=== PATIENT | female | born 1945 | race Caucasian/White ===

== ENCOUNTER 2017-01-20 18:33 | Emergency (ER) | payer OTHER ==
[~2017-01-20] VITALS: Ht 172.7 cm; Wt 97.0 kg
[~2017-01-20 18:33] MED LIST: ADDE20 PO; ADVA500A INH; ASPI-110 PO; CYCL1TAB29 PO; HYDR-3516 PO; IPRASOL NEB; LISI-519 PO; POTA-245 PO; SPIRCAP INH
[2017-01-20 18:35] VITALS: BP 150/77; PULSE 92; RESP 20; TEMP 97.8; O2SAT 97
== END 2017-01-20 22:04 | disposition left against medical advice (07) ==
LOC: NED 18:33
DX: R10.9 Unspecified abdominal pain (principal); Z53.29 Procedure and treatment not carried out because of patient's decision for other reasons
CPT/HCPCS: 99281

== ENCOUNTER 2017-02-26 15:38 | Emergency (ER) | payer MEDICAID, OTHER ==
[~2017-02-26] VITALS: Ht 172.7 cm; Wt 100.0 kg
[2017-02-26 15:42] VITALS: BP 168/88; PULSE 107; RESP 16; TEMP 98.6; O2SAT 95
--- NOTE | 2017-02-26 15:52 | PD ---
Physical Exam Date Seen by Provider: Feb 26, 2017 Time Seen by Provider: 15:48 Narrative Pt is a 71 year old female presenting to the ED for evaluation of facial spasms , heart flutters, right sided abdominal pain. Pt states the pain is a 8/10. She reports facial spasms in the past secondary to cancer. She was sent by her PCP Dr. Mike. She reports being incontinent of urine for the last week as well. Pt reports nausea, no vomiting. There are reported sores in her mouth as well that inhibit her putting her teeth in. Data Data Last Documented VS Vital Signs Date Time Temp Pulse Resp B/P Pulse Ox O2 Delivery O2 Flow Rate FiO2 02/26/17 15:42 98.6 107 16 168/88 95 MDM Supervised Visit with JUAN ANTONIO: Amelia Garduno Feb 26, 2017 15:51
[2017-02-26] MEDS ORDERED: SODIUM CHLOR 0.9% 1000 ML INJ 1,000 ML IV SCH (16:03)
[2017-02-26] MEDS ORDERED: ONDANSETRON HCL 4 MG/2 ML VIAL IVP ONE (16:15)
[2017-02-26] MEDS ORDERED: AMLO10TA2 PO (16:15)
[2017-02-26] MEDS ORDERED: MORPHINE SULFATE 4 MG/ML INJ IV PUSH ONE ×2 (16:15→20:30)
[2017-02-26] MEDS ORDERED: FLUT1INH INH (16:15)
[2017-02-26] MEDS ORDERED: UMEC1AER INH (16:16)
[2017-02-26 16:56] LABS: AUTOMATED NEUTROPHIL # 5.4 TH/MM3 (1.8-7.7); BASOPHIL % 0.3 % (0.0-2.0); EOSINOPHIL # 0.1 TH/MM3 (0-0.4); EOSINOPHIL % 0.8 % (0.0-4.0); HEMATOCRIT 38.6 % (35.0-46.0); HEMO FLAGS DIFF FINAL; LYMPH % 10.4 % (9.0-44.0); LYMPHOCYTE # 0.7 TH/MM3 (1.0-4.8); MEAN CELL VOLUME 85.8 FL (80.0-100.0); MEAN CORPUSCULAR HEMOGLOBIN 27.8 PG (27.0-34.0); MEAN CORPUSCULAR HGB CONC 32.4 % (32.0-36.0); MONO % 4.7 % (0.0-8.0); NEUT % 83.8 % (16.0-70.0); PLATELET COUNT 180 TH/MM3 (150-450); WHITE BLOOD COUNT 6.5 TH/MM3 (4.0-11.0)
[2017-02-26 17:04] LABS: APTT (PATIENT) 21.5 SEC (24.3-30.1); BLOOD, URINE NEG (NEG); COMMENT (UR) CULT NOT INDICATED; CULTURE IF INDICATED CULT NOT INDICATED; GLUCOSE,URINE NEG (NEG); HYALINE CAST, URINE 5 /lpf (RARE); INTERNATIONAL NORMALIZED RATIO 0.9 RATIO; KETONE, URINE NEG (NEG); NITRITE,URINE NEG (NEG); PROTHROMBIN TIME - PATIENT 9.6 SEC (9.8-11.6); SQUAMOUS EPITHELIAL CELL URINE 6 /hpf (0-5); URINE COLOR YELLOW (YELLW/STRAW)
--- NOTE | 2017-02-26 17:11 | PD ---
HPI Chief Complaint: Abdominal Pain Time Seen by Provider: 17:04 Travel History International Travel<30 days: No Contact w/Intl Traveler<30days: No Traveled to known affect area: No History of Present Illness HPI 71-year-old female that presents to the ED for evaluation of abdominal pain. Per patient she's had right lower quadrant pain for the past few days. Per patient she was seen at a hospital about 2 weeks ago and was diagnosed with diverticulitis. She was given medications for this. Per patient she went to see her doctor Dr. Mike today and was told to come here to the ED to get evaluated for this. Patient has also right-sided facial weakness and numbness which per patient is chronic for her. She does have a history of tremor to was removed on her right face and ever since she's been having difficulty with the right side. Patient gets muscle spasms on the right side of her face. Per patient he seemed to start again today. Per patient she has no sensation deficits were more like muscle spasms on her right side of her face which causes her difficulty to talk and move on her face. She states that she's also been having for the past 2 weeks incontinence of urine and bowel movements. She denies any chest pain or shortness of breath. Per patient she's had no injuries to her back. Per patient incontinence is new and is not constant however. She has to use a diaper because she doesn't feel like when the urine or bowel movements or going. She was sent here by her doctor for evaluation of this. Apparently also per Dr. Mike's note she's having right-sided weakness and numbness but she denies this. She does tell me that she has chronic lower leg numbness which has not changed from prior and she believes that her inbalance because of this. She states that her pain is 7 out of 10. Per patient the pain is sharp on the right lower quadrant. 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, LUPUS ) Psychiatric: No Reproductive: No Respiratory: Yes (COPD) Radiation Therapy: Yes Thyroid Disease: No Tetanus Vaccination: > 5 Years Influenza Vaccination: Yes Menopausal: Yes : 2 Para: 2 Miscarriage: 0 : 0 Tubal Ligation: Yes Past Surgical History Abdominal Surgery: Yes (TUMMY TUCK) Appendectomy: Yes Cholecystectomy: Yes Coronary Artery Bypass Graft: No Other Surgery: Yes (FACIAL SX FOR CA, BREAST REDUCTION) Family History Family Myocardial Infarction: Yes (mom, grandmother) Social History Alcohol Use: No Tobacco Use: Yes (QUIT PD HX) Substance Use: No Allergies-Medications (Allergen,Severity, Reaction): Coded Allergies: No Known Allergies (Verified , 02/26/17) Reported Meds & Prescriptions Reported Meds & Active Scripts Active Flagyl (Metronidazole) 500 Mg Tab 500 Mg PO Q8HR 10 Days Lortab (Hydrocodone-Acetaminophen) 5-325 Mg Tab 1 Tab PO Q6H PRN Reported Anoro Ellipta Inh (Umeclidinium/Vilanterol) 62.5-25 Mcg/Act Aero 1 Puff INH DAILY Amlodipine (Amlodipine Besylate) 10 Mg Tab 10 Mg PO DAILY Aspirin 81 (Aspirin) 81 Mg Tabdr 81 Mg PO DAILY Review of Systems Except as stated in HPI: all other systems reviewed are Neg Physical Exam Narrative GENERAL: SKIN: Warm and dry. HEAD: Atraumatic. Normocephalic. EYES: Pupils equal and round 4 mm right lung accommodation. No scleral icterus. No injection or drainage. ENT: No nasal bleeding or discharge. Mucous membranes pink and moist. Tongue is midline. No uvula deviation. Patient has chronic deformity to the right side of the face. Patient has what appears to be surgical scars. She does have some deficits to the right of the face with facial droop on the right side only. Left appears to be intact. NECK: Trachea midline. No JVD. CARDIOVASCULAR: Regular rate and rhythm. No murmurs, S3, S4. RESPIRATORY: No accessory muscle use. Clear to auscultation. Breath sounds equal bilaterally. GASTROINTESTINAL: Abdomen soft, non-tender, nondistended. Hepatic and splenic margins not palpable. MUSCULOSKELETAL: Extremities without clubbing, cyanosis, or edema. No obvious deformities. Full range of motion of the upper and lower extremities bilaterally. 2+ pulses bilaterally. Strength is 5 out of 5 bilaterally. Sensation intact bilaterally. No lumbar, thoracic, cervical spine tender to palpation. NEUROLOGICAL: Awake and alert. No obvious cranial nerve deficits. Motor grossly within normal limits. Five out of 5 muscle strength in the arms and legs. Normal speech. PSYCHIATRIC: Appropriate mood and affect; insight and judgment normal. Data Data Last Documented VS Orders Orders Electrocardiogram (02/26/17 16:03) Complete Blood Count With Diff (02/26/17 16:03) Comprehensive Metabolic Panel (02/26/17 16:03) Prothrombin Time / Inr (Pt) (02/26/17 16:03) Act Partial Throm Time (Ptt) (02/26/17 16:03) Urinalysis - C+S If Indicated (02/26/17 16:03) Magnesium (Mg) (02/26/17 16:03) Thyroid Stimulating Hormone (02/26/17 16:03) Ct Brain W/O Iv Contrast(Rout) (02/26/17 16:03) Ct Abd/Pel W Iv Contrast(Rout) (02/26/17 16:03) Iv Access Insert/Monitor (02/26/17 16:03) Ecg Monitoring (02/26/17 16:03) Oximetry (02/26/17 16:03) Lactic Acid (02/26/17 16:03) Morphine Inj (Morphine Inj) (02/26/17 16:15) Ondansetron Inj (Zofran Inj) (02/26/17 16:15) Sodium Chlor 0.9% 1000 Ml Inj (Ns 1000 M (02/26/17 16:03) Iohexol 350 Inj (Omnipaque 350 Inj) (02/26/17 18:12) Albuterol Neb (Albuterol Neb) (02/26/17 19:15) Chest, Single Ap (02/26/17 ) Morphine Inj (Morphine Inj) (02/26/17 20:30) Labs Laboratory Tests Test 02/26/17 16:35 White Blood Count 6.5 TH/MM3 Red Blood Count 4.50 MIL/MM3 Hemoglobin 12.5 GM/DL Hematocrit 38.6 % Mean Corpuscular Volume 85.8 FL Mean Corpuscular Hemoglobin 27.8 PG Mean Corpuscular Hemoglobin Concent 32.4 % Red Cell Distribution Width 15.0 % Platelet Count 180 TH/MM3 Mean Platelet Volume 8.4 FL Neutrophils (%) (Auto) 83.8 % Lymphocytes (%) (Auto) 10.4 % Monocytes (%) (Auto) 4.7 % Eosinophils (%) (Auto) 0.8 % Basophils (%) (Auto) 0.3 % Neutrophils # (Auto) 5.4 TH/MM3 Lymphocytes # (Auto) 0.7 TH/MM3 Monocytes # (Auto) 0.3 TH/MM3 Eosinophils # (Auto) 0.1 TH/MM3 Basophils # (Auto) 0.0 TH/MM3 CBC Comment DIFF FINAL Differential Comment Prothrombin Time 9.6 SEC Prothromb Time International Ratio 0.9 RATIO Activated Partial Thromboplast Time 21.5 SEC Urine Color YELLOW Urine Turbidity HAZY Urine pH 5.0 Urine Specific [place] 1.033 Urine Protein TRACE mg/dL Urine Glucose (UA) NEG mg/dL Urine Ketones NEG mg/dL Urine Occult Blood NEG Urine Nitrite NEG Urine Bilirubin NEG Urine Urobilinogen 2.0 MG/DL Urine Leukocyte Esterase MOD Urine WBC 3 /hpf Urine Squamous Epithelial Cells 6 /hpf Urine Hyaline Casts 5 /lpf Microscopic Urinalysis Comment CULT NOT INDICATED Blood Urea Nitrogen 16 MG/DL Creatinine 0.83 MG/DL Random Glucose 163 MG/DL Total Protein 6.7 GM/DL Albumin 3.4 GM/DL Calcium Level 8.0 MG/DL Magnesium Level 2.0 MG/DL Alkaline Phosphatase 91 U/L Aspartate Amino Transf (AST/SGOT) 32 U/L Alanine Aminotransferase (ALT/SGPT) 57 U/L Total Bilirubin 0.3 MG/DL Sodium Level 138 MEQ/L Potassium Level 4.0 MEQ/L Chloride Level 104 MEQ/L Carbon Dioxide Level 27.5 MEQ/L Anion Gap 7 MEQ/L Estimat Glomerular Filtration Rate 68 ML/MIN Lactic Acid Level 1.3 mmol/L Thyroid Stimulating Hormone 3rd Gen 0.239 uIU/ML MDM Medical Decision Making Medical Screen Exam Complete: Yes Emergency Medical Condition: Yes Medical Record Reviewed: Yes Interpretation(s) CBC & BMP Diagram 02/26/17 16:35 LFTs and lipase WNL UA negative Last Impressions Head CT 02/26/17 1603 Signed Impressions: Service Date/Time: Sunday, February 26, 2017 18:00 - CONCLUSION: 1. No acute intracranial abnormalities. Mucosal thickening in the right maxillary sinus. Eduardo Coughlin MD Abdomen/Pelvis CT 02/26/17 1603 Signed Impressions: Service Date/Time: Sunday, February 26, 2017 18:07 - CONCLUSION: 1. Postoperative appendectomy, cholecystectomy and hysterectomy. 2. Colonic diverticulosis without diverticulitis. No acute findings within the abdomen and pelvis. Fatty liver. 3. Moderate coronary calcifications. Eduardo Coughlin MD Chest X-Ray 02/26/17 0000 Signed Impressions: Service Date/Time: Sunday, February 26, 2017 19:46 - CONCLUSION: 1. No acute findings. Minimal basal atelectasis. Mild elevation right hemidiaphragm. Eduardo Couhglin MD Differential Diagnosis Acute chronic appears his stated failure versus TIA versus CVA versus neurological deficit versus diarrhea versus abdominal pain versus pancreatitis versus UTI versus urinary symptoms versus weakness Narrative Course 71-year-old female that presents to the ED for evaluation of weakness to the right side of the face as well as right lower quadrant abdominal pain. Patient was properly examined and was found to have signs and symptoms of unclear etiology at this time. There are facial droop and weakness appears to be chronic for her and she even tells us this. She is to stay on her feet but she attributes this to numbness that is chronic to her lower legs. Case was discussed in my attending who agrees with plan. Labs and imaging will be ordered. Labs and imaging were essentially unremarkable. EKG unremarkable. Case discussed in my attending Dr Degroot who evaluated the patient himself with me and who agrees with plan. Patient feels improved after morphine. At this time we'll treat for her pain with Lortab and Flagyl. Told to follow with PCP. See ED for any worsening symptoms. All questions were answered to the best of my ability. Diagnosis Primary Impression: Abdominal pain Patient Instructions: General Instructions Additional Instructions: Take medications as prescribed. Follow-up with PCP. See ED for any worsening symptoms. Do not drink or drive while taking pain medication. Apply ice or heat as needed for pain Med/Other Pt SpecificInfo: Prescription(s) given Scripts Metronidazole (Flagyl) 500 Mg Tab 500 MG PO Q8HR for Infection for 10 Days, TAB 0 Refills Prov: Sal Degroot MD 02/26/17 Hydrocodone-Acetaminophen (Lortab) 5-325 Mg Tab 1 TAB PO Q6H Y for PAIN, #20 TAB Prov: Sal Degroot MD 02/26/17 Disposition: 01 DISCHARGE HOME Condition: Stable Jamarcus Reyes Feb 26, 2017 17:11
[2017-02-26 17:23] LABS: ANION GAP 7 MEQ/L (5-15); AST (GOT) 32 U/L (15-37); BICARBONATE 27.5 MEQ/L (21.0-32.0); BLOOD UREA NITROGEN 16 MG/DL (7-18); CHLORIDE 104 MEQ/L (98-107); GLOMERULAR FILTRATION RATE 68 ML/MIN (>89); SODIUM (NA) 138 MEQ/L (136-145)
[2017-02-26 17:28] LABS: ALKALINE PHOSPHATASE 91 U/L (45-117); ALT (GPT) 57 U/L (10-53); TOTAL BILIRUBIN ADULT 0.3 MG/DL (0.2-1.0)
[2017-02-26] MEDS ORDERED: IOHEXOL 350 MG/ML 10 ML VIAL (for RAD DIAG) IV ONE (18:12)
--- NOTE | 2017-02-26 18:18 | RADRPT ---
EXAM DATE/TIME: 02/26/2017 18:00 [facility] COMPARISON: CT BRAIN W/O CONTRAST, May 20, 2016, 14:52. INDICATIONS : Patient complains of dizziness and feeling lethargic. RADIATION DOSE: 51.43 CTDIvol (mGy) MEDICAL HISTORY : Cardiovascular disease. Hypertension. Right parotid gland cancer SURGICAL HISTORY : Appendectomy. Cholecystectomy.Hysterectomy. ENCOUNTER: Initial ACUITY: 1 day PAIN SCALE: 3/10 LOCATION: cranial TECHNIQUE: Multiple contiguous axial images were obtained of the head. Using automated exposure control and adj ustment of the mA and/or kV according to patient size, radiation dose was kept as low as reasonably a chievable to obtain optimal diagnostic quality images. DICOM format image data is available electro nically for review and comparison. FINDINGS: CEREBRUM: The ventricles are normal for age. No evidence of midline shift, mass lesion, hemorrhage or acute in farction. No extra-axial fluid collections are seen. POSTERIOR FOSSA: The cerebellum and brainstem are intact. The 4th ventricle is midline. The cerebellopontine angle i s unremarkable. EXTRACRANIAL: The visualized portion of the orbits is intact. SKULL: The calvaria is intact. No evidence of skull fracture. CONCLUSION: 1. No acute intracranial abnormalities. Mucosal thickening in the right maxillary sinus. Eduardo Coguhlin MD on February 26, 2017 at 18:15 Board Certified Radiologist. This report was verified electronically.
--- NOTE | 2017-02-26 18:41 | RADRPT ---
EXAM DATE/TIME: 02/26/2017 18:07 [facility] COMPARISON: No previous studies available for comparison. INDICATIONS : Right lower quadrant pain. IV CONTRAST: 97 cc Omnipaque 350 (iohexol) IV ORAL CONTRAST: No oral contrast ingested. RADIATION DOSE: 15.61 CTDIvol (mGy) MEDICAL HISTORY : Cardiovascular disease. Congestive heart failure. Hypertension.Parotid gland cancer SURGICAL HISTORY : Appendectomy. Cholecystectomy.Hysterectomy. ENCOUNTER: Initial ACUITY: 2 days PAIN SCALE: 6/10 LOCATION: Right lower quadrant abdomen TECHNIQUE: Volumetric scanning of the abdomen and pelvis was performed. Using automated exposure control and ad justment of the mA and/or kV according to patient size, radiation dose was kept as low as reasonably achievable to obtain optimal diagnostic quality images. DICOM format image data is available electro nically for review and comparison. FINDINGS: Lung bases are clear except for minimal atelectasis. Fatty infiltration of the liver. Spleen, adrenal s, kidneys pancreas unremarkable. Previous cholecystectomy. No biliary ductal dilatation. There is no free fluid. No bowel obstruction. No adenopathy. There is colonic diverticulosis without evidence for diverticulitis. There is an elevated right hemidiaphragm. Moderate coronary artery calci fications are noted. Postoperative appendectomy. CONCLUSION: 1. Postoperative appendectomy, cholecystectomy and hysterectomy. 2. Colonic diverticulosis without diverticulitis. No acute findings within the abdomen and pelvis. Fa tty liver. 3. Moderate coronary calcifications. Eduardo Coughlin MD on February 26, 2017 at 18:35 Board Certified Radiologist. This report was verified electronically.
[2017-02-26 19:02] VITALS: BP 144/75; PULSE 108; RESP 20; O2SAT 95
[2017-02-26 19:40] VITALS: O2SAT 99
[2017-02-26] MEDS: RESP: ALBUTEROL 2.5 MG/3 ML NEB (SCH) INH (19:48)
--- NOTE | 2017-02-26 20:08 | RADRPT ---
EXAM DATE/TIME: 02/26/2017 19:46 [facility] COMPARISON: CHEST SINGLE AP, May 20, 2016, 14:29. INDICATIONS : Patient complains of cough and shortness of breath. MEDICAL HISTORY : Chronic obstructive pulmonary disease. Congestive heart failure. SURGICAL HISTORY : None. ENCOUNTER: Initial ACUITY: 1 week PAIN SCORE: 0/10 LOCATION: chest FINDINGS: A single view of the chest demonstrates the lungs to be symmetrically aerated without evidence of mas s, infiltrate or effusion. Minimal basal atelectasis. The cardiomediastinal contours are unremarkable . Osseous structures are intact. CONCLUSION: 1. No acute findings. Minimal basal atelectasis. Mild elevation right hemidiaphragm. Eduardo Coughlin MD on February 26, 2017 at 20:05 Board Certified Radiologist. This report was verified electronically.
--- NOTE | 2017-02-26 20:12 | PD ---
Data Data Last Documented VS Vital Signs Date Time Temp Pulse Resp B/P Pulse Ox O2 Delivery O2 Flow Rate FiO2 02/26/17 19:40 99 02/26/17 19:02 108 20 144/75 Room Air 02/26/17 15:42 98.6 Orders Electrocardiogram (02/26/17 16:03) Complete Blood Count With Diff (02/26/17 16:03) Comprehensive Metabolic Panel (02/26/17 16:03) Prothrombin Time / Inr (Pt) (02/26/17 16:03) Act Partial Throm Time (Ptt) (02/26/17 16:03) Urinalysis - C+S If Indicated (02/26/17 16:03) Magnesium (Mg) (02/26/17 16:03) Thyroid Stimulating Hormone (02/26/17 16:03) Ct Brain W/O Iv Contrast(Rout) (02/26/17 16:03) Ct Abd/Pel W Iv Contrast(Rout) (02/26/17 16:03) Iv Access Insert/Monitor (02/26/17 16:03) Ecg Monitoring (02/26/17 16:03) Oximetry (02/26/17 16:03) Lactic Acid (02/26/17 16:03) Morphine Inj (Morphine Inj) (02/26/17 16:15) Ondansetron Inj (Zofran Inj) (02/26/17 16:15) Sodium Chlor 0.9% 1000 Ml Inj (Ns 1000 M (02/26/17 16:03) Iohexol 350 Inj (Omnipaque 350 Inj) (02/26/17 18:12) Albuterol Neb (Albuterol Neb) (02/26/17 19:15) Chest, Single Ap (02/26/17 ) Morphine Inj (Morphine Inj) (02/26/17 20:30) Labs Laboratory Tests Test 02/26/17 16:35 White Blood Count 6.5 TH/MM3 Red Blood Count 4.50 MIL/MM3 Hemoglobin 12.5 GM/DL Hematocrit 38.6 % Mean Corpuscular Volume 85.8 FL Mean Corpuscular Hemoglobin 27.8 PG Mean Corpuscular Hemoglobin 32.4 % Concent Red Cell Distribution Width 15.0 % Platelet Count 180 TH/MM3 Mean Platelet Volume 8.4 FL Neutrophils (%) (Auto) 83.8 % Lymphocytes (%) (Auto) 10.4 % Monocytes (%) (Auto) 4.7 % Eosinophils (%) (Auto) 0.8 % Basophils (%) (Auto) 0.3 % Neutrophils # (Auto) 5.4 TH/MM3 Lymphocytes # (Auto) 0.7 TH/MM3 Monocytes # (Auto) 0.3 TH/MM3 Eosinophils # (Auto) 0.1 TH/MM3 Basophils # (Auto) 0.0 TH/MM3 CBC Comment DIFF FINAL Differential Comment Prothrombin Time 9.6 SEC Prothromb Time International 0.9 RATIO Ratio Activated Partial 21.5 SEC Thromboplast Time Urine Color YELLOW Urine Turbidity HAZY Urine pH 5.0 Urine Specific [place] 1.033 Urine Protein TRACE mg/dL Urine Glucose (UA) NEG mg/dL Urine Ketones NEG mg/dL Urine Occult Blood NEG Urine Nitrite NEG Urine Bilirubin NEG Urine Urobilinogen 2.0 MG/DL Urine Leukocyte Esterase MOD Urine WBC 3 /hpf Urine Squamous Epithelial 6 /hpf Cells Urine Hyaline Casts 5 /lpf Microscopic Urinalysis Comment CULT NOT INDICATED Sodium Level 138 MEQ/L Potassium Level 4.0 MEQ/L Chloride Level 104 MEQ/L Carbon Dioxide Level 27.5 MEQ/L Anion Gap 7 MEQ/L Blood Urea Nitrogen 16 MG/DL Creatinine 0.83 MG/DL Estimat Glomerular Filtration 68 ML/MIN Rate Random Glucose 163 MG/DL Lactic Acid Level 1.3 mmol/L Calcium Level 8.0 MG/DL Magnesium Level 2.0 MG/DL Total Bilirubin 0.3 MG/DL Aspartate Amino Transf 32 U/L (AST/SGOT) Alanine Aminotransferase 57 U/L (ALT/SGPT) Alkaline Phosphatase 91 U/L Total Protein 6.7 GM/DL Albumin 3.4 GM/DL Thyroid Stimulating Hormone 0.239 uIU/ML 3rd Gen MDM Supervised Visit with JUAN ANTONIO: Yes Narrative Course I, Dr. Degroot, have reviewed the advance practice practitioner's documentation and am in agreement, met with the patient face to face, made the diagnosis, and the medical decision making was done by me. *My assessment and Findings: Patient seen and examined by me in addition to Jamarcus Reyes PA-C. This is a 72-year-old female presents with her appropriate abdominal pain, coughing congestion. States that the cough is been going on for a long time and she sometimes has some left pain when coughing. Her abdominal exam is benign. Her chest exam is benign. Her workup for abdominal pain negative. Chest x-ray fairly unremarkable. The patient appears comfortable, she states that the right-sided weakness she has is chronic and nothing new. She would like to go home. I think this is reasonable this time, we'll provide pain management discussed need follow-up with primary care physician on Wednesday. Discussed return to ED criteria. Scripts Metronidazole (Flagyl)500 Mg Rry559 Mg PO Q8HR 10 Days Ref 0 Prov:Sal Degroot MD 02/26/17 Hydrocodone-Acetaminophen (Lortab)5-325 Mg Tab1 Tab PO Q6H PRN (PAIN) #20 TAB Prov:Sal Degroot MD 02/26/17 Disposition: 01 DISCHARGE HOME Condition: Stable Sal Degroot MD Feb 26, 2017 20:12
[2017-02-26] MEDS ORDERED: HYDR-3533 PO (21:04)
[2017-02-26] MEDS ORDERED: METR-1 PO (21:04)
--- NOTE | 2017-02-27 17:17 | EKG ---
Date Performed: 02/26/2017 Time Performed: 16:17:50 PTAGE: 71 years EKG: Sinus rhythm POSSIBLE RIGHT ATRIAL ENLARGEMENT POSSIBLE LEFT ATRIAL ENLARGEMENT BORDERLINE ECG Compared to prior tracing no significant change PREVIOUS TRACING : 05/20/2016 15.15 DOCTOR: Gilles Carpio Interpretating Date/Time 02/27/2017 17:15:36
== END 2017-02-26 22:10 | disposition home or self-care (01) ==
LOC: NEPE 15:38
DX: R10.9 Unspecified abdominal pain (principal); R53.1 Weakness; R10.31 Right lower quadrant pain; K57.90 Diverticulosis of intestine, part unspecified, without perforation or abscess without bleeding; K76.0 Fatty (change of) liver, not elsewhere classified; R32 Unspecified urinary incontinence; I11.0 Hypertensive heart disease with heart failure; I50.9 Heart failure, unspecified; J44.9 Chronic obstructive pulmonary disease, unspecified
CPT/HCPCS: 70450; 71010; 74177; 80053; 81001; 83605; 83735; 84443; 85025; 85610; 85730; 93005; 94640; 94664; 96374; 96375; 96376; 99285; J2270; J2405; J7613; Q9967

== ENCOUNTER 2017-04-13 04:12 | Emergency (ER) | payer OTHER ==
[~2017-04-13] VITALS: Ht 172.7 cm; Wt 93.0 kg
[~2017-04-13 04:12] MED LIST changes: -ADDE20 PO; -ADVA500A INH; +AMLO10TA2 PO; -CYCL1TAB29 PO; -HYDR-3516 PO; +HYDR-3533 PO; -IPRASOL NEB; -LISI-519 PO; +METR-1 PO; -POTA-245 PO; -SPIRCAP INH; +UMEC1AER INH
[2017-04-13 04:14] VITALS: BP 163/87; PULSE 112; RESP 19; TEMP 98.3; O2SAT 96
[2017-04-13 04:29] VITALS: RESP 19; O2SAT 99
[2017-04-13] MEDS ORDERED: ONDANSETRON HCL 4 MG/2 ML VIAL IV ONE (04:30)
--- NOTE | 2017-04-13 04:37 | PD ---
HPI Chief Complaint: Laceration/Skin Injury Time Seen by Provider: 04:25 Travel History International Travel<30 days: No Contact w/Intl Traveler<30days: No Traveled to known affect area: No History of Present Illness HPI The patient is a 72 year old female who presents to the [facility] emergency department with a history of reportedly getting up to go to the bathroom approximate 45 minutes prior to arrival which began to scratch her leg while sitting on the toilet. She reports that then she noticed that her dog was licking her leg. When she looked down she saw that a varicose vein was bleeding. She reports that she has had this in the past, however this time she was unable to stop the bleeding. The patient reports that she takes a low-dose aspirin daily. He denies being on any other blood thinners. The patient reports that after getting up off of the toilet she began to feel nauseated. She denies vomiting. She reports that she has been expressing chronic diarrhea for the last year. She also reports having intermittent muscle cramping. She reports recently she was diagnosed with congestive heart failure. She also reports that she is currently on antibiotic for a COPD exacerbation. On review of systems, the patient denies having any known recent fevers, worsening cough or congestion currently, neck pain, chest pain, shortness of breath, abdominal pain, urinary symptoms, or neurologic symptoms. 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 Arthritis: Yes Blood Disorders: No Anxiety: No Depression: No Heart Rhythm Problems: No Cancer: Yes (PAROTID GLAND IN RIGHT SIDE OF NECK) Cardiac Catheterization: No Cardiovascular Problems: Yes (HTN, MURMUR) High Cholesterol: No Chemotherapy: No Chest Pain: Yes Congestive Heart Failure: Yes COPD: Yes Diabetes: No Diminished Hearing: Yes ([place] RIGHT EAR) Endocrine: No Gastrointestinal Disorders: No Genitourinary: No Hypertension: Yes Immune Disorder: No Musculoskeletal: Yes Neurologic: Yes (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, LUPUS ) Psychiatric: No Reproductive: No Respiratory: Yes (COPD) Radiation Therapy: Yes Thyroid Disease: No Influenza Vaccination: Yes ?: Not Menopausal: Yes : 2 Para: 2 Miscarriage: 0 : 0 Tubal Ligation: Yes Past Surgical History Narrative Surgical The patient's past surgical history is significant for an abdominoplasty, appendectomy, cholecystectomy, facial surgery related to a parotid gland cancer , breast reduction. Abdominal Surgery: Yes (TUMMY TUCK) Appendectomy: Yes Cholecystectomy: Yes Coronary Artery Bypass Graft: No Other Surgery: Yes (FACIAL SX FOR CA, BREAST REDUCTION) Family History Family Myocardial Infarction: Yes (mom, grandmother) Social History Alcohol Use: No Tobacco Use: No (she has a prior history of smoking) Substance Use: No Allergies-Medications (Allergen,Severity, Reaction): Coded Allergies: No Known Allergies (Verified , 02/26/17) Reported Meds & Prescriptions Reported Meds & Active Scripts Active Flagyl (Metronidazole) 500 Mg Tab 500 Mg PO Q8HR 10 Days Lortab (Hydrocodone-Acetaminophen) 5-325 Mg Tab 1 Tab PO Q6H PRN Reported Anoro Ellipta Inh (Umeclidinium/Vilanterol) 62.5-25 Mcg/Act Aero 1 Puff INH DAILY Amlodipine (Amlodipine Besylate) 10 Mg Tab 10 Mg PO DAILY Aspirin 81 (Aspirin) 81 Mg Tabdr 81 Mg PO DAILY Review of Systems Except as stated in HPI: all other systems reviewed are Neg General / Constitutional: No: Fever Eyes: No: Visual changes HENT: No: Headaches Cardiovascular: No: Chest Pain or Discomfort Respiratory: No: Shortness of Breath Gastrointestinal: Positive: Nausea, Diarrhea, No: Vomiting, Abdominal Pain, Changes in Bowel Habits, Indigestion, Loss of Appetite Genitourinary: No: Dysuria Musculoskeletal: Positive: Myalgias, Cramping, No: Pain Skin: No Rash Neurologic: No: Weakness Psychiatric: No: Depression Endocrine: No: Polydipsia Hematologic/Lymphatic: No: Easy Bruising Physical Exam Narrative General: The patient is well-developed well-nourished female in no acute distress. Head and Neck exam: Head is normocephalic atraumatic. The patient has facial asymmetry related to her prior parotid gland resection and right facial droop Eyes: EOMI, pupils are equal round and reactive to light. Nose: Midline septum with pink mucous membranes Mouth: Dentition unremarkable. Moist mucus membranes. Posterior oropharynx is not erythematous. No tonsillar hypertrophy. Uvula midline. Airway patent. Neck: No palpable lymphadenopathy. No nuchal rigidity. No thyromegaly. Cardiovascular: Regular rate and rhythm with a 2/6 systolic murmur best audible at the second right intercostal space. No gallops or rubs Lungs: Clear to auscultation bilaterally. No wheezes, rhonchi, or rales. Abdomen: Soft, without tenderness to palpation in all 4 quadrants of the abdomen. No guarding, rebound, or rigidity. Normal bowel sounds are audible. No tenderness on palpation of McBurney's point. Negative Celaya sign. Extremities: No clubbing, cyanosis, or edema. 2+ pulses in all 4 extremities. No calf tenderness on palpation. The area of interest is bandaged along the left proximal calf. The dressing was gently removed. The patient had no active bleeding noted. The area of bleeding is now covered with a scab and is present along the medial aspect of the left leg overlying a small varicose vein. Back: No costovertebral angle tenderness to palpation. Neurologic Exam: Grossly nonfocal, history of right-sided facial droop related to a parotid cancer resection. Skin Exam: No rash noted. Intact skin that is warm and dry. Data Data Last Documented VS Vital Signs Date Time Temp Pulse Resp B/P (MAP) Pulse Ox O2 Delivery O2 Flow Rate FiO2 04/13/17 04:29 19 99 Room Air 04/13/17 04:18 112 04/13/17 04:14 98.3 163/87 (112) Orders Orders Electrocardiogram (04/13/17 04:27) Complete Blood Count With Diff (04/13/17 04:27) Basic Metabolic Panel (Bmp) (04/13/17 04:27) Prothrombin Time / Inr (Pt) (04/13/17 04:27) Act Partial Throm Time (Ptt) (04/13/17 04:27) Magnesium (Mg) (04/13/17 04:27) Iv Access Insert/Monitor (04/13/17 04:27) Ecg Monitoring (04/13/17 04:27) Oximetry (04/13/17 04:27) Ondansetron Inj (Zofran Inj) (04/13/17 04:30) Labs Laboratory Tests Test 04/13/17 04:35 White Blood Count 10.2 TH/MM3 Red Blood Count 4.37 MIL/MM3 Hemoglobin 11.9 GM/DL Hematocrit 36.5 % Mean Corpuscular Volume 83.5 FL Mean Corpuscular Hemoglobin 27.3 PG Mean Corpuscular Hemoglobin Concent 32.7 % Red Cell Distribution Width 16.8 % Platelet Count 260 TH/MM3 Mean Platelet Volume 9.1 FL Neutrophils (%) (Auto) 76.4 % Lymphocytes (%) (Auto) 14.4 % Monocytes (%) (Auto) 8.9 % Eosinophils (%) (Auto) 0.2 % Basophils (%) (Auto) 0.1 % Neutrophils # (Auto) 7.8 TH/MM3 Lymphocytes # (Auto) 1.5 TH/MM3 Monocytes # (Auto) 0.9 TH/MM3 Eosinophils # (Auto) 0.0 TH/MM3 Basophils # (Auto) 0.0 TH/MM3 CBC Comment DIFF FINAL Differential Comment Prothrombin Time 10.5 SEC Prothromb Time International Ratio 1.0 RATIO Activated Partial Thromboplast Time 21.8 SEC Blood Urea Nitrogen 26 MG/DL Creatinine 1.01 MG/DL Random Glucose 96 MG/DL Calcium Level 8.7 MG/DL Magnesium Level 2.2 MG/DL Sodium Level 140 MEQ/L Potassium Level 3.8 MEQ/L Chloride Level 106 MEQ/L Carbon Dioxide Level 27.4 MEQ/L Anion Gap 7 MEQ/L Estimat Glomerular Filtration Rate 54 ML/MIN MDM Medical Decision Making Medical Screen Exam Complete: Yes Emergency Medical Condition: Yes Medical Record Reviewed: Yes Differential Diagnosis Varicose vein bleeding, versus laceration, versus coagulopathy Narrative Course During the course of the patients emergency department visit, the patients history, examination, and differential diagnosis were reviewed with the patient. The patient had IV access obtained and blood work sent for analysis. The patient's placed on a surveillance system monitor with oximetry and blood pressure monitoring. The patient had her dressing removed that was placed by ambulance services. No active bleeding was noted. The patient had a bandage reapplied. The patient reports having nausea. The patient will be given Zofran 4 mg IV. The patients laboratory studies were reviewed and remarkable for a white count of 10.2, hemoglobin 11.9, platelets 260 with neutrophils 76.4, monocytes 8.9. Basic metabolic profile is remarkable for a BUN of 26, creatinine 1.01, magnesium 2.2. PT 10.5, PTT 21.8. During the patient's observation, the patient had no further recurrence of bleeding. The patient was instructed to continue to keep the area wrapped for the next 24 hours. Then she was instructed to gently removed the wrapping and apply a Band-Aid. The patient is resting comfortably and feels better, is alert and in no distress. The patients results and examination findings were discussed with the patient. The repeat examination is unremarkable and benign. The history, exam, diagnostic testing, and current condition do not suggest any significant pathology to warrant further testing, continued ED treatment, admission, or surgical evaluation at this point. The vital signs have been stable. The patient does not have uncontrollable pain, intractable vomiting, or other significant symptoms. The patient's condition is stable and appropriate for discharge. The patient will pursue further outpatient evaluation with a primary care physician or other designated or consulting physician as indicated in the discharge instructions. The patient expressed understanding and was agreeable with this plan. Diagnosis Primary Impression: Bleeding from varicose vein Referrals: Primary Care Physician 2 days Patient Instructions: General Instructions Med/Other Pt SpecificInfo: No Change to Meds Disposition: 01 DISCHARGE HOME Condition: Stable Tatianna Wolf MD Apr 13, 2017 04:37
[2017-04-13 04:47] LABS: AUTOMATED NEUTROPHIL # 7.8 TH/MM3 (1.8-7.7); BASOPHIL % 0.1 % (0.0-2.0); EOSINOPHIL % 0.2 % (0.0-4.0); HEMATOCRIT 36.5 % (35.0-46.0); HEMO FLAGS DIFF FINAL; LYMPH % 14.4 % (9.0-44.0); LYMPHOCYTE # 1.5 TH/MM3 (1.0-4.8); MEAN CELL VOLUME 83.5 FL (80.0-100.0); MEAN CORPUSCULAR HEMOGLOBIN 27.3 PG (27.0-34.0); MEAN CORPUSCULAR HGB CONC 32.7 % (32.0-36.0); MONO % 8.9 % (0.0-8.0); NEUT % 76.4 % (16.0-70.0); PLATELET COUNT 260 TH/MM3 (150-450); RED BLOOD COUNT 4.37 MIL/MM3 (4.00-5.30); RED CELL DISTRIBUTION WIDTH 16.8 % (11.6-17.2); WHITE BLOOD COUNT 10.2 TH/MM3 (4.0-11.0)
[2017-04-13 04:58] LABS: BICARBONATE 27.4 MEQ/L (21.0-32.0); MAGNESIUM 2.2 MG/DL (1.5-2.5); POTASSIUM 3.8 MEQ/L (3.5-5.1)
[2017-04-13 05:00] LABS: APTT (PATIENT) 21.8 SEC (24.3-30.1); PROTHROMBIN TIME - PATIENT 10.5 SEC (9.8-11.6)
[2017-04-13] MEDS ORDERED: methylPREDNISolone SOD SUCC 125 MG/2 ML VIAL IV PUSH ONE (05:45)
[2017-04-13] MEDS: RESP: ALBUTEROL 2.5 MG/IPRATROPIUM 0.5 MG NEB (SCH) INH (05:50)
--- NOTE | 2017-04-13 11:54 | EKG ---
Date Performed: 04/13/2017 Time Performed: 04:34:51 PTAGE: 72 years EKG: Sinus rhythm POSSIBLE RIGHT ATRIAL ENLARGEMENT BORDERLINE ECG Compared to prior tracing no significant change PREVIOUS TRACING : 02/26/2017 16.17 DOCTOR: Sahil Wolf Interpretating Date/Time 04/13/2017 11:52:49
== END 2017-04-13 07:15 | disposition home or self-care (01) ==
LOC: NEPC 04:12
DX: I83.899 Varicose veins of unspecified lower extremity with other complications (principal); I10 Essential (primary) hypertension; I50.9 Heart failure, unspecified; I35.0 Nonrheumatic aortic (valve) stenosis; J44.9 Chronic obstructive pulmonary disease, unspecified; M32.9 Systemic lupus erythematosus, unspecified
CPT/HCPCS: 80048; 83735; 85025; 85610; 85730; 93005; 94640; 94664; 96374; 96375; 99284; J2405; J2930

== ENCOUNTER 2017-05-02 18:24 | Observation (INO) | payer OTHER ==
[~2017-05-02 18:24] MED LIST changes: -METR-1 PO
[2017-05-02 18:27] VITALS: BP 158/98; PULSE 122; RESP 24; TEMP 97.8; O2SAT 95
--- NOTE | 2017-05-02 18:40 | PD ---
Physical Exam Time Seen by Provider: 18:38 Narrative 72-year-old female presents with complaint of heart palpitations and worsening of shortness of breath that started today. Reports chest pain. History of COPD. Dr. Mcleod is concerned that she has congestive heart failure. Patient seen in triage. Vital signs reviewed. Patient taken to medical bed. Data Data Last Documented VS Vital Signs Date Time Temp Pulse Resp B/P (MAP) Pulse Ox O2 Delivery O2 Flow Rate FiO2 05/02/17 18:27 97.8 122 24 158/98 (118) 95 MDM Supervised Visit with JUAN ANTONIO: Ema Graff May 02, 2017 18:40
[2017-05-02] MEDS ORDERED: DILT120T PO (18:52)
[2017-05-02] MEDS ORDERED: TIOT12.9 INH (18:54)
--- NOTE | 2017-05-02 19:20 | PD ---
HPI Chief Complaint: Cardiac Complaint Time Seen by Provider: 19:01 Travel History International Travel<30 days: No Contact w/Intl Traveler<30days: No Traveled to known affect area: No History of Present Illness HPI 72-year-old female that presents to the ED for evaluation of chest pain or shortness of breath. Per patient she's had this since 2 days now. Per patient shortness of breath is worse with exertion. She states that she has a history of COPD as well as CHF. Per patient the shortness of breath has been chronic but has worsened the past 2 days. Per patient she has some congestion and cough as well. She does have inhalers as prescribed. She also has a history of hypertension and a heart murmur. Per patient she had an exacerbation of her CHF in January at the [facility]. Patient at that time was told that she had an aortic stenosis in my require surgery at some point. She follows with Dr. Mcleod. She states that Dr. Mcleod has seen her in the past month and she had no symptoms at the time and no changes in medications. She states that the pain is pressure-like in 5 out of 10. Per patient this feels very similar to her previous CHF exacerbation. Per patient she takes no diuretics. Per patient is also noted that her blood pressure when she lays down is higher than when she stands up. Per patient she gets some dizzy. She denies any other medical issues. No allergies to medication. No abdominal pain. She also states that she has symptoms of dysuria and incontinence which has been ongoing since January. 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) Cardiac Catheterization: No Cardiovascular Problems: Yes High Cholesterol: No Chemotherapy: No Chest Pain: Yes Congestive Heart Failure: Yes COPD: Yes Diabetes: No Diminished Hearing: Yes ([facility] RIGHT EAR) Endocrine: No Gastrointestinal Disorders: No Genitourinary: No Hypertension: Yes Immune Disorder: No Musculoskeletal: Yes Neurologic: Yes (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, LUPUS ) Psychiatric: No Reproductive: No Respiratory: Yes Radiation Therapy: Yes Thyroid Disease: No Menopausal: Yes : 2 Para: 2 Miscarriage: 0 : 0 Tubal Ligation: Yes Past Surgical History Abdominal Surgery: Yes (YANIRA [facility]) Appendectomy: Yes Cholecystectomy: Yes Coronary Artery Bypass Graft: No Other Surgery: Yes (FACIAL SX FOR CA, BREAST REDUCTION) Family History Family Myocardial Infarction: Yes (mom, grandmother) Social History Alcohol Use: No Tobacco Use: No (she has a prior history of smoking) Substance Use: No Allergies-Medications (Allergen,Severity, Reaction): Coded Allergies: No Known Allergies (Verified , 05/02/17) Reported Meds & Prescriptions Reported Meds & Active Scripts Active Reported Spiriva Respimat Inh (Tiotropium Inh) 2.5 Mcg/Act Aero 2 Puff INH DAILY 2.5 mcg = 1 inhalation Diltiazem (Diltiazem HCl) 120 Mg Tab 120 Mg PO BID Aspirin 81 (Aspirin) 81 Mg Tabdr 81 Mg PO DAILY Review of Systems Except as stated in HPI: all other systems reviewed are Neg Physical Exam Narrative GENERAL: SKIN: Warm and dry. HEAD: Atraumatic. Normocephalic. EYES: Pupils equal and round. No scleral icterus. No injection or drainage. ENT: No nasal bleeding or discharge. Mucous membranes pink and moist. Tongue is midline. No uvula deviation. NECK: Trachea midline. No JVD. CARDIOVASCULAR: Regular rate and rhythm. No murmurs, S3, S4. RESPIRATORY: No accessory muscle use. Clear to auscultation. Breath sounds equal bilaterally. GASTROINTESTINAL: Abdomen soft, non-tender, nondistended. Hepatic and splenic margins not palpable. MUSCULOSKELETAL: Extremities without clubbing, cyanosis, or edema. No obvious deformities. Full range of motion of the upper and lower extremities bilaterally. 2+ pulses bilaterally. NEUROLOGICAL: Awake and alert. No obvious cranial nerve deficits. Motor grossly within normal limits. Five out of 5 muscle strength in the arms and legs. Normal speech. PSYCHIATRIC: Appropriate mood and affect; insight and judgment normal. Data Data Last Documented VS Vital Signs Date Time Temp Pulse Resp B/P (MAP) Pulse Ox O2 Delivery O2 Flow Rate FiO2 05/02/17 21:47 96 16 170/93 (118) 100 16 147/91 (109) 108 18 161/91 (114) 05/02/17 19:33 97 05/02/17 18:48 Room Air 05/02/17 18:27 97.8 Orders Orders Electrocardiogram (05/02/17 19:11) Complete Blood Count With Diff (05/02/17 19:11) Comprehensive Metabolic Panel (05/02/17 19:11) Ckmb (Isoenzyme) Profile (05/02/17 19:11) Troponin I (05/02/17 19:11) B-Type Natriuretic Peptide (05/02/17 19:11) Prothrombin Time / Inr (Pt) (05/02/17 19:11) Act Partial Throm Time (Ptt) (05/02/17 19:11) Urinalysis - C+S If Indicated (05/02/17 19:11) Magnesium (Mg) (05/02/17 19:11) Thyroid Stimulating Hormone (05/02/17 19:11) Chest, Single Ap (05/02/17 19:11) Iv Access Insert/Monitor (05/02/17 19:11) Ecg Monitoring (05/02/17 19:11) Oximetry (05/02/17 19:11) Orthostatic Vital Signs (05/02/17 19:11) CKMB (05/02/17 19:50) CKMB% (05/02/17 19:50) Ct Pulmonary Angiogram (05/02/17 ) Iohexol 350 Inj (Omnipaque 350 Inj) (05/02/17 21:23) Admit Order (Ed Use Only) (05/02/17 21:52) Activity Bed Rest With Brp (05/02/17 21:53) Vital Signs (Adult) Q4H (05/02/17 21:53) Cardiac Rhythm .As Directed (05/02/17 21:53) Notify Dr: Other .PRN (05/02/17 21:53) Notify DrRoly Parameters (05/02/17 21:53) Resp Oxygen Nasal Cannula (05/02/17 ) Diet Npo (05/03/17 Breakfast) Ckmb (Isoenzyme) Profile (05/02/17 22:50) Ckmb (Isoenzyme) Profile (05/03/17 01:50) Troponin I (05/02/17 22:50) Troponin I (05/03/17 01:50) Electrocardiogram (05/02/17 22:50) Electrocardiogram (05/03/17 01:50) ^ Obtain (05/02/17 21:53) Sodium Chloride 0.9% Flush (Ns Flush) (05/02/17 22:00) Sodium Chloride 0.9% Flush (Ns Flush) (05/03/17 09:00) Acetaminophen (Tylenol) (05/02/17 22:00) Ondansetron Inj (Zofran Inj) (05/02/17 22:00) Signaling Project Engineer / Telemetry CHOCO.Q8H (05/02/17 21:53) Labs Laboratory Tests Test 05/02/17 19:50 White Blood Count 7.3 TH/MM3 Red Blood Count 4.88 MIL/MM3 Hemoglobin 13.5 GM/DL Hematocrit 40.6 % Mean Corpuscular Volume 83.2 FL Mean Corpuscular Hemoglobin 27.7 PG Mean Corpuscular Hemoglobin Concent 33.3 % Red Cell Distribution Width 16.6 % Platelet Count 206 TH/MM3 Mean Platelet Volume 9.1 FL Neutrophils (%) (Auto) 72.8 % Lymphocytes (%) (Auto) 19.1 % Monocytes (%) (Auto) 6.6 % Eosinophils (%) (Auto) 0.9 % Basophils (%) (Auto) 0.6 % Neutrophils # (Auto) 5.3 TH/MM3 Lymphocytes # (Auto) 1.4 TH/MM3 Monocytes # (Auto) 0.5 TH/MM3 Eosinophils # (Auto) 0.1 TH/MM3 Basophils # (Auto) 0.0 TH/MM3 CBC Comment DIFF FINAL Differential Comment Prothrombin Time 9.7 SEC Prothromb Time International Ratio 0.9 RATIO Activated Partial Thromboplast Time 23.4 SEC Blood Urea Nitrogen 19 MG/DL Creatinine 0.87 MG/DL Random Glucose 102 MG/DL Total Protein 7.6 GM/DL Albumin 3.5 GM/DL Calcium Level 9.0 MG/DL Magnesium Level 2.1 MG/DL Alkaline Phosphatase 72 U/L Aspartate Amino Transf (AST/SGOT) 22 U/L Alanine Aminotransferase (ALT/SGPT) 47 U/L Total Bilirubin 0.4 MG/DL Sodium Level 141 MEQ/L Potassium Level 3.6 MEQ/L Chloride Level 106 MEQ/L Carbon Dioxide Level 27.2 MEQ/L Anion Gap 8 MEQ/L Estimat Glomerular Filtration Rate 64 ML/MIN Total Creatine Kinase 157 U/L Creatine Kinase MB 9.8 NG/ML Troponin I LESS THAN 0.02 NG/ML B-Type Natriuretic Peptide 32 PG/ML Thyroid Stimulating Hormone 3rd Gen 0.427 uIU/ML MDM Medical Decision Making Medical Screen Exam Complete: Yes Emergency Medical Condition: Yes Medical Record Reviewed: Yes Interpretation(s) EKG shows sinus tachycardia but no sign of acute disease. Read by me and attending. Troponin and CK-MB negative. BNP within normal limits. CXR negative CBC & BMP Diagram 05/02/17 19:50 Total Protein 7.6, Albumin 3.5, Calcium Level 9.0, Magnesium Level 2.1, Alkaline Phosphatase 72, Aspartate Amino Transf (AST/SGOT) 22, Alanine Aminotransferase (ALT/SGPT) 47, Total Bilirubin 0.4 CT pulm negative Differential Diagnosis Chest pain versus ACS versus COPD versus CHF versus UTI versus atrial fibrillation versus normal exam Narrative Course 72-year-old female that presents to the ED for evaluation of chest pain and shortness of breath. Patient was properly examined and was found to have signs and symptoms concerning for CHF exacerbation versus ACS. Labs and imaging were ordered. Labs and imaging showed no sign of acute disease. Patient still symptomatic. The patient is tachycardic. There is some concern for PE also appears to be less likely. I did discuss this in my attending who recommends CT angiogram. CT was done and was negative. Patient was reassured. Unclear to the chest and the shortness of breath. Her lungs appear to be clear at this time and there is no sign of CHF. Concern for ACS still present as she does have risk factors including personal history of heart disease. Recommendations for admission for the chest pain center. She agrees with this. She was admitted to chest pain center for further cardiac workup. Diagnosis Primary Impression: Chest pain in adult Admitting Information Admitting Physician Requests: Jamarcus Donohue May 02, 2017 19:20
[2017-05-02 19:33] VITALS: O2SAT 97
--- NOTE | 2017-05-02 19:35 | RADRPT ---
EXAM DATE/TIME: 05/02/2017 19:10 [facility] COMPARISON: CHEST SINGLE AP, February 26, 2017, 19:46. INDICATIONS : Shortness of breath, cough, and chest pressure and pain. MEDICAL HISTORY : Congestive heart failure. Chronic obstructive pulmonary disease. Heart murmur. SURGICAL HISTORY : None. ENCOUNTER: Initial ACUITY: 2 days PAIN SCORE: 5/10 LOCATION: Chest, midline. FINDINGS: A single view of the chest demonstrates basilar hypoaeration without evidence of mass, infiltrate or effusion. The cardiomediastinal contours are unremarkable. Osseous structures are intact. CONCLUSION: No acute disease. Vicente Freitas MD on May 02, 2017 at 19:33 Board Certified Radiologist. This report was verified electronically.
[2017-05-02 20:39] LABS: AUTOMATED NEUTROPHIL # 5.3 TH/MM3 (1.8-7.7); BASOPHIL % 0.6 % (0.0-2.0); EOSINOPHIL # 0.1 TH/MM3 (0-0.4); EOSINOPHIL % 0.9 % (0.0-4.0); HEMATOCRIT 40.6 % (35.0-46.0); HEMO FLAGS DIFF FINAL; LYMPH % 19.1 % (9.0-44.0); LYMPHOCYTE # 1.4 TH/MM3 (1.0-4.8); MEAN CELL VOLUME 83.2 FL (80.0-100.0); MEAN CORPUSCULAR HEMOGLOBIN 27.7 PG (27.0-34.0); MEAN CORPUSCULAR HGB CONC 33.3 % (32.0-36.0); MONO % 6.6 % (0.0-8.0); NEUT % 72.8 % (16.0-70.0); PLATELET COUNT 206 TH/MM3 (150-450); RED BLOOD COUNT 4.88 MIL/MM3 (4.00-5.30); RED CELL DISTRIBUTION WIDTH 16.6 % (11.6-17.2); WHITE BLOOD COUNT 7.3 TH/MM3 (4.0-11.0)
[2017-05-02 20:46] LABS: APTT (PATIENT) 23.4 SEC (24.3-30.1); INTERNATIONAL NORMALIZED RATIO 0.9 RATIO; PROTHROMBIN TIME - PATIENT 9.7 SEC (9.8-11.6)
[2017-05-02 20:49] LABS: ANION GAP 8 MEQ/L (5-15); AST (GOT) 22 U/L (15-37); BICARBONATE 27.2 MEQ/L (21.0-32.0); BLOOD UREA NITROGEN 19 MG/DL (7-18); CHLORIDE 106 MEQ/L (98-107); GLOMERULAR FILTRATION RATE 64 ML/MIN (>89); MAGNESIUM 2.1 MG/DL (1.5-2.5); POTASSIUM 3.6 MEQ/L (3.5-5.1); SODIUM (NA) 141 MEQ/L (136-145)
[2017-05-02 21:00] LABS: ALKALINE PHOSPHATASE 72 U/L (45-117); ALT (GPT) 47 U/L (10-53); CREATINE KINASE 157 U/L (26-192); TOTAL BILIRUBIN ADULT 0.4 MG/DL (0.2-1.0)
[2017-05-02 21:13] LABS: CKMB 9.8 NG/ML (0.5-3.6)
[2017-05-02] MEDS ORDERED: IOHEXOL 350 MG/ML 10 ML VIAL (for RAD DIAG) IVCONTRAST ONE (21:23)
--- NOTE | 2017-05-02 21:41 | RADRPT ---
EXAM DATE/TIME: 05/02/2017 21:12 [facility] COMPARISON: No previous studies available for comparison. INDICATIONS : Dypnea; rule out pulmonary embolus. IV CONTRAST: 75 cc Omnipaque 350 (iohexol) IV RADIATION DOSE: 24.55 CTDIvol (mGy) MEDICAL HISTORY : Cardiovascular disease. Congestive heart failure. Chronic obstructive pulmonary disease.parotid gland cancer SURGICAL HISTORY : Appendectomy. Cholecystectomy.Hysterectomy.Breast reduction ENCOUNTER: Initial ACUITY: 1 day PAIN SCALE: 0/10 LOCATION: chest TECHNIQUE: Volumetric scanning of the chest was performed using a pulmonary embolism protocol MIP images were re constructed. Using automated exposure control and adjustment of the mA and/or kV according to patien t size, radiation dose was kept as low as reasonably achievable to obtain optimal diagnostic quality images. DICOM format image data is available electronically for review and comparison. Follow-up recommendations for detected pulmonary nodules are based at a minimum on nodule size and pa tient risk factors according to Fleischner Society Guidelines. FINDINGS: PULMONARY ARTERIES: No filling defects are seen in the pulmonary arteries through the segmental level. LUNGS: There is no consolidation or pneumothorax . No concerning pulmonary nodule is visualized. PLEURAE: There is no pleural thickening or pleural effusion. MEDIASTINUM: There is good visualization of the great vessels of the middle mediastinum. No evidence of mediastin al or hilar adenopathy/mass. MUSCULOSKELETAL: Within normal limits for patient age. MISCELLANEOUS: The visualized upper abdominal organs demonstrate no acute abnormality. CONCLUSION: No acute disease. No evidence of pulmonary embolism. Vicente Freitas MD on May 02, 2017 at 21:37 Board Certified Radiologist. This report was verified electronically.
[2017-05-02 21:47] VITALS: BP_SYST 161; BP_SYST 170; BP_DIAS 91; BP_DIAS 93; RESP 18
[2017-05-02] MEDS ORDERED: SODIUM CHLORIDE 0.9% FLUSH 10 ML FLUSH IV FLUSH PRN (22:00)
[2017-05-02] MEDS ORDERED: ONDANSETRON HCL 4 MG/2 ML VIAL IV PUSH PRN (22:00)
[2017-05-02] MEDS ORDERED: ACETAMINOPHEN 500 MG CPLT PO PRN (22:00)
[2017-05-02 22:20] VITALS: O2SAT 97
[2017-05-02 23:18] VITALS: BP 157/97; PULSE 100; PULSE 104; RESP 17; TEMP 98; O2SAT 97
[2017-05-02 23:21] LABS: CREATINE KINASE 124 U/L (26-192)
[2017-05-02 23:25] VITALS: BP 163/74
[2017-05-02 23:34] LABS: CKMB 7.4 NG/ML (0.5-3.6)
[2017-05-03] MEDS ORDERED: TEMAZEPAM 15 MG CAP PO PRN (01:45)
[2017-05-03] MEDS ORDERED: MORPHINE SULFATE 2 MG/ML INJ IV PRN (01:45)
[2017-05-03 03:18] LABS: CREATINE KINASE 121 U/L (26-192)
[2017-05-03 03:32] LABS: CKMB 6.1 NG/ML (0.5-3.6)
[2017-05-03 03:34] VITALS: PULSE 82
[2017-05-03] MEDS: RESP: ALBUTEROL 2.5 MG/3 ML NEB (PRN) INH ×2 (03:36→11:47)
[2017-05-03 03:54] VITALS: BP 121/67; PULSE 82; RESP 20; TEMP 96.4; O2SAT 92
[2017-05-03 07:08] VITALS: BP 114/68; PULSE 82; RESP 16; TEMP 98; O2SAT 93
[2017-05-03 07:26] VITALS: PULSE 80
[2017-05-03] MEDS ORDERED: ACETAMINOPHEN 500 MG CPLT PO PRN (08:00)
[2017-05-03] MEDS ORDERED: NITROGLYCERIN 0.4 MG SL 25 TABS/BTL SL PRN (08:00)
[2017-05-03] MEDS ORDERED: ASPIRIN 325 MG TAB PO SCH (09:00)
[2017-05-03] MEDS ORDERED: SODIUM CHLORIDE 0.9% FLUSH 10 ML FLUSH IV FLUSH SCH (09:00)
--- NOTE | 2017-05-03 10:31 | HHI.HP ---
HPI Primary Care Physician Willian Mike MD Chief Complaint SOB AND CHEST PAIN History of Present Illness 72 YO lady with a known history of COPD, CHF, VHD, and HTN who has noted increasing SOB over the last month or so increasing over the last several days. She awoke Wednesday morning to increasing SOB and a sense of someone sitting on her chest. Her heart was fluttering at a fast rate and she began to develop sharp stabbing pain in her chest as well. No sig radiation but described as a 5 /10. She felt SOB, some nausea and one episode of near syncope. Since arrival to ED her SOB has improved and CP largly resolved. Onset: Sun AM Character: Heaviness plus grabbing pain Location: mid chest Severity: 5/10 Radiation: No Duration: Hours Associated Symptoms: SOB, Nausea, dizziness Precipitating or Relieving Factors: No Review of Systems ROS Limitations: Clinical Condition Consitutional: COMPLAINS OF: Fatigue HEENT: COMPLAINS OF: Lightheadedness, Change in hearing Respiratory: COMPLAINS OF: See HPI, Shortness of breath Cardiovascular: COMPLAINS OF: See HPI, Chest pain, Palpitations, Tachycardia Gastrointestinal: COMPLAINS OF: Nausea Genitourinary: COMPLAINS OF: Urinary incontinence Psychiatric: COMPLAINS OF: Sleep disturbances 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 Past Family Social History Allergies: Coded Allergies: No Known Allergies (Verified , 05/02/17) Past Medical History COPD Sleep Apnea Past Surgical History Appendix 1970 Juhi arreola 1984 Breast reduction 1987 Parotid gland removed 2003 Cholecystectomy 2012 Reported Medications Reported Meds & Active Scripts Active Reported Spiriva Respimat Inh (Tiotropium Inh) 2.5 Mcg/Act Aero 2 Puff INH DAILY 2.5 mcg = 1 inhalation Diltiazem (Diltiazem HCl) 120 Mg Tab 120 Mg PO BID Aspirin 81 (Aspirin) 81 Mg Tabdr 81 Mg PO DAILY Active Ordered Medications Current Medications Medications (Trade) Dose Ordered Sig/Alissa Route Start Time Stop Time Status Last Admin (NS Flush) 2 ml UNSCH PRN IV FLUSH 05/02/17 22:00 (NS Flush) 2 ml BID IV FLUSH 05/03/17 09:00 (Zofran Inj) 4 mg Q6H PRN IV PUSH 05/02/17 22:00 (Morphine Inj) 2 mg Q4H PRN IV 05/03/17 01:45 05/03/17 03:25 (Restoril) 15 mg HS PRN PO 05/03/17 01:45 (Albuterol Neb) 2.5 mg Q4HR NEB PRN INH 05/03/17 01:45 05/03/17 03:36 (Tylenol) 500 mg Q4H PRN PO 05/03/17 08:00 (Nitrostat Sl) 0.4 mg Q5M PRN SL 05/03/17 08:00 (Aspirin) 325 mg DAILY PO 05/03/17 09:00 Family History Mother dies CVA Father unknown 1 sister heart trouble Social History 50 pack years but stopped 10 years ago no alcohol or illicit drugs Physical Exam Vital Signs Vital Signs Date Time Temp Pulse Resp B/P (MAP) Pulse Ox O2 Delivery O2 Flow Rate FiO2 05/03/17 07:26 80 05/03/17 07:08 98.0 82 16 114/68 (83) 93 05/03/17 03:54 96.4 82 20 121/67 (85) 92 05/03/17 03:35 21 05/03/17 03:34 82 05/02/17 23:25 98 16 163/74 (103) 96 05/02/17 23:18 98.0 104 17 157/97 (117) 97 05/02/17 23:18 100 05/02/17 22:20 97 05/02/17 21:47 96 16 170/93 (118) 100 16 147/91 (109) 108 18 161/91 (114) 05/02/17 19:33 97 05/02/17 18:48 106 36 97 Room Air 05/02/17 18:27 97.8 122 24 158/98 (118) 95 Physical Exam GENERAL: Obese talkative but rambling and in no distress SKIN: Warm and dry. HEAD: Atraumatic. Normocephalic. Extensive scarring from removal of R parotid tumor. EYES: Pupils equal and round. Bilateral cataracts. No scleral icterus. No injection or drainage. EOMI ENT: No nasal bleeding or discharge. Mucous membranes pink and moist. Upper plate in place lower missing with few remaining teeth NECK: Trachea midline. No JVD. Scarring right neck from surgery CARDIOVASCULAR: Irregular rhythm. PMI not palp. 2/6 systolic ejection murmur. No gallop. RESPIRATORY: No accessory muscle use. Crepitice R base. Breath sounds equal bilaterally. Scarring inf to both breasts. GASTROINTESTINAL: Abdomen soft, non-tender, nondistended. Hepatic and splenic margins not palpable. Scars RUQ from laparoscopic Surg. MUSCULOSKELETAL: Extremities without clubbing, cyanosis, or edema. No obvious deformities. NEUROLOGICAL: Awake and alert. R facial paralysis. Motor grossly within normal limits. Five out of 5 muscle strength in the arms and legs. Normal speech. PSYCHIATRIC: Appropriate mood and affect; insight and judgment normal. Laboratory Laboratory Tests Test 05/02/17 19:50 05/02/17 22:40 05/03/17 02:10 White Blood Count 7.3 Red Blood Count 4.88 Hemoglobin 13.5 Hematocrit 40.6 Mean Corpuscular Volume 83.2 Mean Corpuscular Hemoglobin 27.7 Mean Corpuscular Hemoglobin Concent 33.3 Red Cell Distribution Width 16.6 Platelet Count 206 Mean Platelet Volume 9.1 Neutrophils (%) (Auto) 72.8 Lymphocytes (%) (Auto) 19.1 Monocytes (%) (Auto) 6.6 Eosinophils (%) (Auto) 0.9 Basophils (%) (Auto) 0.6 Neutrophils # (Auto) 5.3 Lymphocytes # (Auto) 1.4 Monocytes # (Auto) 0.5 Eosinophils # (Auto) 0.1 Basophils # (Auto) 0.0 CBC Comment DIFF FINAL Differential Comment Prothrombin Time 9.7 Prothromb Time International Ratio 0.9 Activated Partial Thromboplast Time 23.4 Blood Urea Nitrogen 19 Creatinine 0.87 Random Glucose 102 Total Protein 7.6 Albumin 3.5 Calcium Level 9.0 Magnesium Level 2.1 Alkaline Phosphatase 72 Aspartate Amino Transf (AST/SGOT) 22 Alanine Aminotransferase (ALT/SGPT) 47 Total Bilirubin 0.4 Sodium Level 141 Potassium Level 3.6 Chloride Level 106 Carbon Dioxide Level 27.2 Anion Gap 8 Estimat Glomerular Filtration Rate 64 Total Creatine Kinase 157 124 121 Creatine Kinase MB 9.8 7.4 6.1 Troponin I LESS THAN 0.02 LESS THAN 0.02 LESS THAN 0.02 B-Type Natriuretic Peptide 32 Thyroid Stimulating Hormone 3rd Gen 0.427 Result Diagram: 05/02/17 1950 05/02/171949 Caprini VTE Risk Assessment Caprini VTE Risk Assessment: No/Low Risk (score <= 1) Caprini Risk Assessment Model Point Value = 1 Point Value = 2 Point Value = 3 Point Value = 5 Age 41-60 Minor surgery BMI > 25 kg/m2 Swollen legs Varicose veins or History of unexplained or recurrent spontaneous Oral contraceptives or hormone replacement Sepsis (< 1 month) Serious lung disease, including pneumonia (< 1 month) Abnormal pulmonary function Acute myocardial infarction Congestive heart failure (< 1 month) History of inflammatory bowel disease Medical patient at bed rest Age 61-74 Arthroscopic surgery Major open surgery (> 45 min) Laparoscopic surgery (> 45 min) Malignancy Confined to bed (> 72 hours) Immobilizing plaster cast Central venous access Age >= 75 History of VTE Family history of VTE Factor V Leiden Prothrombin [id number] Lupus anticoagulant Anticardiolipin antibodies Elevated serum homocysteine Heparin-induced thrombocytopenia Other congenital or acquired thrombophilia Stroke (< 1 month) Elective arthroplasty Hip, pelvis, or leg fracture Acute spinal cord injury (< 1 month) Prophylaxis Regimen Total Risk Factor Score Risk Level Prophylaxis Regimen 0-1 Low Early ambulation 2 Moderate Order ONE of the following: *Sequential Compression Device (SCD) *Heparin 5000 units SQ BID 3-4 Higher Order ONE of the following medications: *Heparin 5000 units SQ TID *Enoxaparin/Lovenox 40 mg SQ daily (WT < 150 kg, CrCl > 30 mL/min) *Enoxaparin/Lovenox 30 mg SQ daily (WT < 150 kg, CrCl > 10-29 mL/min) *Enoxaparin/Lovenox 30 mg SQ BID (WT < 150 kg, CrCl > 30 mL/min) AND/OR *Sequential Compression Device (SCD) 5 or more Highest Order ONE of the following medications: *Heparin 5000 units SQ TID (Preferred with Epidurals) *Enoxaparin/Lovenox 40 mg SQ daily (WT < 150 kg, CrCl > 30 mL/min) *Enoxaparin/Lovenox 30 mg SQ daily (WT < 150 kg, CrCl > 10-29 mL/min) *Enoxaparin/Lovenox 30 mg SQ BID (WT < 150 kg, CrCl > 30 mL/min) AND *Sequential Compression Device (SCD) Assessment and Plan Problem List: (1) Blurred vision, bilateral ICD Codes: H53.8 - Other visual disturbances Status: Chronic (2) COPD (chronic obstructive pulmonary disease) ICD Codes: J44.9 - Chronic obstructive pulmonary disease, unspecified Status: Chronic (3) Atypical chest pain ICD Codes: R07.89 - Other chest pain Status: Acute (4) 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
--- NOTE | 2017-05-03 10:39 | PD.CARD.PN ---
Subjective Subjective Remarks Discussed with Dr. Mcleod who knows patient well. He requests that she FU as OP in his office as soon as she R/O for ACS. She will be discharged with no changes in meds to F/U with him this week. Objective Medications Current Medications Medications (Trade) Dose Ordered Sig/Alissa Route Start Time Stop Time Status Last Admin (NS Flush) 2 ml UNSCH PRN IV FLUSH 05/02/17 22:00 (NS Flush) 2 ml BID IV FLUSH 05/03/17 09:00 (Zofran Inj) 4 mg Q6H PRN IV PUSH 05/02/17 22:00 (Morphine Inj) 2 mg Q4H PRN IV 05/03/17 01:45 05/03/17 03:25 (Restoril) 15 mg HS PRN PO 05/03/17 01:45 (Albuterol Neb) 2.5 mg Q4HR NEB PRN INH 05/03/17 01:45 05/03/17 03:36 (Tylenol) 500 mg Q4H PRN PO 05/03/17 08:00 (Nitrostat Sl) 0.4 mg Q5M PRN SL 05/03/17 08:00 (Aspirin) 325 mg DAILY PO 05/03/17 09:00 Vital Signs / I&O Vital Signs Date Time Temp Pulse Resp B/P (MAP) Pulse Ox O2 Delivery O2 Flow Rate FiO2 05/03/17 07:26 80 05/03/17 07:08 98.0 82 16 114/68 (83) 93 05/03/17 03:54 96.4 82 20 121/67 (85) 92 05/03/17 03:35 21 05/03/17 03:34 82 05/02/17 23:25 98 16 163/74 (103) 96 05/02/17 23:18 98.0 104 17 157/97 (117) 97 05/02/17 23:18 100 05/02/17 22:20 97 05/02/17 21:47 96 16 170/93 (118) 100 16 147/91 (109) 108 18 161/91 (114) 05/02/17 19:33 97 05/02/17 18:48 106 36 97 Room Air 05/02/17 18:27 97.8 122 24 158/98 (118) 95 Laboratory Laboratory Tests Test 05/02/17 19:50 05/02/17 22:40 05/03/17 02:10 White Blood Count 7.3 TH/MM3 Red Blood Count 4.88 MIL/MM3 Hemoglobin 13.5 GM/DL Hematocrit 40.6 % Mean Corpuscular Volume 83.2 FL Mean Corpuscular Hemoglobin 27.7 PG Mean Corpuscular Hemoglobin Concent 33.3 % Red Cell Distribution Width 16.6 % Platelet Count 206 TH/MM3 Mean Platelet Volume 9.1 FL Neutrophils (%) (Auto) 72.8 % Lymphocytes (%) (Auto) 19.1 % Monocytes (%) (Auto) 6.6 % Eosinophils (%) (Auto) 0.9 % Basophils (%) (Auto) 0.6 % Neutrophils # (Auto) 5.3 TH/MM3 Lymphocytes # (Auto) 1.4 TH/MM3 Monocytes # (Auto) 0.5 TH/MM3 Eosinophils # (Auto) 0.1 TH/MM3 Basophils # (Auto) 0.0 TH/MM3 CBC Comment DIFF FINAL Differential Comment Prothrombin Time 9.7 SEC Prothromb Time International Ratio 0.9 RATIO Activated Partial Thromboplast Time 23.4 SEC Blood Urea Nitrogen 19 MG/DL Creatinine 0.87 MG/DL Random Glucose 102 MG/DL Total Protein 7.6 GM/DL Albumin 3.5 GM/DL Calcium Level 9.0 MG/DL Magnesium Level 2.1 MG/DL Alkaline Phosphatase 72 U/L Aspartate Amino Transf (AST/SGOT) 22 U/L Alanine Aminotransferase (ALT/SGPT) 47 U/L Total Bilirubin 0.4 MG/DL Sodium Level 141 MEQ/L Potassium Level 3.6 MEQ/L Chloride Level 106 MEQ/L Carbon Dioxide Level 27.2 MEQ/L Anion Gap 8 MEQ/L Estimat Glomerular Filtration Rate 64 ML/MIN Total Creatine Kinase 157 U/L 124 U/L 121 U/L Creatine Kinase MB 9.8 NG/ML 7.4 NG/ML 6.1 NG/ML Troponin I LESS THAN 0.02 NG/ML LESS THAN 0.02 NG/ML LESS THAN 0.02 NG/ML B-Type Natriuretic Peptide 32 PG/ML Thyroid Stimulating Hormone 3rd Gen 0.427 uIU/ML Imaging Last 24 hours Impressions Chest X-Ray 05/02/17 1911 Signed Impressions: Service Date/Time: Tuesday, May 02, 2017 19:10 - CONCLUSION: No acute disease. 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
--- NOTE | 2017-05-03 10:44 | EKG ---
Date Performed: 05/03/2017 Time Performed: 02:17:17 PTAGE: 72 years EKG: Sinus rhythm NORMAL ECG PREVIOUS TRACING : 05/02/2017 19.50 DOCTOR: Gilles Carpio Interpretating Date/Time 05/03/2017 10:43:38
--- NOTE | 2017-05-03 10:45 | EKG ---
Date Performed: 05/02/2017 Time Performed: 22:42:04 PTAGE: 72 years EKG: SINUS TACHYCARDIA POSSIBLE RIGHT ATRIAL ENLARGEMENT POSSIBLE LEFT ATRIAL ENLARGEMENT ABNORM AL RHYTHM ECG NO SIG CHANGE NO PREVIOUS TRACING DOCTOR: Gilles Carpio Interpretating Date/Time 05/03/2017 10:44:56
--- NOTE | 2017-05-03 10:46 | EKG ---
Date Performed: 05/02/2017 Time Performed: 19:50:33 PTAGE: 72 years EKG: SINUS TACHYCARDIA POSSIBLE LEFT ATRIAL ENLARGEMENT ABNORMAL RHYTHM ECG NO SIG CHANGE PREVIOUS TRACING : 04/13/2017 04.34 DOCTOR: Gilles Carpio Interpretating Date/Time 05/03/2017 10:45:40
--- NOTE | 2017-05-03 11:43 | HHI.DCPOC ---
Discharge Care Plan Diagnosis: (1) Atypical chest pain (2) Aortic stenosis, moderate (3) COPD (chronic obstructive pulmonary disease) (4) Blurred vision, bilateral Goals to Promote Your Health * To prevent worsening of your condition and complications * To maintain your health at the optimal level Directions to Meet Your Goals Take your medications as prescribed Follow your dietary instruction Follow activity as directed Keep your appointments as scheduled Take your immunizations and boosters as scheduled If your symptoms worsen call your PCP, if no PCP go to Urgent Care Center or Emergency Room Smoking is Dangerous to Your Health. Avoid second hand smoke Call the 24-hour hour crisis hotline for domestic abuse at Rowena León May 03, 2017 11:43
[2017-05-03] MEDS ORDERED: DILTIAZEM HCL 60 MG TAB PO SCH (12:00)
[2017-05-03] MEDS ORDERED: methylPREDNISolone SOD SUCC 125 MG/2 ML VIAL IV PUSH ONE (13:00)
[2017-05-03 13:29] VITALS: BP 116/64; PULSE 96; RESP 16; TEMP 98.2; O2SAT 97
== END 2017-05-03 15:50 | disposition home or self-care (01) ==
LOC: NEPC 18:24 → NEDA 21:54 → NEPFCDU 23:10
PROVIDERS: ADMIT Internal Medicine Interventional Cardiology; ATTEND Internal Medicine Interventional Cardiology
DX: R07.89 Other chest pain (principal); I35.0 Nonrheumatic aortic (valve) stenosis; J44.9 Chronic obstructive pulmonary disease, unspecified; H53.8 Other visual disturbances; H35.3290 Exudative age-related macular degeneration, unspecified eye, stage unspecified; I11.0 Hypertensive heart disease with heart failure; R06.02 Shortness of breath; I50.9 Heart failure, unspecified; G47.30 Sleep apnea, unspecified; H91.91 Unspecified hearing loss, right ear; R00.0 Tachycardia, unspecified; Z87.891 Personal history of nicotine dependence; Z79.899 Other long term (current) drug therapy; Z79.82 Long term (current) use of aspirin
CPT/HCPCS: 71010; 71275; 80053; 82550; 82552; 83735; 83880; 84443; 84484; 85025; 85610; 85730; 93005; 94640; 94664; 96374; G0378; J2270; J2930; J7613; Q9967

== ENCOUNTER 2017-05-11 10:46 | Day surgery (SDC) | payer OTHER ==
[~2017-05-11] VITALS: Ht 172.7 cm; Wt 98.7 kg
[~2017-05-11 10:46] MED LIST changes: -AMLO10TA2 PO; +DILT120T PO; -HYDR-3533 PO; +TIOT12.9 INH; -UMEC1AER INH
[2017-05-11] MEDS ORDERED: IOHEXOL 350 MG/ML 100 ML BTL (for Cath Lab) OTHER ONE (10:47)
[2017-05-11] MEDS ORDERED: IOHEXOL 350 MG/ML 50 ML BTL (for Cath Lab) OTHER ONE (10:47)
[2017-05-11] MEDS ORDERED: NS 1000P @30 MLS/HR (KVO) IV SCH (11:00)
[2017-05-11] MEDS ORDERED: UMEC1AER INH (11:42)
[2017-05-11] MEDS ORDERED: ISOS30TA3 PO (11:42)
[2017-05-11] MEDS ORDERED: OXYC1TAB63 PO (11:42)
[2017-05-11] MEDS ORDERED: VENTAER INH (11:42)
[2017-05-11] MEDS ORDERED: IPRAAER INH (11:42)
[2017-05-11 11:51] VITALS: BP 123/93; PULSE 95; RESP 17; TEMP 97.9; O2SAT 100
[2017-05-11 12:19] LABS: AUTOMATED NEUTROPHIL # 4.2 TH/MM3 (1.8-7.7); BASOPHIL % 0.4 % (0.0-2.0); EOSINOPHIL # 0.1 TH/MM3 (0-0.4); EOSINOPHIL % 1.3 % (0.0-4.0); HEMATOCRIT 36.7 % (35.0-46.0); HEMO FLAGS DIFF FINAL; LYMPH % 19.7 % (9.0-44.0); LYMPHOCYTE # 1.2 TH/MM3 (1.0-4.8); MEAN CELL VOLUME 83.7 FL (80.0-100.0); MEAN CORPUSCULAR HGB CONC 33.5 % (32.0-36.0); MONO % 7.5 % (0.0-8.0); NEUT % 71.1 % (16.0-70.0); PLATELET COUNT 209 TH/MM3 (150-450); RED BLOOD COUNT 4.38 MIL/MM3 (4.00-5.30); WHITE BLOOD COUNT 5.9 TH/MM3 (4.0-11.0)
[2017-05-11 12:25] LABS: BICARBONATE 27.9 MEQ/L (21.0-32.0); POTASSIUM 3.5 MEQ/L (3.5-5.1)
[2017-05-11 13:41] LABS: APTT (PATIENT) 23.3 SEC (24.3-30.1); INTERNATIONAL NORMALIZED RATIO 0.9 RATIO; PROTHROMBIN TIME - PATIENT 10.2 SEC (9.8-11.6)
[2017-05-11] MEDS ORDERED: HEPARIN-NS/PF INJ 1,000 ML ONE (14:05)
[2017-05-11] MEDS ORDERED: MIDAZOLAM HCL 5 MG/5 ML VIAL ONE (14:06)
--- NOTE | 2017-05-11 15:42 | CATHPROC ---
Yapp HIS Report Study Information Study Number Admission Scheduled Start Study Start [id number] May 11 2017 10:46AM 05/11/2017 May 11 2017 1:44PM [place] Service Cardiac Catheterization Admit Source Facility Department Other [facility] - Order Processing Clerk Physician and Clinical Staff Initial Martell Mccollum Label Stitcher Romaine REESE, Axel Lopez cathlab, cathlab Recorder Cristal Mckeon,RT(R) Scrub Otis Concepcion RCIS(BS) Procedures Performed Procedure Location (Site) Vessel Name Angiogram LV AO Arch (A1) Aorta Angiogram LV LV Ventricle Coronary Angiograms LCA Left Coronary Coronary Angiograms RCA Right Coronary Wire insertion Fem Art (right) Femoral Art Wire insertion Fem Vein (right) Femoral Vein Equipment Time Tmd Teacher Assistant Description Size Mfg Part Number Used/Scraped [id number] 14:12 [employer] SWAN ASHLEY CATHETER FR 7 Used *[id number] TRANSDUCER, TRUWAVE [id number] 14:00 [employer] * Used W/STOCKCOCK *[id number] TRANSDUCER, TRUWAVE [id number] 14:12 [employer] * Used W/STOCKCOCK *[id number] TRANSDUCER, TRUWAVE [id number] 14:12 [employer] * Used W/STOCKCOCK *[id number] 15:20 [employer] MEDICAL VASCADE, FR5 CLOSURE SYSTEM FR 5 Used *[id number] 534-548T *[id number] 534-520T *[id number] 534-520T *[id number] 534-552S *[id number] 14:12 [facility] INDUSTRIES PACK, CCL CUSTOM * Used *[id number] 14:00 MEDLINE PACER PEN, SKIN DUAL W/ RULER * Used *[id number] 14:12 MEDLINE PACER PEN, SKIN DUAL W/ RULER * Used *[id number] 14:12 [employer] MEDICAL WIRE, 3MMJ .035 180CM 180CM Used *[id number] PROBE COVER, STERILE [id number] 14:12 Bloxy * Used ULTRASOUND W/ GEL *[id number] 14:12 NAMIC MANIFOLD, 2 PORT * Used *[id number] 14:12 NAMIC MANIFOLD, 4 PORT * Used *[id number] 14:12 NAMIC TUBING, HIGH PRESSURE 48" 48" Used *[id number] 15:26 NYCOMED OMNIPAQUE, 350 MG, 150ML 150ML [id number] Used 14:12 NYCOMED OMNIPAQUE, 350 MG, 150ML 150ML [id number] Used 14:59 NYCOMED OMNIPAQUE, 350 MG, 50ML 50ML [id number] Used [id number] 14:12 [employer] BLANKET,WARM AIR CCL * Used *[id number] 14:12 TERUMO MEDICAL SHEATH, FR5 TERUMO (10CM) FR 5 Used *[id number] 14:12 TERUMO MEDICAL SHEATH, FR7 TERUMO (10CM) FR 7 Used *[id number] 14:12 TERUMO MEDICAL SHEATH, FR7 TERUMO (10CM) FR 7 Used *[id number] History: Current Medications Medication Dosage/Unit Route Frequency Last Date/Time Taken ASA NORVASC Albuterol History: Allergies Allergy Reaction No Known Allergies History: Risk Factors Family History of Hypertension Dyslipidemia Previous AK Previous Heart Failure Premature CAD Yes No No No Yes Prior Valve Prior PCI Prior CABG Surgery No No No Cerebrovascular Peripheral Artery Chronic Lung On Dialysis Diabetes Disease Disease Disease No No No Yes No History: Symptoms/Diagnosis Selection Items Chest pain History: Stress Tests Stress or Imaging Studies Performed No History: Other Disease Selection Items HTN History: Other Current Smoker Quit Packs a Day Years Used Pack Years No 10 Years Ago 1 20 20 Labs Hgb (g/dl) Hct (%) WBC (l/cumm) Platelets (thousands) 11.60-17.00 35.00-51.00 4.00-11.00 150.00-450.00 12.3 36.7 5.9 209 Glucose (mg/dl) BUN (mg/dl) Creatinine (mg/dl) BUN:Creatinine (1:x) 74.00-106.00 7.00-18.00 0.50-1.30 10.00-20.00 105 12 0.9 13.3 Na (meq/l) K (meq/l) 136.00-145.00 3.50-5.10 141 3.5 PT (sec) PTT (sec) INR (PTT:PT) 9.80-11.60 24.30-30.10 0.90-1.10 10.2 23.3 0.9 CPK-MB (ng/ML) 0.50-3.60 Not Drawn Medication Medication Total Dose (Bolus/Oral) Medication Total Dosage/Unit 1% XYLOCAINE 20 mL FENTANYL 50 mcg HEPARIN 3000 units VERSED 2 mg Medications (Bolus/Oral) Medication Time Given Dosage/Unit Administered By Reason 1% XYLOCAINE 05/11/2017 2:38:46 PM 20 mL Martell Mcleod 20 mL 1% XYLOCAINE given in lab by Martell Mcleod in Right Groin via Subcutaneous. FENTANYL 05/11/2017 2:39:33 PM 50 mcg Axel Gavin RN 50 mcg FENTANYL given in lab by Axel Gavin RN via Peripheral IV. VERSED 05/11/2017 2:40:10 PM 2 mg Axel Gavin RN 2 mg VERSED given in lab by Axel Gavin RN via Peripheral IV. HEPARIN 05/11/2017 2:48:48 PM 3000 units Axel Gavin RN 3000 units HEPARIN given in lab by Axel Gavin RN via Peripheral IV. Medication (Drip) Medication Time Given Dosage/Unit Concentration/Unit Diluent (ml) Solution IV Solutions 05/11/2017 1:59:14 PM 0 mL (IV) 500 NaCl .9 Patient arrived on IV Solutions in Right Antecubital via Peripheral IV. Pump/Drip Flow = 20 ml/hr usi ng NaCl .9. Ordered by Martell Mcleod. Initial Case Assessment Cardiovascular HR Rhythm NIBP Chest Pain 90 NSR 127/80 0 Edema Present Skin color Skin None Normal Warm Dry Circulatory - Right Pulses Dorsalis Pedis Femoral 2 2 Scale (0,1,2,3,4,d) Circulatory - Left Pulses Dorsalis Pedis Femoral 2 2 Scale (0,1,2,3,4,d) Circulatory - Lower Extremities Color Lower Right Color Lower Left Normal Normal Neurological State Oriented to time-place- Alert Moves all extremities person Respiration - General Respiration Rate SpO2 (%) (B/min) 16 95 Final Case Assessment Cardiovascular HR Rhythm NIBP Chest Pain 86 REG 107/62 0 Edema Present Skin color Skin None Normal Warm Circulatory - Right Pulses Dorsalis Pedis Femoral 2 2 Scale (0,1,2,3,4,d) Circulatory - Left Pulses Dorsalis Pedis Femoral 2 2 Scale (0,1,2,3,4,d) Circulatory - Lower Extremities Color Lower Right Color Lower Left Normal Normal Neurological State Oriented to time-place- Alert Moves all extremities person Respiration - General Respiration Rate SpO2 (%) (B/min) 17 90 Chronological Log Time Study Chronological Log 13:59:05 Patient arrived via Bed. 13:59:06 Patient Name, D.O.B, / Armband Verified By R.N. 13:59:06 Consent signed by the physician and the patient and verified by the Order Processing Clerk staff. 13:59:07 Pre-op and post- op instructions given; patient acknowledges understanding of instructions. 13:59:07 Verbal Stimulation=2 Physical Stimulation=2 Airway=2 Respiration=2 TOTAL=8. (0=absent, 1=li mited, 2=present) 13:59:08 Presedation assessment performed by Order Processing Clerk RN. 13:59:09 Immediate Presedation assesment performed by physician. 13:59:10 Patient has been NPO for More than 6Hrs. 13:59:11 Skin Breakdown- NONE PER PATIENT 13:59:11 Patient Warmer Placed on the Table. 13:59:12 Antonio Prominences Protected 13:59:14 A # 20 IV was noted in the Antecubital (right). Grade = 0 Patient arrived on IV Solutions in Right Antecubital via Peripheral IV. Pump/Drip Flow = 20 ml/ hr using NaCl .9. Ordered 13:59:14 by Martell Mcleod. 13:59:15 History and physical on the chart or being dictated. Vitals capture started with the following parameters, Patient=Adult, Interval=5 min, Initial Pr hhlcqs=686 mmHg, 14:02:24 Deflation Rate=5 mmHg, Cuff placed on Left Arm 14:03:00 HR=86 bpm, ASEU=505/80 mmhg, SpO2=95.0 %, Resp=16 B/min, Pain=0, Krystal=10, Hernandez=2 Assessment: Initial Case, HR=90 BPM, Rhythm=NSR, AROT=804/80 mmhg, Chest Pain=0, Edema=None, Color=Normal, Skin = Warm, Dry Right Pulses: Harinder Ped=2, Femoral=2 Left Pulses: Harinder Ped=2, Femoral=2 14:05:23 Lower Right Extremities: Color=Normal Lower Left Extremities: Color=Normal Neurological: State=Alert, Ox3, ROB Respiration: Resp=16 B/min, SpO2=95 % 14:06:31 Reference ECG taken 14:06:45 MD arrived. 14:08:01 ID=638 bpm, DIZV=008/70 mmhg, SpO2=95.0 %, Resp=19 B/min, Pain=0, Krystal=10, Hernandez=2 14:12:56 HR=87 bpm, SWHJ=583/77 mmhg, SpO2=95.0 %, Resp=11 B/min, Pain=0, Krystal=10, Hernandez=2 14:17:59 HR=87 bpm, UKBG=417/76 mmhg, SpO2=94.0 %, Resp=17 B/min, Pain=0, Krystal=10, Hernandez=2 14:19:03 Bilateral groins prepped with 2% chlorhexidine, and draped after a 3 minute waiting time. 14:19:26 Contrast Scanned 14::27 Immediate Presedation assesment performed by physician. 14:22:54 HR=84 bpm, UWSD=548/75 mmhg, SpO2=94.0 %, Resp=11 B/min, Pain=0, Krystal=10, Hernandez=2 14:25:27 Pressure channel 1 zeroed. 14:26:46 Pressure channel 2 zeroed. 14:27:57 HR=86 bpm, WBMV=946/68 mmhg, SpO2=93.0 %, Resp=14 B/min, Pain=0, Krystal=10, Hernandez=2 14:33:00 HR=89 bpm, DALT=212/60 mmhg, SpO2=91.0 %, Resp=19 B/min, Pain=0, Krystal=10, Hernandez=2 14:37:57 HR=90 bpm, NIBP=97/68 mmhg, SpO2=93 %, Resp=16 B/min, Pain=0, Krystal=10, Hernandez=2 Time Out. Correct patient, correct procedure, correct physician, power injector loaded with con trast with surgical team 14:38:25 present. Time Out Concurred by MD and individual staff in procedure. 14:38:34 Case Start 14:38:39 Verbal Stimulation=2 Physical Stimulation=2 Airway=2 Respiration=2 TOTAL=8. (0=absent, 1=li mited, 2=present) 14:38:46 20 mL 1% XYLOCAINE given in lab by Martell Mcleod in Right Groin via Subcutaneous. 14:39:33 50 mcg FENTANYL given in lab by Axel Gavin RN via Peripheral IV. 14:40:10 2 mg VERSED given in lab by Axel Gavin RN via Peripheral IV. 14:42:56 HR=87 bpm, VYJX=210/68 mmhg, SpO2=90 %, Resp=16 B/min, Pain=0, Krystal=10, Hernandez=2 14:43:12 Access site was Right Femoral Artery. 14:43:23 A wire was inserted via Fem Art (right). 14:43:28 A SHEATH, FR5 TERUMO (10CM) FR 5 was advanced into the Fem Art (right) using the Percutaneo us technique. 14:43:35 Access site was Right Femoral Vein. 14:43:42 A wire was inserted via Fem Vein (right). 14:43:54 A SHEATH, FR7 TERUMO (10CM) FR 7 was advanced into the Fem Vein (right) using the Percutane ous technique. 14:44:36 A SWAN ASHLEY CATHETER FR 7 was inserted via Fem Vein (right) Recorded Pressure: MPA, HR=91, Condition=Condition 1 14:45:38 (Main Pulmonary Artery) MPA 30/16/23 A PIGTAIL ANG. INFINITI CATHETER FR 5 was advanced over a wire. OMNIPAQUE, 350 MG, 150ML 150ML was used 14:46:19 for injections. Recorded Pressure: LV, MPA, HR=85, Condition=Condition 1 14:47:34 (Left Ventricle) LV 123/15/18, (Main Pulmonary Artery) MPA 33/14/24 14:47:57 HR=91 bpm, OVEY=226/72 mmhg, SpO2=92.0 %, Resp=17 B/min, Pain=0, Krystal=10, Hernandez=2 14:48:21 Saturation: Site=PA (Pulmonary Artery) , O2=64.1 %, Hgb=12.3 gm/dl, Condition=Condition 1. Used in calculation. 14:48:48 3000 units HEPARIN given in lab by Axel Gavin RN via Peripheral IV. Thermo CO: CO=3.7 l/m, HR=85 bpm, Condition=Condition 1. Used in calculation. 14:49:56 Equipment: Description and Size=SWAN ASHLEY CATHETER FR 7, Type=Bath Probe, CC=0.579 Injectant: Temp=19.0 - 22.0 Celsius, Volume=10.0 ml Thermo CO: CO=4.0 l/m, HR=91 bpm, Condition=Condition 1. Used in calculation. 14:50:34 Equipment: Description and Size=SWAN ASHLEY CATHETER FR 7, Type=Bath Probe, CC=0.579 Injectant: Temp=19.0 - 22.0 Celsius, Volume=10.0 ml Thermo CO: CO=4.4 l/m, HR=91 bpm, Condition=Condition 1. Used in calculation. 14:51:03 Equipment: Description and Size=SWAN ASHLEY CATHETER FR 7, Type=Bath Probe, CC=0.579 Injectant: Temp=19.0 - 22.0 Celsius, Volume=10.0 ml 14:51:55 Pressure channel 2 zero failed. 14:52:01 Pressure channel 2 zeroed. 14:52:11 Pressure channel 1 zeroed. 14:52:24 Pressure channel 2 zeroed. Recorded Pressure: LV, PCW, HR=68, Condition=Condition 1 14:52:44 (Left Ventricle) LV 115/23/31, (Pulmonary Capillary Wedge) PCW 25/20/16 14:52:59 HR=67 bpm, NIBP=83/64 mmhg, SpO2=91.0 %, Resp=16 B/min, Pain=0, Krystal=10, Hernandez=2 Recorded Pressure: LV, MPA, HR=64, Condition=Condition 1 14:53:05 (Left Ventricle) LV 113/29/47, (Main Pulmonary Artery) MPA 34/18/26 Recorded Pressure: RV, HR=44, Condition=Condition 1 14:53:26 (Right Ventricle) RV 37/10/16 Recorded Pressure: RV, HR=69, Condition=Condition 1 14:53:42 (Right Ventricle) RV 36/9/13 14:53:53 Saturation: Site=RA (Right Atrium) , Hgb=12.3 gm/dl, Condition=Condition 1. Used in calcula tion. Recorded Pressure: RA, HR=92, Condition=Condition 1 14:55:47 (Right Atrium) RA Recorded Pressure: RV, HR=91, Condition=Condition 1 14:55:56 (Right Ventricle) RV 29/6/7 Recorded Pressure: LV, RA, HR=92, Condition=Condition 1 14:57:22 (Left Ventricle) LV 135/6/13, (Right Atrium) RA 117 14:57:40 [place] Ashley Catheter Removed Recorded Pressure: LV, HR=89, Condition=Condition 1 14:58:23 (Left Ventricle) LV 137/6/11 14:58:25 HR=89 bpm, TUUD=554/62 mmhg, SpO2=94.0 %, Resp=15 B/min, Pain=0, Krystal=10, Hernandez=2 14:58:58 The LV was injected at 10 cc/sec for a total of 30. OMNIPAQUE, 350 MG, 50ML 50ML used. 15:00:36 Saturation: Site=Ao (Aorta) , O2=93.5 %, Hgb=12.3 gm/dl, Condition=Condition 1. Used in [facility]. Recorded Pressure: LV, Ao, HR=90, Condition=Condition 1 15:02:09 (Left Ventricle) LV 120/10/11, (Aorta) Ao 104/62/80 15:03:03 HR=89 bpm, CVCO=316/63 mmhg, SpO2=91.0 %, Resp=17 B/min, Pain=0, Krystal=10, Hernandez=2 15:04:11 The AO Arch (A1) was injected at 20 cc/sec for a total of 40. OMNIPAQUE, 350 MG, 150ML 150M L used. 15:05:44 PIGTAIL Catheter was removed A JL 4.0 INFINITI CATHETER FR 5 was advanced over a wire. OMNIPAQUE, 350 MG, 150ML 150ML was us ed for 15:05:53 injections. Recorded Pressure: Ao, HR=84, Condition=Condition 1 15:06:48 (Aorta) Ao 103/60/78 15:07:00 The LCA was injected and visualized at various angles. OMNIPAQUE, 350 MG, 150ML 150ML used . 15:08:04 HR=82 bpm, ELSZ=198/69 mmhg, SpO2=92 %, Resp=15 B/min, Pain=0, Krystal=10, Hernandez=2 15:08:17 Catheter was removed A AR MOD INFINITI CATHETER FR 5 was advanced over a wire. OMNIPAQUE, 350 MG, 150ML 150ML was us ed for 15:08:29 injections. 15:09:18 The RCA was injected and visualized at various angles. OMNIPAQUE, 350 MG, 150ML 150ML used . 15:09:59 Catheter was removed 15:12:59 HR=88 bpm, ZAOI=693/73 mmhg, SpO2=89.0 %, Resp=17 B/min, Pain=0, Krysatl=10, Hernandez=2 15:13:18 Case End 15:18:04 HR=85 bpm, QGYP=682/62 mmhg, SpO2=89.0 %, Resp=20 B/min, Pain=0, Krystal=10, Hernandez=2 15:18:38 An injection in the Fem Art (right) was made through the SHEATH, FR5 TERUMO (10CM) FR 5. Assessment: Final Case, HR=86 BPM, Rhythm=REG, SBWX=232/62 mmhg, Chest Pain=0, Edema=None, [place] r=Normal, Skin = Warm Right Pulses: Harinder Ped=2, Femoral=2 Left Pulses: Harinder Ped=2, Femoral=2 15:19:10 Lower Right Extremities: Color=Normal Lower Left Extremities: Color=Normal Neurological: State=Alert, Ox3, ROB Respiration: Resp=17 B/min, SpO2=90 % 15:19:58 Catheter(s) removed without difficulty 15:20:14 VASCADE, FR5 CLOSURE SYSTEM FR 5 placement in the Fem Art (right) 15:22:12 Sterile dressing applied to site 15:22:13 No case complications noted. 15:22:14 Cine recording checked. 15:23:03 HR=84 bpm, HVYR=073/64 mmhg, SpO2=92 %, Resp=18 B/min, Pain=0, Krystal=10, Hernandez=2 15:25:10 Bedside Report will be given. 15:25:15 Contrast Scanned 15:25:42 A Left and Right Heart Cath was performed. 15:28:02 HR=85 bpm, CCHV=453/66 mmhg, SpO2=91.0 %, Resp=17 B/min, Pain=0, Krystal=10, Hernandez=2 15:33:36 HR=86 bpm, KVVA=304/69 mmhg, SpO2=90.0 %, Resp=19 B/min, Pain=0, Krystal=10, Hernandez=2 15:38:02 HR=86 bpm, AJUR=710/70 mmhg, SpO2=92 %, Resp=21 B/min, Pain=0, Krystal=10, Hernandez=2 End Study - Contrast Media Used In Study Contrast Total Opened (mL) Total Used (mL) Total Wasted (mL) Omnipaque 140 140 0 End Study - Maximum Contrast Load Max Contrast Load (mL) 548.2 End Study - Radiation Exposure Fluoro Time (minutes) 3.9 End Study - Sheaths Sheaths Pulled By Sheath Hold Time (min) Otis Concepcion End Study - Patient Disposition Complications Transferred To No Outpatient Bed
--- NOTE | 2017-05-11 22:13 | EKG ---
Date Performed: 05/11/2017 Time Performed: 11:31:44 PTAGE: 72 years EKG: Sinus rhythm . Normal ECG PREVIOUS TRACING : 05/03/2017 02.17 Compared to prior tracing no significant change DOCTOR: Martell Mcleod Interpretating Date/Time 05/11/2017 22:12:55
--- NOTE | 2017-05-12 00:06 | MA ---
cc: HITESH ISLAS MD DATE 05/11/17 INDICATION Unstable angina, the patient has symptoms despite therapy with two antianginal medications, dyspnea, COPD. PROCEDURE PERFORMED 1. Retrograde left and right heart catheterization, left ventriculography, selective coronary angiography, thermodilution cardiac output determination. 2. Thoracic aortography including aortic root, ascending thoracic aorta, aortic arch and descending thoracic aorta. 3. Moderate sedation. ACCESS SITE Right femoral artery and right femoral vein. EQUIPMENT USED [place]-Gilda catheter, 5 Italian pigtail catheter, 5-Italian JL-4 and AR modified coronary artery catheters. MEDICATIONS 1. Versed IV. 2. Fentanyl IV. 3. Heparin IV. CONTRAST Omnipaque 140 cc. COMPLICATIONS None. ESTIMATED BLOOD LOSS Less than 10 cc. METHOD OF HEMOSTASIS Vascade closure RESULTS Hemodynamics: Mean pulmonary capillary wedge pressure 16 mmHg, pulmonary artery, 32/18/26, right ventricle 32/6, mean right atrial pressure 7 mmHg. Left ventricular end-diastolic pressure 10 mmHg. Left ventricle 120/10, aorta 103/60/78. Cardiac output 4.0 liters per minute by thermodilution and 5.1 liters per minute by Otoniel. ___ across the aortic valve 17 mmHg consistent with a very small aortic stenosis. Aortic valve area 1.1 cm2. LEFT VENTRICULOGRAPHY/THORACIC AORTOGRAPHY Ejection fraction 70%, no wall motion abnormalities, hyperdynamic left ventricle. Thoracic aortography showed no evidence of aortic insufficiency, mild ascending thoracic dilatation. CORONARY ANGIOGRAPHY Left main coronary artery patent. Left anterior descending artery patent. V1 patent, V2 patent. Left circumflex artery patent. OM1 patent. OM2 30% proximal stenosis. Right coronary is a dominant vessel which is patent. PDA patent. PLV very small and patent. DIAGNOSIS 1. Mild nonobstructive coronary artery disease. 2. Hyperdynamic left ventricle. 3. Mild hypertrophic obstructive cardiomyopathy with 20 mmHg gradient across the left ventricular outflow tract. 4. Very mild aortic stenosis. DISPOSITION Ms. Gonzales will be monitored on telemetry after procedure. She was found to have no evidence of significant obstructive coronary artery disease and hyperdynamic left ventricle. Will continue her current medical program. She will be discharged home later today. I will see her back for followup in our office after discharge. MD YANIRA Calvo /3:22 PM /11:23 PM
== END 2017-05-11 19:07 | disposition home or self-care (01) ==
LOC: HDOC 10:46 → HDIC 10:47 → HDOC 19:07
PROVIDERS: ATTEND Internal Medicine Interventional Cardiology
DX: I25.110 Atherosclerotic heart disease of native coronary artery with unstable angina pectoris (principal); I42.1 Obstructive hypertrophic cardiomyopathy; I50.9 Heart failure, unspecified; J44.9 Chronic obstructive pulmonary disease, unspecified; I83.893 Varicose veins of bilateral lower extremities with other complications; I51.7 Cardiomegaly; I10 Essential (primary) hypertension; I65.29 Occlusion and stenosis of unspecified carotid artery; I47.1 Supraventricular tachycardia
CPT/HCPCS: 80048; 82810; 85025; 85610; 85730; 93005; 93460; 93567; 99152; 99153; C1760; C1893; G0269; J1644; J2250; J3010; Q9967

== ENCOUNTER 2017-06-09 18:05 | Inpatient (IN) | payer OTHER, MEDICARE ==
[~2017-06-09] VITALS: Ht 172.7 cm; Wt 96.2 kg
[~2017-06-09 18:05] MED LIST changes: -ASPI-110 PO; +ASPI1TAB57 PO; +IPRAAER INH; +ISOS30TA3 PO; +OXYC1TAB63 PO; +UMEC1AER INH; +VENTAER INH
[2017-06-09 18:07] VITALS: BP 135/91; PULSE 94; RESP 20; TEMP 97.9; O2SAT 97
[2017-06-09] MEDS: RESP: ALBUTEROL 2.5 MG/IPRATROPIUM 0.5 MG NEB (SCH) INH (18:53)
[2017-06-09] MEDS ORDERED: SODIUM CHLORIDE 0.9% FLUSH 10 ML FLUSH IVF PRN (19:00)
--- NOTE | 2017-06-09 19:01 | PD ---
HPI Chief Complaint: Chest Pain Time Seen by Provider: 18:25 Travel History International Travel<30 days: No Contact w/Intl Traveler<30days: No Traveled to known affect area: No History of Present Illness HPI 72-year-old female presents to the emergency department for evaluation of shortness of breath, cough. Patient states her symptoms started 3 days ago. She does have history of COPD, CHF. Patient states she is not currently on diuretics. She states that her ankles have been swelling for the past day. She states this is not usual for her. Patient also reports chest tightness associated with shortness of breath and cough. Patient states that she has been seeing her primary care physician who has been giving her an injection of a steroid and antibiotic every day. She states that she went there today and she got an injection of Decadron as well as an antibiotic and then was referred to the emergency department due to her symptoms not improving. Patient is currently on azithromycin as well. Patient states her symptoms are worsening despite the medications. She reports some headache, but she states she typically gets headaches when she has a COPD exacerbation. She does have a cardiac catheterization done by her art gallery director, Dr. bagley on May 11, 2017 which showed mild nonobstructive coronary artery disease, hyperdynamic left ventricle, mild hypertrophic obstructive cardiomyopathy, very mild aortic stenosis. Patient is tripoding upon my exam with audible wheezing and appears to be short of breath. Severity is moderate. No Exacerbating or alleviating factors. 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, LUPUS ) Psychiatric: No Reproductive: No Respiratory: Yes Integumentary: No Radiation Therapy: Yes Thyroid Disease: No Menopausal: Yes : 2 Para: 2 Miscarriage: 0 : 0 Tubal Ligation: Yes Past Surgical History Abdominal Surgery: Yes (TUMMY TUCK) Appendectomy: Yes Cholecystectomy: Yes Coronary Artery Bypass Graft: No Thoracic Surgery: Yes Other Surgery: Yes (FACIAL SX FOR CA, BREAST REDUCTION) Social History Alcohol Use: No Tobacco Use: No (she has a prior history of smoking) Substance Use: No Allergies-Medications (Allergen,Severity, Reaction): Coded Allergies: No Known Allergies (Verified , 05/02/17) Reported Meds & Prescriptions Reported Meds & Active Scripts Active Reported Isosorbide Mononitrate ER (Isosorbide Mononitrate) 30 Mg Tano 30 Mg PO DAILY Anoro Ellipta Inh (Umeclidinium/Vilanterol) 62.5-25 Mcg/Act Aero 1 Puff INH DAILY Oxycodone-Acetaminophen 5-325 mg Tab 1 Tab PO Q6H PRN Combivent Respimat Inh (Ipratropium-Albuterol Inh) 20-100 Mcfp/Act Aero 1 Puff INH QID Ventolin Hfa 18 GM Inh (Albuterol Sulfate) 90 Mcg/Act Aer 2 Puff INH Q4H PRN Spiriva Respimat Inh (Tiotropium Inh) 2.5 Mcg/Act Aero 2 Puff INH DAILY 2.5 mcg = 1 inhalation Diltiazem (Diltiazem HCl) 120 Mg Tab 120 Mg PO BID Aspirin 81 (Aspirin) 81 Mg Tabdr 81 Mg PO DAILY Review of Systems Except as stated in HPI: all other systems reviewed are Neg Physical Exam Narrative GENERAL: Well-nourished, well-developed female patient, afebrile. SKIN: Focused skin assessment warm/dry. HEAD: Normocephalic. Atraumatic. EYES: No scleral icterus. No injection or drainage. NECK: Supple, trachea midline. No JVD or lymphadenopathy. CARDIOVASCULAR: Regular rate and rhythm without murmurs, gallops, or rubs. RESPIRATORY: Breath sounds equal bilaterally. Positive accessory muscle use. Inspiratory and expiratory wheezes are noted throughout GASTROINTESTINAL: Abdomen soft, non-tender, nondistended. MUSCULOSKELETAL: No cyanosis, or edema. BACK: Nontender without obvious deformity. No CVA tenderness. Data Data Last Documented VS Vital Signs Date Time Temp Pulse Resp B/P (MAP) Pulse Ox O2 Delivery O2 Flow Rate FiO2 06/09/17 19:14 93 22 141/87 (105) 97 Nasal Cannula 2.00 06/09/17 18:07 97.9 Orders Orders Complete Blood Count With Diff (06/09/17 18:49) Basic Metabolic Panel (Bmp) (06/09/17 18:49) B-Type Natriuretic Peptide (06/09/17 18:49) Act Partial Throm Time (Ptt) (06/09/17 18:49) Prothrombin Time / Inr (Pt) (06/09/17 18:49) Magnesium (Mg) (06/09/17 18:49) Ckmb (Isoenzyme) Profile (06/09/17 18:49) Troponin I (06/09/17 18:49) Iv Access Insert/Monitor (06/09/17 18:49) Electrocardiogram (06/09/17 18:49) Ecg Monitoring (06/09/17 18:49) Oximetry (06/09/17 18:49) Oxygen Administration (06/09/17 18:49) Chest, Single Ap (06/09/17 18:49) Sodium Chloride 0.9% Flush (Ns Flush) (06/09/17 19:00) Albuterol-Ipratropium Neb (Duoneb Neb) (06/09/17 19:00) Blood Culture (06/09/17 20:27) Lactic Acid Sepsis Protocol (06/09/17 20:27) Levofloxacin 750 Mg Premix Inj (Levaquin (06/09/17 20:30) Admit Order (Ed Use Only) (06/09/17 20:57) Labs Laboratory Tests Test 06/09/17 19:10 White Blood Count 9.2 TH/MM3 Red Blood Count 4.07 MIL/MM3 Hemoglobin 11.6 GM/DL Hematocrit 34.7 % Mean Corpuscular Volume 85.3 FL Mean Corpuscular Hemoglobin 28.6 PG Mean Corpuscular Hemoglobin Concent 33.5 % Red Cell Distribution Width 16.6 % Platelet Count 153 TH/MM3 Mean Platelet Volume 9.1 FL Neutrophils (%) (Auto) 90.8 % Lymphocytes (%) (Auto) 6.9 % Monocytes (%) (Auto) 2.0 % Eosinophils (%) (Auto) 0.2 % Basophils (%) (Auto) 0.1 % Neutrophils # (Auto) 8.3 TH/MM3 Lymphocytes # (Auto) 0.6 TH/MM3 Monocytes # (Auto) 0.2 TH/MM3 Eosinophils # (Auto) 0.0 TH/MM3 Basophils # (Auto) 0.0 TH/MM3 CBC Comment DIFF FINAL Differential Comment Prothrombin Time 10.1 SEC Prothromb Time International Ratio 0.9 RATIO Activated Partial Thromboplast Time 21.7 SEC Blood Urea Nitrogen 33 MG/DL Creatinine 0.98 MG/DL Random Glucose 238 MG/DL Calcium Level 8.0 MG/DL Magnesium Level 1.7 MG/DL Sodium Level 137 MEQ/L Potassium Level 3.9 MEQ/L Chloride Level 104 MEQ/L Carbon Dioxide Level 24.2 MEQ/L Anion Gap 9 MEQ/L Estimat Glomerular Filtration Rate 56 ML/MIN Total Creatine Kinase 92 U/L Troponin I LESS THAN 0.02 NG/ML B-Type Natriuretic Peptide 101 PG/ML [facility] Medical Decision Making Medical Screen Exam Complete: Yes Emergency Medical Condition: Yes Medical Record Reviewed: Yes Interpretation(s) Last Impressions Chest X-Ray 06/09/17 1849 Signed Impressions: Service Date/Time: Wednesday, June 09, 2017 19:20 - CONCLUSION: Possible medial lower lung infiltrates versus atelectasis due to submaximal inspiration. Cardiomegaly. Maninder Khan MD Differential Diagnosis COPD exacerbation versus pneumonia versus CHF exacerbation versus ACS Narrative Course 72-year-old female presents to the emergency department for evaluation of increasing shortness of breath despite treatment outpatient with antibiotics and steroids. Patient is given DuoNeb 3. She received Decadron today at her primary care physician's office. EKG, CBC, BMP, BNP, magnesium, CK, troponin, PTT, PT/INR are ordered and pending. Chest x-ray is ordered and pending. EKG shows sinus rhythm, heart 90, no acute ST changes. CBC shows no acute abnormality. BMP shows elevated glucose of 238. BNP is 101. Magnesium is 1.7. CK is 92. Troponin is less than 0.02. Coags show no acute abnormality. Chest x-ray shows possible medial lower lung infiltrates versus atelectasis due to salt maximal inspiration. Blood cultures 2 and lactic acid are ordered. Patient started on Levaquin [address] Saeed accepted admission. Diagnosis Primary Impression: Pneumonia Qualified Codes: J18.9 - Pneumonia, unspecified organism Additional Impression: COPD (chronic obstructive pulmonary disease) Qualified Codes: J44.1 - Chronic obstructive pulmonary disease with (acute) exacerbation Admitting Information Admitting Physician Requests: Observation Essence Bella Jun 09, 2017 19:01
[2017-06-09 19:14] VITALS: BP 141/87; PULSE 93; RESP 22; O2SAT 97
[2017-06-09 19:38] LABS: AUTOMATED NEUTROPHIL # 8.3 TH/MM3 (1.8-7.7); BASOPHIL % 0.1 % (0.0-2.0); EOSINOPHIL % 0.2 % (0.0-4.0); HEMATOCRIT 34.7 % (35.0-46.0); HEMO FLAGS DIFF FINAL; LYMPH % 6.9 % (9.0-44.0); LYMPHOCYTE # 0.6 TH/MM3 (1.0-4.8); MEAN CELL VOLUME 85.3 FL (80.0-100.0); MEAN CORPUSCULAR HEMOGLOBIN 28.6 PG (27.0-34.0); MEAN CORPUSCULAR HGB CONC 33.5 % (32.0-36.0); NEUT % 90.8 % (16.0-70.0); PLATELET COUNT 153 TH/MM3 (150-450); RED BLOOD COUNT 4.07 MIL/MM3 (4.00-5.30); RED CELL DISTRIBUTION WIDTH 16.6 % (11.6-17.2); WHITE BLOOD COUNT 9.2 TH/MM3 (4.0-11.0)
[2017-06-09 19:44] LABS: APTT (PATIENT) 21.7 SEC (24.3-30.1); INTERNATIONAL NORMALIZED RATIO 0.9 RATIO; PROTHROMBIN TIME - PATIENT 10.1 SEC (9.8-11.6)
[2017-06-09 19:53] LABS: ANION GAP 9 MEQ/L (5-15); BICARBONATE 24.2 MEQ/L (21.0-32.0); BLOOD UREA NITROGEN 33 MG/DL (7-18); CHLORIDE 104 MEQ/L (98-107); GLOMERULAR FILTRATION RATE 56 ML/MIN (>89); MAGNESIUM 1.7 MG/DL (1.5-2.5); POTASSIUM 3.9 MEQ/L (3.5-5.1); SODIUM (NA) 137 MEQ/L (136-145)
[2017-06-09 20:06] LABS: CREATINE KINASE 92 U/L (26-192)
--- NOTE | 2017-06-09 20:08 | RADRPT ---
EXAM DATE/TIME: 06/09/2017 19:20 [place] COMPARISON: CHEST SINGLE AP, May 02, 2017, 19:10. INDICATIONS : Short of breath. MEDICAL HISTORY : Congestive heart failure. Chronic obstructive pulmonary disease. SURGICAL HISTORY : None. ENCOUNTER: Initial ACUITY: 1 day PAIN SCORE: 0/10 LOCATION: Bilateral chest FINDINGS: Submaximal inspiration. There is crowding of bronchopulmonary markings in the lower lungs bilaterall y with suggestion of air bronchograms. Both hemidiaphragms well delineated. The heart is enlarged. CONCLUSION: Possible medial lower lung infiltrates versus atelectasis due to submaximal inspiration. Cardiomegal y. Maninder Khan MD on June 09, 2017 at 20:06 Board Certified Radiologist. This report was verified electronically.
[2017-06-09] MEDS ORDERED: LEVOFLOXACIN 750 MG PREMIX INJ 150 ML IV ONE (20:30)
[2017-06-09 21:12] VITALS: BP 140/84; PULSE 90; RESP 20; O2SAT 97
[2017-06-09] MEDS ORDERED: methylPREDNISolone SOD SUCC 40 MG/1 ML VIAL IV PUSH SCH (22:30)
[2017-06-09] MEDS ORDERED: SODIUM CHLORIDE 0.9% FLUSH 10 ML FLUSH IV FLUSH PRN (22:30)
--- NOTE | 2017-06-09 22:50 | HHI.HP ---
[facility] Willian Mike MD Admission Diagnosis pneumonia, COPD exacerbation Diagnoses: Travel History International Travel<30 Days: No Contact w/Intl Traveler <30 Da: No Traveled to Known Affected Are: No History of Present Illness 72-year-old female with a past medical history significant for COPD not on home O2, a fib, history of CVA, mild CAD and HTN presents to the ED for increasing SOB and cough. The patient is an extremely poor historian and states that she has been seeing her PCP, Dr. Mike, for the past 2 weeks where she has been receiving steroid and antibiotic shots daily. She also states that she has been taking azithromycin for 2 weeks. She states that over the past 3 days her shortness of breath has increased to the point where she feels that she cannot breathe regularly anymore. CBC shows no leukocytosis, neutrophils of 90.8. Lactic acid 3.0. Chest x-ray significant for possible medial lower lung infiltrates. The patient was not hypoxic on arrival. Review of Systems Denies fever or chills Denies blurry vision, otorrhea, rhinorrhea Positive cough Positive shortness of breath associated chest tightness No abdominal pain Denies constipation/diarrhea/nausea/vomiting Denies muscle pain/weakness No rashes Past Family Social History Past Medical History CHF History of CVA COPD (non-oxygen dependent) CAD, status post cardiac catheterization with Dr. taveras in April of this year showed mild nonobstructive coronary artery disease Diverticulitis Rheumatoid arthritis Hypertension Atrial fibrillation, currently on aspirin Past Surgical History Cholecystectomy Appendectomy Reported Medications Reported Meds & Active Scripts Active Reported Isosorbide Mononitrate ER (Isosorbide Mononitrate) 30 Mg Tano 30 Mg PO DAILY Anoro Ellipta Inh (Umeclidinium/Vilanterol) 62.5-25 Mcg/Act Aero 1 Puff INH DAILY Oxycodone-Acetaminophen 5-325 mg Tab 1 Tab PO Q6H PRN Combivent Respimat Inh (Ipratropium-Albuterol Inh) 20-100 Assisted/Act Aero 1 Puff INH QID Ventolin Hfa 18 GM Inh (Albuterol Sulfate) 90 Mcg/Act Aer 2 Puff INH Q4H PRN Spiriva Respimat Inh (Tiotropium Inh) 2.5 Mcg/Act Aero 2 Puff INH DAILY 2.5 mcg = 1 inhalation Diltiazem (Diltiazem HCl) 120 Mg Tab 120 Mg PO BID Aspirin 81 (Aspirin) 81 Mg Tabdr 81 Mg PO DAILY Allergies: Coded Allergies: No Known Allergies (Verified , 05/02/17) Family History Mother with cardiac disease and diabetes mellitus. Social History [id number] history of smoking, quit 10 years ago. Denies alcohol, illicit drugs. Physical Exam Vital Signs Vital Signs Date Time Temp Pulse Resp B/P (MAP) Pulse Ox O2 Delivery O2 Flow Rate FiO2 06/09/17 21:12 90 20 140/84 (102) 97 Nasal Cannula 2.00 06/09/17 19:14 93 22 141/87 (105) 97 Nasal Cannula 2.00 06/09/17 19:14 98 Nasal Cannula 2.00 06/09/17 18:35 98 Nasal Cannula 2.00 06/09/17 18:07 97.9 94 20 135/91 (106) 97 Room Air Physical Exam GENERAL: Obese female lying in bed SKIN: No rashes, ecchymoses or lesions. Cool and dry. HEAD: Atraumatic. Normocephalic. No temporal or scalp tenderness. EYES: Pupils equal round and reactive. Extraocular motions intact. No scleral icterus. No injection or drainage. ENT: Nose without bleeding, purulent drainage or septal hematoma. Throat without erythema, tonsillar hypertrophy or exudate. Uvula midline. Airway patent. NECK: Trachea midline. No JVD or lymphadenopathy. Supple, nontender, no meningeal signs. CARDIOVASCULAR: Regular rate and rhythm without murmurs, gallops, or rubs. RESPIRATORY: Bilateral expiratory wheezes throughout. GASTROINTESTINAL: Abdomen soft, non-tender, nondistended. No hepato-splenomegaly , or palpable masses. No guarding. MUSCULOSKELETAL: 1+ pitting edema to the mid rascon bilaterally. No calf tenderness. Negative Homans sign bilaterally. NEUROLOGICAL: Awake and alert. Cranial nerves II through XII intact. Motor and sensory grossly within normal limits. Normal speech. Laboratory Laboratory Tests Test 06/09/17 19:10 06/09/17 20:30 White Blood Count 9.2 Red Blood Count 4.07 Hemoglobin 11.6 Hematocrit 34.7 Mean Corpuscular Volume 85.3 Mean Corpuscular Hemoglobin 28.6 Mean Corpuscular Hemoglobin Concent 33.5 Red Cell Distribution Width 16.6 Platelet Count 153 Mean Platelet Volume 9.1 Neutrophils (%) (Auto) 90.8 Lymphocytes (%) (Auto) 6.9 Monocytes (%) (Auto) 2.0 Eosinophils (%) (Auto) 0.2 Basophils (%) (Auto) 0.1 Neutrophils # (Auto) 8.3 Lymphocytes # (Auto) 0.6 Monocytes # (Auto) 0.2 Eosinophils # (Auto) 0.0 Basophils # (Auto) 0.0 CBC Comment DIFF FINAL Differential Comment Prothrombin Time 10.1 Prothromb Time International Ratio 0.9 Activated Partial Thromboplast Time 21.7 Blood Urea Nitrogen 33 Creatinine 0.98 Random Glucose 238 Calcium Level 8.0 Magnesium Level 1.7 Sodium Level 137 Potassium Level 3.9 Chloride Level 104 Carbon Dioxide Level 24.2 Anion Gap 9 Estimat Glomerular Filtration Rate 56 Total Creatine Kinase 92 Troponin I LESS THAN 0.02 B-Type Natriuretic Peptide 101 Lactic Acid Level 3.0 Date/Time Source Procedure Growth Status 06/09/17 20:45 Blood Peripheral Aerobic Blood Culture Pending Received 06/09/17 20:45 Blood Peripheral Anaerobic Blood Culture Pending Received Result Diagram: 06/09/17190906/09/171909 Caprini VTE Risk Assessment Datrini VTE Risk Assessment: Mod/High Risk (score >= 2) Caprini Risk Assessment Model Point Value = 1 Point Value = 2 Point Value = 3 Point Value = 5 Age 41-60 Minor surgery BMI > 25 kg/m2 Swollen legs Varicose veins or History of unexplained or recurrent spontaneous Oral contraceptives or hormone replacement Sepsis (< 1 month) Serious lung disease, including pneumonia (< 1 month) Abnormal pulmonary function Acute myocardial infarction Congestive heart failure (< 1 month) History of inflammatory bowel disease Medical patient at bed rest Age 61-74 Arthroscopic surgery Major open surgery (> 45 min) Laparoscopic surgery (> 45 min) Malignancy Confined to bed (> 72 hours) Immobilizing plaster cast Central venous access Age >= 75 History of VTE Family history of VTE Factor V Leiden Prothrombin [id number] Lupus anticoagulant Anticardiolipin antibodies Elevated serum homocysteine Heparin-induced thrombocytopenia Other congenital or acquired thrombophilia Stroke (< 1 month) Elective arthroplasty Hip, pelvis, or leg fracture Acute spinal cord injury (< 1 month) Prophylaxis Regimen Total Risk Factor Score Risk Level Prophylaxis Regimen 0-1 Low Early ambulation 2 Moderate Order ONE of the following: *Sequential Compression Device (SCD) *Heparin 5000 units SQ BID 3-4 Higher Order ONE of the following medications: *Heparin 5000 units SQ TID *Enoxaparin/Lovenox 40 mg SQ daily (WT < 150 kg, CrCl > 30 mL/min) *Enoxaparin/Lovenox 30 mg SQ daily (WT < 150 kg, CrCl > 10-29 mL/min) *Enoxaparin/Lovenox 30 mg SQ BID (WT < 150 kg, CrCl > 30 mL/min) AND/OR *Sequential Compression Device (SCD) 5 or more Highest Order ONE of the following medications: *Heparin 5000 units SQ TID (Preferred with Epidurals) *Enoxaparin/Lovenox 40 mg SQ daily (WT < 150 kg, CrCl > 30 mL/min) *Enoxaparin/Lovenox 30 mg SQ daily (WT < 150 kg, CrCl > 10-29 mL/min) *Enoxaparin/Lovenox 30 mg SQ BID (WT < 150 kg, CrCl > 30 mL/min) AND *Sequential Compression Device (SCD) Assessment and Plan Assessment and Plan 72-year-old female with past medical history significant for COPD, history of CVA, CAD, atrial fibrillation and hypertension presents with increasing shortness of breath and new medial lower lung infiltrate on chest x-ray. 1. Pneumonia/COPD exacerbation/shortness of breath No leukocytosis, lactic acid 3.0 Chest x-ray with possible new medial lower lung infiltrate, reviewed by Levmoirs IV IV steroids supplemental oxygen Pulmonary consulted, appreciate recommendations Repeat lactic acid pending 2. Atrial fibrillation Continue home diltiazem EKG shows NSR without ST segment elevations or depressions, reviewed by me 3. CAD/hypertension Continue home medications Patient status post cardiac catheterization showed mild nonobstructive coronary artery disease on 05/11/17 FEN Heart healthy diet NS at 100 cc/hr Electrolytes: replete prn Heparin Case discussed with ER PA at length Lizz Saeed MD Jun 09, 2017 22:50
[2017-06-09 23:18] LABS: LACTIC ACID GHOST NOT REPORTABLE
[2017-06-09] MEDS: HEPARIN SODIUM - SQ 10,000 UNITS/ML VIAL SQ SCH (23:27)
[2017-06-09] MEDS: SODIUM CHLOR 0.9% 1000 ML INJ 1,000 ML IV SCH (23:28)
[2017-06-09 23:43] VITALS: BP 132/75; PULSE 89; RESP 18; TEMP 97.4; O2SAT 99
[2017-06-10] VITALS (13 sets, daily range): BP systolic 127–176; BP diastolic 72–88; PULSE 68–109; RESP 16–27; TEMP 97.5–98.5; O2SAT 96–99
[2017-06-10 05:17] LABS: LACTIC ACID GHOST NOT REPORTABLE
[2017-06-10 05:43] LABS: AUTOMATED NEUTROPHIL # 7.9 TH/MM3 (1.8-7.7); BASOPHIL % 0.1 % (0.0-2.0); HEMATOCRIT 34.3 % (35.0-46.0); HEMO FLAGS DIFF FINAL; LYMPHOCYTE # 0.5 TH/MM3 (1.0-4.8); MEAN CELL VOLUME 85.1 FL (80.0-100.0); MEAN CORPUSCULAR HGB CONC 32.9 % (32.0-36.0); MONO % 1.1 % (0.0-8.0); NEUT % 92.8 % (16.0-70.0); PLATELET COUNT 170 TH/MM3 (150-450); RED BLOOD COUNT 4.03 MIL/MM3 (4.00-5.30); RED CELL DISTRIBUTION WIDTH 16.5 % (11.6-17.2); WHITE BLOOD COUNT 8.5 TH/MM3 (4.0-11.0)
[2017-06-10] MEDS: HEPARIN SODIUM - SQ 10,000 UNITS/ML VIAL SQ SCH ×3 (05:51→22:39)
[2017-06-10] MEDS: ISOSORBIDE MONONITRATE 30 MG TAB PO SCH (07:00)
[2017-06-10] MEDS: SODIUM CHLOR 0.9% 1000 ML INJ 1,000 ML IV SCH ×2 (07:57→19:25)
[2017-06-10] MEDS: DILTIAZEM-CD 120 MG CAP ER PO SCH ×2 (07:58→22:38)
[2017-06-10] MEDS: ALBUTEROL SULFATE 90 MCG/ACT HFA 8 GM INHALER INH SCH ×4 (07:58→22:38)
[2017-06-10] MEDS: UMECLIDINIUM 62.5 MCG/VILANTEROL 25 MCG INHALER INH SCH (07:58)
[2017-06-10] MEDS: TIOTROPIUM BROMIDE 18 MCG INH INH SCH (07:58)
[2017-06-10] MEDS: ASPIRIN EC 81 MG TABEC PO SCH (07:58)
[2017-06-10] MEDS: SODIUM CHLORIDE 0.9% FLUSH 10 ML FLUSH IV FLUSH SCH ×2 (07:58→22:38)
[2017-06-10] MEDS ORDERED: NON-FORMULARY DRUG (Ipratropium-Albuterol Inh (Combivent Respimat Inh) 1 PUFF) INH SCH (09:00)
--- NOTE | 2017-06-10 09:16 | HHI.PR ---
Subjective Remarks I was called to see the patient regarding her lactic acid gradually increase 4.2 right now she is on 3 L of oxygen huffing on puffing Frequent episodes of forceful coughing, still able to talk Is cussed with the nurse will order stat ABG, I will increase her Solu-Medrol from 40 twice a day to 60 mg 4 times a day. Repeat chest x-ray I will transfer patient to ICU Objective Vitals Vital Signs Date Time Temp Pulse Resp B/P (MAP) Pulse Ox O2 Delivery O2 Flow Rate FiO2 06/10/17 09:00 97.9 68 20 176/80 (112) 96 06/10/17 04:07 97.9 97 16 138/80 (99) 99 06/09/17 23:54 Nasal Cannula 06/09/17 23:43 97.4 89 18 132/75 (94) 99 06/09/17 23:03 06/09/17 21:12 90 20 140/84 (102) 97 Nasal Cannula 2.00 06/09/17 19:14 93 22 141/87 (105) 97 Nasal Cannula 2.00 06/09/17 19:14 98 Nasal Cannula 2.00 06/09/17 18:35 98 Nasal Cannula 2.00 06/09/17 18:07 97.9 94 20 135/91 (106) 97 Room Air I/O 06/09/17 06/09/17 06/09/17 06/10/17 06/10/17 06/10/17 07:00 15:00 23:00 07:00 15:00 23:00 Intake Total 150 ml Output Total 250 ml Balance 150 ml -250 ml Intake IV Total 150 ml Output Urine Total 250 ml Result Diagram: 06/10/17 0456 06/10/17 0642 Objective Remarks GENERAL: This is a well-nourished obese, well-developed patient, in no apparent distress. CARDIOVASCULAR: Tachycardic with positive RESPIRATORY: Diffuse expiratory wheezes, diminish breath sounds bilaterally. GASTROINTESTINAL: Abdomen soft, non-tender,nondistended. Normal active bowel sounds MUSCULOSKELETAL: Extremities without clubbing, cyanosis, or edema. NEURO: Alert & Oriented x4 to person, place, time, situation. Moves all ext x4 A/P Assessment and Plan 72-year-old female with past medical history significant for COPD, history of CVA, CAD, atrial fibrillation and hypertension presents with increasing shortness of breath and new medial lower lung infiltrate on chest x-ray. - Pneumonia/COPD exacerbation/shortness of breath Lactic acidosis 4.2 rule out sepsis Left shift neutrophils 92% No leukocytosis Chest x-ray with possible new medial lower lung infiltrate, repeat today Levaquin IV Increase Solu-Medrol to 60 mg 4 times a day Continue supplemental oxygen Awaiting pulmonary consultation Continue DuoNeb and Spiriva - Atrial fibrillation Continue home diltiazem EKG shows NSR without ST segment elevations or depressions - CAD/hypertension Continue home medications Patient status post cardiac catheterization showed mild nonobstructive coronary artery disease on 05/11/17 FEN Heart healthy diet NS at 100 cc/hr Electrolytes: replete prn Heparin Rosa Jon MD Jun 10, 2017 09:16
[2017-06-10 09:27] LABS: BLOOD GAS BASE EXCESS -3.3 mmol/L (-2-2); BLOOD GAS HCO3 21 mmol/L (22-26); BLOOD GAS METHEMOGLOBIN 0.9 % (0-2); BLOOD GAS O2 HGB SATURATION 96 % (90-100); BLOOD GAS OXYGEN CONTENT 16.2 Vol % (12.0-20.0); BLOOD GAS PCO2 34 mmHg (38-42); BLOOD GAS PO2 102 mmHG (61-120); CRITICAL VALUE NO; DRAW SITE LT BRACHIAL; NUMBER OF ARTERIAL PUNCTURES 1; OXYGEN DEVICE RA; STAT YES; ULNAR PULSE Y
--- NOTE | 2017-06-10 10:34 | EKG ---
Date Performed: 06/09/2017 Time Performed: 19:07:13 PTAGE: 72 years EKG: Sinus rhythm POSSIBLE RIGHT ATRIAL ENLARGEMENT POSSIBLE LEFT ATRIAL ENLARGEMENT BORDERLINE ECG PREVIOUS TRACING : 05/11/2017 11.31 DOCTOR: Isidro Urbina Interpretating Date/Time 06/10/2017 10:33:54
[2017-06-10] MEDS: methylPREDNISolone SOD SUCC 125 MG/2 ML VIAL IV PUSH SCH ×3 (10:54→22:38)
[2017-06-10 11:25] LABS: BACTERIA, URINE RARE /hpf; BLOOD, URINE NEG (NEG); GLUCOSE,URINE 1000 mg/dL (NEG); KETONE, URINE NEG (NEG); NITRITE,URINE NEG (NEG); PH, URINE 5.5 (5.0-8.5); SQUAMOUS EPITHELIAL CELL URINE 1 /hpf (0-5); URINE COLOR YELLOW (YELLW/STRAW)
[2017-06-10 11:27] LABS: COMMENT (UR) CULT NOT INDICATED; CULTURE IF INDICATED CULT NOT INDICATED
--- NOTE | 2017-06-10 19:53 | MB ---
cc: CHARLEY NGUYEN MD Corrected Copy: 06/16/17 DATE OF CONSULTATION 06/10/17 REASON FOR CONSULTATION Pneumonia with chronic obstructive pulmonary disease exacerbation HISTORY OF PRESENT ILLNESS The patient is a 72 year old female known to history of severe chronic obstructive pulmonary disease, oxygen as well as coronary artery disease, history of cerebrovascular accident. The patient came to the hospital because of shortness of breath and coughing. The patient is very well known to my outpatient practice. The patient has been having frequent, recurrent exacerbations that were treated as an outpatient. The patient was on steroids and antibiotics. She is doing a little bit better. She denies any chest pain or hemoptysis. PAST MEDICAL HISTORY Reviewed in detail. 1. History of cerebrovascular accident. 2. Chronic obstructive pulmonary disease 3. Coronary artery disease 4. Rheumatoid arthritis 5. Hypertension 6. Atrial fibrillation PAST SURGICAL HISTORY 1. Cholecystectomy 2. Appendectomy MEDICATIONS Reviewed in detail outpatient and inpatient medications. Outpatient 1. Anodal 2. Combivent as needed basis. Of note she does not use both Spiriva and Anodal together as has been reported in the chart. REVIEW OF SYSTEMS Negative except for what is mentioned in the History of Present Illness. PHYSICAL EXAMINATION VITAL SIGNS: Temperature 98.5, pulse 104, respiratory rate 22, blood pressure 150/80, satting 99%. HEENT: Head normocephalic, atraumatic. NECK: Trachea midline. LUNGS: Mild expiratory wheezing bilateral HEART: Normal S1, S2. ABDOMEN: Soft, nontender, obese. EXTREMITIES: Trace edema. NEUROLOGIC: Alert and oriented times three. Moves all extremities. LABORATORY DATA Reviewed. WBC 8.5, hemoglobin 11.3, platelets 170. Sodium 139, potassium 4.0, BUN 20, creatinine 0.8. IMAGING STUDIES I reviewed her chest x-ray that showed possible lower pulmonary infiltrate with atelectasis and evidence of cardiomegaly. ASSESSMENT AND PLAN 1. Acute chronic obstructive pulmonary disease exacerbation 2. ? Pneumonia 3. Atrial fibrillation I had long discussion with the patient. The patient is having elevated lactic acids which could be related to her work of breathing. The patient is already on antibiotics and IV steroids. Continue bronchodilators. I would like her to continue using her outpatient inhaler that she uses. If she can use the will be great. She should not be using the in combination with the spiriva or other long acting beta agonist. the patient is at high risk for postoperative pulmonary complication in case she needs to go under general anesthesia and I will be very cautious with that. Thank you for this consultation. I will continue to follow. MD SAMINA Smith/ /3:02 PM /12:51 PM
[2017-06-10] MEDS: LEVOFLOXACIN 750 MG PREMIX INJ 150 ML IV SCH (22:38)
[2017-06-10] MEDS ORDERED: MORPHINE SULFATE 2 MG/ML INJ IV PUSH ONE (23:00)
[2017-06-10] MEDS ORDERED: SODIUM CHLOR 0.9% 1000 ML INJ 1,000 ML IV ONE (23:15)
[2017-06-11] VITALS (15 sets, daily range): BP systolic 128–174; BP diastolic 71–94; PULSE 72–124; RESP 16–46; TEMP 97.3–98.4; O2SAT 94–99
[2017-06-11] MEDS: SODIUM CHLOR 0.9% 1000 ML INJ 1,000 ML IV SCH ×3 (03:37→19:37)
[2017-06-11 04:03] LABS: LACTIC ACID GHOST NOT REPORTABLE
[2017-06-11] MEDS: methylPREDNISolone SOD SUCC 125 MG/2 ML VIAL IV PUSH SCH ×4 (04:51→20:51)
[2017-06-11] MEDS: ISOSORBIDE MONONITRATE 30 MG TAB PO SCH (06:23)
[2017-06-11] MEDS: HEPARIN SODIUM - SQ 10,000 UNITS/ML VIAL SQ SCH ×3 (06:23→20:53)
[2017-06-11] MEDS: ASPIRIN EC 81 MG TABEC PO SCH (11:18)
[2017-06-11] MEDS: DILTIAZEM-CD 120 MG CAP ER PO SCH (11:18)
[2017-06-11] MEDS: SODIUM CHLORIDE 0.9% FLUSH 10 ML FLUSH IV FLUSH SCH ×2 (11:18→20:52)
[2017-06-11] MEDS: ALBUTEROL SULFATE 90 MCG/ACT HFA 8 GM INHALER INH SCH ×4 (11:20→20:52)
[2017-06-11] MEDS: TIOTROPIUM BROMIDE 18 MCG INH INH SCH (11:21)
[2017-06-11] MEDS: UMECLIDINIUM 62.5 MCG/VILANTEROL 25 MCG INHALER INH SCH (11:21)
--- NOTE | 2017-06-11 12:41 | HHI.PR ---
Subjective Remarks Still on O2, eating her lunch, still looks short-winded Lactic acid start trending down Mostly able to go out of the unit however still not ready for discharge at Objective Vitals Vital Signs Date Time Temp Pulse Resp B/P (MAP) Pulse Ox O2 Delivery O2 Flow Rate FiO2 06/11/17 12:00 100 06/11/17 12:00 98.0 100 21 144/80 (101) 98 06/11/17 11:18 105 144/80 (101) 96 06/11/17 10:00 124 167/86 (113) 94 06/11/17 10:00 124 06/11/17 09:00 106 148/88 (108) 98 06/11/17 08:00 98.3 100 156/92 (113) 99 06/11/17 08:00 100 06/11/17 07:12 85 145/83 (103) 98 06/11/17 06:00 90 06/11/17 06:00 90 174/92 (119) 98 06/11/17 05:03 91 153/94 (113) 98 06/11/17 04:00 113 06/11/17 04:00 98.4 113 46 153/94 (113) 96 06/11/17 02:00 100 06/11/17 00:00 102 06/11/17 00:00 98.0 102 25 150/76 (100) 98 06/10/17 22:00 99 06/10/17 20:00 98.2 108 27 166/80 (108) 97 06/10/17 20:00 108 06/10/17 19:48 98 Nasal Cannula 4.00 06/10/17 18:00 107 06/10/17 16:00 100 06/10/17 16:00 97.5 100 22 145/72 (96) 98 06/10/17 15:50 98 BiPAP 35 06/10/17 15:50 98 35 06/10/17 14:00 109 I/O 06/10/17 06/10/17 06/10/17 06/11/17 06/11/17 06/11/17 07:00 15:00 23:00 07:00 15:00 23:00 Intake Total 1000 ml 480 ml 150 ml Output Total 250 ml Balance 750 ml 480 ml 150 ml Intake Oral 480 ml IV Total 1000 ml 150 ml Output Urine Total 250 ml # Voids 2 6 # Bowel Movements 0 1 Result Diagram: 06/10/17 0456 06/10/17 0642 Objective Remarks GENERAL: This is a well-nourished obese, well-developed patient, in no apparent distress. CARDIOVASCULAR: Tachycardic with positive RESPIRATORY: Diffuse expiratory wheezes, diminish breath sounds bilaterally. GASTROINTESTINAL: Abdomen soft, non-tender,nondistended. Normal active bowel sounds MUSCULOSKELETAL: Extremities without clubbing, cyanosis, or edema. NEURO: Alert & Oriented x4 to person, place, time, situation. Moves all ext x4 A/P Assessment and Plan 72-year-old female with past medical history significant for COPD, history of CVA, CAD, atrial fibrillation and hypertension presents with increasing shortness of breath and new medial lower lung infiltrate on chest x-ray. - Pneumonia/COPD exacerbation/shortness of breath Lactic acidosis started trending down Continue antibiotic, O2 DuoNeb, appreciated pulmonary consultation Transfer to medical floor with telemetry No leukocytosis Chest x-ray with possible new medial lower lung infiltrate, repeat today Levaquin IV Increase Solu-Medrol to 60 mg 4 times a day Continue supplemental oxygen Continue DuoNeb and Spiriva - Atrial fibrillation Continue home diltiazem EKG shows NSR without ST segment elevations or depressions - CAD/hypertension Continue home medications Patient status post cardiac catheterization showed mild nonobstructive coronary artery disease on 05/11/17 FEN Heart healthy diet NS at 100 cc/hr Electrolytes: replete prn Heparin Rosa Jon MD Jun 11, 2017 12:41
--- NOTE | 2017-06-11 13:18 | HHI.PR ---
Subjective Remarks She still sob better though no chest pain no fevers Objective Vital Signs Date Time Temp Pulse Resp B/P (MAP) Pulse Ox O2 Delivery O2 Flow Rate FiO2 06/11/17 12:00 100 06/11/17 12:00 98.0 100 21 144/80 (101) 98 06/11/17 11:18 105 144/80 (101) 96 06/11/17 10:00 124 167/86 (113) 94 06/11/17 10:00 124 06/11/17 09:00 106 148/88 (108) 98 06/11/17 08:00 98.3 100 156/92 (113) 99 06/11/17 08:00 100 06/11/17 07:12 85 145/83 (103) 98 06/11/17 06:00 90 06/11/17 06:00 90 174/92 (119) 98 06/11/17 05:03 91 153/94 (113) 98 06/11/17 04:00 113 06/11/17 04:00 98.4 113 46 153/94 (113) 96 06/11/17 02:00 100 06/11/17 00:00 102 06/11/17 00:00 98.0 102 25 150/76 (100) 98 06/10/17 22:00 99 06/10/17 20:00 98.2 108 27 166/80 (108) 97 06/10/17 20:00 108 06/10/17 19:48 98 Nasal Cannula 4.00 06/10/17 18:00 107 06/10/17 16:00 100 06/10/17 16:00 97.5 100 22 145/72 (96) 98 06/10/17 15:50 98 BiPAP 35 06/10/17 15:50 98 35 06/10/17 14:00 109 I/O 06/10/17 06/10/17 06/10/17 06/11/17 06/11/17 06/11/17 07:00 15:00 23:00 07:00 15:00 23:00 Intake Total 1000 ml 480 ml 150 ml Output Total 250 ml Balance 750 ml 480 ml 150 ml Intake Oral 480 ml IV Total 1000 ml 150 ml Output Urine Total 250 ml # Voids 2 6 # Bowel Movements 0 1 Result Diagram: 06/10/17 0456 06/10/17 0642 Objective Remarks PHYSICAL EXAMINATION HEENT: Head normocephalic, atraumatic. NECK: Trachea midline. LUNGS: Mild expiratory wheezing bilateral HEART: Normal S1, S2. ABDOMEN: Soft, nontender, obese. EXTREMITIES: Trace edema. NEUROLOGIC: Alert and oriented times three. Moves all extremities. Assessment and Plan Assessment and Plan ASSESSMENT AND PLAN 1. Acute chronic obstructive pulmonary disease exacerbation 2. ? Pneumonia 3. Atrial fibrillation I had long discussion with the patient. cont iv steroids cont abx wean off fio2 as tolerated not ready for dsicussion about dc home . Al Prabhakar MD Jun 11, 2017 13:18
[2017-06-11] MEDS: DILTIAZEM HCL 90 MG TAB PO SCH (16:40)
[2017-06-11] MEDS: LEVOFLOXACIN 750 MG PREMIX INJ 150 ML IV SCH (20:51)
[2017-06-12] VITALS (11 sets, daily range): BP systolic 112–187; BP diastolic 64–86; PULSE 73–114; RESP 20; TEMP 97.4–98.2; O2SAT 94–98
[2017-06-12] MEDS: DILTIAZEM HCL 90 MG TAB PO SCH ×3 (00:39→16:38)
[2017-06-12] MEDS: SODIUM CHLOR 0.9% 1000 ML INJ 1,000 ML IV SCH ×4 (03:37→18:26)
[2017-06-12] MEDS: ISOSORBIDE MONONITRATE 30 MG TAB PO SCH (05:40)
[2017-06-12] MEDS: HEPARIN SODIUM - SQ 10,000 UNITS/ML VIAL SQ SCH ×3 (05:41→22:32)
[2017-06-12] MEDS: methylPREDNISolone SOD SUCC 125 MG/2 ML VIAL IV PUSH SCH ×4 (05:42→22:30)
[2017-06-12] MEDS: ASPIRIN EC 81 MG TABEC PO SCH (08:40)
[2017-06-12] MEDS: SODIUM CHLORIDE 0.9% FLUSH 10 ML FLUSH IV FLUSH SCH ×2 (08:44→20:02)
[2017-06-12] MEDS: TIOTROPIUM BROMIDE 18 MCG INH INH SCH (08:56)
[2017-06-12] MEDS: UMECLIDINIUM 62.5 MCG/VILANTEROL 25 MCG INHALER INH SCH (08:56)
[2017-06-12] MEDS: ALBUTEROL SULFATE 90 MCG/ACT HFA 8 GM INHALER INH SCH ×4 (08:56→23:46)
--- NOTE | 2017-06-12 10:11 | HHI.PR ---
Subjective Remarks This is a pleasant 72 y/o Female with COPD not on home oxygen, Atrial Fibrillation, history of CVA, Mild CAD and Hypertension Came to ER with SOB, was started by his PCP on antibiotics, steroids, antibiotics Azithromycin, sis, neutrophils of 90.8. Lactic acid 3.0. Chest x-ray significant for possible medial lower lung infiltrates. lactic acid trending down. 06/12: Stable seen in her bedroom, discussed with nurse Miss Marquis, followed by labor specialist Doctor Vanna, recommended to continue Steroids by mouth, antibiotics to by mouth, assess for home oxygen at discharge. not yet cleared by labor specialist. Objective Vital Signs Date Time Temp Pulse Resp B/P (MAP) Pulse Ox O2 Delivery O2 Flow Rate FiO2 06/12/17 08:29 98.2 80 20 137/64 (88) 94 06/12/17 08:20 73 06/12/17 04:00 97.7 89 20 112/69 (83) 97 06/12/17 03:00 86 06/12/17 00:00 97.6 97 20 153/86 (108) 98 06/11/17 20:00 97.3 83 20 134/71 (92) 98 06/11/17 16:00 98.2 72 16 128/78 (95) 98 06/11/17 14:00 98 06/11/17 12:00 100 06/11/17 12:00 98.0 100 21 144/80 (101) 98 06/11/17 11:18 105 144/80 (101) 96 06/11/17 11:00 97 Nasal Cannula 3.00 I/O 06/11/17 06/11/17 06/11/17 06/12/17 06/12/17 06/12/17 07:00 15:00 23:00 07:00 15:00 23:00 Intake Total 150 ml Balance 150 ml IV Total 150 ml # Voids 6 1 2 # Bowel Movements 1 Result Diagram: 06/10/17 0456 06/10/17 0642 Imaging Last Impressions Chest X-Ray 06/09/17 1849 Signed Impressions: Service Date/Time: Friday, June 09, 2017 19:20 - CONCLUSION: Possible medial lower lung infiltrates versus atelectasis due to submaximal inspiration. Cardiomegaly. Maninder Khan MD Procedures None Other Results Laboratory Tests Test 06/09/17 19:10 06/10/17 04:56 06/10/17 06:42 06/10/17 09:17 Prothrombin Time 10.1 SEC Prothromb Time International Ratio 0.9 RATIO Activated Partial Thromboplast Time 21.7 SEC Blood Urea Nitrogen 33 MG/DL 20 MG/DL Creatinine 0.98 MG/DL 0.83 MG/DL Random Glucose 238 MG/DL 206 MG/DL Calcium Level 8.0 MG/DL 8.2 MG/DL Magnesium Level 1.7 MG/DL Sodium Level 137 MEQ/L 139 MEQ/L Potassium Level 3.9 MEQ/L 4.0 MEQ/L Chloride Level 104 MEQ/L 105 MEQ/L Carbon Dioxide Level 24.2 MEQ/L 22.0 MEQ/L Total Creatine Kinase 92 U/L Troponin I LESS THAN 0.02 NG/ML B-Type Natriuretic Peptide 101 PG/ML White Blood Count 8.5 TH/MM3 Red Blood Count 4.03 MIL/MM3 Hemoglobin 11.3 GM/DL Hematocrit 34.3 % Mean Corpuscular Volume 85.1 FL Mean Corpuscular Hemoglobin 28.0 PG Mean Corpuscular Hemoglobin Concent 32.9 % Red Cell Distribution Width 16.5 % Platelet Count 170 TH/MM3 Mean Platelet Volume 9.3 FL Neutrophils (%) (Auto) 92.8 % Lymphocytes (%) (Auto) 6.0 % Monocytes (%) (Auto) 1.1 % Eosinophils (%) (Auto) 0.0 % Basophils (%) (Auto) 0.1 % Neutrophils # (Auto) 7.9 TH/MM3 Lymphocytes # (Auto) 0.5 TH/MM3 Monocytes # (Auto) 0.1 TH/MM3 Eosinophils # (Auto) 0.0 TH/MM3 Basophils # (Auto) 0.0 TH/MM3 CBC Comment DIFF FINAL Differential Comment Anion Gap 12 MEQ/L Estimat Glomerular Filtration Rate 68 ML/MIN Blood Gas Puncture Site LT BRACHIAL Blood Gas Patient Temperature 37.0 Blood Gas HCO3 21 mmol/L Blood Gas Base Excess -3.3 mmol/L Blood Gas Oxygen Saturation 96 % Arterial Blood pH 7.40 Arterial Blood Partial Pressure CO2 34 mmHg Arterial Blood Partial Pressure O2 102 mmHG Arterial Blood Oxygen Content 16.2 Vol % Arterial Blood Carboxyhemoglobin 1.0 % Arterial Blood Methemoglobin 0.9 % Blood Gas Hemoglobin 12.0 G/DL Oxygen Delivery Device RA Test 06/10/17 11:00 06/10/17 12:45 06/11/17 04:49 Urine Color YELLOW Urine Turbidity CLEAR Urine pH 5.5 Urine Specific [place] 1.011 Urine Protein NEG mg/dL Urine Glucose (UA) 1000 mg/dL Urine Ketones NEG mg/dL Urine Occult Blood NEG Urine Nitrite NEG Urine Bilirubin NEG Urine Urobilinogen LESS THAN 2.0 MG/DL Urine Leukocyte Esterase NEG Urine RBC LESS THAN 1 /hpf Urine WBC 1 /hpf Urine Squamous Epithelial Cells 1 /hpf Urine Bacteria RARE /hpf Microscopic Urinalysis Comment CULT NOT INDICATED Nasal Screen MRSA (PCR) MRSA NOT DETECTED Lactic Acid Level 2.3 mmol/L Objective Remarks GENERAL: This is a well-nourished obese, well-developed patient, in no apparent distress. CARDIOVASCULAR: Tachycardic with positive RESPIRATORY: Diffuse expiratory wheezes, diminish breath sounds bilaterally. GASTROINTESTINAL: Abdomen soft, non-tender,nondistended. Normal active bowel sounds MUSCULOSKELETAL: Extremities without clubbing, cyanosis, or edema. NEURO: Alert & Oriented x4 to person, place, time, situation. Moves all ext x4 Medications and IVs Current Medications Medications (Trade) Dose Ordered Sig/Alissa Route Start Time Stop Time Status Last Admin (NS Flush) 2 ml UNSCH PRN IV FLUSH 06/09/17 22:30 06/09/17 23:28 (NS Flush) 2 ml BID IV FLUSH 06/10/17 09:00 06/12/17 08:44 Levofloxacin/ Dextrose 150 ml @ 100 mls/hr Q24H IV 06/10/17 20:00 06/11/17 20:51 (Duoneb Neb) 1 ampule Q4HR NEB PRN INH 06/09/17 22:30 (Heparin Inj) 5,000 units Q8H SQ 06/09/17 22:30 06/12/17 05:41 (Ecotrin Ec) 81 mg DAILY PO 06/10/17 09:00 06/12/17 08:40 (Imdur) 30 mg DAILY@0700 PO 06/10/17 07:00 06/10/17 07:00 (Spiriva Inh) 2 mcg DAILY INH 06/10/17 09:00 06/12/17 08:56 (Proair Hfa Inh) 1 puff QID INH 06/10/17 09:00 06/12/17 08:56 Sodium Chloride 1,000 ml @ 125 mls/hr Q8H IV 06/09/17 22:45 06/11/17 19:37 (SoluMEDROL INJ) 60 mg Q6H IV PUSH 06/10/17 10:00 06/12/17 08:40 (Cardizem) 90 mg Q8H PO 06/11/17 17:00 06/12/17 08:40 A/P Assessment and Plan 72-year-old female with past medical history significant for COPD, history of CVA, CAD, atrial fibrillation and hypertension presents with increasing shortness of breath and new medial lower lung infiltrate on chest x-ray. - Pneumonia/COPD exacerbation/shortness of breath Lactic acidosis started trending down Continue antibiotic, O2 DuoNeb, appreciated pulmonary consultation Transfer to medical floor with telemetry as per labor specialist to treatment to by mouth and probable discharge by tomorrow. - Atrial fibrillation Continue home diltiazem EKG shows NSR without ST segment elevations or depressions - CAD/hypertension Continue home medications Patient status post cardiac catheterization showed mild nonobstructive coronary artery disease on 05/11/17 FEN Heart healthy diet NS at 100 cc/hr Electrolytes: replete prn Heparin Discharge Planning Expected in am tomorrow. Gilbert Link MD Jun 12, 2017 10:11
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
[2017-06-12] MEDS: LEVOFLOXACIN 750 MG PREMIX INJ 150 ML IV SCH (19:57)
[2017-06-12] MEDS: ACETAMINOPHEN 500 MG CPLT PO PRN (23:42)
[2017-06-13] VITALS (10 sets, daily range): BP systolic 126–178; BP diastolic 69–84; PULSE 87–113; RESP 17–20; TEMP 97.4–98.6; O2SAT 95–99
[2017-06-13] MEDS: RESP: ALBUTEROL 2.5 MG/IPRATROPIUM 0.5 MG NEB (PRN) INH (00:49)
[2017-06-13] MEDS: DILTIAZEM HCL 90 MG TAB PO SCH ×3 (01:12→17:55)
[2017-06-13] MEDS: methylPREDNISolone SOD SUCC 125 MG/2 ML VIAL IV PUSH SCH ×2 (04:04→10:24)
[2017-06-13] MEDS: HEPARIN SODIUM - SQ 10,000 UNITS/ML VIAL SQ SCH (06:22)
[2017-06-13] MEDS: ASPIRIN EC 81 MG TABEC PO SCH (08:56)
[2017-06-13] MEDS: ALBUTEROL SULFATE 90 MCG/ACT HFA 8 GM INHALER INH SCH ×4 (08:56→19:46)
[2017-06-13] MEDS: UMECLIDINIUM 62.5 MCG/VILANTEROL 25 MCG INHALER INH SCH (08:56)
[2017-06-13] MEDS: TIOTROPIUM BROMIDE 18 MCG INH INH SCH (08:56)
[2017-06-13] MEDS: SODIUM CHLORIDE 0.9% FLUSH 10 ML FLUSH IV FLUSH SCH ×2 (08:57→19:46)
[2017-06-13] MEDS: SODIUM CHLOR 0.9% 1000 ML INJ 1,000 ML IV SCH (11:37)
--- NOTE | 2017-06-13 12:43 | HHI.PR ---
Subjective History of Present Illness Patient feel better change IV Solumedrol to PO Prednisone. Discontinue IV Fluids. Discontinue Heparin start Lovenox. Review of Systems Constitutional Constitutional: Fatigue Pulmonary Respiratory: Coughing, Shortness of Breath, Wheezing Vitals/Results Intake & Output 06/13/17 06/13/17 06/14/17 15:00 23:00 07:00 Intake Total 150 ml Balance 150 ml IV Total 150 ml Vital Signs Vital Signs Date Time Temp Pulse Resp B/P (MAP) Pulse Ox O2 Delivery O2 Flow Rate FiO2 06/13/17 12:00 95 Nasal Cannula 4.00 06/13/17 11:47 98.2 99 20 153/81 (105) 96 06/13/17 09:00 87 06/13/17 08:07 97.4 88 20 178/84 (115) 95 06/13/17 04:14 98 35 06/13/17 03:00 89 126/69 (88) 06/13/17 00:53 95 Nasal Cannula 4.00 06/13/17 00:00 98.2 98 20 161/79 (106) 99 06/12/17 20:52 95 Nasal Cannula 3.00 06/12/17 20:00 98.1 92 20 187/74 (111) 95 06/12/17 17:46 97.4 06/12/17 15:57 97.6 114 20 130/78 (95) 94 CBC/BMP: 06/10/17 0456 06/10/17 0642 Physical Exam General General Appearance: Well Developed, Well Nourished, No Acute Distress, Comfortable Eyes Eye Exam: Sclera White, Extraocular Movement Intact Throat Throat Exam: Oral Mucosa [place] & Moist, Oral Pharynx Normal Neck Neck Exam: Neck Supple, Trachea Midline Pulmonary Resp Exam: Breath Sounds Equal, No Distress, Crackles Resp Remarks bilateral wheezing. Cardiology CV Exam: Regular, Normal Sinus Rhythm Gastrointestinal/Abdomen GI Exam: Soft, Non-Tender, Bowel Sounds Present Musculoskeletal MS Exam: Joints Intact Integumentary Skin Exam: Clear, Warm, Dry, Intact Extremeties Extremities Exam: No Edema Neurologic Neuro Exam: Alert, Awake, Oriented, Speech Clear, Moving All Extremities, No Focal Deficits VTE Prophylaxis VTE Prophylaxis Meds: Lovenox PUD Prophylasis PUD Prophylaxis: Protonix Assessment/Plan Assessment/Plan Assessment and Plan 72-year-old female with past medical history significant for COPD, history of CVA, CAD, atrial fibrillation and hypertension presents with increasing shortness of breath and new medial lower lung infiltrate on chest x-ray. - Pneumonia/COPD exacerbation/shortness of breath Lactic acidosis trending down Continue antibiotic, O2 DuoNeb, appreciated pulmonary consultation Discontinue Solumedrol start oral Prednisone. Discontinue IV Fluids. as per solar energy sales specialist to treatment to by mouth and probable discharge by tomorrow. - Atrial fibrillation Continue home diltiazem EKG shows NSR without ST segment elevations or depressions - CAD/hypertension Continue home medications Patient status post cardiac catheterization showed mild nonobstructive coronary artery disease on 05/11/17 FEN Heart healthy diet Electrolytes: replete prn Lovenox. Check CBC with diff CMP in AM. Discharge Planning Expected in am tomorrow. Discussed Condition with: Patient Willian Mike MD Jun 13, 2017 12:43
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
[2017-06-13] MEDS: predniSONE 20 MG TAB PO SCH ×2 (14:32→19:46)
[2017-06-13] MEDS: ENOXAPARIN SODIUM 40 MG/0.4 ML SYRINGE SQ SCH (14:32)
[2017-06-13] MEDS: LEVOFLOXACIN 750 MG PREMIX INJ 150 ML IV SCH (19:45)
[2017-06-13] MEDS: ACETAMINOPHEN 500 MG CPLT PO PRN (23:51)
[2017-06-14] VITALS (10 sets, daily range): BP systolic 125–180; BP diastolic 65–90; PULSE 85–101; RESP 17–20; TEMP 97.7–98.7; O2SAT 91–99
[2017-06-14] MEDS: DILTIAZEM HCL 90 MG TAB PO SCH ×3 (00:28→16:49)
[2017-06-14] MEDS: RESP: ALBUTEROL 2.5 MG/IPRATROPIUM 0.5 MG NEB (PRN) INH ×3 (00:50→16:56)
[2017-06-14 07:15] LABS: AUTOMATED NEUTROPHIL # 10.5 TH/MM3 (1.8-7.7); BASOPHIL % 0.2 % (0.0-2.0); HEMATOCRIT 37.4 % (35.0-46.0); HEMO FLAGS DIFF FINAL; LYMPH % 5.3 % (9.0-44.0); LYMPHOCYTE # 0.6 TH/MM3 (1.0-4.8); MEAN CELL VOLUME 85.3 FL (80.0-100.0); MEAN CORPUSCULAR HEMOGLOBIN 27.9 PG (27.0-34.0); MEAN CORPUSCULAR HGB CONC 32.7 % (32.0-36.0); MONO % 4.8 % (0.0-8.0); NEUT % 89.7 % (16.0-70.0); PLATELET COUNT 185 TH/MM3 (150-450); RED BLOOD COUNT 4.39 MIL/MM3 (4.00-5.30); RED CELL DISTRIBUTION WIDTH 16.7 % (11.6-17.2); WHITE BLOOD COUNT 11.7 TH/MM3 (4.0-11.0)
[2017-06-14 07:40] LABS: ANION GAP 12 MEQ/L (5-15); AST (GOT) 27 U/L (15-37); BICARBONATE 28.2 MEQ/L (21.0-32.0); BLOOD UREA NITROGEN 29 MG/DL (7-18); CHLORIDE 99 MEQ/L (98-107); GLOMERULAR FILTRATION RATE 46 ML/MIN (>89); SODIUM (NA) 139 MEQ/L (136-145)
[2017-06-14 07:44] LABS: ALKALINE PHOSPHATASE 66 U/L (45-117); ALT (GPT) 80 U/L (10-53); TOTAL BILIRUBIN ADULT 0.4 MG/DL (0.2-1.0)
[2017-06-14] MEDS: predniSONE 20 MG TAB PO SCH ×2 (08:50→20:57)
[2017-06-14] MEDS: ASPIRIN EC 81 MG TABEC PO SCH (08:50)
[2017-06-14] MEDS: SODIUM CHLORIDE 0.9% FLUSH 10 ML FLUSH IV FLUSH SCH ×2 (08:50→20:57)
[2017-06-14] MEDS: TIOTROPIUM BROMIDE 18 MCG INH INH SCH (08:52)
[2017-06-14] MEDS: UMECLIDINIUM 62.5 MCG/VILANTEROL 25 MCG INHALER INH SCH (08:52)
[2017-06-14] MEDS: ALBUTEROL SULFATE 90 MCG/ACT HFA 8 GM INHALER INH SCH ×4 (08:53→20:56)
[2017-06-14] MEDS: ENOXAPARIN SODIUM 40 MG/0.4 ML SYRINGE SQ SCH (13:03)
--- NOTE | 2017-06-14 18:14 | HHI.PR ---
Subjective Remarks She still sob better still having some wheezing no chest pain no fevers Objective Vital Signs Date Time Temp Pulse Resp B/P (MAP) Pulse Ox O2 Delivery O2 Flow Rate FiO2 06/14/17 16:08 97.7 98 20 168/90 (116) 95 06/14/17 12:33 98.2 85 20 140/65 (90) 95 06/14/17 10:15 94 06/14/17 09:11 97 06/14/17 07:58 98.4 101 20 180/88 (118) 99 06/14/17 01:53 95 141/72 (95) 06/14/17 01:01 91 35 06/14/17 00:51 95 06/14/17 00:02 97.8 95 17 176/79 (111) 95 06/13/17 20:18 97.5 104 17 142/77 (98) 98 I/O 06/13/17 06/13/17 06/13/17 06/14/17 06/14/17 06/14/17 07:00 15:00 23:00 07:00 15:00 23:00 Intake Total 960 ml 288 ml 1110 ml 940 ml Balance 960 ml 288 ml 1110 ml 940 ml Intake Oral 960 ml 960 ml 940 ml IV Total 288 ml 150 ml # Voids 3 4 7 # Bowel Movements 2 5 Result Diagram: 06/14/17 0641 06/14/17 0641 Procedures None Objective Remarks HEENT: Head normocephalic, atraumatic. NECK: Trachea midline. LUNGS: clear bilateral HEART: Normal S1, S2. ABDOMEN: Soft, nontender, obese. EXTREMITIES: Trace edema. NEUROLOGIC: Alert and oriented times three. Moves all extremities. Assessment and Plan Assessment and Plan ASSESSMENT AND PLAN 1. Acute chronic obstructive pulmonary disease exacerbation 2. ? Pneumonia 3. Atrial fibrillation bipap as needed oral prednisone cont bronchodilators abx she will need to be assesed for home O2 upon discharge home in 1-2 days call me if needed.. she will come see me in my office Al Prabhakar MD Jun 14, 2017 18:14
--- NOTE | 2017-06-14 19:14 | HHI.PR ---
Subjective History of Present Illness Patient feel better on PO Prednisone. on Lovenox. no acute issue d/w RN on duty. Review of Systems Constitutional Constitutional: Fatigue Pulmonary Respiratory: Coughing, Shortness of Breath, Wheezing Vitals/Results Intake & Output 06/14/17 06/14/17 06/15/17 15:00 23:00 07:00 Intake Total 940 ml Balance 940 ml Intake Oral 940 ml # Voids 7 # Bowel Movements 5 Vital Signs Vital Signs Date Time Temp Pulse Resp B/P (MAP) Pulse Ox O2 Delivery O2 Flow Rate FiO2 06/14/17 16:08 97.7 98 20 168/90 (116) 95 06/14/17 12:33 98.2 85 20 140/65 (90) 95 06/14/17 10:15 94 06/14/17 09:11 97 06/14/17 07:58 98.4 101 20 180/88 (118) 99 06/14/17 01:53 95 141/72 (95) 06/14/17 01:01 91 35 06/14/17 00:51 95 06/14/17 00:02 97.8 95 17 176/79 (111) 95 06/13/17 20:18 97.5 104 17 142/77 (98) 98 CBC/BMP: 06/14/17 0641 06/14/17 0641 Lab Results Laboratory Tests Test 06/14/17 06:41 White Blood Count 11.7 TH/MM3 Red Blood Count 4.39 MIL/MM3 Hemoglobin 12.2 GM/DL Hematocrit 37.4 % Mean Corpuscular Volume 85.3 FL Mean Corpuscular Hemoglobin 27.9 PG Mean Corpuscular Hemoglobin Concent 32.7 % Red Cell Distribution Width 16.7 % Platelet Count 185 TH/MM3 Mean Platelet Volume 8.8 FL Neutrophils (%) (Auto) 89.7 % Lymphocytes (%) (Auto) 5.3 % Monocytes (%) (Auto) 4.8 % Eosinophils (%) (Auto) 0.0 % Basophils (%) (Auto) 0.2 % Neutrophils # (Auto) 10.5 TH/MM3 Lymphocytes # (Auto) 0.6 TH/MM3 Monocytes # (Auto) 0.6 TH/MM3 Eosinophils # (Auto) 0.0 TH/MM3 Basophils # (Auto) 0.0 TH/MM3 CBC Comment DIFF FINAL Differential Comment Blood Urea Nitrogen 29 MG/DL Creatinine 1.15 MG/DL Random Glucose 253 MG/DL Total Protein 7.0 GM/DL Albumin 3.3 GM/DL Calcium Level 8.7 MG/DL Alkaline Phosphatase 66 U/L Aspartate Amino Transf (AST/SGOT) 27 U/L Alanine Aminotransferase (ALT/SGPT) 80 U/L Total Bilirubin 0.4 MG/DL Sodium Level 139 MEQ/L Potassium Level 4.0 MEQ/L Chloride Level 99 MEQ/L Carbon Dioxide Level 28.2 MEQ/L Anion Gap 12 MEQ/L Estimat Glomerular Filtration Rate 46 ML/MIN Physical Exam General General Appearance: Well Developed, Well Nourished, No Acute Distress, Comfortable Eyes Eye Exam: Sclera White, Extraocular Movement Intact Throat Throat Exam: Oral Mucosa [place] & Moist, Oral Pharynx Normal Neck Neck Exam: Neck Supple, Trachea Midline Pulmonary Resp Exam: Breath Sounds Equal, No Distress, Crackles Resp Remarks bilateral wheezing. Cardiology CV Exam: Regular, Normal Sinus Rhythm Gastrointestinal/Abdomen GI Exam: Soft, Non-Tender, Bowel Sounds Present Musculoskeletal MS Exam: Joints Intact Integumentary Skin Exam: Clear, Warm, Dry, Intact Extremeties Extremities Exam: No Edema Neurologic Neuro Exam: Alert, Awake, Oriented, Speech Clear, Moving All Extremities, No Focal Deficits VTE Prophylaxis VTE Prophylaxis Meds: Lovenox PUD Prophylasis PUD Prophylaxis: Protonix Assessment/Plan Assessment/Plan Assessment and Plan 72-year-old female with past medical history significant for COPD, history of CVA, CAD, atrial fibrillation and hypertension presents with increasing shortness of breath and new medial lower lung infiltrate on chest x-ray. - Pneumonia/COPD exacerbation/shortness of breath Lactic acidosis trending down Continue antibiotic, O2 DuoNeb, appreciated pulmonary consultation on oral Prednisone. as per field marketing specialist to treatment to by mouth and probable discharge by tomorrow. - Atrial fibrillation Continue home diltiazem EKG shows NSR without ST segment elevations or depressions - CAD/hypertension Continue home medications Patient status post cardiac catheterization showed mild nonobstructive coronary artery disease on 05/11/17 FEN Heart healthy diet Electrolytes: replete prn Lovenox. Check CBC with diff CMP in AM. Discharge Planning Expected in am tomorrow. Discussed Condition with: Patient Willian Mike MD Jun 14, 2017 19:14
[2017-06-15] VITALS (7 sets, daily range): BP systolic 120–172; BP diastolic 80–97; PULSE 80–97; RESP 19–20; TEMP 97.1–98.8; O2SAT 95–98
[2017-06-15] MEDS: DILTIAZEM HCL 90 MG TAB PO SCH ×3 (01:40→16:09)
[2017-06-15] MEDS: UMECLIDINIUM 62.5 MCG/VILANTEROL 25 MCG INHALER INH SCH (08:40)
[2017-06-15] MEDS: ALBUTEROL SULFATE 90 MCG/ACT HFA 8 GM INHALER INH SCH ×4 (08:40→21:14)
[2017-06-15] MEDS: TIOTROPIUM BROMIDE 18 MCG INH INH SCH (08:40)
[2017-06-15] MEDS: SODIUM CHLORIDE 0.9% FLUSH 10 ML FLUSH IV FLUSH SCH ×2 (08:41→21:14)
[2017-06-15 08:42] LABS: AUTOMATED NEUTROPHIL # 6.9 TH/MM3 (1.8-7.7); BASOPHIL % 0.1 % (0.0-2.0); HEMATOCRIT 37.2 % (35.0-46.0); LYMPH % 8.3 % (9.0-44.0); LYMPHOCYTE # 0.7 TH/MM3 (1.0-4.8); MEAN CELL VOLUME 84.7 FL (80.0-100.0); MEAN CORPUSCULAR HEMOGLOBIN 27.8 PG (27.0-34.0); MEAN CORPUSCULAR HGB CONC 32.8 % (32.0-36.0); MONO % 6.3 % (0.0-8.0); NEUT % 85.3 % (16.0-70.0); PLATELET COUNT 131 TH/MM3 (150-450); RED BLOOD COUNT 4.39 MIL/MM3 (4.00-5.30); WHITE BLOOD COUNT 8.1 TH/MM3 (4.0-11.0)
[2017-06-15] MEDS: predniSONE 20 MG TAB PO SCH ×2 (08:42→21:14)
[2017-06-15] MEDS: ASPIRIN EC 81 MG TABEC PO SCH (08:42)
[2017-06-15 08:50] LABS: HEMO FLAGS AUTO DIFF
[2017-06-15 09:01] LABS: ANION GAP 8 MEQ/L (5-15); AST (GOT) 32 U/L (15-37); BICARBONATE 27.7 MEQ/L (21.0-32.0); BLOOD UREA NITROGEN 22 MG/DL (7-18); CHLORIDE 99 MEQ/L (98-107); GLOMERULAR FILTRATION RATE 78 ML/MIN (>89); POTASSIUM 3.8 MEQ/L (3.5-5.1); SODIUM (NA) 135 MEQ/L (136-145)
[2017-06-15 09:02] LABS: ALT (GPT) 81 U/L (10-53)
[2017-06-15 09:04] LABS: ALKALINE PHOSPHATASE 59 U/L (45-117); TOTAL BILIRUBIN ADULT 0.5 MG/DL (0.2-1.0)
[2017-06-15 09:43] LABS: BANDS 6 % (0-6); CORRECTED NUCLEATED RBC 1 /100 WBC (0-0); MYELOCYTES 1 % (0-0); OVALOCYTES 1+ (NORMAL); PLATELET ESTIMATE SMEAR LOW (NORMAL); PLATELET MORPHOLOGY NORMAL (NORMAL); POLYS (SEG NEUTROPHILS) 79 % (16-70); SCAN/DIFF FINAL DIFF MANUAL; WBC DIFF SAMPLE 100
--- NOTE | 2017-06-15 11:43 | HHI.PR ---
Subjective History of Present Illness Patient feel better have PVC on EKG Check magnasium level Review of Systems Constitutional Constitutional: Fatigue Pulmonary Respiratory: Coughing, Shortness of Breath, Wheezing Vitals/Results Vital Signs Vital Signs Date Time Temp Pulse Resp B/P (MAP) Pulse Ox O2 Delivery O2 Flow Rate FiO2 06/15/17 09:40 83 06/15/17 08:43 98.2 94 19 165/89 (114) 97 06/15/17 05:15 98.8 80 20 125/88 (100) 98 06/15/17 00:15 98.4 88 19 120/82 (95) 97 06/14/17 21:30 98.7 97 20 125/86 (99) 98 06/14/17 16:08 97.7 98 20 168/90 (116) 95 06/14/17 12:33 98.2 85 20 140/65 (90) 95 CBC/BMP: 06/15/17 0759 06/15/17 0759 Lab Results Laboratory Tests Test 06/15/17 07:59 White Blood Count 8.1 TH/MM3 Red Blood Count 4.39 MIL/MM3 Hemoglobin 12.2 GM/DL Hematocrit 37.2 % Mean Corpuscular Volume 84.7 FL Mean Corpuscular Hemoglobin 27.8 PG Mean Corpuscular Hemoglobin Concent 32.8 % Red Cell Distribution Width 16.0 % Platelet Count 131 TH/MM3 Mean Platelet Volume 8.9 FL Neutrophils (%) (Auto) 85.3 % Lymphocytes (%) (Auto) 8.3 % Monocytes (%) (Auto) 6.3 % Eosinophils (%) (Auto) 0.0 % Basophils (%) (Auto) 0.1 % Neutrophils # (Auto) 6.9 TH/MM3 Lymphocytes # (Auto) 0.7 TH/MM3 Monocytes # (Auto) 0.5 TH/MM3 Eosinophils # (Auto) 0.0 TH/MM3 Basophils # (Auto) 0.0 TH/MM3 CBC Comment AUTO DIFF Differential Total Cells Counted 100 Neutrophils % (Manual) 79 % Band Neutrophils % 6 % Lymphocytes % 9 % Monocytes % 5 % Neutrophils # (Manual) 7.0 TH/MM3 Myelocytes 1 % Nucleated Red Blood Cells 1 /100 WBC Differential Comment FINAL DIFF MANUAL Platelet Estimate LOW Platelet Morphology Comment NORMAL Ovalocytes 1+ Blood Urea Nitrogen 22 MG/DL Creatinine 0.73 MG/DL Random Glucose 215 MG/DL Total Protein 6.3 GM/DL Albumin 2.9 GM/DL Calcium Level 7.9 MG/DL Alkaline Phosphatase 59 U/L Aspartate Amino Transf (AST/SGOT) 32 U/L Alanine Aminotransferase (ALT/SGPT) 81 U/L Total Bilirubin 0.5 MG/DL Sodium Level 135 MEQ/L Potassium Level 3.8 MEQ/L Chloride Level 99 MEQ/L Carbon Dioxide Level 27.7 MEQ/L Anion Gap 8 MEQ/L Estimat Glomerular Filtration Rate 78 ML/MIN Magnesium Level 2.5 MG/DL Physical Exam General General Appearance: Well Developed, Well Nourished, No Acute Distress, Comfortable Eyes Eye Exam: Sclera White, Extraocular Movement Intact Throat Throat Exam: Oral Mucosa [place] & Moist, Oral Pharynx Normal Neck Neck Exam: Neck Supple, Trachea Midline Pulmonary Resp Exam: Breath Sounds Equal, No Distress, Crackles Resp Remarks bilateral wheezing. Cardiology CV Exam: Regular, Normal Sinus Rhythm Gastrointestinal/Abdomen GI Exam: Soft, Non-Tender, Bowel Sounds Present Musculoskeletal MS Exam: Joints Intact Integumentary Skin Exam: Clear, Warm, Dry, Intact Extremeties Extremities Exam: No Edema Neurologic Neuro Exam: Alert, Awake, Oriented, Speech Clear, Moving All Extremities, No Focal Deficits VTE Prophylaxis VTE Prophylaxis Meds: Lovenox PUD Prophylasis PUD Prophylaxis: Protonix Assessment/Plan Assessment/Plan Assessment and Plan 72-year-old female with past medical history significant for COPD, history of CVA, CAD, atrial fibrillation and hypertension presents with increasing shortness of breath and new medial lower lung infiltrate on chest x-ray. - Pneumonia/COPD exacerbation/shortness of breath Lactic acidosis trending down Continue antibiotic, O2 DuoNeb, appreciated pulmonary consultation on oral Prednisone. as per learning and development specialist to treatment to by mouth and probable discharge by tomorrow. - Atrial fibrillation Continue home diltiazem EKG shows NSR without ST segment elevations or depressions - CAD/hypertension Continue home medications Patient status post cardiac catheterization showed mild nonobstructive coronary artery disease on 05/11/17 FEN Heart healthy diet Electrolytes: replete prn Lovenox. Check CBC with diff CMP in AM. Discharge Planning soon. Discussed Condition with: Patient Willian Mike MD Jun 15, 2017 11:43
[2017-06-15] MEDS: ENOXAPARIN SODIUM 40 MG/0.4 ML SYRINGE SQ SCH (13:12)
--- NOTE | 2017-06-15 14:41 | EKG ---
Date Performed: 06/15/2017 Time Performed: 13:27:38 PTAGE: 72 years EKG: Sinus rhythm WITH OCCASIONAL VENTRICULAR PREMATURE COMPLEXES RIGHT ATRIAL ENLARGEMENT ABNORMAL ECG No significant change from prior electrocardiogram. PREVIOUS TRACING : 06/09/2017 19.07 DOCTOR: Colby Diamond Interpretating Date/Time 06/15/2017 14:39:29
[2017-06-15] MEDS: LEVOFLOXACIN 750 MG PREMIX INJ 150 ML IV SCH (16:09)
[2017-06-16] VITALS (10 sets, daily range): BP systolic 126–183; BP diastolic 76–99; PULSE 74–115; RESP 17–21; TEMP 97.6–98.5; O2SAT 94–97
[2017-06-16] MEDS: DILTIAZEM HCL 90 MG TAB PO SCH ×3 (02:18→17:06)
[2017-06-16] MEDS: ASPIRIN EC 81 MG TABEC PO SCH (08:21)
[2017-06-16] MEDS: SODIUM CHLORIDE 0.9% FLUSH 10 ML FLUSH IV FLUSH SCH ×2 (08:21→20:30)
[2017-06-16] MEDS: predniSONE 20 MG TAB PO SCH ×2 (08:21→20:30)
[2017-06-16] MEDS: UMECLIDINIUM 62.5 MCG/VILANTEROL 25 MCG INHALER INH SCH (08:22)
[2017-06-16] MEDS: ALBUTEROL SULFATE 90 MCG/ACT HFA 8 GM INHALER INH SCH ×4 (08:23→21:00)
[2017-06-16] MEDS: TIOTROPIUM BROMIDE 18 MCG INH INH SCH (08:24)
[2017-06-16] MEDS: ENOXAPARIN SODIUM 40 MG/0.4 ML SYRINGE SQ SCH (12:42)
--- NOTE | 2017-06-16 15:08 | HHI.PR ---
Subjective History of Present Illness Patient c/o trouble swallowing consult GI. Review of Systems Constitutional Constitutional: Fatigue Pulmonary Respiratory: Coughing, Shortness of Breath, Wheezing GI/Abdomen GI/Abdomen Remarks trouble swallowing. Vitals/Results Vital Signs Vital Signs Date Time Temp Pulse Resp B/P (MAP) Pulse Ox O2 Delivery O2 Flow Rate FiO2 06/16/17 13:00 83 06/16/17 11:59 98.5 74 17 140/76 (97) 94 06/16/17 09:30 108 06/16/17 08:54 97.6 93 19 144/76 (98) 94 06/16/17 05:50 98.1 88 21 133/89 (104) 97 06/16/17 00:00 98.4 84 20 138/88 (105) 96 06/15/17 20:00 97.1 86 19 140/80 (100) 95 06/15/17 16:39 98.3 97 19 172/90 (117) 95 CBC/BMP: 06/15/17 0759 06/15/17 0759 Physical Exam General General Appearance: Well Developed, Well Nourished, No Acute Distress, Comfortable Eyes Eye Exam: Sclera White, Extraocular Movement Intact Throat Throat Exam: Oral Mucosa [place] & Moist, Oral Pharynx Normal Neck Neck Exam: Neck Supple, Trachea Midline Pulmonary Resp Exam: Breath Sounds Equal, No Distress, Crackles Resp Remarks bilateral wheezing. Cardiology CV Exam: Regular, Normal Sinus Rhythm Gastrointestinal/Abdomen GI Exam: Soft, Non-Tender, Bowel Sounds Present Musculoskeletal MS Exam: Joints Intact Integumentary Skin Exam: Clear, Warm, Dry, Intact Extremeties Extremities Exam: No Edema Neurologic Neuro Exam: Alert, Awake, Oriented, Speech Clear, Moving All Extremities, No Focal Deficits VTE Prophylaxis VTE Prophylaxis Meds: Lovenox PUD Prophylasis PUD Prophylaxis: Protonix Assessment/Plan Assessment/Plan Assessment and Plan 72-year-old female with past medical history significant for COPD, history of CVA, CAD, atrial fibrillation and hypertension presents with increasing shortness of breath and new medial lower lung infiltrate on chest x-ray. - Pneumonia/COPD exacerbation/shortness of breath Lactic acidosis trending down Continue antibiotic, O2 DuoNeb, appreciated pulmonary consultation on oral Prednisone. as per merchandising specialist to treatment to by mouth and probable discharge by tomorrow. - Atrial fibrillation Continue home diltiazem EKG shows NSR without ST segment elevations or depressions - CAD/hypertension Continue home medications Patient status post cardiac catheterization showed mild nonobstructive coronary artery disease on 05/11/17 Swallowing problem check swallow study and consult GI. Heart healthy diet Electrolytes: replete prn Lovenox. Check CBC with diff CMP in AM. Discharge Planning soon. Discussed Condition with: Patient Willian Mike MD Jun 16, 2017 15:08
[2017-06-16] MEDS: LEVOFLOXACIN 750 MG PREMIX INJ 150 ML IV SCH (15:20)
--- NOTE | 2017-06-16 15:51 | PD.CONS ---
HPI Service Cardiology Consult Requested By Dr Mike Reason for Consult Trigeminy Primary Care Physician Willian Mike MD History of Present Illness The patient is 72 year old female known to Dr Mcleod with a cardiac history of mild ASHD, mild hypertrophic obstructive cardiomyopathy, mild , carotid stenosis, HTN and atrial tachycardia. Other notable history COPD. The patient presented to the hospital with SOB and coughing. She was treated for COPD exacerbation. He breathing has improved. Yesterday, she developed asymptomatic trigeminy that has since resolved. This morning, she has sinus tachycardia. Current, tele NSR 85 bpm. Electrolytes are WNL (Ninfa Luna) Review of Systems Consitutional: DENIES: Fatigue, Fever, Chills, Weight gain, Weight loss Eyes: DENIES: Amaurosis [place], Change in vision HEENT: DENIES: Lightheadedness, Change in hearing Respiratory: COMPLAINS OF: Cough, Shortness of breath, Wheezing Cardiovascular: DENIES: See HPI, Chest pain, Palpitations, Syncope Gastrointestinal: DENIES: Nausea, Vomiting, Change in bowel habits, Reflux, Bloody stools, Melena Genitourinary: DENIES: Urinary incontinence, Difficulty voiding Integumentary: DENIES: Rash Neurologic: DENIES: Tingling or numbness, Memory problems, Poor Balance, Stroke symptoms Musculoskeletal: DENIES: Joint pain, Muscle pain, Limited range of motion, Back pain Psychiatric: DENIES: Anxiety, Depression, Sleep disturbances Hematologic: DENIES: Bruising tendencies, Bleeding tendencies Endocrine: DENIES: Weight gain, Weight loss, Thyroid disease (Ninfa Luna ) Past Family Social History Allergies: Coded Allergies: No Known Allergies (Verified , 05/02/17) Past Medical History See HPI Past Surgical History Cardiac cath 05/14/2017 right radical parotid tumor removal cholecystectomy Reported Medications Reported Meds & Active Scripts Active Reported Isosorbide Mononitrate ER (Isosorbide Mononitrate) 30 Mg Tano 30 Mg PO DAILY Anoro Ellipta Inh (Umeclidinium/Vilanterol) 62.5-25 Mcg/Act Aero 1 Puff INH DAILY Oxycodone-Acetaminophen 5-325 mg Tab 1 Tab PO Q6H PRN Combivent Respimat Inh (Ipratropium-Albuterol Inh) 20-100 [place]/Act Aero 1 Puff INH QID Ventolin Hfa 18 GM Inh (Albuterol Sulfate) 90 Mcg/Act Aer 2 Puff INH Q4H PRN Spiriva Respimat Inh (Tiotropium Inh) 2.5 Mcg/Act Aero 2 Puff INH DAILY 2.5 mcg = 1 inhalation Diltiazem (Diltiazem HCl) 120 Mg Tab 120 Mg PO BID Aspirin 81 (Aspirin) 81 Mg Tabdr 81 Mg PO DAILY Active Ordered Medications Current Medications Medications (Trade) Dose Ordered Sig/Alissa Route Start Time Stop Time Status Last Admin (NS Flush) 2 ml UNSCH PRN IV FLUSH 06/09/17 22:30 06/09/17 23:28 (NS Flush) 2 ml BID IV FLUSH 06/10/17 09:00 06/16/17 08:21 (Duoneb Neb) 1 ampule Q4HR NEB PRN INH 06/09/17 22:30 06/14/17 16:56 (Ecotrin Ec) 81 mg DAILY PO 06/10/17 09:00 06/16/17 08:21 (Spiriva Inh) 2 mcg DAILY INH 06/10/17 09:00 06/16/17 08:24 (Proair Hfa Inh) 1 puff QID INH 06/10/17 09:00 06/16/17 12:42 (Cardizem) 90 mg Q8H PO 06/11/17 17:00 06/16/17 08:21 (Tylenol) 500 mg Q6H PRN PO 06/12/17 23:45 06/13/17 23:51 (Deltasone) 20 mg BID PO 06/13/17 13:30 06/16/17 08:21 (Lovenox Inj) 40 mg Q24H SQ 06/13/17 14:00 06/16/17 12:42 Levofloxacin/ Dextrose 150 ml @ 100 mls/hr Q24H IV 06/15/17 16:00 06/16/17 15:20 Family History mother, father and siblings had heart disease Social History former smoker, no ETOH (Ninfa Luna) Physical Exam Vital Signs Vital Signs Date Time Temp Pulse Resp B/P (MAP) Pulse Ox O2 Delivery O2 Flow Rate FiO2 06/16/17 13:00 83 06/16/17 11:59 98.5 74 17 140/76 (97) 94 06/16/17 09:30 108 06/16/17 08:54 97.6 93 19 144/76 (98) 94 06/16/17 05:50 98.1 88 21 133/89 (104) 97 06/16/17 00:00 98.4 84 20 138/88 (105) 96 06/15/17 20:00 97.1 86 19 140/80 (100) 95 06/15/17 16:39 98.3 97 19 172/90 (117) 95 Physical Exam GENERAL: Elderly, obese female SKIN: Warm and dry. HEAD: Atraumatic. Normocephalic. ENT: No nasal bleeding or discharge. Mucous membranes pink and moist. NECK: Trachea midline. No JVD. CARDIOVASCULAR: Regular rate and rhythm. RESPIRATORY: Diminished air entry bilateral, exp wheezing GASTROINTESTINAL: Abdomen soft, non-tender, nondistended. MUSCULOSKELETAL: Extremities without clubbing, cyanosis, or edema. No obvious deformities. NEUROLOGICAL: Awake and alert. No obvious cranial nerve deficits. Motor grossly within normal limits. Five out of 5 muscle strength in the arms and legs. Normal speech. PSYCHIATRIC: Appropriate mood and affect; insight and judgment normal. Laboratory Date/Time Source Procedure Growth Status 06/09/17 20:45 Blood Peripheral Aerobic Blood Culture - Final NO GROWTH IN 5 DAYS Complete 06/09/17 20:45 Blood Peripheral Anaerobic Blood Culture - Final NO GROWTH IN 5 DAYS Complete (Ninfa Luna) Result Diagram: 06/15/17 0759 06/15/17 0759 Assessment and Plan Assessment and Plan Trigeminy and sinus tachycardia Acute on chronic COPD exacerbation Mild ASHD Mild HOCM Mild HTN Obesity PLAN Avoid beta saira in patient with recurrent COPD exacerbations Increase rate control therapy to cardizem 90 mg q 6 hrs. The patient was seen and evaluate by Dr Jay who completed physical exam and participated in evaluation and management. (Ninfa Luna) Assessment and Plan The exam, history, and the medical decision-making described in the above note were completed with the assistance of the mid-level provider. I reviewed and agree with the findings presented. I attest that I had a [id number] encounter with the patient on the same day, and personally performed and documented my assessment and findings in the medical record. copd slowly improving (Lili Jay MD) Ninfa Luna Jun 16, 2017 15:51 Lili Jay MD Jun 17, 2017 13:51
--- NOTE | 2017-06-16 16:25 | PD.CONS ---
HPI History of Present Illness This is a 72 year old female with hx COPD, AF, CVA, CAD, parotid ca s/p resection who presented to hospital with c/o SOB, cough. GI has been consulted for dysphagia. SHe has had difficulty swallowing intermittently but it is significantly worse in the last 3 days. She has bolus sensation with solids and choking sensation. She regurgitates fluids. SHe is also c/o bloating. Denies reflux, n/v. Never had EGD. Had colonoscopy 'long time ago' and finding of colon polyps, recalls no further details. Had nursing bedside swallow eval, per RN pt was coughing but did not appear to be aspirating or choking. (Renée Armando) PFSH Past Medical History CHF History of CVA COPD (non-oxygen dependent) CAD, status post cardiac catheterization with Dr. taveras in April of this year showed mild nonobstructive coronary artery disease Diverticulitis Rheumatoid arthritis Hypertension Atrial fibrillation, currently on aspirin Past Surgical History Cholecystectomy Appendectomy (Renée Armando) Coded Allergies: No Known Allergies (Verified , 05/02/17) Family History Mother with cardiac disease and diabetes mellitus. Social History [id number] history of smoking, quit 10 years ago. Denies alcohol, illicit drugs. (Renée Armando) Review of Systems Constitutional: DENIES: Fever Endocrine: DENIES: Polyuria Eyes: DENIES: Photosensitivity Ears, nose, mouth, throat: DENIES: Throat pain Respiratory: COMPLAINS OF: Cough, DENIES: Hemoptysis Cardiovascular: DENIES: Chest pain Gastrointestinal: COMPLAINS OF: Difficulty Swallowing, DENIES: Abdominal pain, Black stools, Bloody stools, Nausea, Vomiting, Odynophagia Genitourinary: DENIES: Hematuria Musculoskeletal: DENIES: Joint Swelling Hematologic/lymphatic: COMPLAINS OF: Bruising Neurologic: DENIES: Abnormal gait Psychiatric: DENIES: Confusion (Renée Armando) GI Exam Vitals I&O Vital Signs Date Time Temp Pulse Resp B/P (MAP) Pulse Ox O2 Delivery O2 Flow Rate FiO2 06/16/17 13:00 83 06/16/17 11:59 98.5 74 17 140/76 (97) 94 06/16/17 09:30 108 06/16/17 08:54 97.6 93 19 144/76 (98) 94 06/16/17 05:50 98.1 88 21 133/89 (104) 97 06/16/17 00:00 98.4 84 20 138/88 (105) 96 06/15/17 20:00 97.1 86 19 140/80 (100) 95 06/15/17 16:39 98.3 97 19 172/90 (117) 95 I/O 06/15/17 06/15/17 06/15/17 06/16/17 06/16/17 06/16/17 07:00 15:00 23:00 07:00 15:00 23:00 Intake Total 900 ml 480 ml 900 ml 1650 ml Balance 900 ml 480 ml 900 ml 1650 ml Intake Oral 900 ml 480 ml 900 ml 1500 ml IV Total 150 ml # Voids 3 5 1 4 # Bowel Movements 0 5 0 0 Imaging Last Impressions Chest X-Ray 06/09/17 4939 Signed Impressions: Service Date/Time: Wednesday, June 09, 2017 19:20 - CONCLUSION: Possible medial lower lung infiltrates versus atelectasis due to submaximal inspiration. Cardiomegaly. Maninder Khan MD Laboratory Date/Time Source Procedure Growth Status 06/09/17 20:45 Blood Peripheral Aerobic Blood Culture - Final NO GROWTH IN 5 DAYS Complete 06/09/17 20:45 Blood Peripheral Anaerobic Blood Culture - Final NO GROWTH IN 5 DAYS Complete Physical Examination HEENT: PERRL; normocephalic; atraumatic; no jaundice. droop right side face CHEST: CTA CARDIAC: irr HR, + murmur ABDOMEN: Soft, distended, nontender; no hepatosplenomegaly; bowel sounds are present in all four quadrants. EXTREMITIES: No clubbing, cyanosis, or edema. SKIN: Normal; no rash; no jaundice. ecchymoses lower abd NURSE SANE: No focal deficits; alert and oriented times three. (Renée Armando) Assessment and Plan Plan ASSESSMENT - dysphagia - worsening 3 days ago. choking and bolus sensation with solids; regurgitates fluids. bedside swallow eval showed some coughing hx parotid cancer resection with facial droop. never had EGD. ST eval pending. will get MBS, consider EGD after ST eval PLAN - MBS - await ST eval - consider EGD after ST evaluates - diet per ST - NPO until ST sees pt - further recs to follow THis pt seen by myself and Dr Strange and this note is written on her behalf (Renée Armando) Physician Comments seen, examined agree with above CT neck - bowel and urinary incontinence after cva last colonoscopy many years ago, history of recurrent diverticulitis (Char Strange MD) Renée Armando Jun 16, 2017 16:25 Char Strange MD Jun 16, 2017 19:58
[2017-06-16] MEDS ORDERED: IOHEXOL 350 MG/ML 10 ML VIAL (for RAD DIAG) IVCONTRAST ONE (20:58)
--- NOTE | 2017-06-16 21:13 | RADRPT ---
EXAM DATE/TIME: 06/16/2017 20:36 [facility] COMPARISON: No previous studies available for comparison. INDICATIONS : Dysphagia, history of parotid gland cancer. IV CONTRAST: 70 cc Omnipaque 350 (iohexol) IV RADIATION DOSE: 16.40 CTDIvol (mGy) MEDICAL HISTORY : Lupus. Cardiovascular disease parotid gland cancer SURGICAL HISTORY : removal of cancer from neck ENCOUNTER: Initial ACUITY: 1 day PAIN SCALE: 4/10 LOCATION: neck TECHNIQUE: Volumetric scanning of the neck was performed. Using automated exposure control and adjustment of th e mA and/or kV according to patient size, radiation dose was kept as low as reasonably achievable to obtain optimal diagnostic quality images. DICOM format image data is available electronically for r eview and comparison. FINDINGS: NASOPHARYNX: The nasopharyngeal airway has a normal configuration. No mucosal thickening or mass is seen. OROPHARYNX: The intrinsic muscles of the tongue are symmetric. The tonsillar pillars are intact. The prevertebr al soft tissues are not thickened. LARYNX: The supraglottic, glottic, and infraglottic structures are intact. PARAPHARYNGEAL: The parapharyngeal space is intact. SALIVARY GLANDS: Fatty atrophy of the entire left parotid gland and the upper aspect of the right submandibular gland. The right parotid gland may be surgically absent or completely atrophic. Left submandibular gland ap pears to be intact. LYMPH NODES: No enlarged or necrotic-appearing nodes. THYROID: Multiple low density nodular lesions bilaterally, most prominent in the inferior aspect of the right. BONES: Unremarkable. MISCELLANEOUS: Mild mucoperiosteal thickening in the right maxillary antra. Bovine configuration of the aortic arch CONCLUSION: 1. Marked atrophic changes in the left parotid gland and upper aspect of the right submandibular glan d. Possible surgical absence or complete resorption of the right parotid gland. The left submandibula r gland is radiographically intact. 2. Multiple low density nodules in both lobes of the thyroid, most prominent inferiorly on the right. Findings are most characteristic of a multinodular goiter. 3. No mass lesion or adenopathy. Ivan Thomas MD on June 16, 2017 at 21:06 Board Certified Radiologist. This report was verified electronically.
[2017-06-17] VITALS (7 sets, daily range): BP systolic 109–165; BP diastolic 56–102; PULSE 71–109; RESP 18–22; TEMP 97.3–98.6; O2SAT 93–97
[2017-06-17] MEDS: DILTIAZEM HCL 90 MG TAB PO SCH ×4 (06:00→16:48)
[2017-06-17] MEDS: predniSONE 20 MG TAB PO SCH ×2 (07:25→20:26)
[2017-06-17] MEDS: ASPIRIN EC 81 MG TABEC PO SCH (07:25)
[2017-06-17] MEDS: SODIUM CHLORIDE 0.9% FLUSH 10 ML FLUSH IV FLUSH SCH ×2 (09:00→19:39)
[2017-06-17] MEDS: TIOTROPIUM BROMIDE 18 MCG INH INH SCH (09:38)
[2017-06-17] MEDS: ALBUTEROL SULFATE 90 MCG/ACT HFA 8 GM INHALER INH SCH ×4 (09:38→19:41)
[2017-06-17] MEDS: UMECLIDINIUM 62.5 MCG/VILANTEROL 25 MCG INHALER INH SCH (09:39)
--- NOTE | 2017-06-17 10:12 | RADRPT ---
EXAM DATE/TIME: 06/17/2017 09:52 [facility] COMPARISON: No previous studies available for comparison. INDICATIONS : Dysphagia. The patient complains of gagging and reflux. FLUORO TIME: 1.4 minutes IMAGE COUNT: 1 CONTRAST: Dose as prescribed by speech pathologist. MEDICAL HISTORY : Lupus. Cardiovascular disease parotid gland cancer. SURGICAL HISTORY : removal of cancer from neck. ENCOUNTER: Initial ACUITY: 1 day PAIN SCORE: 0/10 LOCATION: barium swallow FINDINGS: A modified barium swallow was performed with speech pathology. Patient was given a variety of liquids to swallow. There is no evidence of aspiration. For a full detailed report, see report by the speech pathologist. CONCLUSION: Modified barium swallow with no evidence of aspiration. Kai Alanis MD on June 17, 2017 at 10:10 Board Certified Radiologist. This report was verified electronically.
--- NOTE | 2017-06-17 11:34 | HHI.PR ---
Subjective History of Present Illness Patient c/o trouble swallowing have problem at bed side evaluation GI. input noted, S/P Barium swallow evaluation need EGD. going for EGD Today. Review of Systems Constitutional Constitutional: Fatigue Pulmonary Respiratory: Coughing, Shortness of Breath, Wheezing GI/Abdomen GI/Abdomen Remarks trouble swallowing. Vitals/Results Vital Signs Vital Signs Date Time Temp Pulse Resp B/P (MAP) Pulse Ox O2 Delivery O2 Flow Rate FiO2 06/17/17 08:00 96 06/17/17 08:00 98.3 102 20 163/98 (119) 97 06/17/17 04:00 98.6 92 22 165/94 (117) 95 06/17/17 01:00 97.3 72 18 132/64 (86) 97 06/16/17 20:05 93 06/16/17 20:00 97.7 87 18 126/78 (94) 95 06/16/17 16:22 98.1 100 17 183/99 (127) 96 06/16/17 16:00 115 06/16/17 13:00 83 06/16/17 11:59 98.5 74 17 140/76 (97) 94 CBC/BMP: 06/15/17 0759 06/15/17 0759 Physical Exam General General Appearance: Well Developed, Well Nourished, No Acute Distress, Comfortable Eyes Eye Exam: Sclera White, Extraocular Movement Intact Throat Throat Exam: Oral Mucosa [place] & Moist, Oral Pharynx Normal Neck Neck Exam: Neck Supple, Trachea Midline Pulmonary Resp Exam: Breath Sounds Equal, No Distress, Crackles Resp Remarks bilateral wheezing. Cardiology CV Exam: Regular, Normal Sinus Rhythm Gastrointestinal/Abdomen GI Exam: Soft, Non-Tender, Bowel Sounds Present Musculoskeletal MS Exam: Joints Intact Integumentary Skin Exam: Clear, Warm, Dry, Intact Extremeties Extremities Exam: No Edema Neurologic Neuro Exam: Alert, Awake, Oriented, Speech Clear, Moving All Extremities, No Focal Deficits VTE Prophylaxis VTE Prophylaxis Meds: Lovenox PUD Prophylasis PUD Prophylaxis: Protonix Assessment/Plan Assessment/Plan Assessment and Plan 72-year-old female with past medical history significant for COPD, history of CVA, CAD, atrial fibrillation and hypertension presents with increasing shortness of breath and new medial lower lung infiltrate on chest x-ray. - Pneumonia/COPD exacerbation/shortness of breath Lactic acidosis trending down Continue antibiotic, O2 DuoNeb, appreciated pulmonary consultation on oral Prednisone. as per holistic specialist to treatment to by mouth and probable discharge by tomorrow. - Atrial fibrillation Continue home diltiazem EKG shows NSR without ST segment elevations or depressions - CAD/hypertension Continue home medications Patient status post cardiac catheterization showed mild nonobstructive coronary artery disease on 05/11/17 Swallowing problem checked bed side swallow evaluation have coughing episode s/ p barium swallow GI Input noted getting EGD Today. Heart healthy diet Electrolytes: replete prn Lovenox. Check CBC with diff CMP in AM. Discharge Planning soon. Discussed Condition with: Patient Willian Mike MD Jun 17, 2017 11:34
--- NOTE | 2017-06-17 12:09 | HHI.GIFU ---
Subjective Remarks Resting in bed. Continues to have issues with both solids and liquids "getting caught" in upper esophagus. Nausea without vomiting. Increased heartburn. Mild lower abdominal cramping. Multiple loose stools. (Ramila Rollins) Objective Vitals I&O Vital Signs Date Time Temp Pulse Resp B/P (MAP) Pulse Ox O2 Delivery O2 Flow Rate FiO2 06/17/17 08:00 96 06/17/17 08:00 98.3 102 20 163/98 (119) 97 06/17/17 04:00 98.6 92 22 165/94 (117) 95 06/17/17 01:00 97.3 72 18 132/64 (86) 97 06/16/17 20:05 93 06/16/17 20:00 97.7 87 18 126/78 (94) 95 06/16/17 16:22 98.1 100 17 183/99 (127) 96 06/16/17 16:00 115 06/16/17 13:00 83 06/16/17 11:59 98.5 74 17 140/76 (97) 94 I/O 06/16/17 06/16/17 06/16/17 06/17/17 06/17/17 06/17/17 07:00 15:00 23:00 07:00 15:00 23:00 Intake Total 1650 ml 780 ml Balance 1650 ml 780 ml Intake Oral 1500 ml 480 ml IV Total 150 ml 300 ml # Voids 4 8 3 # Bowel Movements 0 5 1 Laboratory Date/Time Source Procedure Growth Status 06/09/17 20:45 Blood Peripheral Aerobic Blood Culture - Final NO GROWTH IN 5 DAYS Complete 06/09/17 20:45 Blood Peripheral Anaerobic Blood Culture - Final NO GROWTH IN 5 DAYS Complete Imaging Last Impressions Modified Barium Swallow 06/17/17 0000 Signed Impressions: Service Date/Time: May 09:52 - CONCLUSION: Modified barium swallow with no evidence of aspiration. Kai Alanis MD Neck CT 06/16/17 0000 Signed Impressions: Service Date/Time: Friday, June 16, 2017 20:36 - CONCLUSION: 1. Marked atrophic changes in the left parotid gland and upper aspect of the right submandibular gland. Possible surgical absence or complete resorption of the right parotid gland. The left submandibular gland is radiographically intact. 2. Multiple low density nodules in both lobes of the thyroid, most prominent inferiorly on the right. Findings are most characteristic of a multinodular goiter. 3. No mass lesion or adenopathy. Ivan Thomas MD Chest X-Ray 06/09/17 1849 Signed Impressions: Service Date/Time: Friday, June 09, 2017 19:20 - CONCLUSION: Possible medial lower lung infiltrates versus atelectasis due to submaximal inspiration. Cardiomegaly. Maninder Khan MD Physical Exam HEENT: Right sided facial droop CHEST: CTA CARDIAC: RRR ABDOMEN: Soft, nondistended, nontender; no hepatosplenomegaly; bowel sounds are present in all four quadrants. EXTREMITIES: No clubbing, cyanosis, or edema. SKIN: Normal; no rash; no jaundice. ENGINEERING WRITER: No focal deficits; alert and oriented times three. (Ramila RollinsP) Assessment and Plan Plan ASSESSMENT - Dysphagia, C/O both solids and liquids getting caught in upper esophagus with coughing. S/P MBS (06/17/17)---> mild oral phase and mild pharygeal phase swallowing deficits- but these do not explain the etiology of the patient's complaint of frequent gagging and coughing during meals as the pharynx is fully clear of contrast when these behaviors occur, consider EGD. Okay for regular consistency solids with thin liquids. CT Soft tissue neck (06/16/17)--> Marked atrophic changes in the left parotid gland and upper aspect of the right submandibular gland. Possible surgical absence or complete resorption of the right partoid gland. The left submandibular gland is radiographically intact. Multiple low density nodules in both lobes of the thyroid, most prominent inferiorly on the right. Findings are most characteristic of a multinodular goiter. PPI. Plan for EGD +/- Dilatation in am. - GERD, Nausea. Add PPI - Diarrhea with fecal incontinence. C/O 10 loose stools per day since January. States her last colonoscopy was "50 years ago." - Mild lower abdominal cramping. - Atrial fibrillation. Cardizem, Lovenox. - COPD Exacerbation/PNA. 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 PLAN - Plan for EGD +/- Dilatation, Colonoscopy in am - Obtain consents - Clear liquids - NPO after MN - Magnesium citrate prep - ST following - Hold lovenox after MN - Supportive care - Further recommendations to follow based on results of above - PT seen and examined by Dr. Strange and myself and this note is written on her behalf (Ramila Rollins) Ramila Rollins Jun 17, 2017 12:09 Char Strange MD Jun 17, 2017 18:01
[2017-06-17] MEDS: ENOXAPARIN SODIUM 40 MG/0.4 ML SYRINGE SQ SCH (12:40)
[2017-06-17] MEDS: PANTOPRAZOLE SOD 40 MG DELAYED RELEASE TAB PO SCH (13:23)
--- NOTE | 2017-06-17 14:12 | PD.CARD.PN ---
Subjective Subjective Remarks The patient complains of palpitation that feels like "her heart is really working." She was made NPO for concern for aspiration, therefore a few doses of cardizem were held. HR now 120 bpm. She recently passed barium swallow. Received dose of cardizem recently. Breathing improving. Continues to have cough Objective Medications Current Medications Medications (Trade) Dose Ordered Sig/Alissa Route Start Time Stop Time Status Last Admin (NS Flush) 2 ml UNSCH PRN IV FLUSH 06/09/17 22:30 06/09/17 23:28 (NS Flush) 2 ml BID IV FLUSH 06/10/17 09:00 06/17/17 09:00 (Duoneb Neb) 1 ampule Q4HR NEB PRN INH 06/09/17 22:30 06/14/17 16:56 (Ecotrin Ec) 81 mg DAILY PO 06/10/17 09:00 06/16/17 08:21 (Spiriva Inh) 2 mcg DAILY INH 06/10/17 09:00 06/17/17 09:38 (Proair Hfa Inh) 1 puff QID INH 06/10/17 09:00 06/17/17 12:43 (Tylenol) 500 mg Q6H PRN PO 06/12/17 23:45 06/13/17 23:51 (Deltasone) 20 mg BID PO 06/13/17 13:30 06/16/17 20:30 (Lovenox Inj) 40 mg Q24H SQ 06/13/17 14:00 Future Hold 06/17/17 12:40 Levofloxacin/ Dextrose 150 ml @ 100 mls/hr Q24H IV 06/15/17 16:00 06/16/17 15:20 (Cardizem) 90 mg Q6HR PO 06/16/17 18:00 06/17/17 12:36 (Citroma Liq) 300 ml ONCE ONCE PO 06/17/17 17:00 06/17/17 17:01 (Citroma Liq) 300 ml ONCE ONCE PO 06/17/17 19:00 06/17/17 19:01 (Protonix) 40 mg DAILY PO 06/17/17 13:00 06/17/17 13:23 Vital Signs / I&O Vital Signs Date Time Temp Pulse Resp B/P (MAP) Pulse Ox O2 Delivery O2 Flow Rate FiO2 06/17/17 12:00 98.2 109 18 152/102 (119) 96 06/17/17 08:00 96 06/17/17 08:00 98.3 102 20 163/98 (119) 97 06/17/17 04:00 98.6 92 22 165/94 (117) 95 06/17/17 01:00 97.3 72 18 132/64 (86) 97 06/16/17 20:05 93 06/16/17 20:00 97.7 87 18 126/78 (94) 95 06/16/17 16:22 98.1 100 17 183/99 (127) 96 06/16/17 16:00 115 I/O 06/16/17 06/16/17 06/16/17 06/17/17 06/17/17 06/17/17 07:00 15:00 23:00 07:00 15:00 23:00 Intake Total 1650 ml 780 ml Balance 1650 ml 780 ml Intake Oral 1500 ml 480 ml IV Total 150 ml 300 ml # Voids 4 8 3 # Bowel Movements 0 5 1 Physical Exam GENERAL: Obese female, NAD SKIN: Warm and dry. HEAD: Normocephalic. EYES: No scleral icterus. No injection or drainage. NECK: Supple, trachea midline. CARDIOVASCULAR: Tachycardia, regular rate RESPIRATORY: Scattered rales, equal breath sounds GASTROINTESTINAL: Abdomen soft, non-tender, nondistended. MUSCULOSKELETAL: No cyanosis, or edema. BACK: Nontender without obvious deformity. Imaging Last 24 hours Impressions Modified Barium Swallow 06/17/17 0000 Signed Impressions: Service Date/Time: May 09:52 - CONCLUSION: Modified barium swallow with no evidence of aspiration. Kai Alanis MD Assessment and Plan Assessment and Plan Trigeminy and sinus tachycardia Acute on chronic COPD exacerbation Mild ASHD Mild HOCM Mild HTN Obesity PLAN Resume cardizem 90 mg q6hrs Will provide metoprolol 50 mg PRN for HR > 120. Will avoid scheduled BB due to COPD hx The patient was seen and evaluate by Dr Jay who completed physical exam and participated in evaluation and management. Ninfa Luna Jun 17, 2017 14:12
[2017-06-17] MEDS ORDERED: METOPROLOL TARTRATE 25 MG TAB PO PRN (14:15)
[2017-06-17] MEDS: LEVOFLOXACIN 750 MG PREMIX INJ 150 ML IV SCH (15:14)
[2017-06-17] MEDS ORDERED: MAGNESIUM CITRATE SOLN 300 ML BTL PO ONE ×2 (17:00→19:00)
[2017-06-17] MEDS ORDERED: ONDANSETRON HCL 4 MG/2 ML VIAL IV PUSH PRN (19:00)
[2017-06-18] VITALS (9 sets, daily range): BP systolic 114–141; BP diastolic 56–85; PULSE 72–108; RESP 16–20; TEMP 95.6–98.3; O2SAT 91–96
[2017-06-18] MEDS: DILTIAZEM HCL 90 MG TAB PO SCH ×4 (00:53→18:18)
[2017-06-18 07:29] LABS: AUTOMATED NEUTROPHIL # 10.3 TH/MM3 (1.8-7.7); BASOPHIL % 0.1 % (0.0-2.0); EOSINOPHIL % 0.1 % (0.0-4.0); HEMATOCRIT 38.7 % (35.0-46.0); HEMO FLAGS DIFF FINAL; LYMPH % 8.3 % (9.0-44.0); MEAN CELL VOLUME 85.9 FL (80.0-100.0); MEAN CORPUSCULAR HGB CONC 32.6 % (32.0-36.0); MONO % 4.5 % (0.0-8.0); PLATELET COUNT 147 TH/MM3 (150-450); RED BLOOD COUNT 4.51 MIL/MM3 (4.00-5.30); RED CELL DISTRIBUTION WIDTH 16.2 % (11.6-17.2); WHITE BLOOD COUNT 11.8 TH/MM3 (4.0-11.0)
[2017-06-18 07:56] LABS: ALKALINE PHOSPHATASE 64 U/L (45-117); ALT (GPT) 107 U/L (10-53); ANION GAP 7 MEQ/L (5-15); AST (GOT) 42 U/L (15-37); BICARBONATE 35.2 MEQ/L (21.0-32.0); BLOOD UREA NITROGEN 20 MG/DL (7-18); CHLORIDE 98 MEQ/L (98-107); GLOMERULAR FILTRATION RATE 73 ML/MIN (>89); POTASSIUM 4.9 MEQ/L (3.5-5.1); SODIUM (NA) 140 MEQ/L (136-145); TOTAL BILIRUBIN ADULT 0.5 MG/DL (0.2-1.0)
--- NOTE | 2017-06-18 08:17 | HHI.PR ---
Subjective History of Present Illness Patient c/o trouble swallowing have problem at bed side evaluation GI. input noted, S/P Barium swallow evaluation S/P EGD. Review of Systems Constitutional Constitutional: Fatigue Pulmonary Respiratory: Coughing, Shortness of Breath, Wheezing GI/Abdomen GI/Abdomen Remarks trouble swallowing. Vitals/Results Vital Signs Vital Signs Date Time Temp Pulse Resp B/P (MAP) Pulse Ox O2 Delivery O2 Flow Rate FiO2 06/18/17 04:00 97.2 76 18 135/77 (96) 92 06/18/17 00:00 98.3 79 20 137/82 (100) 93 06/17/17 22:12 74 06/17/17 20:00 97.4 71 20 109/56 (73) 94 06/17/17 16:00 98.4 97 18 146/84 (104) 93 06/17/17 12:00 98.2 109 18 152/102 (119) 96 CBC/BMP: 06/18/17 0656 06/18/17 0656 Lab Results Laboratory Tests Test 06/18/17 06:56 White Blood Count 11.8 TH/MM3 Red Blood Count 4.51 MIL/MM3 Hemoglobin 12.6 GM/DL Hematocrit 38.7 % Mean Corpuscular Volume 85.9 FL Mean Corpuscular Hemoglobin 28.0 PG Mean Corpuscular Hemoglobin Concent 32.6 % Red Cell Distribution Width 16.2 % Platelet Count 147 TH/MM3 Mean Platelet Volume 8.9 FL Neutrophils (%) (Auto) 87.0 % Lymphocytes (%) (Auto) 8.3 % Monocytes (%) (Auto) 4.5 % Eosinophils (%) (Auto) 0.1 % Basophils (%) (Auto) 0.1 % Neutrophils # (Auto) 10.3 TH/MM3 Lymphocytes # (Auto) 1.0 TH/MM3 Monocytes # (Auto) 0.5 TH/MM3 Eosinophils # (Auto) 0.0 TH/MM3 Basophils # (Auto) 0.0 TH/MM3 CBC Comment DIFF FINAL Differential Comment Blood Urea Nitrogen 20 MG/DL Creatinine 0.78 MG/DL Random Glucose 176 MG/DL Total Protein 6.6 GM/DL Albumin 3.0 GM/DL Calcium Level 8.3 MG/DL Alkaline Phosphatase 64 U/L Aspartate Amino Transf (AST/SGOT) 42 U/L Alanine Aminotransferase (ALT/SGPT) 107 U/L Total Bilirubin 0.5 MG/DL Sodium Level 140 MEQ/L Potassium Level 4.9 MEQ/L Chloride Level 98 MEQ/L Carbon Dioxide Level 35.2 MEQ/L Anion Gap 7 MEQ/L Estimat Glomerular Filtration Rate 73 ML/MIN Physical Exam General General Appearance: Well Developed, Well Nourished, No Acute Distress, Comfortable Eyes Eye Exam: Sclera White, Extraocular Movement Intact Throat Throat Exam: Oral Mucosa [place] & Moist, Oral Pharynx Normal Neck Neck Exam: Neck Supple, Trachea Midline Pulmonary Resp Exam: Breath Sounds Equal, No Distress, Crackles Resp Remarks bilateral wheezing. Cardiology CV Exam: Regular, Normal Sinus Rhythm Gastrointestinal/Abdomen GI Exam: Soft, Non-Tender, Bowel Sounds Present Musculoskeletal MS Exam: Joints Intact Integumentary Skin Exam: Clear, Warm, Dry, Intact Extremeties Extremities Exam: No Edema Neurologic Neuro Exam: Alert, Awake, Oriented, Speech Clear, Moving All Extremities, No Focal Deficits VTE Prophylaxis VTE Prophylaxis Meds: Lovenox PUD Prophylasis PUD Prophylaxis: Protonix Assessment/Plan Assessment/Plan Assessment and Plan 72-year-old female with past medical history significant for COPD, history of CVA, CAD, atrial fibrillation and hypertension presents with increasing shortness of breath and new medial lower lung infiltrate on chest x-ray. - Pneumonia/COPD exacerbation/shortness of breath Lactic acidosis trending down Continue antibiotic, O2 DuoNeb, appreciated pulmonary consultation on oral Prednisone. as per demolition specialist to treatment to by mouth and probable discharge by tomorrow. - Atrial fibrillation Continue home diltiazem EKG shows NSR without ST segment elevations or depressions - CAD/hypertension Continue home medications Patient status post cardiac catheterization showed mild nonobstructive coronary artery disease on 05/11/17 Swallowing problem checked bed side swallow evaluation have coughing episode s/ p barium swallow GI Input noted S/P EGD Today. Heart healthy diet Electrolytes: replete prn Lovenox. Check CBC with diff CMP in AM. Discharge Planning soon. Discussed Condition with: Patient Willian Mike MD Jun 18, 2017 08:17
[2017-06-18] MEDS: SODIUM CHLORIDE 0.9% FLUSH 10 ML FLUSH IV FLUSH SCH ×2 (09:00→21:00)
[2017-06-18] MEDS: predniSONE 20 MG TAB PO SCH ×2 (09:01→21:28)
[2017-06-18] MEDS: PANTOPRAZOLE SOD 40 MG DELAYED RELEASE TAB PO SCH (09:01)
[2017-06-18] MEDS: ASPIRIN EC 81 MG TABEC PO SCH (09:02)
[2017-06-18] MEDS: ALBUTEROL SULFATE 90 MCG/ACT HFA 8 GM INHALER INH SCH ×4 (09:03→21:28)
[2017-06-18] MEDS: UMECLIDINIUM 62.5 MCG/VILANTEROL 25 MCG INHALER INH SCH (09:03)
[2017-06-18] MEDS: TIOTROPIUM BROMIDE 18 MCG INH INH SCH (09:03)
--- NOTE | 2017-06-18 13:50 | GIPROC ---
[facility] [address] [facility]. [facility], [address] EGD PROCEDURE REPORT EXAM DATE: 06/18/2017 PATIENT NAME: Nicolasa Gonzales MR #: [id number] BIRTHDATE: 1945 ATTENDING: Char Strange MD ORDER #: [id number] LICENSED CHEMICAL SPRAY TECHNICIAN: Dayna Kirkland RN STATUS: inpatient INDICATIONS: The patient is a 72 yr old female here for an EGD due to dysphagia, diarrhea PROCEDURE PERFORMED: EGD w/ biopsy EGD w/ dilation of esophagus via guidewire MEDICATIONS: None and Per Anesthesia. TOPICAL ANESTHETIC: none CONSENT: The patient understands the risks and benefits of the procedure and understands that these risks include, but are not limited to: sedation, allergic reaction, infection, perforation and/or bleeding. Alternative means of evaluation and treatment include, among others: physical exam, x-rays, and/or surgical intervention. The patient elects to proceed with this endoscopic procedure. medical equipment was checked for proper function. Hand hygiene and appropriate measures for infection prevention was taken. After the risks, benefits and alternatives of the procedure were thoroughly explained, Informed consent was verified, confirmed and timeout was successfully executed by the treatment team. The patient was anesthetized with topical anesthesia and the endoscope was introduced through the mouth and advanced to the second portion of the duodenum. Retroflexed views revealed a hiatal hernia The gastroscope was then slowly withdrawn and removed. Duodenum normal-biopsy gastritis antrum-biopsy esophagitis distal esophagus/white deposits -r/o jakob stricture distal esophagus-dialtation using Savary dilator 17. ADVERSE EVENTS: There were no complications. IMPRESSIONS: 1. Duodenum normal-biopsy gastritis antrum-biopsy esophagitis distal esophagus/white deposits -r/o jakob stricture distal esophagus-dialtation using Savary dilator 17 2. Retroflexed views revealed a hiatal hernia RECOMMENDATIONS: 1. Await biopsy results. Biopsy results will not be ready for 7-10 days. If you don't hear from us in two weeks, call our office for biopsy results. 2. Anti-reflux regimen 3. Continue PPI 4. Start PPI 5. Dilatations PRN 6. Start diet as recomended by speech pathology Diflucan 100 mg po daily-7 days PATIENT CONDITION: stable DISPOSITION: Inpatient REPEAT EXAM: Return 1 year EGD Char Strange MD eSigned: Char Strange MD 06/18/2017 1:49 PM cc: PATIENT NAME: Nicolasa Gonzales MR#: [id number]
[2017-06-18] MEDS ORDERED: DO NOT ADM ANY ANTICOAGULANT DRUGS PRN (13:52)
--- NOTE | 2017-06-18 13:56 | GIPROC ---
[facility] [address] [facility]. [facility], [address] COLONOSCOPY PROCEDURE REPORT EXAM DATE: 06/18/2017 PATIENT NAME: Nicolasa Gonzales MR #: [id number] BIRTHDATE: 1945 ENDOSCOPIST: Char Strange MD ORDER #: [id number] SUMMER INTERN: Dayna Kirkland RN STATUS: inpatient INDICATIONS: The patient is a 72 yr old female here for a colonoscopy due to diarrhea, fecal incontinence PROCEDURE PERFORMED: Colonoscopy with biopsy MEDICATIONS: None and Per Anesthesia. PREP QUALITY: poor PREP TYPE:Other: ESTIMATED BLOOD LOSS: None CONSENT: The patient understands the risks and benefits of the procedure and understands that these risks include, but are not limited to: sedation, allergic reaction, infection, perforation and/or bleeding. Alternative means of evaluation and treatment include, among others: physical exam, x-rays, and/or surgical intervention. The patient elects to proceed with this endoscopic procedure. medical equipment was checked for proper function. Hand hygiene and appropriate measures for infection prevention was taken. After the risks, benefits and alternatives of the procedure were thoroughly explained, Informed consent was verified, confirmed and timeout was successfully executed by the treatment team. A digital exam revealed hemorrhoids The endoscope was introduced through the anus and advanced to the cecum, which was identified by both the appendix and ileocecal valve. The instrument was then slowly withdrawn as the colon was fully examined. COLON FINDINGS: Diverticulosis sigmoid, decending random biopsies from ascending, descending. Retroflexed views revealed internal hemorrhoids and Retroflexed views revealed small internal hemorrhoids The scope was then completely withdrawn from the patient and the procedure terminated. ADVERSE EVENTS: There were no complications. IMPRESSIONS: 1. Diverticulosis sigmoid, decending random biopsies from ascending, descending 2. Retroflexed views revealed internal hemorrhoids 3. Retroflexed views revealed small internal hemorrhoids 4. Revealed hemorrhoids RECOMMENDATIONS: 1. Await biopsy results. Biopsy results will not be ready for 7-10 days. If you don't hear from us in two weeks, call our office for results. 2. Probiotics from any [employer] or health food store 3. Benefiber 2 tsp daily 4. Consider urology consult op for Interstim placement RECALL: Return 1 year Colonoscopy Char Strange MD eSigned: Char Strange MD 06/18/2017 1:56 PM cc:
[2017-06-18] MEDS: LEVOFLOXACIN 750 MG PREMIX INJ 150 ML IV SCH (16:25)
[2017-06-18] MEDS: NYSTATIN SUSP 500,000 U/5 ML CUP SWISH-SWAL SCH ×2 (18:18→21:28)
[2017-06-19] VITALS (7 sets, daily range): BP systolic 114–145; BP diastolic 56–86; PULSE 82–106; RESP 16–19; TEMP 97.7–99; O2SAT 95–98
[2017-06-19] MEDS: DILTIAZEM HCL 90 MG TAB PO SCH ×3 (00:01→12:56)
[2017-06-19 07:36] LABS: AUTOMATED NEUTROPHIL # 8.2 TH/MM3 (1.8-7.7); BASOPHIL % 0.1 % (0.0-2.0); HEMATOCRIT 37.7 % (35.0-46.0); HEMO FLAGS DIFF FINAL; LYMPH % 6.6 % (9.0-44.0); LYMPHOCYTE # 0.6 TH/MM3 (1.0-4.8); MEAN CELL VOLUME 84.9 FL (80.0-100.0); MEAN CORPUSCULAR HEMOGLOBIN 27.8 PG (27.0-34.0); MEAN CORPUSCULAR HGB CONC 32.7 % (32.0-36.0); MONO % 4.2 % (0.0-8.0); NEUT % 89.1 % (16.0-70.0); PLATELET COUNT 157 TH/MM3 (150-450); RED BLOOD COUNT 4.44 MIL/MM3 (4.00-5.30); RED CELL DISTRIBUTION WIDTH 16.1 % (11.6-17.2); WHITE BLOOD COUNT 9.3 TH/MM3 (4.0-11.0)
[2017-06-19 08:05] LABS: ALT (GPT) 94 U/L (10-53); ANION GAP 7 MEQ/L (5-15); AST (GOT) 20 U/L (15-37); BLOOD UREA NITROGEN 17 MG/DL (7-18); CHLORIDE 96 MEQ/L (98-107); GLOMERULAR FILTRATION RATE 66 ML/MIN (>89); POTASSIUM 4.2 MEQ/L (3.5-5.1); SODIUM (NA) 136 MEQ/L (136-145)
[2017-06-19 08:07] LABS: ALKALINE PHOSPHATASE 63 U/L (45-117); TOTAL BILIRUBIN ADULT 0.4 MG/DL (0.2-1.0)
[2017-06-19] MEDS: ASPIRIN EC 81 MG TABEC PO SCH (08:13)
[2017-06-19] MEDS: predniSONE 20 MG TAB PO SCH (08:13)
[2017-06-19] MEDS: NYSTATIN SUSP 500,000 U/5 ML CUP SWISH-SWAL SCH ×2 (08:13→12:56)
[2017-06-19] MEDS: PANTOPRAZOLE SOD 40 MG DELAYED RELEASE TAB PO SCH (08:13)
[2017-06-19] MEDS: TIOTROPIUM BROMIDE 18 MCG INH INH SCH (08:14)
[2017-06-19] MEDS: UMECLIDINIUM 62.5 MCG/VILANTEROL 25 MCG INHALER INH SCH (08:14)
[2017-06-19] MEDS: SODIUM CHLORIDE 0.9% FLUSH 10 ML FLUSH IV FLUSH SCH (08:14)
[2017-06-19] MEDS: ALBUTEROL SULFATE 90 MCG/ACT HFA 8 GM INHALER INH SCH ×2 (08:14→12:58)
--- NOTE | 2017-06-19 13:25 | HHI.PR ---
Subjective History of Present Illness Patient c/o trouble swallowing have problem at bed side evaluation GI. input noted, S/P Barium swallow evaluation S/P EGD and Colonoscopy. ok to discharge home today if ok with GI.. Review of Systems Constitutional Constitutional: Fatigue Pulmonary Respiratory: Coughing, Shortness of Breath, Wheezing GI/Abdomen GI/Abdomen Remarks trouble swallowing. Vitals/Results Vital Signs Vital Signs Date Time Temp Pulse Resp B/P (MAP) Pulse Ox O2 Delivery O2 Flow Rate FiO2 06/19/17 12:15 97.7 84 19 136/64 (88) 95 06/19/17 11:56 98 21 06/19/17 08:00 97.8 85 18 145/78 (100) 96 06/19/17 04:34 99.0 96 18 142/86 (104) 95 06/19/17 04:00 106 06/19/17 00:01 97.7 82 16 114/56 (75) 95 06/19/17 00:00 87 06/18/17 23:58 98.0 85 19 123/85 (98) 96 06/18/17 20:30 97.8 89 16 114/56 (75) 95 06/18/17 20:00 108 06/18/17 17:45 93 21 06/18/17 16:00 95.6 94 20 135/77 (96) 93 06/18/17 13:57 86 18 139/88 (105) 92 CBC/BMP: 06/19/17 0646 06/19/17 0646 Lab Results Laboratory Tests Test 06/19/17 06:46 White Blood Count 9.3 TH/MM3 Red Blood Count 4.44 MIL/MM3 Hemoglobin 12.3 GM/DL Hematocrit 37.7 % Mean Corpuscular Volume 84.9 FL Mean Corpuscular Hemoglobin 27.8 PG Mean Corpuscular Hemoglobin Concent 32.7 % Red Cell Distribution Width 16.1 % Platelet Count 157 TH/MM3 Mean Platelet Volume 8.9 FL Neutrophils (%) (Auto) 89.1 % Lymphocytes (%) (Auto) 6.6 % Monocytes (%) (Auto) 4.2 % Eosinophils (%) (Auto) 0.0 % Basophils (%) (Auto) 0.1 % Neutrophils # (Auto) 8.2 TH/MM3 Lymphocytes # (Auto) 0.6 TH/MM3 Monocytes # (Auto) 0.4 TH/MM3 Eosinophils # (Auto) 0.0 TH/MM3 Basophils # (Auto) 0.0 TH/MM3 CBC Comment DIFF FINAL Differential Comment Blood Urea Nitrogen 17 MG/DL Creatinine 0.85 MG/DL Random Glucose 273 MG/DL Total Protein 6.2 GM/DL Albumin 3.0 GM/DL Calcium Level 8.5 MG/DL Alkaline Phosphatase 63 U/L Aspartate Amino Transf (AST/SGOT) 20 U/L Alanine Aminotransferase (ALT/SGPT) 94 U/L Total Bilirubin 0.4 MG/DL Sodium Level 136 MEQ/L Potassium Level 4.2 MEQ/L Chloride Level 96 MEQ/L Carbon Dioxide Level 33.0 MEQ/L Anion Gap 7 MEQ/L Estimat Glomerular Filtration Rate 66 ML/MIN Physical Exam General General Appearance: Well Developed, Well Nourished, No Acute Distress, Comfortable Eyes Eye Exam: Sclera White, Extraocular Movement Intact Throat Throat Exam: Oral Mucosa [place] & Moist, Oral Pharynx Normal Neck Neck Exam: Neck Supple, Trachea Midline Pulmonary Resp Exam: Breath Sounds Equal, No Distress, Crackles Resp Remarks bilateral wheezing. Cardiology CV Exam: Regular, Normal Sinus Rhythm Gastrointestinal/Abdomen GI Exam: Soft, Non-Tender, Bowel Sounds Present Musculoskeletal MS Exam: Joints Intact Integumentary Skin Exam: Clear, Warm, Dry, Intact Extremeties Extremities Exam: No Edema Neurologic Neuro Exam: Alert, Awake, Oriented, Speech Clear, Moving All Extremities, No Focal Deficits VTE Prophylaxis VTE Prophylaxis Meds: Lovenox PUD Prophylasis PUD Prophylaxis: Protonix Assessment/Plan Assessment/Plan Assessment and Plan 72-year-old female with past medical history significant for COPD, history of CVA, CAD, atrial fibrillation and hypertension presents with increasing shortness of breath and new medial lower lung infiltrate on chest x-ray. - Pneumonia/COPD exacerbation/shortness of breath Lactic acidosis trending down Continue antibiotic, O2 DuoNeb, appreciated pulmonary consultation on oral Prednisone. as per policy specialist to treatment to by mouth and probable discharge by tomorrow. - Atrial fibrillation Continue home diltiazem EKG shows NSR without ST segment elevations or depressions - CAD/hypertension Continue home medications Patient status post cardiac catheterization showed mild nonobstructive coronary artery disease on 05/11/17 Swallowing problem checked bed side swallow evaluation have coughing episode s/ p barium swallow GI Input noted S/P EGD Today. Heart healthy diet Electrolytes: replete prn Lovenox. Check CBC with diff CMP in AM. Discharge Planning today if ok with GI. Willian Mike MD Jun 19, 2017 13:25
[2017-06-19] MEDS ORDERED: PRED20 PO (13:29)
[2017-06-19] MEDS ORDERED: DILT90TA PO (13:29)
[2017-06-19] MEDS ORDERED: Nystatin Liq SWISH-SWAL (13:32)
[2017-06-19] MEDS ORDERED: OMEP20TA93 PO (14:43)
[2017-06-19] MEDS ORDERED: LEVA500T33 PO ×2 (14:44→15:46)
[2017-06-19] MEDS ORDERED: LEVO500T8 PO (14:54)
[2017-06-19] MEDS ORDERED: OMEP20CA2 PO (15:46)
--- NOTE | 2017-06-19 15:59 | MD ---
cc: MELANIE GUILLERMO MD ADMISSION DATE: 06/10/2017 DISCHARGE DATE: [place] Visit Search.Discharge Date DISPOSITION: Okay to discharge the patient home. CONDITION AT THE TIME OF DISCHARGE: Satisfactory. DISCHARGE ACTIVITY: As tolerated. DISCHARGE DIET: Cardiac diet. ALLERGIES: NO KNOWN DRUG ALLERGIES. DISCHARGE MEDICATIONS: 1. Diovan 90 milligrams p.o. q. 6 hours. 2. Prednisone 20 milligrams p.o. daily for seven days. 3. Nystatin 5 mL swish and swallow for ten days. 4. Albuterol inhaler two puff inhalations every six hours. 5. Aspirin 81 milligrams p.o. daily. 6. Combivent inhaler one puff inhalation four times a day. 7. Isosorbide mononitrate 30 milligrams p.o. daily. 8. Percocet 5 /325 p.o. q. 6 hours. 9. Spiriva HandiHaler 2.5 micrograms two puff inhalations daily. 10. one puff inhalation daily. 11. Levaquin 500 milligrams p.o. daily for seven days. 12. Omeprazole 20 milligrams p.o. daily. DISCHARGE INSTRUCTIONS: The patient was advised to follow up with primary care physician, cardiology, pulmonary and GI in one week. ADMITTING DIAGNOSIS: 1. Shortness of breath. 2. ____ pneumonia. 3. COPD exacerbation. DISCHARGE DIAGNOSIS: 1. Shortness of breath, improved. 2. Pneumonia. 3. COPD exacerbation, improved. 4. Lactic acidosis, which is improved. 5. Atrial fibrillation. The patient has had the dose changed from 125 milligrams p.o. twice a day to 90 milligrams p.o. q. 8 hours. 6. Coronary artery disease and hypertension. Cardiology has seen the patient during the hospital stay. 7. Trouble swallowing. The patient is to have a modified barium swallow done, which shows no evidence of aspiration. The patient had an upper endoscopy and colonoscopy done during hospital stay. Dr. Strange saw the patient during the hospital stay. Upper endoscopy showed gastritis and antral biopsy, thickened esophageal distal esophagus white deposits, plus/minus Luz, stricture, distal esophagus dilatation using Savary dilators, flexed view revealed a hiatal hernia. The patient needs anterior again. Continue the proton pump inhibitor. The patient needs speech therapy. The patient was also started on Nystatin for oral thrush and esophageal Candidiasis. The patient also had a colonoscopy done and the report shows internal hemorrhoids and patient biopsy was taken. The patient was advised to follow up with GI. The patient needs as an outpatient for replacement. The patient wants to go home. All stuff discussed with the patient. The patient verbalized understanding. Dr. Al Prabhakar saw the patient during the hospital stay. The patient remained stable. No acute event happened except for PVCs. The edge sawyer saw the patient during the hospital stay. The patient had a chest x-ray done showing possible medial lower lung infiltrate versus atelectasis due to submaximal inspiration and cardiomegaly. CT neck was done and showed marked atrophic changes in the left parotid gland and upper aspect of the right submandibular gland, possible surgical absence or complete resolution of the right parotid gland. The left submandibular gland is radiographically intact. Multiple low density nodules in both lobes of the thyroid most prominent inferiorly on the right. Finding most characteristic of a multinodular goiter. No mass or lesion. The patient had a blood culture done that shows no growth. The patient had mild hyponatremia during the hospital stay. The patient also had high blood sugar most likely secondary to steroids during the hospital stay. The patient's PT was 10.1. INR 0.9. APTT 21.7. The patient had leukocytosis which has resolved at the time of discharge. Further details in the medical record. Melanie Guillermo MD EA/EUSEBIA /1:33 PM /3:38 PM
--- NOTE | 2017-06-19 16:23 | HHI.PR ---
Subjective Remarks better no chest pain no fevers Objective Vital Signs Date Time Temp Pulse Resp B/P (MAP) Pulse Ox O2 Delivery O2 Flow Rate FiO2 06/19/17 12:15 97.7 84 19 136/64 (88) 95 06/19/17 11:56 98 21 06/19/17 08:00 97.8 85 18 145/78 (100) 96 06/19/17 04:34 99.0 96 18 142/86 (104) 95 06/19/17 04:00 106 06/19/17 00:01 97.7 82 16 114/56 (75) 95 06/19/17 00:00 87 06/18/17 23:58 98.0 85 19 123/85 (98) 96 06/18/17 20:30 97.8 89 16 114/56 (75) 95 06/18/17 20:00 108 06/18/17 17:45 93 21 I/O 06/18/17 06/18/17 06/18/17 06/19/17 06/19/17 06/19/17 06:59 14:59 22:59 06:59 14:59 22:59 Intake Total 150 ml 600 ml Balance 150 ml 600 ml Intake Oral 600 ml Other 150 ml # Voids 10 3 4 # Bowel Movements 4 0 Result Diagram: 06/19/17 0646 06/19/17 0646 Procedures None Objective Remarks HEENT: Head normocephalic, atraumatic. NECK: Trachea midline. LUNGS: clear bilateral HEART: Normal S1, S2. ABDOMEN: Soft, nontender, obese. EXTREMITIES: Trace edema. NEUROLOGIC: Alert and oriented times three. Moves all extremities. Assessment and Plan Assessment and Plan ASSESSMENT AND PLAN 1. Acute chronic obstructive pulmonary disease exacerbation 2. ? Pneumonia 3. Atrial fibrillation Ok to go home cont all her inhalors NIPPV as given to her call me if needed.. she will come see me in my office Al Prabhakar MD Jun 19, 2017 16:23
== END 2017-06-19 16:50 | disposition home or self-care (01) | DRG 190 ==
LOC: NEPE 18:05 → NEDA 20:58 → NEPFCDU 23:05 → OBSVTOIN 06-10 12:35 → HIMW 06-10 12:53 → N05B 06-11 16:20
PROVIDERS: ADMIT Family Medicine; ATTEND Family Medicine
PROC: 0DB68ZX Excision of Stomach, Via Natural or Artificial Opening Endoscopic, Diagnostic (ICD-10-PCS; 2017-06-18)
PROC: 0DBK8ZX Excision of Ascending Colon, Via Natural or Artificial Opening Endoscopic, Diagnostic (ICD-10-PCS; 2017-06-18)
PROC: 0DBM8ZX Excision of Descending Colon, Via Natural or Artificial Opening Endoscopic, Diagnostic (ICD-10-PCS; 2017-06-18)
PROC: 0D738ZZ Dilation of Lower Esophagus, Via Natural or Artificial Opening Endoscopic (ICD-10-PCS; principal; 2017-06-18 13:18)
PROC: 0DB98ZX Excision of Duodenum, Via Natural or Artificial Opening Endoscopic, Diagnostic (ICD-10-PCS; 2017-06-18 13:18)
DX: J44.0 Chronic obstructive pulmonary disease with (acute) lower respiratory infection (principal); J18.9 Pneumonia, unspecified organism; E87.2 Acidosis; I42.1 Obstructive hypertrophic cardiomyopathy; I11.0 Hypertensive heart disease with heart failure; B37.81 Candidal esophagitis; I50.9 Heart failure, unspecified; E87.1 Hypo-osmolality and hyponatremia; M32.9 Systemic lupus erythematosus, unspecified; R13.10 Dysphagia, unspecified; I48.91 Unspecified atrial fibrillation; J44.1 Chronic obstructive pulmonary disease with (acute) exacerbation; I25.10 Atherosclerotic heart disease of native coronary artery without angina pectoris; E66.9 Obesity, unspecified; I65.29 Occlusion and stenosis of unspecified carotid artery; I49.9 Cardiac arrhythmia, unspecified; K21.9 Gastro-esophageal reflux disease without esophagitis; I49.3 Ventricular premature depolarization; E04.2 Nontoxic multinodular goiter; R19.7 Diarrhea, unspecified; R15.9 Full incontinence of feces; K44.9 Diaphragmatic hernia without obstruction or gangrene; R32 Unspecified urinary incontinence; K29.70 Gastritis, unspecified, without bleeding; K22.2 Esophageal obstruction; K57.30 Diverticulosis of large intestine without perforation or abscess without bleeding; K64.8 Other hemorrhoids; T38.0X5A Adverse effect of glucocorticoids and synthetic analogues, initial encounter; R00.0 Tachycardia, unspecified; R29.810 Facial weakness; M06.9 Rheumatoid arthritis, unspecified; R73.9 Hyperglycemia, unspecified; H91.8X1 Other specified hearing loss, right ear; Z68.33 Body mass index [BMI] 33.0-33.9, adult; Z79.82 Long term (current) use of aspirin; Z85.818 Personal history of malignant neoplasm of other sites of lip, oral cavity, and pharynx; Z86.73 Personal history of transient ischemic attack (TIA), and cerebral infarction without residual deficits; Z87.891 Personal history of nicotine dependence; Z92.3 Personal history of irradiation
CPT/HCPCS: 36600; 70491; 71010; 74230; 76937; 80048; 80053; 81001; 82550; 82805; 83605; 83735; 83880; 84484; 85007; 85025; 85027; 85610; 85730; 87040; 87641; 88305; 88312; 93005; 94003; 94150; 94620; 94640; 94664; 96365; 96375; 96376; C1769; G0378; J1644; J1650; J1956; J2270; J2405; J2920; J2930; J7030; J7512; Q9967

== ENCOUNTER 2017-06-29 16:37 | Emergency (ER) | payer MEDICARE, OTHER ==
[~2017-06-29 16:37] MED LIST changes: -DILT120T PO; +DILT90TA PO; +LEVA500T33 PO; +Nystatin Liq SWISH-SWAL; +OMEP20CA2 PO; +PRED20 PO
[2017-06-29 16:39] VITALS: BP 159/88; PULSE 120; RESP 16; TEMP 98.1; O2SAT 95
[2017-06-29] MEDS ORDERED: SODIUM CHLOR 0.9% 1000 ML INJ 1,000 ML IV SCH (17:35)
[2017-06-29] MEDS ORDERED: ONDANSETRON HCL 4 MG/2 ML VIAL IVP ONE (17:45)
[2017-06-29] MEDS ORDERED: SODIUM CHLORIDE 0.9% FLUSH 10 ML FLUSH IV FLUSH PRN (17:45)
[2017-06-29] MEDS ORDERED: MORPHINE SULFATE 4 MG/ML INJ IV PUSH ONE (17:45)
--- NOTE | 2017-06-29 17:51 | PD ---
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 HIGH LIPIDS) High Cholesterol: No Chemotherapy: No Chest Pain: No Congestive Heart Failure: Yes COPD: Yes Diabetes: No Diminished Hearing: Yes ([place] RIGHT EAR) Diverticulitis: Yes Endocrine: No Gastrointestinal Disorders: No Glaucoma: No Genitourinary: No Hepatitis: No Hiatal Hernia: No Hypertension: Yes (NOT CURRENTLY ON MEDS. 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, LUPUS ) Psychiatric: No Reproductive: No Respiratory: Yes (COPD) Integumentary: No Radiation Therapy: Yes Sleep Apnea: Yes (CPAP AT HOME) Thyroid Disease: No Tetanus Vaccination: < 5 Years ?: Not Menopausal: Yes : 2 Para: 2 Miscarriage: 0 : 0 Tubal Ligation: Yes Past Surgical History Abdominal Surgery: Yes (TUMMY TUCK) Appendectomy: Yes Cholecystectomy: Yes Coronary Artery Bypass Graft: No Thoracic Surgery: Yes Other Surgery: Yes (FACIAL SX FOR CA, BREAST REDUCTION) Family History Family Myocardial Infarction: Yes (mom, grandmother) Social History Alcohol Use: No Tobacco Use: No (she has a prior history of smoking) Substance Use: No Allergies-Medications (Allergen,Severity, Reaction): Coded Allergies: No Known Allergies (Verified Allergy, Unknown, 06/29/17) Reported Meds & Prescriptions Reported Meds & Active Scripts Active Codeine-Acetaminophen 30-300 mg Tab 1 Tab PO Q4H PRN Cipro (Ciprofloxacin HCl) 500 Mg Tab 500 Mg PO BID 7 Days Omeprazole 20 Mg Cap 20 Mg PO DAILY 30 Days Levaquin (Levofloxacin) 500 Mg Tablet 500 Mg PO DAILY 7 Days [Nystatin Liq] 5 ML Susp 5 Ml SWISH-SWAL QID 10 Days Prednisone 20 Mg Tab 20 Mg PO DAILY 7 Days Diltiazem (Diltiazem HCl) 90 Mg Tab 90 Mg PO Q6HR Reported Isosorbide Mononitrate ER (Isosorbide Mononitrate) 30 Mg Tano 30 Mg PO DAILY Anoro Ellipta Inh (Umeclidinium/Vilanterol) 62.5-25 Mcg/Act Aero 1 Puff INH DAILY Oxycodone-Acetaminophen 5-325 mg Tab 1 Tab PO Q6H PRN Combivent Respimat Inh (Ipratropium-Albuterol Inh) 20-100 Halfway/Act Aero 1 Puff INH QID Ventolin Hfa 18 GM Inh (Albuterol Sulfate) 90 Mcg/Act Aer 2 Puff INH Q4H PRN Spiriva Respimat Inh (Tiotropium Inh) 2.5 Mcg/Act Aero 2 Puff INH DAILY 2.5 mcg = 1 inhalation Aspirin 81 (Aspirin) 81 Mg Tabdr 81 Mg PO DAILY Review of Systems Except as stated in HPI: all other systems reviewed are Neg General / Constitutional: No: Fever Eyes: No: Visual changes HENT: No: Headaches Cardiovascular: No: Chest Pain or Discomfort Respiratory: No: Shortness of Breath Gastrointestinal: Positive: Abdominal Pain Genitourinary: No: Dysuria Musculoskeletal: No: Pain Skin: No Rash Neurologic: No: Weakness Psychiatric: No: Depression Endocrine: No: Polydipsia Hematologic/Lymphatic: No: Easy Bruising Physical Exam Narrative GENERAL: SKIN: Warm and dry. HEAD: Atraumatic. Normocephalic. EYES: Pupils equal and round. No scleral icterus. No injection or drainage. ENT: No nasal bleeding or discharge. Mucous membranes pink and moist. NECK: Trachea midline. No JVD. CARDIOVASCULAR: Regular rate and rhythm. RESPIRATORY: No accessory muscle use. Clear to auscultation. Breath sounds equal bilaterally. GASTROINTESTINAL: Abdomen soft, mildly tender to percussion, nondistended. MUSCULOSKELETAL: Extremities without clubbing, cyanosis, or edema. No obvious deformities. NEUROLOGICAL: Awake and alert. No obvious cranial nerve deficits. Motor grossly within normal limits. Five out of 5 muscle strength in the arms and legs. Normal speech. PSYCHIATRIC: Appropriate mood and affect; insight and judgment normal. Data Data Last Documented VS Vital Signs Date Time Temp Pulse Resp B/P (MAP) Pulse Ox O2 Delivery O2 Flow Rate FiO2 06/29/17 21:26 06/29/17 19:39 97 Nasal Cannula 2.00 06/29/17 18:09 101 16 06/29/17 16:39 98.1 Orders Orders Complete Blood Count With Diff (06/29/17 17:35) Comprehensive Metabolic Panel (06/29/17 17:35) Lipase (06/29/17 17:35) Ct Abd/Pel W/O Iv Contrast (06/29/17 17:35) Iv Access Insert/Monitor (06/29/17 17:35) Ecg Monitoring (06/29/17 17:35) Oximetry (06/29/17 17:35) Ondansetron Inj (Zofran Inj) (06/29/17 17:45) Sodium Chlor 0.9% 1000 Ml Inj (Ns 1000 M (06/29/17 17:35) Sodium Chloride 0.9% Flush (Ns Flush) (06/29/17 17:45) Morphine Inj (Morphine Inj) (06/29/17 17:45) Urinalysis - C+S If Indicated (06/29/17 17:38) Ed Discharge Order (06/29/17 21:06) Labs Laboratory Tests Test 06/29/17 18:05 06/29/17 20:55 White Blood Count 7.6 TH/MM3 Red Blood Count 4.42 MIL/MM3 Hemoglobin 12.8 GM/DL Hematocrit 38.0 % Mean Corpuscular Volume 86.0 FL Mean Corpuscular Hemoglobin 28.9 PG Mean Corpuscular Hemoglobin Concent 33.6 % Red Cell Distribution Width 17.1 % Platelet Count 124 TH/MM3 Mean Platelet Volume 9.0 FL Neutrophils (%) (Auto) 75.3 % Lymphocytes (%) (Auto) 16.6 % Monocytes (%) (Auto) 7.1 % Eosinophils (%) (Auto) 0.4 % Basophils (%) (Auto) 0.6 % Neutrophils # (Auto) 5.7 TH/MM3 Lymphocytes # (Auto) 1.3 TH/MM3 Monocytes # (Auto) 0.5 TH/MM3 Eosinophils # (Auto) 0.0 TH/MM3 Basophils # (Auto) 0.0 TH/MM3 CBC Comment DIFF FINAL Differential Comment Blood Urea Nitrogen 17 MG/DL Creatinine 1.10 MG/DL Random Glucose 180 MG/DL Total Protein 6.8 GM/DL Albumin 3.4 GM/DL Calcium Level 8.4 MG/DL Alkaline Phosphatase 65 U/L Aspartate Amino Transf (AST/SGOT) 24 U/L Alanine Aminotransferase (ALT/SGPT) 55 U/L Total Bilirubin 0.5 MG/DL Sodium Level 139 MEQ/L Potassium Level 3.4 MEQ/L Chloride Level 104 MEQ/L Carbon Dioxide Level 24.1 MEQ/L Anion Gap 11 MEQ/L Estimat Glomerular Filtration Rate 49 ML/MIN Lipase 106 U/L Urine Color YELLOW Urine Turbidity HAZY Urine pH 6.0 Urine Specific [place] GREATER THAN 1.050 Urine Protein 30 mg/dL Urine Glucose (UA) NEG mg/dL Urine Ketones NEG mg/dL Urine Occult Blood SMALL Urine Nitrite NEG Urine Bilirubin NEG Urine Urobilinogen LESS THAN 2.0 MG/DL Urine Leukocyte Esterase SMALL Urine RBC 15 /hpf Urine WBC 6 /hpf Urine Squamous Epithelial Cells 12 /hpf Urine Bacteria OCC /hpf Urine Hyaline Casts 10 /lpf Urine Mucus MOD /lpf Microscopic Urinalysis Comment CULT NOT INDICATED MDM Medical Decision Making Medical Screen Exam Complete: Yes Emergency Medical Condition: Yes Medical Record Reviewed: Yes Differential Diagnosis diverticulitis v diverticulosis v uti v Narrative Course cbc wnl, nl lipase,, nl electroltyes and ct showed diverticulosis without diverticulitis. Diagnosis Primary Impression: diverticulosis Additional Impression: uti Patient Instructions: Diverticulitis Diet (DC), Diverticulosis (DC), General Instructions, Urinary Tract Infection in Women (ED) Scripts Codeine-Acetaminophen (Codeine-Acetaminophen) 30-300 mg Tab 1 TAB PO Q4H Y for PAIN, #12 TAB 0 Refills Prov: Enrique Avery MD 06/29/17 Ciprofloxacin (Cipro) 500 Mg Tab 500 MG PO BID for Infection for 7 Days, #14 TAB 0 Refills Prov: Enrique Avery MD 06/29/17 Disposition: 01 DISCHARGE HOME Condition: Stable Enrique Avery MD Jun 29, 2017 17:51
[2017-06-29 18:09] VITALS: BP 131/75; PULSE 101; RESP 16; O2SAT 95
[2017-06-29 18:20] LABS: AUTOMATED NEUTROPHIL # 5.7 TH/MM3 (1.8-7.7); BASOPHIL % 0.6 % (0.0-2.0); EOSINOPHIL % 0.4 % (0.0-4.0); HEMO FLAGS DIFF FINAL; LYMPH % 16.6 % (9.0-44.0); LYMPHOCYTE # 1.3 TH/MM3 (1.0-4.8); MEAN CORPUSCULAR HEMOGLOBIN 28.9 PG (27.0-34.0); MEAN CORPUSCULAR HGB CONC 33.6 % (32.0-36.0); MONO % 7.1 % (0.0-8.0); NEUT % 75.3 % (16.0-70.0); PLATELET COUNT 124 TH/MM3 (150-450); RED BLOOD COUNT 4.42 MIL/MM3 (4.00-5.30); RED CELL DISTRIBUTION WIDTH 17.1 % (11.6-17.2); WHITE BLOOD COUNT 7.6 TH/MM3 (4.0-11.0)
[2017-06-29 18:33] LABS: ANION GAP 11 MEQ/L (5-15); AST (GOT) 24 U/L (15-37); BICARBONATE 24.1 MEQ/L (21.0-32.0); BLOOD UREA NITROGEN 17 MG/DL (7-18); CHLORIDE 104 MEQ/L (98-107); GLOMERULAR FILTRATION RATE 49 ML/MIN (>89); POTASSIUM 3.4 MEQ/L (3.5-5.1); SODIUM (NA) 139 MEQ/L (136-145)
[2017-06-29 18:35] LABS: ALT (GPT) 55 U/L (10-53)
[2017-06-29 18:36] LABS: ALKALINE PHOSPHATASE 65 U/L (45-117); TOTAL BILIRUBIN ADULT 0.5 MG/DL (0.2-1.0)
--- NOTE | 2017-06-29 20:30 | RADRPT ---
EXAM DATE/TIME: 06/29/2017 19:26 [facility] COMPARISON: No previous studies available for comparison. INDICATIONS : Abdomen pain along with nausea and vomiting. Evaluate for renal stone ORAL CONTRAST: No oral contrast ingested. RADIATION DOSE: 15.86 CTDIvol (mGy) MEDICAL HISTORY : Cardiovascular disease. Hypertension. Chronic obstructive pulmonary disease. SURGICAL HISTORY : Hysterectomy. ENCOUNTER: Initial ACUITY: 2 days PAIN SCALE: 8/10 LOCATION: abdomen TECHNIQUE: Volumetric scanning of the abdomen and pelvis was performed. Using automated exposure control and ad justment of the mA and/or kV according to patient size, radiation dose was kept as low as reasonably achievable to obtain optimal diagnostic quality images. DICOM format image data is available electro nically for review and comparison. FINDINGS: Elevated right hemidiaphragm. Mild right basilar atelectasis. No significant pleural or pericardial e ffusion. Diffuse fatty liver. Spleen, adrenals, kidneys and pancreas unremarkable. There is colonic diverticulosis without evidence for diverticulitis. No free fluid or free air. No michele wel obstruction. CONCLUSION: 1. Elevated right hemidiaphragm with right basilar atelectasis. Diffuse fatty liver. 2. Colonic diverticulosis without diverticulitis. 3. No renal calculi or evidence for obstructive uropathy. Eduardo Coughlin MD on June 29, 2017 at 20:25 Board Certified Radiologist. This report was verified electronically.
[2017-06-29] MEDS ORDERED: CODE30TA2 PO (21:04)
[2017-06-29] MEDS ORDERED: CIPR-9 PO (21:04)
[2017-06-29 21:45] LABS: BACTERIA, URINE OCC /hpf; BLOOD, URINE SMALL (NEG); COMMENT (UR) CULT NOT INDICATED; CULTURE IF INDICATED CULT NOT INDICATED; GLUCOSE,URINE NEG (NEG); HYALINE CAST, URINE 10 /lpf (RARE); KETONE, URINE NEG (NEG); MUCUS URINE MOD /lpf (OCC); NITRITE,URINE NEG (NEG); SQUAMOUS EPITHELIAL CELL URINE 12 /hpf (0-5); URINE COLOR YELLOW (YELLW/STRAW)
== END 2017-06-29 21:44 | disposition home or self-care (01) ==
LOC: NEPD 16:37
DX: K57.90 Diverticulosis of intestine, part unspecified, without perforation or abscess without bleeding (principal); N39.0 Urinary tract infection, site not specified; K76.0 Fatty (change of) liver, not elsewhere classified; M19.90 Unspecified osteoarthritis, unspecified site; I25.10 Atherosclerotic heart disease of native coronary artery without angina pectoris; I11.0 Hypertensive heart disease with heart failure; I50.9 Heart failure, unspecified; J44.9 Chronic obstructive pulmonary disease, unspecified; M32.9 Systemic lupus erythematosus, unspecified
CPT/HCPCS: 74176; 80053; 81001; 83690; 85025; 96374; 96375; 99284; J2270; J2405; J7030

== ENCOUNTER 2017-07-04 00:41 | Emergency (ER) | payer OTHER ==
[~2017-07-04] VITALS: Ht 172.7 cm; Wt 96.0 kg
[~2017-07-04 00:41] MED LIST changes: +CIPR-9 PO; +CODE30TA2 PO
[2017-07-04 00:43] VITALS: BP 161/87; PULSE 107; RESP 22; TEMP 98.9; O2SAT 96
--- NOTE | 2017-07-04 01:13 | PD ---
HPI Chief Complaint: Respiratory Symptoms Time Seen by Provider: 01:08 Travel History International Travel<30 days: No Contact w/Intl Traveler<30days: No Traveled to known affect area: No History of Present Illness HPI PATIENT WAS AWAKEN FROM SLEEP WITH CHEST PAIN, ABOUT 2HRS AGO, WAS VERY ANXIOUS AND DECIDED TO TAKE HER BP MEDS. WAITED TWO HOURS BUT STILL FELT CHEST DISCOMFORT, DESCRIBED IT SHARP, NONRAD, WORSE WITH MOVEMENT. 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 HIGH LIPIDS) High Cholesterol: No Chemotherapy: No Chest Pain: No Congestive Heart Failure: Yes COPD: Yes Diabetes: No Diminished Hearing: Yes ([facility] RIGHT EAR) Diverticulitis: Yes Endocrine: No Gastrointestinal Disorders: No Glaucoma: No Genitourinary: No Hepatitis: No Hiatal Hernia: No Hypertension: Yes (NOT CURRENTLY ON MEDS. 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, LUPUS ) Psychiatric: No Reproductive: No Respiratory: Yes (COPD) Integumentary: No Radiation Therapy: Yes Sleep Apnea: Yes (CPAP AT HOME) Thyroid Disease: No ?: Not Menopausal: Yes : 2 Para: 2 Miscarriage: 0 : 0 Tubal Ligation: Yes Past Surgical History Abdominal Surgery: Yes (TUMMY TUCK) Appendectomy: Yes Cholecystectomy: Yes Coronary Artery Bypass Graft: No Thoracic Surgery: Yes Other Surgery: Yes (FACIAL SX FOR CA, BREAST REDUCTION) Family History Family Myocardial Infarction: Yes (mom, grandmother) Social History Alcohol Use: No Tobacco Use: No (she has a prior history of smoking) Substance Use: No Allergies-Medications (Allergen,Severity, Reaction): Coded Allergies: No Known Allergies (Verified Allergy, Unknown, 07/04/17) Reported Meds & Prescriptions Reported Meds & Active Scripts Active Potassium Chloride ER (Potassium Chloride) 20 Meq Tab 20 Meq PO BID Codeine-Acetaminophen 30-300 mg Tab 1 Tab PO Q4H PRN Cipro (Ciprofloxacin HCl) 500 Mg Tab 500 Mg PO BID 7 Days Omeprazole 20 Mg Cap 20 Mg PO DAILY 30 Days [Nystatin Liq] 5 ML Susp 5 Ml SWISH-SWAL QID 10 Days Diltiazem (Diltiazem HCl) 90 Mg Tab 90 Mg PO Q6HR Reported Anoro Ellipta Inh (Umeclidinium/Vilanterol) 62.5-25 Mcg/Act Aero 1 Puff INH DAILY Oxycodone-Acetaminophen 5-325 mg Tab 1 Tab PO Q6H PRN Ventolin Hfa 18 GM Inh (Albuterol Sulfate) 90 Mcg/Act Aer 2 Puff INH Q4H PRN Spiriva Respimat Inh (Tiotropium Inh) 2.5 Mcg/Act Aero 2 Puff INH DAILY 2.5 mcg = 1 inhalation Aspirin 81 (Aspirin) 81 Mg Tabdr 81 Mg PO DAILY Physical Exam Narrative GENERAL: SKIN: Warm and dry. HEAD: Atraumatic. Normocephalic. EYES: Pupils equal and round. No scleral icterus. No injection or drainage. ENT: No nasal bleeding or discharge. Mucous membranes pink and moist. NECK: Trachea midline. No JVD. CARDIOVASCULAR: Regular rate and rhythm. RESPIRATORY: No accessory muscle use. Clear to auscultation. Breath sounds equal bilaterally. GASTROINTESTINAL: Abdomen soft, non-tender, nondistended. MUSCULOSKELETAL: Extremities without clubbing, cyanosis, or edema. No obvious deformities. CHEST WALL REPRODUCIBLE NEUROLOGICAL: Awake and alert. No obvious cranial nerve deficits. Motor grossly within normal limits. Five out of 5 muscle strength in the arms and legs. Normal speech. PSYCHIATRIC: Appropriate mood and affect; insight and judgment normal. Data Data Last Documented VS Vital Signs Date Time Temp Pulse Resp B/P (MAP) Pulse Ox O2 Delivery O2 Flow Rate FiO2 07/04/17 04:56 07/04/17 00:43 98.9 107 22 96 Room Air Orders Orders Electrocardiogram (07/04/17 01:48) Ckmb (Isoenzyme) Profile (07/04/17 01:48) Complete Blood Count With Diff (07/04/17 01:48) Comprehensive Metabolic Panel (07/04/17 01:48) Prothrombin Time / Inr (Pt) (07/04/17 01:48) Act Partial Throm Time (Ptt) (07/04/17 01:48) Troponin I (07/04/17 01:48) Chest, Single Ap (07/04/17 01:48) Ecg Monitoring (07/04/17 01:48) Iv Access Insert/Monitor (07/04/17 01:48) Oximetry (07/04/17 01:48) Sodium Chloride 0.9% Flush (Ns Flush) (07/04/17 02:00) Potassium Chloride (Kcl) (07/04/17 03:45) Ed Discharge Order (07/04/17 03:51) Meclizine (Antivert) (07/04/17 04:15) Labs Laboratory Tests Test 07/04/17 02:30 White Blood Count 3.2 TH/MM3 Red Blood Count 3.81 MIL/MM3 Hemoglobin 10.6 GM/DL Hematocrit 32.0 % Mean Corpuscular Volume 84.0 FL Mean Corpuscular Hemoglobin 27.9 PG Mean Corpuscular Hemoglobin Concent 33.2 % Red Cell Distribution Width 16.4 % Platelet Count 159 TH/MM3 Mean Platelet Volume 7.8 FL Neutrophils (%) (Auto) 57.1 % Lymphocytes (%) (Auto) 32.5 % Monocytes (%) (Auto) 9.2 % Eosinophils (%) (Auto) 0.9 % Basophils (%) (Auto) 0.3 % Neutrophils # (Auto) 1.9 TH/MM3 Lymphocytes # (Auto) 1.1 TH/MM3 Monocytes # (Auto) 0.3 TH/MM3 Eosinophils # (Auto) 0.0 TH/MM3 Basophils # (Auto) 0.0 TH/MM3 CBC Comment DIFF FINAL Differential Comment Prothrombin Time 10.0 SEC Prothromb Time International Ratio 1.0 RATIO Activated Partial Thromboplast Time 20.4 SEC Blood Urea Nitrogen 18 MG/DL Creatinine 0.77 MG/DL Random Glucose 133 MG/DL Total Protein 6.2 GM/DL Albumin 3.0 GM/DL Calcium Level 8.1 MG/DL Alkaline Phosphatase 64 U/L Aspartate Amino Transf (AST/SGOT) 27 U/L Alanine Aminotransferase (ALT/SGPT) 57 U/L Total Bilirubin 0.4 MG/DL Sodium Level 144 MEQ/L Potassium Level 2.8 MEQ/L Chloride Level 108 MEQ/L Carbon Dioxide Level 29.4 MEQ/L Anion Gap 7 MEQ/L Estimat Glomerular Filtration Rate 74 ML/MIN Total Creatine Kinase 76 U/L Troponin I 0.03 NG/ML MDM Medical Decision Making Medical Screen Exam Complete: Yes Emergency Medical Condition: Yes Medical Record Reviewed: Yes Interpretation(s) EKG SHOWS NSR 87, WITH PVC'S...NO STEMI PATTERN Differential Diagnosis CHEST WALL PAIN V PNA V PTX V STEMI Narrative Course ON REVIEW OF CHART PATIENT HAD A HEART CATH ON APR 2017 WHICH WAS NEG FOR SIGNIFICANT BLOCKAGE, NEG TROPONIN TODAY IS NEGATIVE AND CXR ALSO NEG FOR PNA/ PTX/....PATIENT IS STABLE FOR D/C, TOLERATED PO POTASSIUM REPLACEMENT IN ED, Diagnosis Primary Impression: Atypical chest pain Additional Impression: Hypokalemia Patient Instructions: Chest Pain (ED), General Instructions, Hypokalemia (ED) Additional Instructions: YOUR CHEST PAIN IS NOT DUE TO HEART ATTACK, SINCE YOU HAVE ALREADY HAD A NEGATIVE HEART CATHERIZATION THIS YEAR ON MAY 11, 2017 SHOWING NO SIGNIFICANT BLOCKAGE YOUR PAIN MAYBE RELATED TO LOW POTASSIUM LEVEL, PLEASE TAKE SUPPLEMENT TO INCREASE YOUR LEVELS. Scripts Potassium Chloride ER (Potassium Chloride ER) 20 Meq Tab 20 MEQ PO BID for Electrolyte Replacement, #14 TAB 0 Refills Prov: Enrique Avery MD 07/04/17 Disposition: 01 DISCHARGE HOME Condition: Stable Enrique Avery MD Jul 04, 2017 01:13
[2017-07-04] MEDS ORDERED: SODIUM CHLORIDE 0.9% FLUSH 10 ML FLUSH IVF PRN (02:00)
--- NOTE | 2017-07-04 02:21 | RADRPT ---
EXAM DATE/TIME: 07/04/2017 02:02 [facility] COMPARISON: No previous studies available for comparison. INDICATIONS : Shortness of breath. MEDICAL HISTORY : Chronic obstructive pulmonary disease. Congestive heart failure. Cardiovascular disease. Parotid gland cancer SURGICAL HISTORY : Hysterectomy. Cancer related neck surgery ENCOUNTER: Initial ACUITY: 1 day PAIN SCORE: 0/10 LOCATION: Bilateral chest FINDINGS: Trace atelectasis seen at both bases. No pleural effusion. No pneumothorax. Heart size stable, upper limits of normal. CONCLUSION: Minimal bibasilar atelectasis. Tiburcio Lanier MD on July 04, 2017 at 2:19 Board Certified Radiologist. This report was verified electronically.
[2017-07-04 02:43] LABS: AUTOMATED NEUTROPHIL # 1.9 TH/MM3 (1.8-7.7); BASOPHIL % 0.3 % (0.0-2.0); EOSINOPHIL % 0.9 % (0.0-4.0); HEMOGLOBIN 10.6 GM/DL (11.6-15.3); LYMPH % 32.5 % (9.0-44.0); LYMPHOCYTE # 1.1 TH/MM3 (1.0-4.8); MEAN CORPUSCULAR HEMOGLOBIN 27.9 PG (27.0-34.0); MEAN CORPUSCULAR HGB CONC 33.2 % (32.0-36.0); MEAN PLATELET VOLUME 7.8 FL (7.0-11.0); MONO % 9.2 % (0.0-8.0); MONOCYTE # 0.3 TH/MM3 (0-0.9); NEUT % 57.1 % (16.0-70.0); PLATELET COUNT 159 TH/MM3 (150-450); RED BLOOD COUNT 3.81 MIL/MM3 (4.00-5.30); RED CELL DISTRIBUTION WIDTH 16.4 % (11.6-17.2); WHITE BLOOD COUNT 3.2 TH/MM3 (4.0-11.0)
[2017-07-04 03:27] LABS: ALKALINE PHOSPHATASE 64 U/L (45-117); ALT (GPT) 57 U/L (10-53); AST (GOT) 27 U/L (15-37); BICARBONATE 29.4 MEQ/L (21.0-32.0); BLOOD UREA NITROGEN 18 MG/DL (7-18); CALCIUM 8.1 MG/DL (8.5-10.1); CHLORIDE 108 MEQ/L (98-107); CREATININE 0.77 MG/DL (0.50-1.00); GLOMERULAR FILTRATION RATE 74 ML/MIN (>89); GLUCOSE,RANDOM 133 MG/DL (74-106); SODIUM (NA) 144 MEQ/L (136-145); TOTAL BILIRUBIN ADULT 0.4 MG/DL (0.2-1.0); TOTAL PROTEIN 6.2 GM/DL (6.4-8.2); TROPONIN I 0.03 NG/ML (0.02-0.05)
[2017-07-04] MEDS ORDERED: POTASSIUM CHLORIDE 10 MEQ CONTROLLED RELEASE TAB PO ONE (03:45)
[2017-07-04] MEDS ORDERED: POTA-163 PO (03:53)
[2017-07-04] MEDS ORDERED: MECLIZINE HCL 25 MG TAB PO ONE (04:15)
--- NOTE | 2017-07-04 10:39 | EKG ---
Date Performed: 07/04/2017 Time Performed: 02:26:42 PTAGE: 72 years EKG: Sinus rhythm WITH OCCASIONAL SUPRAVENTRICULAR AND VENTRICULAR PREMATURE COMPLEXES, LEFT ATRIAL ENLARGEMENT, BORDE RLINE LEFT AXIS DEVIATION, NONSPECIFIC T-WAVE ABNORMALITY ABNORMAL ECG PREVIOUS TRACING : 06/15/2017 13.27 Compared to previous tracing, premature ectopic beats are n ow more frequent. DOCTOR: Erich Del Real Interpretating Date/Time 07/04/2017 10:38:32
== END 2017-07-04 04:57 | disposition home or self-care (01) ==
LOC: NEPC 00:41
DX: R07.89 Other chest pain (principal); E87.6 Hypokalemia; J98.11 Atelectasis; R94.31 Abnormal electrocardiogram [ECG] [EKG]; M19.90 Unspecified osteoarthritis, unspecified site; I11.0 Hypertensive heart disease with heart failure; I50.9 Heart failure, unspecified; I25.10 Atherosclerotic heart disease of native coronary artery without angina pectoris; M32.9 Systemic lupus erythematosus, unspecified
CPT/HCPCS: 71010; 80053; 82550; 84484; 85025; 85610; 85730; 93005; 99284

== ENCOUNTER 2017-07-14 19:10 | Emergency (ER) | payer OTHER ==
[~2017-07-14 19:10] MED LIST changes: -IPRAAER INH; -ISOS30TA3 PO; -LEVA500T33 PO; +POTA-163 PO; -PRED20 PO
[2017-07-14 19:12] VITALS: BP 142/81; PULSE 114; RESP 20; TEMP 98.5; O2SAT 96
[2017-07-14] MEDS ORDERED: SODIUM CHLORIDE 0.9% FLUSH 10 ML FLUSH IVF PRN (20:00)
--- NOTE | 2017-07-14 20:32 | RADRPT ---
EXAM DATE/TIME: 07/14/2017 20:06 [facility] COMPARISON: CHEST SINGLE AP, July 04, 2017, 2:02. INDICATIONS : Patient complains of shortness of breath and chest pain. MEDICAL HISTORY : Chronic obstructive pulmonary disease. Congestive heart failure. Cardiovascular disease. Parotid glan d cancer. SURGICAL HISTORY : Hysterectomy. Cancer related neck surgery ENCOUNTER: Initial ACUITY: 3 days PAIN SCORE: 3/10 LOCATION: chest FINDINGS: Slightly progressed airspace disease in the right lower lung zone. Minimal left lower lung zone airsp regan disease. Cardiomediastinal contours are stable. Remainder of the exam is unchanged. CONCLUSION: 1. Stable mild left lower lung zone and slightly worsening right lower lung zone airspace disease whi ch may reflect worsening atelectasis. However, pneumonia or aspiration cannot be entirely excluded. Jeff Izquierdo MD on July 14, 2017 at 20:29 Board Certified Radiologist. This report was verified electronically.
[2017-07-14 20:53] LABS: AUTOMATED NEUTROPHIL # 5.6 TH/MM3 (1.8-7.7); BASOPHIL % 0.6 % (0.0-2.0); EOSINOPHIL % 0.1 % (0.0-4.0); HEMATOCRIT 35.6 % (35.0-46.0); LYMPH % 8.6 % (9.0-44.0); LYMPHOCYTE # 0.6 TH/MM3 (1.0-4.8); MEAN CELL VOLUME 83.4 FL (80.0-100.0); MEAN CORPUSCULAR HEMOGLOBIN 28.2 PG (27.0-34.0); MEAN CORPUSCULAR HGB CONC 33.8 % (32.0-36.0); MEAN PLATELET VOLUME 8.7 FL (7.0-11.0); MONO % 6.8 % (0.0-8.0); MONOCYTE # 0.5 TH/MM3 (0-0.9); NEUT % 83.9 % (16.0-70.0); PLATELET COUNT 234 TH/MM3 (150-450); RED BLOOD COUNT 4.27 MIL/MM3 (4.00-5.30); RED CELL DISTRIBUTION WIDTH 15.9 % (11.6-17.2); WHITE BLOOD COUNT 6.7 TH/MM3 (4.0-11.0)
[2017-07-14 21:13] LABS: ALT (GPT) 41 U/L (10-53)
[2017-07-14 21:16] LABS: ALKALINE PHOSPHATASE 53 U/L (45-117); TOTAL BILIRUBIN ADULT 0.9 MG/DL (0.2-1.0); TOTAL PROTEIN 7.2 GM/DL (6.4-8.2)
[2017-07-14 21:17] LABS: ALBUMIN 3.1 GM/DL (3.4-5.0); AST (GOT) 50 U/L (15-37); BICARBONATE 24.2 MEQ/L (21.0-32.0); BLOOD UREA NITROGEN 7 MG/DL (7-18); CALCIUM 8.3 MG/DL (8.5-10.1); CHLORIDE 98 MEQ/L (98-107); CREATININE 0.95 MG/DL (0.50-1.00); GLOMERULAR FILTRATION RATE 58 ML/MIN (>89); GLUCOSE,RANDOM 106 MG/DL (74-106); SODIUM (NA) 134 MEQ/L (136-145)
--- NOTE | 2017-07-14 21:27 | RADRPT ---
EXAM DATE/TIME: 07/14/2017 20:58 [facility] COMPARISON: CT BRAIN W/O CONTRAST, February 26, 2017, 18:00. INDICATIONS : Altered mental status. RADIATION DOSE: 45.15 CTDIvol (mGy) MEDICAL HISTORY : Cardiovascular disease. Hypertension. SURGICAL HISTORY : Appendectomy. Cholecystectomy. ENCOUNTER: Initial ACUITY: 1 day PAIN SCALE: 0/10 LOCATION: cranial TECHNIQUE: Multiple contiguous axial images were obtained of the head. Using automated exposure control and adj ustment of the mA and/or kV according to patient size, radiation dose was kept as low as reasonably a chievable to obtain optimal diagnostic quality images. DICOM format image data is available electro nically for review and comparison. FINDINGS: CEREBRUM: The ventricles are normal for age. No evidence of midline shift, mass lesion, hemorrhage or acute in farction. No extra-axial fluid collections are seen. POSTERIOR FOSSA: The cerebellum and brainstem are intact. The 4th ventricle is midline. The cerebellopontine angle i s unremarkable. EXTRACRANIAL: The visualized portion of the orbits is intact. Mucoperiosteal thickening involving the inferior maxi llary sinuses bilaterally. SKULL: The calvaria is intact. No evidence of skull fracture. CONCLUSION: 1. No acute intracranial abnormality or significant interval change. 2. Bilateral inferior maxillary sinus disease. Jeff Izquierdo MD on July 14, 2017 at 21:24 Board Certified Radiologist. This report was verified electronically.
[2017-07-14] MEDS: RESP: ALBUTEROL 2.5 MG/IPRATROPIUM 0.5 MG NEB (SCH) INH ×2 (21:31→21:32)
--- NOTE | 2017-07-14 21:53 | PD ---
HPI Chief Complaint: General Weakness Time Seen by Provider: 19:45 Travel History International Travel<30 days: No Contact w/Intl Traveler<30days: No Traveled to known affect area: No History of Present Illness HPI 72 year-old woman presents emergent from complaining of confusion problems. States she went for routine appointment with her primary doctor, Dr. Mike, who is concerned about her forgetfulness. She has no other complaints. She's been seen twice in the past month for chest pain and belly pain. Extensive workups at that time were unremarkable. She did have some low potassium. She lives with her son, who does not work. She gets around with a walker, cooks for cell , takes care of all her finances on her own. She denies any other complaints at this time. 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 Menopausal: Yes : 2 Para: 2 Social History Alcohol Use: No Tobacco Use: No (she has a prior history of smoking) Allergies-Medications (Allergen,Severity, Reaction): Coded Allergies: No Known Allergies (Verified Allergy, Unknown, 07/14/17) Reported Meds & Prescriptions Reported Meds & Active Scripts Active Omeprazole 20 Mg Cap 20 Mg PO DAILY 30 Days [Nystatin Liq] 5 ML Susp 5 Ml SWISH-SWAL QID 10 Days Diltiazem (Diltiazem HCl) 90 Mg Tab 90 Mg PO Q6HR Reported Anoro Ellipta Inh (Umeclidinium/Vilanterol) 62.5-25 Mcg/Act Aero 1 Puff INH DAILY Ventolin Hfa 18 GM Inh (Albuterol Sulfate) 90 Mcg/Act Aer 2 Puff INH Q4H PRN Aspirin 81 (Aspirin) 81 Mg Tabdr 81 Mg PO DAILY Review of Systems Except as stated in HPI: all other systems reviewed are Neg Physical Exam Narrative GENERAL: Well-appearing 72 year-old woman, no acute distress. SKIN: Focused skin assessment warm/dry. HEAD: Atraumatic. Normocephalic. EYES: Pupils equal and round. No scleral icterus. No injection or drainage. ENT: No nasal bleeding or discharge. Mucous membranes pink and moist. NECK: Trachea midline. No JVD. CARDIOVASCULAR: Regular rate and rhythm. No murmur appreciated. RESPIRATORY: No respiratory distress. Slight wheezing on exam. GASTROINTESTINAL: Abdomen soft, non-tender, nondistended. Hepatic and splenic margins not palpable. MUSCULOSKELETAL: No obvious deformities. No clubbing. No cyanosis. No edema. NEUROLOGICAL: Awake and alert. Right sided facial droop. No other obvious cranial nerve deficits. Motor grossly within normal limits. Normal speech. Gait generally unremarkable. Able to walk with no to minimal assistance. Data Data Last Documented VS Vital Signs Date Time Temp Pulse Resp B/P (MAP) Pulse Ox O2 Delivery O2 Flow Rate FiO2 07/14/17 19:12 98.5 114 20 142/81 (101) 96 Room Air Orders Orders Complete Blood Count With Diff (07/14/17 19:59) Comprehensive Metabolic Panel (07/14/17 19:59) B-Type Natriuretic Peptide (07/14/17 19:59) Iv Access Insert/Monitor (07/14/17 19:59) Chest, Single Ap (07/14/17 19:59) Sodium Chloride 0.9% Flush (Ns Flush) (07/14/17 20:00) Albuterol-Ipratropium Neb (Duoneb Neb) (07/14/17 20:00) Ct Brain W/O Iv Contrast(Rout) (07/14/17 ) Labs Laboratory Tests Test 07/14/17 20:10 White Blood Count 6.7 TH/MM3 Red Blood Count 4.27 MIL/MM3 Hemoglobin 12.0 GM/DL Hematocrit 35.6 % Mean Corpuscular Volume 83.4 FL Mean Corpuscular Hemoglobin 28.2 PG Mean Corpuscular Hemoglobin Concent 33.8 % Red Cell Distribution Width 15.9 % Platelet Count 234 TH/MM3 Mean Platelet Volume 8.7 FL Neutrophils (%) (Auto) 83.9 % Lymphocytes (%) (Auto) 8.6 % Monocytes (%) (Auto) 6.8 % Eosinophils (%) (Auto) 0.1 % Basophils (%) (Auto) 0.6 % Neutrophils # (Auto) 5.6 TH/MM3 Lymphocytes # (Auto) 0.6 TH/MM3 Monocytes # (Auto) 0.5 TH/MM3 Eosinophils # (Auto) 0.0 TH/MM3 Basophils # (Auto) 0.0 TH/MM3 CBC Comment DIFF FINAL Differential Comment Blood Urea Nitrogen 7 MG/DL Creatinine 0.95 MG/DL Random Glucose 106 MG/DL Total Protein 7.2 GM/DL Albumin 3.1 GM/DL Calcium Level 8.3 MG/DL Alkaline Phosphatase 53 U/L Aspartate Amino Transf (AST/SGOT) 50 U/L Alanine Aminotransferase (ALT/SGPT) 41 U/L Total Bilirubin 0.9 MG/DL Sodium Level 134 MEQ/L Potassium Level 3.3 MEQ/L Chloride Level 98 MEQ/L Carbon Dioxide Level 24.2 MEQ/L Anion Gap 12 MEQ/L Estimat Glomerular Filtration Rate 58 ML/MIN B-Type Natriuretic Peptide 149 PG/ML MDM Medical Decision Making Medical Screen Exam Complete: Yes Emergency Medical Condition: Yes Interpretation(s) My review of EKG: Sinus tachycardia rate of 108, leftward axis, normal intervals , no definite evidence of acute ischemia. LABS: CBC is unremarkable. CMP is generally unremarkable. BNP is 149. Chest x-ray: Possibly worsening atelectasis or pneumonia. Differential Diagnosis Confusion, senility, dementia, infection, other Narrative Course Medical decision-making 72 year-old woman, presents to the ED reportedly for confusion. She is able to give a complete history. She was given a complete functional history. She can walk with known the minimal assistance. She normally lives walks with a walker. She lives with her son. I don't find an indication for hospital admission. Recommend she continue to follow closely with her primary doctor. Diagnosis Primary Impression: Memory problem Additional Impression: General weakness Additional Instructions: Continue current medications. Follow up with her primary doctor in the next 3-5 days. Return to the emergency department for any new or worsening symptoms. Med/Other Pt SpecificInfo: No Change to Meds Disposition: 01 DISCHARGE HOME Condition: Stable Kenneth Seo MD Jul 14, 2017 21:53
[2017-07-14] MEDS ORDERED: methylPREDNISolone SOD SUCC 125 MG/2 ML VIAL IV PUSH ONE (22:00)
[2017-07-14] MEDS ORDERED: RESP: ALBUTEROL 2.5 MG/IPRATROPIUM 0.5 MG NEB (SCH) NEB ONE (22:00)
[2017-07-14] MEDS ORDERED: AZITHROMYCIN 250 MG TAB PO ONE (22:00)
[2017-07-14 22:22] VITALS: BP 115/63; PULSE 132; RESP 20; TEMP 98.2; O2SAT 95
[2017-07-14] MEDS ORDERED: AZIT250T3 PO (22:35)
[2017-07-14] MEDS ORDERED: VENTAER INH (22:35)
[2017-07-14] MEDS ORDERED: PRED-503 PO (22:35)
--- NOTE | 2017-07-15 23:05 | EKG ---
Date Performed: 07/14/2017 Time Performed: 19:36:09 PTAGE: 72 years EKG: SINUS TACHYCARDIA POSSIBLE RIGHT ATRIAL ENLARGEMENT POSSIBLE LEFT ATRIAL ENLARGEMENT ABNORM AL RHYTHM ECG NO PREVIOUS TRACING DOCTOR: Eloy Rodriguez Interpretating Date/Time 07/15/2017 23:04:04
== END 2017-07-15 00:10 | disposition home or self-care (01) ==
LOC: NEPC 19:10
DX: R41.0 Disorientation, unspecified (principal); R53.1 Weakness; J44.1 Chronic obstructive pulmonary disease with (acute) exacerbation; I11.0 Hypertensive heart disease with heart failure; I50.9 Heart failure, unspecified; Z87.891 Personal history of nicotine dependence
CPT/HCPCS: 70450; 71010; 80053; 83880; 85025; 87804; 93005; 94640; 94664; 96374; 99285; J2930

== ENCOUNTER 2017-08-13 19:09 | Emergency (ER) | payer OTHER ==
[~2017-08-13] VITALS: Ht 172.7 cm; Wt 92.0 kg
[~2017-08-13 19:09] MED LIST changes: +AZIT250T3 PO; -CIPR-9 PO; -CODE30TA2 PO; -OXYC1TAB63 PO; -POTA-163 PO; +PRED-503 PO; -TIOT12.9 INH
[2017-08-13 19:11] VITALS: BP 171/88; PULSE 101; RESP 18; TEMP 97.9; O2SAT 98
[2017-08-13] MEDS ORDERED: FURO1TAB62 PO (19:44)
[2017-08-13 19:48] VITALS: BP 156/82; PULSE 96; RESP 18; O2SAT 100
[2017-08-13 20:21] LABS: AUTOMATED NEUTROPHIL # 5.8 TH/MM3 (1.8-7.7); BASOPHIL % 0.2 % (0.0-2.0); EOSINOPHIL # 0.1 TH/MM3 (0-0.4); EOSINOPHIL % 0.7 % (0.0-4.0); HEMATOCRIT 34.6 % (35.0-46.0); HEMOGLOBIN 11.6 GM/DL (11.6-15.3); LYMPH % 18.3 % (9.0-44.0); LYMPHOCYTE # 1.4 TH/MM3 (1.0-4.8); MEAN CELL VOLUME 84.3 FL (80.0-100.0); MEAN CORPUSCULAR HEMOGLOBIN 28.4 PG (27.0-34.0); MEAN CORPUSCULAR HGB CONC 33.7 % (32.0-36.0); MEAN PLATELET VOLUME 8.2 FL (7.0-11.0); MONO % 7.1 % (0.0-8.0); MONOCYTE # 0.6 TH/MM3 (0-0.9); NEUT % 73.7 % (16.0-70.0); PLATELET COUNT 172 TH/MM3 (150-450); RED CELL DISTRIBUTION WIDTH 16.2 % (11.6-17.2); WHITE BLOOD COUNT 7.9 TH/MM3 (4.0-11.0)
[2017-08-13 20:25] LABS: BILIRUBIN, URINE NEG (NEG); BLOOD, URINE NEG (NEG); GLUCOSE,URINE NEG (NEG); HYALINE CAST, URINE 3 /lpf (RARE); KETONE, URINE NEG (NEG); MUCUS URINE FEW /lpf (OCC); NITRITE,URINE NEG (NEG); PH, URINE 5.5 (5.0-8.5); URINE COLOR YELLOW (YELLW/STRAW); URINE LEUKOCYTE ESTERASE TRACE (NEG)
[2017-08-13] MEDS ORDERED: ONDANSETRON HCL 4 MG/2 ML VIAL IV PUSH ONE (20:30)
[2017-08-13] MEDS ORDERED: PANTOPRAZOLE SODIUM 40 MG VIAL IV PUSH ONE (20:30)
[2017-08-13 20:48] LABS: ALBUMIN 3.2 GM/DL (3.4-5.0); AST (GOT) 14 U/L (15-37); BICARBONATE 26.8 MEQ/L (21.0-32.0); BLOOD UREA NITROGEN 17 MG/DL (7-18); CALCIUM 8.5 MG/DL (8.5-10.1); CHLORIDE 106 MEQ/L (98-107); CREATININE 0.89 MG/DL (0.50-1.00); GLOMERULAR FILTRATION RATE 62 ML/MIN (>89); GLUCOSE,RANDOM 143 MG/DL (74-106); SODIUM (NA) 140 MEQ/L (136-145)
[2017-08-13 20:49] LABS: ALT (GPT) 28 U/L (10-53)
[2017-08-13 20:52] LABS: ALKALINE PHOSPHATASE 72 U/L (45-117); TOTAL BILIRUBIN ADULT 0.4 MG/DL (0.2-1.0); TOTAL PROTEIN 6.9 GM/DL (6.4-8.2)
--- NOTE | 2017-08-13 21:04 | PD ---
HPI Chief Complaint: Medical Clearance Time Seen by Provider: 19:43 Travel History International Travel<30 days: No Contact w/Intl Traveler<30days: No Traveled to known affect area: No History of Present Illness HPI Patient 72-year-old female with a history of diverticulitis seen in urgent care and told to come to the ER for a CAT scan. Pt 's Pain is localized into the left lower quadrant it is burning, it has minimal radiation to the lower left back. Denies dysuria denies diarrhea no vomiting. Just severe pain bloating feeling with pain localized left lower quadrant to the lateral left side, Pt reports history of diverticulitis and it feels the same as prior flares . Pt took nothing for this pain before arrival . 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, LUPUS ) Psychiatric: No Reproductive: No Respiratory: Yes Integumentary: No Radiation Therapy: Yes Sleep Apnea: Yes Thyroid Disease: No Influenza Vaccination: Yes Menopausal: Yes : 2 Para: 2 Miscarriage: 0 : 0 Tubal Ligation: Yes Past Surgical History Abdominal Surgery: Yes (TUMMY TUCK) Appendectomy: Yes Cholecystectomy: Yes Coronary Artery Bypass Graft: No Thoracic Surgery: Yes Other Surgery: Yes (FACIAL SX FOR CA, BREAST REDUCTION) Family History Family Myocardial Infarction: Yes (mom, grandmother) Social History Alcohol Use: Yes (ONCE A YEAR) Tobacco Use: No Substance Use: No Allergies-Medications (Allergen,Severity, Reaction): Coded Allergies: No Known Allergies (Verified Allergy, Unknown, 08/13/17) Reported Meds & Prescriptions Reported Meds & Active Scripts Active Flagyl (Metronidazole) 500 Mg Tab 500 Mg PO TID Cipro (Ciprofloxacin HCl) 500 Mg Tab 500 Mg PO BID Ventolin Hfa 18 GM Inh (Albuterol Sulfate) 90 Mcg/Act Aer 2 Puff INH Q4H PRN Omeprazole 20 Mg Cap 20 Mg PO DAILY 30 Days [Nystatin Liq] 5 ML Susp 5 Ml SWISH-SWAL QID 10 Days Diltiazem (Diltiazem HCl) 90 Mg Tab 90 Mg PO Q6HR Reported Lasix (Furosemide) 20 Mg Tab 20 Mg PO DAILY Anoro Ellipta Inh (Umeclidinium/Vilanterol) 62.5-25 Mcg/Act Aero 1 Puff INH DAILY Aspirin 81 (Aspirin) 81 Mg Tabdr 81 Mg PO DAILY Review of Systems Except as stated in HPI: all other systems reviewed are Neg Gastrointestinal: Positive: Abdominal Pain, No: Vomiting, Diarrhea Physical Exam Narrative GENERAL: In no apparent distress nontoxic-appearing awake alert SKIN: Warm and dry. HEAD: Atraumatic. Normocephalic. EYES: Pupils equal and round. No scleral icterus. No injection or drainage. ENT: No nasal bleeding or discharge. Mucous membranes pink and moist. NECK: Trachea midline. No JVD. CARDIOVASCULAR: Regular rate and rhythm. RESPIRATORY: No accessory muscle use. Clear to auscultation. Breath sounds equal bilaterally. GASTROINTESTINAL: Abdomen left lower quadrant tenderness as well as left lower lateral wrapping around to the lower gluteal area pain no rebound no guarding, nondistended. Hepatic and splenic margins not palpable. MUSCULOSKELETAL: Extremities without clubbing, cyanosis, or edema. No obvious deformities. NEUROLOGICAL: Awake and alert. No obvious cranial nerve deficits. Motor grossly within normal limits. Five out of 5 muscle strength in the arms and legs. Normal speech. PSYCHIATRIC: Appropriate mood and affect; insight and judgment normal. Data Data Last Documented VS Vital Signs Date Time Temp Pulse Resp B/P (MAP) Pulse Ox O2 Delivery O2 Flow Rate FiO2 08/14/17 01:24 99 18 132/71 (91) 93 08/13/17 23:53 Room Air 08/13/17 19:11 97.9 Orders Orders Urinalysis - C+S If Indicated (08/13/17 19:59) Complete Blood Count With Diff (08/13/17 19:59) Comprehensive Metabolic Panel (08/13/17 19:59) Pantoprazole Inj (Protonix Inj) (08/13/17 20:30) Ondansetron Inj (Zofran Inj) (08/13/17 20:30) Morphine Inj (Morphine Inj) (08/13/17 21:30) Diatrizoate Liq ( Gastromady Liq) (08/13/17 21:30) Ct Abd/Pel W Iv Contrast(Rout) (08/13/17 ) Oral Contrast - Adult (08/13/17 22:21) Lipase (08/13/17 22:23) Iohexol 350 Inj (Omnipaque 350 Inj) (08/13/17 23:44) Ciprofloxacin (Cipro) (08/14/17 00:30) Metronidazole (Flagyl) (08/14/17 00:30) Ed Discharge Order (08/14/17 01:12) Labs Laboratory Tests Test 08/13/17 20:00 08/13/17 20:10 White Blood Count 7.9 TH/MM3 Red Blood Count 4.10 MIL/MM3 Hemoglobin 11.6 GM/DL Hematocrit 34.6 % Mean Corpuscular Volume 84.3 FL Mean Corpuscular Hemoglobin 28.4 PG Mean Corpuscular Hemoglobin Concent 33.7 % Red Cell Distribution Width 16.2 % Platelet Count 172 TH/MM3 Mean Platelet Volume 8.2 FL Neutrophils (%) (Auto) 73.7 % Lymphocytes (%) (Auto) 18.3 % Monocytes (%) (Auto) 7.1 % Eosinophils (%) (Auto) 0.7 % Basophils (%) (Auto) 0.2 % Neutrophils # (Auto) 5.8 TH/MM3 Lymphocytes # (Auto) 1.4 TH/MM3 Monocytes # (Auto) 0.6 TH/MM3 Eosinophils # (Auto) 0.1 TH/MM3 Basophils # (Auto) 0.0 TH/MM3 CBC Comment DIFF FINAL Differential Comment Blood Urea Nitrogen 17 MG/DL Creatinine 0.89 MG/DL Random Glucose 143 MG/DL Total Protein 6.9 GM/DL Albumin 3.2 GM/DL Calcium Level 8.5 MG/DL Alkaline Phosphatase 72 U/L Aspartate Amino Transf (AST/SGOT) 14 U/L Alanine Aminotransferase (ALT/SGPT) 28 U/L Total Bilirubin 0.4 MG/DL Sodium Level 140 MEQ/L Potassium Level 3.7 MEQ/L Chloride Level 106 MEQ/L Carbon Dioxide Level 26.8 MEQ/L Anion Gap 7 MEQ/L Estimat Glomerular Filtration Rate 62 ML/MIN Lipase 106 U/L Urine Color YELLOW Urine Turbidity CLEAR Urine pH 5.5 Urine Specific [place] 1.024 Urine Protein TRACE mg/dL Urine Glucose (UA) NEG mg/dL Urine Ketones NEG mg/dL Urine Occult Blood NEG Urine Nitrite NEG Urine Bilirubin NEG Urine Urobilinogen LESS THAN 2.0 MG/DL Urine Leukocyte Esterase TRACE Urine RBC 1 /hpf Urine WBC 4 /hpf Urine Hyaline Casts 3 /lpf Urine Mucus FEW /lpf Microscopic Urinalysis Comment CATH-CULT NOT IND MDM Medical Decision Making Medical Screen Exam Complete: Yes Emergency Medical Condition: Yes Differential Diagnosis diverticulitis vs constipation vs colitis vs perforated viscous , or microabscess of diverticulitis. other Narrative Course Pt given NS pain meds and CT no acute disease , diverticula with no active itis I cover her with 7 days PO cipro and flagyl to prophylax against progression of sx to divarticulitis d/c follow up GI md Diagnosis Primary Impression: Abdominal pain Qualified Codes: R10.30 - Lower abdominal pain, unspecified Patient Instructions: Diverticulosis (ED), General Instructions Scripts Metronidazole (Flagyl) 500 Mg Tab 500 MG PO TID for Infection, #20 TAB 0 Refills Prov: Olvin Anderson MD 08/14/17 Ciprofloxacin (Cipro) 500 Mg Tab 500 MG PO BID for Infection, #14 TAB 0 Refills Prov: Olvin Anderson MD 08/14/17 Disposition: 01 DISCHARGE HOME Condition: Good Olvin Anderson MD Aug 13, 2017 21:04
[2017-08-13] MEDS ORDERED: MORPHINE SULFATE 2 MG/ML INJ IV PUSH ONE (21:30)
[2017-08-13] MEDS ORDERED: DIATRIZOATE MEGLUM/DIATRIZOATE SOD 9 ML CUP PO ONE (21:30)
[2017-08-13 22:00] VITALS: BP 140/103; PULSE 100; RESP 18; O2SAT 100
[2017-08-13] MEDS ORDERED: IOHEXOL 350 MG/ML 10 ML VIAL (for RAD DIAG) IVCONTRAST ONE (23:44)
[2017-08-13 23:53] VITALS: BP 133/68; PULSE 95; RESP 18; O2SAT 96
--- NOTE | 2017-08-14 00:08 | RADRPT ---
EXAM DATE/TIME: 08/13/2017 23:40 [facility] COMPARISON: CT ABDOMEN & PELVIS W/O CONTRAST, June 29, 2017, 19:26. CT ABDOMEN & PELVIS W CONTRAST, February 162016, 18:07. INDICATIONS : Abdominal pain. IV CONTRAST: 70 cc Omnipaque 350 (iohexol) IV ORAL CONTRAST: Prescribed oral contrast ingested. RADIATION DOSE: 16.36 CTDIvol (mGy) MEDICAL HISTORY : Hypertension. Diabetes mellitus type 2. Diverticulitis. SURGICAL HISTORY : Appendectomy. Cholecystectomy.Abdominoplasty. ENCOUNTER: Initial ACUITY: 1 day PAIN SCALE: 5/10 LOCATION: abdomen TECHNIQUE: Volumetric scanning of the abdomen and pelvis was performed. Using automated exposure control and ad justment of the mA and/or kV according to patient size, radiation dose was kept as low as reasonably achievable to obtain optimal diagnostic quality images. DICOM format image data is available electro nically for review and comparison. FINDINGS: LOWER LUNGS: The visualized lower lungs are clear. LIVER: There is decreased density throughout the liver. There is a stable 1.4 cm hypodensity seen in the lef t lobe of the liver adjacent to the falciform ligament. The gallbladder appears absent. SPLEEN: Normal size without lesion. PANCREAS: Within normal limits. KIDNEYS: Normal in size and shape. There is no mass, stone or hydronephrosis. ADRENAL GLANDS: Within normal limits. VASCULAR: There is no aortic aneurysm. Atherosclerotic calcifications are seen. BOWEL/MESENTERY: There are numerous diverticula seen particularly in the sigmoid region. There some thickening of the sigmoid colon likely related to hypertrophy. Significant surrounding inflammatory change is not clear ly identified. ABDOMINAL WALL: Within normal limits. RETROPERITONEUM: There is no lymphadenopathy. BLADDER: No wall thickening or mass. The urinary bladder does extend into the vagina consistent with a cystoce le. REPRODUCTIVE: There is a 2.1 cm cyst seen in the left adnexal region. INGUINAL: There is no lymphadenopathy or hernia. MUSCULOSKELETAL: There is degenerative change in the lumbar spine. CONCLUSION: 1. Colonic diverticula particularly in the sigmoid region with some thickening but without significan t surrounding inflammatory change. 2. 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 This could be related to an ovarian cyst. It could be fu rther evaluated with an ultrasound examination at some point as an outpatient. 3. Cystocele. Tiburcio Baer MD on August 13, 2017 at 23:59 Board Certified Radiologist. This report was verified electronically.
[2017-08-14] MEDS ORDERED: metroNIDAZOLE 500 MG TAB PO ONE (00:30)
[2017-08-14] MEDS ORDERED: CIPROFLOXACIN 500 MG TAB PO ONE (00:30)
[2017-08-14] MEDS ORDERED: CIPR-9 PO (01:22)
[2017-08-14] MEDS ORDERED: METR-1 PO (01:22)
[2017-08-14 01:24] VITALS: BP 132/71
== END 2017-08-14 01:45 | disposition home or self-care (01) ==
LOC: NEPE 19:09
DX: R10.32 Left lower quadrant pain (principal); K74.60 Unspecified cirrhosis of liver; N81.10 Cystocele, unspecified; I11.0 Hypertensive heart disease with heart failure; I50.9 Heart failure, unspecified; J44.9 Chronic obstructive pulmonary disease, unspecified; E11.9 Type 2 diabetes mellitus without complications; M32.9 Systemic lupus erythematosus, unspecified; Z87.19 Personal history of other diseases of the digestive system
CPT/HCPCS: 74177; 80053; 81001; 83690; 85025; 96374; 96375; 99285; C9113; J2270; J2405; Q9963; Q9967

== ENCOUNTER 2017-10-16 09:39 | Emergency (ER) | payer OTHER, MEDICAID ==
[~2017-10-16] VITALS: Ht 172.7 cm; Wt 90.0 kg
[~2017-10-16 09:39] MED LIST changes: -AZIT250T3 PO; +CIPR-9 PO; +FURO1TAB62 PO; +METR-1 PO; -PRED-503 PO
[2017-10-16 09:48] VITALS: BP 150/81; PULSE 85; RESP 18; TEMP 98.2; O2SAT 97
[2017-10-16] MEDS ORDERED: PRED50 PO (09:54)
[2017-10-16] MEDS ORDERED: TETANUS/DIPHTHERIA TOXOID ADULT 0.5 ML VIAL IM ONE (10:00)
[2017-10-16] MEDS ORDERED: ACETAMINOPHEN/HYDROcodone 325 MG/5 MG TAB PO ONE (10:00)
--- NOTE | 2017-10-16 10:55 | RADRPT ---
EXAM DATE/TIME: 10/16/2017 10:09 [facility] COMPARISON: No previous studies available for comparison. INDICATIONS : Pain from fall. MEDICAL HISTORY : Chronic obstructive pulmonary disease. Congestive heart failure. Cardiovascular disease. Parotid glan d cancer. SURGICAL HISTORY : Hysterectomy. Cancer related neck surgery ENCOUNTER: Initial ACUITY: 1 day PAIN SCORE: 6/10 LOCATION: Right lower chest FINDINGS: Multiple views of the right ribs were performed. There is no evidence of displaced fracture. No lola tructive lesions or areas of periosteal thickening are seen. Expiratory view of the chest is negativ e for pneumothorax. The mediastinal structures are midline. CONCLUSION: The right ribs are intact with no evidence of rib fracture or pneumothorax. Kai Alanis MD on October 16, 2017 at 10:52 Board Certified Radiologist. This report was verified electronically.
--- NOTE | 2017-10-16 10:55 | RADRPT ---
EXAM DATE/TIME: 10/16/2017 10:13 [facility] COMPARISON: No previous studies available for comparison. INDICATIONS : Pain from fall. MEDICAL HISTORY : Chronic obstructive pulmonary disease. Congestive heart failure.Cardiovascular disease. Parotid gland cancer. SURGICAL HISTORY : Hysterectomy. Cancer related neck surgery ENCOUNTER: Initial ACUITY: 1 day PAIN SCORE: 5/10 LOCATION: Right pelvis FINDINGS: A single frontal view of the pelvis demonstrates no evidence of fracture. The bony pelvic ring is in tact. Bony mineralization is normal. The soft tissues are intact. CONCLUSION: Negative trauma study with no evidence of fracture or malalignment. Kai Alanis MD on October 16, 2017 at 10:53 Board Certified Radiologist. This report was verified electronically.
--- NOTE | 2017-10-16 10:56 | RADRPT ---
EXAM DATE/TIME: 10/16/2017 10:19 [facility] COMPARISON: No previous studies available for comparison. INDICATIONS : Pain from fall. MEDICAL HISTORY : Chronic obstructive pulmonary disease. Congestive heart failure.Cardiovascular disease. Parotid gland cancer. SURGICAL HISTORY : Hysterectomy. Cancer related neck surgery ENCOUNTER: Initial ACUITY: 1 day PAIN SCORE: 3/10 LOCATION: Right knee. FINDINGS: Four view examination of the right knee demonstrates no evidence of fracture or dislocation. Bony mi neralization is normal. The articular surfaces are intact. The suprapatellar soft tissues have a no rmal configuration. CONCLUSION: Negative trauma study. Kai Alanis MD on October 16, 2017 at 10:53 Board Certified Radiologist. This report was verified electronically.
--- NOTE | 2017-10-16 10:57 | RADRPT ---
EXAM DATE/TIME: 10/16/2017 10:24 [facility] COMPARISON: No previous studies available for comparison. INDICATIONS : Pain from fall. MEDICAL HISTORY : Chronic obstructive pulmonary disease. Congestive heart failure.Cardiovascular disease. Parotid gland cancer. SURGICAL HISTORY : Hysterectomy. Cancer related neck surgery ENCOUNTER: Initial ACUITY: 1 day PAIN SCORE: 2/10 LOCATION: Left foot, 1st digit. FINDINGS: Examination of the first digit of the left foot demonstrates no evidence of fracture or dislocation. No radiopaque foreign bodies are seen. The soft tissues are intact. CONCLUSION: Negative trauma study. Kai Alanis MD on October 16, 2017 at 10:54 Board Certified Radiologist. This report was verified electronically.
--- NOTE | 2017-10-16 11:54 | PD ---
HPI . Fall Chief Complaint: Fall Time Seen by Provider: 09:52 Travel History International Travel<30 days: No Contact w/Intl Traveler<30days: No Traveled to known affect area: No History of Present Illness HPI This patient presents to us by EVAC status post a trip and fall. She was tripped up by her dog. She fell on the concrete injuring her left great toe, right knee, left buttock and right ribs. She states that she was unable to get up. She states she screamed for help and a neighbor called 911. EVAC was able to assist her to a standing position so that she can get on the stretcher. She states that she noticed the pain in the left buttock when she stood up. She was subsequently brought to us for evaluation and treatment. Pain has been continuous since that time and the pain is rated 7/10. The left hip pain is exacerbated by standing. The right rib pain is exacerbated by deep breaths and palpation. 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, LUPUS ) Psychiatric: No Reproductive: No Respiratory: Yes Integumentary: No Radiation Therapy: Yes Sleep Apnea: Yes Thyroid Disease: No ?: Not Menopausal: Yes : 2 Para: 2 Miscarriage: 0 : 0 Tubal Ligation: Yes Past Surgical History Abdominal Surgery: Yes (TUMMY TUCK) Appendectomy: Yes Cholecystectomy: Yes Coronary Artery Bypass Graft: No Thoracic Surgery: Yes Other Surgery: Yes (FACIAL SX FOR CA, BREAST REDUCTION) Family History Family Myocardial Infarction: Yes (mom, grandmother) Social History Alcohol Use: Yes (ONCE A YEAR) Tobacco Use: No Substance Use: No Allergies-Medications (Allergen,Severity, Reaction): Coded Allergies: No Known Allergies (Verified Allergy, Unknown, 08/13/17) Reported Meds & Prescriptions Reported Meds & Active Scripts Active Cipro (Ciprofloxacin HCl) 500 Mg Tab 500 Mg PO BID Ventolin Hfa 18 GM Inh (Albuterol Sulfate) 90 Mcg/Act Aer 2 Puff INH Q4H PRN Omeprazole 20 Mg Cap 20 Mg PO DAILY 30 Days Diltiazem (Diltiazem HCl) 90 Mg Tab 90 Mg PO Q6HR Reported Prednisone 50 Mg Tab 50 Mg PO DAILY Lasix (Furosemide) 20 Mg Tab 20 Mg PO DAILY Anoro Ellipta Inh (Umeclidinium/Vilanterol) 62.5-25 Mcg/Act Aero 1 Puff INH DAILY Aspirin 81 (Aspirin) 81 Mg Tabdr 81 Mg PO DAILY Review of Systems Except as stated in HPI: all other systems reviewed are Neg Physical Exam Narrative GENERAL: Awake and alert and in no acute distress. SKIN: Warm and dry. She has some superficial abrasions on her left great toe and her right knee. HEAD: Normocephalic/atraumatic. EYES: Pupils are equal. Extraocular movements are intact. NECK: Normal range of motion. CARDIOVASCULAR: Regular rate and rhythm. RESPIRATORY: Nonlabored respirations. Lungs are clear with good air movement throughout. She has some diffuse, lateral, right chest wall tenderness. ABDOMEN: Abdomen is soft and nontender. MUSCULOSKELETAL: Tenderness in the area of the left SI joint. Logrolling of the hip causes no pain. Straight leg raise is negative. Right knee is tender over the patella. There is no bruising or swelling or deformity. She is able to flex and extend the knee without difficulty. She is distally neurovascularly intact. Left great toe has an abrasion. No deformity. She is able to move the toes normally. NEUROLOGICAL: Nonfocal. PSYCHIATRIC: Appropriate mood and affect. Data Data Last Documented VS Vital Signs Date Time Temp Pulse Resp B/P (MAP) Pulse Ox O2 Delivery O2 Flow Rate FiO2 10/16/17 09:48 98.2 85 18 150/81 (104) 97 Room Air Orders Orders Ribs, Uni (W/Exp Cxr-Min 3vw) (10/16/17 09:53) Pelvis, Ap Only (Routine) (10/16/17 09:53) Knee, Complete (4vws) (10/16/17 09:53) Toe (Min 2vws) (10/16/17 09:53) Acetamin-Hydrocod 325-5 Mg ([place] 5-325 (10/16/17 10:00) Tetanus/Diphtheria Tox Adult (Tetanus/Di (10/16/17 10:00) MDM Medical Decision Making Medical Screen Exam Complete: Yes Emergency Medical Condition: Yes Differential Diagnosis Differential diagnosis of extremity trauma includes but is not limited to fracture, sprain or strain, dislocation, contusion Differential diagnosis of chest trauma includes but is not limited to superficial abrasions/contusions, rib fracture, pneumothorax, hemothorax, pulmonary contusion, cardiac contusion, ruptured thoracic aorta Narrative Course This patient presents for the evaluation of injury sustained in a fall. Specifically, she has abrasions on her left great toe and her right knee. She has pain in her left great toe, right knee, left buttock and right ribs. X- rays have been ordered. Tetanus has been updated. Last Impressions Toe X-Ray 10/16/17952 Signed Impressions: Service Date/Time: Monday, October 16, 2017 10:24 - CONCLUSION: Negative trauma study. Kai Alanis MD Ribs X-Ray 10/16/17952 Signed Impressions: Service Date/Time: Monday, October 16, 2017 10:09 - CONCLUSION: The right ribs are intact with no evidence of rib fracture or pneumothorax. Kai Alanis MD Pelvis X-Ray 10/16/17952 Signed Impressions: Service Date/Time: Monday, October 16, 2017 10:13 - CONCLUSION: Negative trauma study with no evidence of fracture or malalignment. Kai Alanis MD Knee X-Ray 10/16/17952 Signed Impressions: Service Date/Time: Monday, October 16, 2017 10:19 - CONCLUSION: Negative trauma study. Kai Alanis MD This patient is stable for discharge to home. E force was queried. She receives oxycodone regularly and last had a prescription for 10 #90 on 09/21/17. Diagnosis Primary Impression: Contusion of right chest wall Qualified Codes: S20.211A - Contusion of right front wall of thorax, initial encounter Additional Impressions: Abrasion, right knee, initial encounter Abrasion, left great toe, initial encounter Left buttock pain Patient Instructions: Abrasion (ED), Contusion in Adults (DC), General Instructions Disposition: 01 DISCHARGE HOME Condition: Stable Amanda Jamil MD Oct 16, 2017 11:54
== END 2017-10-16 12:02 | disposition home or self-care (01) ==
LOC: NEPC 09:39
DX: S20.211A Contusion of right front wall of thorax, initial encounter (principal); S80.211A Abrasion, right knee, initial encounter; S90.412A Abrasion, left great toe, initial encounter; R52 Pain, unspecified; W01.0XXA Fall on same level from slipping, tripping and stumbling without subsequent striking against object, initial encounter; I11.0 Hypertensive heart disease with heart failure; I50.9 Heart failure, unspecified; E11.9 Type 2 diabetes mellitus without complications; Z23 Encounter for immunization
CPT/HCPCS: 71101; 72170; 73564; 73660; 90471; 90714

== ENCOUNTER 2017-11-15 18:23 | Emergency (ER) | payer OTHER, MEDICAID ==
[~2017-11-15] VITALS: Ht 172.7 cm; Wt 91.4 kg
[~2017-11-15 18:23] MED LIST changes: -METR-1 PO; -Nystatin Liq SWISH-SWAL; +PRED50 PO
[2017-11-15 18:28] VITALS: BP 150/98; PULSE 110; RESP 20; TEMP 99.1; O2SAT 94
[2017-11-15] MEDS ORDERED: SODIUM CHLOR 0.9% 1000 ML INJ 1,000 ML IV SCH (19:19)
--- NOTE | 2017-11-15 19:22 | PD ---
HPI Chief Complaint: Abdominal Pain Time Seen by Provider: 19:19 Travel History International Travel<30 days: No Contact w/Intl Traveler<30days: No Traveled to known affect area: No History of Present Illness HPI 72-year-old female patient presents to the ER today because she started having generalized abdominal pain which she states is an 11 out of 10 starting at around noon, she states she has been vomiting all day. She denies any diarrhea , fevers, or any other symptoms. She does not know of any alleviating or exacerbating factors. She states that she even tried to take her own pain medications at home including Percocets but that did not help. 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, LUPUS ) Psychiatric: No Reproductive: No Respiratory: Yes Integumentary: No Radiation Therapy: Yes Sleep Apnea: Yes Thyroid Disease: No Menopausal: Yes : 2 Para: 2 Miscarriage: 0 : 0 Tubal Ligation: Yes Past Surgical History Abdominal Surgery: Yes (TUMMY TUCK) Appendectomy: Yes Cholecystectomy: Yes Coronary Artery Bypass Graft: No Eye Surgery: Yes (cataract) Thoracic Surgery: Yes Other Surgery: Yes (FACIAL SX FOR CA, BREAST REDUCTION) Family History Family Myocardial Infarction: Yes (mom, grandmother) Social History Alcohol Use: Yes (ONCE A YEAR) Tobacco Use: No Substance Use: No Allergies-Medications (Allergen,Severity, Reaction): Coded Allergies: No Known Allergies (Verified Allergy, Unknown, 08/13/17) Reported Meds & Prescriptions Reported Meds & Active Scripts Active Cipro (Ciprofloxacin HCl) 500 Mg Tab 500 Mg PO BID Ventolin Hfa 18 GM Inh (Albuterol Sulfate) 90 Mcg/Act Aer 2 Puff INH Q4H PRN Omeprazole 20 Mg Cap 20 Mg PO DAILY 30 Days Diltiazem (Diltiazem HCl) 90 Mg Tab 90 Mg PO Q6HR Reported Prednisone 50 Mg Tab 50 Mg PO DAILY Lasix (Furosemide) 20 Mg Tab 20 Mg PO DAILY Anoro Ellipta Inh (Umeclidinium/Vilanterol) 62.5-25 Mcg/Act Aero 1 Puff INH DAILY Aspirin 81 (Aspirin) 81 Mg Tabdr 81 Mg PO DAILY Review of Systems Except as stated in HPI: all other systems reviewed are Neg Physical Exam Narrative GENERAL: Well-developed elderly female patient currently in moderate distress. Awake and oriented 3. SKIN: Focused skin assessment warm/dry. HEAD: Atraumatic. Normocephalic. EYES: Pupils equal and round. No scleral icterus. No injection or drainage. ENT: No nasal bleeding or discharge. Mucous membranes pink and moist. NECK: Trachea midline. No JVD. Supple. CARDIOVASCULAR: Regular rate and rhythm. No murmur appreciated. RESPIRATORY: No accessory muscle use. Clear to auscultation. Breath sounds equal bilaterally. GASTROINTESTINAL: Abdomen soft, epigastric tenderness without guarding or rebound, nondistended. Hepatic and splenic margins not palpable. MUSCULOSKELETAL: No obvious deformities. No clubbing. No cyanosis. No edema. NEUROLOGICAL: Awake and alert. No obvious cranial nerve deficits. Motor grossly within normal limits. Normal speech. PSYCHIATRIC: Appropriate mood and affect; insight and judgment normal. Data Data Last Documented VS Vital Signs Date Time Temp Pulse Resp B/P (MAP) Pulse Ox O2 Delivery O2 Flow Rate FiO2 11/15/17 18:28 99.1 110 20 150/98 (115) 94 Orders Orders Comprehensive Metabolic Panel (11/15/17 18:30) Complete Blood Count With Diff (11/15/17 18:30) Lipase (11/15/17 18:30) Prothrombin Time / Inr (Pt) (11/15/17 18:30) Act Partial Throm Time (Ptt) (11/15/17 18:30) Urinalysis - C+S If Indicated (11/15/17 18:30) Lipase (11/15/17 19:19) Ct Abd/Pel W Iv Contrast(Rout) (11/15/17 19:19) Iv Access Insert/Monitor (11/15/17 19:19) Ecg Monitoring (11/15/17 19:19) Oximetry (11/15/17 19:19) Morphine Inj (Morphine Inj) (11/15/17 19:30) Ondansetron Inj (Zofran Inj) (11/15/17 19:30) Sodium Chlor 0.9% 1000 Ml Inj (Ns 1000 M (11/15/17 19:19) Sodium Chloride 0.9% Flush (Ns Flush) (11/15/17 19:30) Dicyclomine Inj (Bentyl Inj) (11/15/17 21:00) Iohexol 350 Inj (Omnipaque 350 Inj) (11/15/17 23:48) Ciprofloxacin (Cipro) (11/16/17 00:00) Metronidazole (Flagyl) (11/16/17 00:00) Labs Laboratory Tests Test 11/15/17 19:30 11/15/17 21:00 11/16/17 00:37 Lipase 84 U/L 82 U/L White Blood Count 10.2 TH/MM3 Red Blood Count 4.96 MIL/MM3 Hemoglobin 13.8 GM/DL Hematocrit 41.5 % Mean Corpuscular Volume 83.7 FL Mean Corpuscular Hemoglobin 27.8 PG Mean Corpuscular Hemoglobin Concent 33.3 % Red Cell Distribution Width 15.5 % Platelet Count 223 TH/MM3 Mean Platelet Volume 9.2 FL Neutrophils (%) (Auto) 81.1 % Lymphocytes (%) (Auto) 12.5 % Monocytes (%) (Auto) 5.7 % Eosinophils (%) (Auto) 0.4 % Basophils (%) (Auto) 0.3 % Neutrophils # (Auto) 8.3 TH/MM3 Lymphocytes # (Auto) 1.3 TH/MM3 Monocytes # (Auto) 0.6 TH/MM3 Eosinophils # (Auto) 0.0 TH/MM3 Basophils # (Auto) 0.0 TH/MM3 CBC Comment DIFF FINAL Differential Comment Prothrombin Time 9.9 SEC Prothromb Time International Ratio 1.0 RATIO Activated Partial Thromboplast Time 21.7 SEC Blood Urea Nitrogen 25 MG/DL Creatinine 1.03 MG/DL Random Glucose 134 MG/DL Total Protein 6.9 GM/DL Albumin 3.4 GM/DL Calcium Level 8.5 MG/DL Alkaline Phosphatase 83 U/L Aspartate Amino Transf (AST/SGOT) 15 U/L Alanine Aminotransferase (ALT/SGPT) 36 U/L Total Bilirubin 0.5 MG/DL Sodium Level 142 MEQ/L Potassium Level 3.8 MEQ/L Chloride Level 106 MEQ/L Carbon Dioxide Level 28.7 MEQ/L Anion Gap 7 MEQ/L Estimat Glomerular Filtration Rate 53 ML/MIN Urine Color YELLOW Urine Turbidity CLEAR Urine pH 5.5 Urine Specific [place] GREATER THAN 1.050 Urine Protein TRACE mg/dL Urine Glucose (UA) NEG mg/dL Urine Ketones NEG mg/dL Urine Occult Blood NEG Urine Nitrite NEG Urine Bilirubin NEG Urine Urobilinogen LESS THAN 2.0 MG/DL Urine Leukocyte Esterase NEG Urine RBC 3 /hpf Urine WBC 5 /hpf Urine Squamous Epithelial Cells 3 /hpf Urine Transitional Epithelial Cells <1 /hpf Urine Renal Epithelial Cells <1 /hpf Urine Bacteria OCC /hpf Urine Hyaline Casts 8 /lpf Urine Mucus FEW /lpf Urine Yeast (Budding) MOD Microscopic Urinalysis Comment CULT NOT INDICATED MDM Medical Decision Making Medical Screen Exam Complete: Yes Emergency Medical Condition: Yes Medical Record Reviewed: Yes Interpretation(s) Laboratory Tests Test 11/15/17 19:30 11/15/17 21:00 11/16/17 00:37 Neutrophils (%) (Auto) 81.1 % (16.0-70.0) Neutrophils # (Auto) 8.3 TH/MM3 (1.8-7.7) Activated Partial Thromboplast Time 21.7 SEC (24.3-30.1) Blood Urea Nitrogen 25 MG/DL (7-18) Creatinine 1.03 MG/DL (0.50-1.00) Random Glucose 134 MG/DL (74-106) Estimat Glomerular Filtration Rate 53 ML/MIN (>89) Urine Specific [place] GREATER THAN 1.050 Urine Bacteria OCC /hpf (NONE) Urine Mucus FEW /lpf (OCC) Urine Yeast (Budding) MOD (NONE) Last 24 hours Impressions Abdomen/Pelvis CT 11/15/171918 Signed Impressions: Service Date/Time: Wednesday, November 15, 2017 23:04 - CONCLUSION: 1. Patient's symptoms appear to be due to an uncomplicated diverticulitis in the sigmoid. There is fairly extensive diverticulosis in the descending and sigmoid portions of the colon. 2. Lateral meniscus hepatic fatty infiltration. Stable sub-centimeters cysts in the left hepatic lobe adjacent to the falciform ligament 3. Calcification of the aortic valve leaflets and mitral valve annulus. 4. Small varicosities along the left side of the uterus with a mildly prominent gonadal vein. In the appropriate clinical setting, findings could represent pelvic congestion syndrome. Ivan Thomas MD Differential Diagnosis Nausea, vomiting, abdominal pains: Gastritis versus pancreatitis versus gastroenteritis versus obstruction versus other acute intra-abdominal processes Narrative Course CAT scan shows signs of diverticulitis which patient has had problems with in the past. At this point, patient had been given pain medications and nausea medications, did not have further vomiting episodes in the ER. She was then given p.o. antibiotics in the ER and is doing well on reevaluation at 1 AM. My plan would be to treat and release her with follow-up to primary care physician and GI doctor. Return for any worsening in symptoms as needed. The plan has been discussed with her and she states understanding. Diagnosis Primary Impression: Diverticulitis Med/Other Pt SpecificInfo: Prescription(s) given Scripts Ondansetron Odt (Zofran Odt) 4 Mg Tab 4 MG SL Q6HR Y for Nausea/Vomiting, #7 TAB 0 Refills Prov: Kylah Hummel MD 11/16/17 Metronidazole (Flagyl) 500 Mg Tab 500 MG PO TID for Infection for 7 Days, TAB 0 Refills Prov: Kylah Hummel MD 11/16/17 Ciprofloxacin (Cipro) 500 Mg Tab 500 MG PO BID for Infection for 7 Days, #14 TAB 0 Refills Prov: Kylah Hummel MD 11/16/17 Disposition: 01 DISCHARGE HOME Condition: Stable Kylah Hummel MD Nov 15, 2017 19:22
[2017-11-15] MEDS ORDERED: ONDANSETRON HCL 4 MG/2 ML VIAL IVP ONE (19:30)
[2017-11-15] MEDS ORDERED: SODIUM CHLORIDE 0.9% FLUSH 10 ML FLUSH IV FLUSH PRN (19:30)
[2017-11-15] MEDS ORDERED: MORPHINE SULFATE 4 MG/ML INJ IV PUSH ONE (19:30)
[2017-11-15] MEDS ORDERED: DICYCLOMINE HCL 20 MG/2 ML VIAL IM ONE (21:00)
[2017-11-15 21:51] LABS: AUTOMATED NEUTROPHIL # 8.3 TH/MM3 (1.8-7.7); BASOPHIL % 0.3 % (0.0-2.0); EOSINOPHIL % 0.4 % (0.0-4.0); HEMATOCRIT 41.5 % (35.0-46.0); HEMOGLOBIN 13.8 GM/DL (11.6-15.3); LYMPH % 12.5 % (9.0-44.0); LYMPHOCYTE # 1.3 TH/MM3 (1.0-4.8); MEAN CELL VOLUME 83.7 FL (80.0-100.0); MEAN CORPUSCULAR HEMOGLOBIN 27.8 PG (27.0-34.0); MEAN CORPUSCULAR HGB CONC 33.3 % (32.0-36.0); MEAN PLATELET VOLUME 9.2 FL (7.0-11.0); MONO % 5.7 % (0.0-8.0); MONOCYTE # 0.6 TH/MM3 (0-0.9); NEUT % 81.1 % (16.0-70.0); PLATELET COUNT 223 TH/MM3 (150-450); RED BLOOD COUNT 4.96 MIL/MM3 (4.00-5.30); RED CELL DISTRIBUTION WIDTH 15.5 % (11.6-17.2); WHITE BLOOD COUNT 10.2 TH/MM3 (4.0-11.0)
[2017-11-15 22:07] LABS: PROTHROMBIN TIME - PATIENT 9.9 SEC (9.8-11.6)
[2017-11-15 22:10] LABS: ALBUMIN 3.4 GM/DL (3.4-5.0); AST (GOT) 15 U/L (15-37); BICARBONATE 28.7 MEQ/L (21.0-32.0); BLOOD UREA NITROGEN 25 MG/DL (7-18); CALCIUM 8.5 MG/DL (8.5-10.1); CHLORIDE 106 MEQ/L (98-107); CREATININE 1.03 MG/DL (0.50-1.00); GLOMERULAR FILTRATION RATE 53 ML/MIN (>89); GLUCOSE,RANDOM 134 MG/DL (74-106); SODIUM (NA) 142 MEQ/L (136-145)
[2017-11-15 22:11] LABS: ALT (GPT) 36 U/L (10-53)
[2017-11-15 22:13] LABS: ALKALINE PHOSPHATASE 83 U/L (45-117); TOTAL BILIRUBIN ADULT 0.5 MG/DL (0.2-1.0); TOTAL PROTEIN 6.9 GM/DL (6.4-8.2)
--- NOTE | 2017-11-15 23:30 | RADRPT ---
EXAM DATE/TIME: 11/15/2017 23:04 [facility] COMPARISON: CT ABDOMEN & PELVIS W CONTRAST, August 13, 2017, 23:40. INDICATIONS : Abdomen pain. IV CONTRAST: 100 cc Omnipaque 350 (iohexol) IV ORAL CONTRAST: No oral contrast ingested. RADIATION DOSE: 10.36 CTDIvol (mGy) MEDICAL HISTORY : Cardiovascular disease. Carcinoma, not otherwise specified. Hypertension. SURGICAL HISTORY : Hysterectomy. Appendectomy.Cholecystectomy. ENCOUNTER: Initial ACUITY: 1 day PAIN SCALE: 5/10 LOCATION: Bilateral abdomen TECHNIQUE: Volumetric scanning of the abdomen and pelvis was performed. Using automated exposure control and ad justment of the mA and/or kV according to patient size, radiation dose was kept as low as reasonably achievable to obtain optimal diagnostic quality images. DICOM format image data is available electro nically for review and comparison. FINDINGS: LOWER LUNGS: Minimal bibasilar atelectatic changes. Some calcification of the aortic valve leaflets and mitral juliana ve annulus. LIVER: Diffusely decreased hepatic attenuation. Small, subcentimeter cysts in the left hepatic lobe adjacent to the falciform ligament. There is no dilation of the biliary tree. Patient appears to be status p ost cholecystectomy. SPLEEN: Normal size without lesion. PANCREAS: Within normal limits. KIDNEYS: Normal in size and shape. There is no mass, stone or hydronephrosis. ADRENAL GLANDS: Within normal limits. VASCULAR: There is no aortic aneurysm. BOWEL/MESENTERY: Significant diverticular disease in the descending and sigmoid colon with some pericolonic inflammato ry changes in the sigmoid region characteristic of an uncomplicated diverticulitis ABDOMINAL WALL: Within normal limits. RETROPERITONEUM: There is no lymphadenopathy. BLADDER: No wall thickening or mass. REPRODUCTIVE: A few varicosities are seen along the left side the degenerative uterus with a mildly prominent left gonadal vein INGUINAL: There is no lymphadenopathy or hernia. MUSCULOSKELETAL: Within normal limits for patient age. CONCLUSION: 1. Patient's symptoms appear to be due to an uncomplicated diverticulitis in the sigmoid. There is fa irly extensive diverticulosis in the descending and sigmoid portions of the colon. 2. Lateral meniscus hepatic fatty infiltration. Stable sub-centimeters cysts in the left hepatic lobe adjacent to the falciform ligament 3. Calcification of the aortic valve leaflets and mitral valve annulus. 4. Small varicosities along the left side of the uterus with a mildly prominent gonadal vein. In the appropriate clinical setting, findings could represent pelvic congestion syndrome. Ivan Thomas MD on November 15, 2017 at 23:24 Board Certified Radiologist. This report was verified electronically.
[2017-11-15] MEDS ORDERED: IOHEXOL 350 MG/ML 10 ML VIAL (for RAD DIAG) IVCONTRAST ONE (23:48)
[2017-11-16] MEDS ORDERED: metroNIDAZOLE 500 MG TAB PO ONE
[2017-11-16] MEDS ORDERED: CIPROFLOXACIN 500 MG TAB PO ONE
[2017-11-16 00:53] LABS: BACTERIA, URINE OCC /hpf; BILIRUBIN, URINE NEG (NEG); BLOOD, URINE NEG (NEG); GLUCOSE,URINE NEG (NEG); HYALINE CAST, URINE 8 /lpf (RARE); KETONE, URINE NEG (NEG); MUCUS URINE FEW /lpf (OCC); NITRITE,URINE NEG (NEG); PH, URINE 5.5 (5.0-8.5); RENAL EPITHELIAL CELLS <1 /hpf; SQUAMOUS EPITHELIAL CELL URINE 3 /hpf (0-5); TRANSITIONAL EPI CELLS, URINE <1 /hpf; URINE COLOR YELLOW (YELLW/STRAW); URINE LEUKOCYTE ESTERASE NEG (NEG)
[2017-11-16] MEDS ORDERED: CIPR-9 PO (01:07)
[2017-11-16] MEDS ORDERED: METR-1 PO (01:07)
[2017-11-16] MEDS ORDERED: ZOFR4TAB3 SL (01:07)
[2017-11-16 01:20] VITALS: BP 124/74; PULSE 90; RESP 16; O2SAT 96
[2017-11-16] MEDS ORDERED: DICY10 PO (01:23)
== END 2017-11-16 01:25 | disposition home or self-care (01) ==
LOC: NEPC 18:23
DX: K57.32 Diverticulitis of large intestine without perforation or abscess without bleeding (principal); I11.0 Hypertensive heart disease with heart failure; I50.9 Heart failure, unspecified
CPT/HCPCS: 74177; 80053; 81001; 83690; 85025; 85610; 85730; 96361; 96374; 96375; 99284; J0500; J2270; J2405; J7030; Q9967

== ENCOUNTER 2017-11-24 19:03 | Emergency (ER) | payer OTHER, MEDICAID ==
[~2017-11-24 19:03] MED LIST changes: +DICY10 PO; +METR-1 PO; +ZOFR4TAB3 SL
[2017-11-24 20:43] VITALS: BP 137/90; PULSE 96; RESP 18; TEMP 97.5; O2SAT 100
[2017-11-24] MEDS ORDERED: ACETAMINOPHEN 325 MG TAB PO ONE (21:45)
[2017-11-24] MEDS ORDERED: ONDANSETRON HCL 4 MG/2 ML VIAL IV PUSH ONE (21:45)
--- NOTE | 2017-11-24 21:54 | PD ---
HPI Chief Complaint: Fall Time Seen by Provider: 21:25 Travel History International Travel<30 days: No Contact w/Intl Traveler<30days: No Traveled to known affect area: No History of Present Illness HPI 72-year-old female presents to the emergency department for evaluation of a fall that occurred just prior to arrival. Patient states she is walking into [place] when her neuropathy acted up in her toes curled underneath her causing her to fall on her right side. She reports that she hit her head, but no loss of consciousness. She reports neck pain, lower back pain, right-sided abdominal pain. She states the back pain radiates down her right leg. She also reports right knee and right foot pain from the fall. She has an abrasion to the right anterior knee. She states her tetanus immunization is up-to-date. Patient states she takes an aspirin, but no other anticoagulants. Current pain is 9/10. No exacerbating or alleviating factors. Moderate severity. 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, LUPUS ) Psychiatric: No Reproductive: No Respiratory: Yes Integumentary: No Immunizations Current: Yes Radiation Therapy: Yes Sleep Apnea: Yes Thyroid Disease: No Tetanus Vaccination: < 5 Years Influenza Vaccination: Yes Menopausal: Yes : 2 Para: 2 Miscarriage: 0 : 0 Tubal Ligation: Yes Past Surgical History Abdominal Surgery: Yes (TUMMY TUCK) Appendectomy: Yes Cholecystectomy: Yes Coronary Artery Bypass Graft: No Eye Surgery: Yes (cataract) Thoracic Surgery: Yes Other Surgery: Yes (FACIAL SX FOR CA, BREAST REDUCTION) Family History Family Myocardial Infarction: Yes (mom, grandmother) Social History Alcohol Use: Yes (ONCE A YEAR) Tobacco Use: No Substance Use: No Allergies-Medications (Allergen,Severity, Reaction): Coded Allergies: No Known Allergies (Verified Allergy, Unknown, 11/24/17) Reported Meds & Prescriptions Reported Meds & Active Scripts Active Bentyl (Dicyclomine HCl) 10 Mg Cap 10 Mg PO TID PRN Zofran Odt (Ondansetron Odt) 4 Mg Tab 4 Mg SL Q6HR PRN Flagyl (Metronidazole) 500 Mg Tab 500 Mg PO TID 7 Days Cipro (Ciprofloxacin HCl) 500 Mg Tab 500 Mg PO BID 7 Days Cipro (Ciprofloxacin HCl) 500 Mg Tab 500 Mg PO BID Ventolin Hfa 18 GM Inh (Albuterol Sulfate) 90 Mcg/Act Aer 2 Puff INH Q4H PRN Omeprazole 20 Mg Cap 20 Mg PO DAILY 30 Days Diltiazem (Diltiazem HCl) 90 Mg Tab 90 Mg PO Q6HR Reported Prednisone 50 Mg Tab 50 Mg PO DAILY Lasix (Furosemide) 20 Mg Tab 20 Mg PO DAILY Anoro Ellipta Inh (Umeclidinium/Vilanterol) 62.5-25 Mcg/Act Aero 1 Puff INH DAILY Aspirin 81 (Aspirin) 81 Mg Tabdr 81 Mg PO DAILY Review of Systems Except as stated in HPI: all other systems reviewed are Neg Physical Exam Narrative GENERAL: Well-nourished, well-developed elderly female patient, afebrile. SKIN: Focused skin assessment warm/dry. Patient has abrasion to the right anterior knee HEAD: Normocephalic. Atraumatic ENT: Mucosa pink and moist. No erythema or exudates. No uvular edema. No uvular , palatal, or tonsillar deviation. Airway patent. Nasal turbinates appear normal without nasal blood, purulent drainage or septal hematoma. Bilateral tympanic membranes clear without erythema or perforation. EYES: No scleral icterus. No injection or drainage. NECK: Supple, trachea midline. No JVD or lymphadenopathy. CARDIOVASCULAR: Regular rate and rhythm without murmurs, gallops, or rubs. RESPIRATORY: Breath sounds equal bilaterally. No accessory muscle use. Lung sounds are clear to auscultation. GASTROINTESTINAL: Abdomen soft and nondistended. Patient has tenderness to palpation over the right upper quadrant. MUSCULOSKELETAL: No cyanosis, or edema. BACK: Nontender without obvious deformity. No CVA tenderness. No midline spinal tenderness. Data Data Last Documented VS Vital Signs Date Time Temp Pulse Resp B/P (MAP) Pulse Ox O2 Delivery O2 Flow Rate FiO2 11/24/17 20:43 97.5 96 18 137/90 (106) 100 Orders Orders Complete Blood Count With Diff (11/24/17 21:34) Comprehensive Metabolic Panel (11/24/17 21:34) Prothrombin Time / Inr (Pt) (11/24/17 21:34) Act Partial Throm Time (Ptt) (11/24/17 21:34) Iv Access Insert/Monitor (11/24/17 21:34) Chest, Single Ap (11/24/17 ) Ct Brain W/O Iv Contrast(Rout) (11/24/17 ) Ct Cerv Spine W/O Contrast (11/24/17 ) Ct Abd/Pel W Iv Contrast(Rout) (11/24/17 ) Knee, Complete (4vws) (11/24/17 ) Foot, Complete ([id number]) (11/24/17 ) Ondansetron Inj (Zofran Inj) (11/24/17 21:45) Acetaminophen (Tylenol) (11/24/17 21:45) Ondansetron Odt (Zofran Odt) (11/24/17 22:00) Ct Lumb Spine W Iv Contrast (11/24/17 ) Labs Laboratory Tests Test 11/24/17 21:50 White Blood Count 9.0 TH/MM3 Red Blood Count 4.72 MIL/MM3 Hemoglobin 12.9 GM/DL Hematocrit 39.4 % Mean Corpuscular Volume 83.5 FL Mean Corpuscular Hemoglobin 27.4 PG Mean Corpuscular Hemoglobin Concent 32.8 % Red Cell Distribution Width 15.8 % Platelet Count 232 TH/MM3 Mean Platelet Volume 8.8 FL Neutrophils (%) (Auto) 79.4 % Lymphocytes (%) (Auto) 13.3 % Monocytes (%) (Auto) 6.6 % Eosinophils (%) (Auto) 0.2 % Basophils (%) (Auto) 0.5 % Neutrophils # (Auto) 7.2 TH/MM3 Lymphocytes # (Auto) 1.2 TH/MM3 Monocytes # (Auto) 0.6 TH/MM3 Eosinophils # (Auto) 0.0 TH/MM3 Basophils # (Auto) 0.0 TH/MM3 CBC Comment DIFF FINAL Differential Comment Prothrombin Time 10.0 SEC Prothromb Time International Ratio 1.0 RATIO Activated Partial Thromboplast Time 19.2 SEC Blood Urea Nitrogen 28 MG/DL Creatinine 1.19 MG/DL Random Glucose 116 MG/DL Total Protein 7.6 GM/DL Albumin 3.8 GM/DL Calcium Level 9.1 MG/DL Alkaline Phosphatase 67 U/L Aspartate Amino Transf (AST/SGOT) 27 U/L Alanine Aminotransferase (ALT/SGPT) 37 U/L Total Bilirubin 0.5 MG/DL Sodium Level 142 MEQ/L Potassium Level 3.5 MEQ/L Chloride Level 105 MEQ/L Carbon Dioxide Level 22.6 MEQ/L Anion Gap 14 MEQ/L Estimat Glomerular Filtration Rate 45 ML/MIN MDM Medical Decision Making Medical Screen Exam Complete: Yes Emergency Medical Condition: Yes Medical Record Reviewed: Yes Interpretation(s) chest x-ray - CONCLUSION: No acute disease. x-ray right knee - CONCLUSION: No acute disease. x-ray right foot - CONCLUSION: No acute disease. Differential Diagnosis Contusion versus fracture versus sprain versus intra-abdominal injury versus intracranial abnormality versus close head injury Narrative Course 72-year-old female presents to the emergency department for evaluation after a trip and fall that occurred just prior to arrival. IV access is obtained. CBC , CMP, PTT, PT/INR are ordered and pending. Patient is concerned of her lower back pain states that her "spine is burning". CT the brain, cervical spine, lumbar spine, abdomen/pelvis with IV contrast are ordered and pending. Chest x- ray, x-ray of the right knee, x-ray of the right foot are ordered and pending. Patient is given Tylenol 650 mg p.o., Zofran 4 mg IV. CBC shows no acute abnormality. CMP shows BUN 28, creatinine 1.19, glucose 116. Coags show no acute abnormality. CT of the brain, CT of the cervical spine, CT of the lumbar spine, CT abdomen/pelvis. Chest x-ray shows no acute disease. X-ray of the right knee shows no acute disease. X-ray of the right foot shows no acute disease. My attending physician, Dr. Degroot, will resume care and disposition of patient pending CT results. Essence Bella November 24, 2017 21:54
[2017-11-24] MEDS ORDERED: ONDANSETRON ODT 4 MG TAB PO ONE (22:00)
[2017-11-24 22:10] LABS: AUTOMATED NEUTROPHIL # 7.2 TH/MM3 (1.8-7.7); BASOPHIL % 0.5 % (0.0-2.0); EOSINOPHIL % 0.2 % (0.0-4.0); HEMATOCRIT 39.4 % (35.0-46.0); HEMOGLOBIN 12.9 GM/DL (11.6-15.3); LYMPH % 13.3 % (9.0-44.0); LYMPHOCYTE # 1.2 TH/MM3 (1.0-4.8); MEAN CELL VOLUME 83.5 FL (80.0-100.0); MEAN CORPUSCULAR HEMOGLOBIN 27.4 PG (27.0-34.0); MEAN CORPUSCULAR HGB CONC 32.8 % (32.0-36.0); MEAN PLATELET VOLUME 8.8 FL (7.0-11.0); MONO % 6.6 % (0.0-8.0); MONOCYTE # 0.6 TH/MM3 (0-0.9); NEUT % 79.4 % (16.0-70.0); PLATELET COUNT 232 TH/MM3 (150-450); RED BLOOD COUNT 4.72 MIL/MM3 (4.00-5.30); RED CELL DISTRIBUTION WIDTH 15.8 % (11.6-17.2)
--- NOTE | 2017-11-24 22:13 | RADRPT ---
EXAM DATE/TIME: 11/24/2017 21:55 [facility] COMPARISON: CHEST SINGLE AP, July 14, 2017, 20:06. INDICATIONS : Rib pain and shortness of breath. MEDICAL HISTORY : Chronic obstructive pulmonary disease. Congestive heart failure. A-fib. Bronchitis. SURGICAL HISTORY : None. ENCOUNTER: Initial ACUITY: 1 day PAIN SCORE: 0/10 LOCATION: chest FINDINGS: A single view of the chest demonstrates the lungs to be symmetrically aerated without evidence of mas s, infiltrate or effusion. The cardiomediastinal contours are unremarkable. Osseous structures are intact. CONCLUSION: No acute disease. Tiburcio Baer MD on November 24, 2017 at 22:10 Board Certified Radiologist. This report was verified electronically.
--- NOTE | 2017-11-24 22:14 | RADRPT ---
EXAM DATE/TIME: 11/24/2017 21:57 [facility] COMPARISON: No previous studies available for comparison. INDICATIONS : Patient complains of right foot pain status post fall. Laceration to 3rd digit. MEDICAL HISTORY : None. SURGICAL HISTORY : None. ENCOUNTER: Initial ACUITY: 1 day PAIN SCORE: 3/10 LOCATION: Right Foot. FINDINGS: Three view examination of the right foot demonstrates no soft tissue swelling, dislocation, or fractu re. Hammertoe deformities are seen. The tarsal bones appear intact. The interphalangeal and metata rsophalangeal joints are intact. The calcaneus is intact. Calcaneal spurs are seen at the Achilles and to a lesser degree plantar aponeurosis attachment sites. Bony mineralization is normal. CONCLUSION: No acute disease. Tiburcio Baer MD on November 24, 2017 at 22:11 Board Certified Radiologist. This report was verified electronically.
--- NOTE | 2017-11-24 22:17 | RADRPT ---
EXAM DATE/TIME: 11/24/2017 22:00 [facility] COMPARISON: KNEE RIGHT COMPLETE (4VWS), October 16, 2017, 10:19. INDICATIONS : Patient complains of right knee pain status post fall. MEDICAL HISTORY : None. SURGICAL HISTORY : None. ENCOUNTER: Initial ACUITY: 1 day PAIN SCORE: 10/10 LOCATION: Right Knee FINDINGS: Four view examination of the right knee demonstrates no evidence of fracture or dislocation. Bony mi neralization is normal. The articular surfaces are intact. Minimal medial spurs are seen at the medi al tibial plateau. Spurs are seen at the anterior aspect of the patella. The suprapatellar soft tissu es have a normal configuration. Vascular calcifications are present. CONCLUSION: No acute disease. Tiburcio Baer MD on November 24, 2017 at 22:14 Board Certified Radiologist. This report was verified electronically.
[2017-11-24 22:25] LABS: ALT (GPT) 37 U/L (10-53)
[2017-11-24 22:27] LABS: ALKALINE PHOSPHATASE 67 U/L (45-117); TOTAL BILIRUBIN ADULT 0.5 MG/DL (0.2-1.0); TOTAL PROTEIN 7.6 GM/DL (6.4-8.2)
[2017-11-24 22:34] LABS: ALBUMIN 3.8 GM/DL (3.4-5.0); AST (GOT) 27 U/L (15-37); BICARBONATE 22.6 MEQ/L (21.0-32.0); BLOOD UREA NITROGEN 28 MG/DL (7-18); CALCIUM 9.1 MG/DL (8.5-10.1); CHLORIDE 105 MEQ/L (98-107); CREATININE 1.19 MG/DL (0.50-1.00); GLOMERULAR FILTRATION RATE 45 ML/MIN (>89); GLUCOSE,RANDOM 116 MG/DL (74-106); SODIUM (NA) 142 MEQ/L (136-145)
[2017-11-24 22:47] VITALS: BP 142/72; PULSE 79; RESP 16; O2SAT 97
[2017-11-24 23:20] VITALS: RESP 18
[2017-11-24] MEDS ORDERED: IOHEXOL 350 MG/ML 10 ML VIAL (for RAD DIAG) IVCONTRAST ONE (23:31)
--- NOTE | 2017-11-24 23:50 | RADRPT ---
EXAM DATE/TIME: 11/24/2017 23:18 [facility] COMPARISON: No previous studies available for comparison. INDICATIONS : Trauma, fall. RADIATION DOSE: 56.35 CTDIvol (mGy) MEDICAL HISTORY : Hypertension. Chronic obstructive pulmonary disease. CVA. CHF. CAD. Parotid gland cancer. SURGICAL HISTORY : None. ENCOUNTER: Initial ACUITY: 1 day PAIN SCALE: 5/10 LOCATION: cranial TECHNIQUE: Multiple contiguous axial images were obtained of the head. Using automated exposure control and adj ustment of the mA and/or kV according to patient size, radiation dose was kept as low as reasonably a chievable to obtain optimal diagnostic quality images. DICOM format image data is available electro nically for review and comparison. FINDINGS: CEREBRUM: The ventricles are normal for age. No evidence of midline shift, mass lesion, hemorrhage or acute in farction. No extra-axial fluid collections are seen. Patchy and chronic low attenuation in the periv entricular white matter again noted. POSTERIOR FOSSA: The cerebellum and brainstem are intact. The 4th ventricle is midline. The cerebellopontine angle i s unremarkable. EXTRACRANIAL: Mucoperiosteal thickening seen of the visualized ethmoid and maxillary air cells, right worse than le ft. Patient has had previous nasoantral window formation and turbinectomy. SKULL: The calvaria is intact. No evidence of skull fracture. CONCLUSION: 1. No bleed or other acute intracranial abnormality. 2. Atrophy and chronic white matter changes are again noted. 3. Chronic sinus disease. Tiburcio Lanier MD on November 24, 2017 at 23:47 Board Certified Radiologist. This report was verified electronically.
--- NOTE | 2017-11-24 23:54 | RADRPT ---
EXAM DATE/TIME: 11/24/2017 23:18 [facility] COMPARISON: No previous studies available for comparison. INDICATIONS : Trauma, fall. RADIATION DOSE: 22.29 CTDIvol (mGy) MEDICAL HISTORY : Hypertension. Chronic obstructive pulmonary disease. Congestive heart failure.Parotid gland cancer. C VA. CAD. SURGICAL HISTORY : None. ENCOUNTER: Initial ACUITY: 1 day PAIN SCALE: 2/10 LOCATION: neck TECHNIQUE: Volumetric scanning of the cervical spine was performed. Multiplanar reconstructions in the sagittal, coronal and oblique axial planes were performed. Using automated exposure control and adjustment o f the mA and/or kV according to patient size, radiation dose was kept as low as reasonably achievable to obtain optimal diagnostic quality images. DICOM format image data is available electronically f or review and comparison. FINDINGS: There are a couple millimeters of degenerative retrolisthesis at C4/C5. No fracture or acute appearin g malalignment. Vertebral bodies have normal height. No acute abnormality seen of the prevertebral so ft tissues. Enlarged thyroid with multiple bilateral nodules are noted. Disc space narrowing with uncovertebral and facet osteoarthritis noted, moderate to severe at C4/C5, C5/C6 and C6/C7, mild to moderate at C2/C3 and C3/C4. There is left-sided predominant foraminal steno sis at C4/C5 and C6/C7, and bilateral foraminal stenosis at C5/C6. CONCLUSION: 1. No fracture or acute appearing malalignment of the cervical spine. 2. Multilevel degenerative changes as above. 3. Multinodular thyroid disorder. If not recently done, further characterization with outpatient thyr oid ultrasound recommended. Tiburcio Lanier MD on November 24, 2017 at 23:49 Board Certified Radiologist. This report was verified electronically.
--- NOTE | 2017-11-24 23:58 | RADRPT ---
EXAM DATE/TIME: 11/24/2017 23:18 [facility] COMPARISON: CT ABDOMEN & PELVIS W CONTRAST, November 15, 2017, 23:04. INDICATIONS : Trauma, fall. Right side abdominal pain. IV CONTRAST: 90 cc Omnipaque 350 (iohexol) IV ORAL CONTRAST: No oral contrast ingested. RADIATION DOSE: 10.23 CTDIvol (mGy) MEDICAL HISTORY : Congestive heart failure. Hypertension. Diverticulitis.COPD. CAD. SURGICAL HISTORY : Hysterectomy. Cholecystectomy.Appendectomy. ENCOUNTER: Initial ACUITY: 1 day PAIN SCALE: 7/10 LOCATION: Right abdomen. TECHNIQUE: Volumetric scanning of the abdomen and pelvis was performed. Using automated exposure control and ad justment of the mA and/or kV according to patient size, radiation dose was kept as low as reasonably achievable to obtain optimal diagnostic quality images. DICOM format image data is available electro nically for review and comparison. FINDINGS: LOWER LUNGS: The visualized lower lungs are clear. LIVER: Fatty infiltrated. No focal abnormality demonstrated. SPLEEN: Normal size without lesion. PANCREAS: Within normal limits. KIDNEYS: Normal in size and shape. There is no mass, stone or hydronephrosis. ADRENAL GLANDS: Within normal limits. VASCULAR: Atherosclerotic abdominal aorta. No aneurysm. BOWEL/MESENTERY: There is left-sided predominant diverticulosis of the colon. No acute inflammatory changes are seen. No free fluid. ABDOMINAL WALL: Within normal limits. RETROPERITONEUM: There is no lymphadenopathy. BLADDER: No wall thickening or mass. REPRODUCTIVE: Within normal limits. INGUINAL: There is no lymphadenopathy or hernia. MUSCULOSKELETAL: No fracture or other acute bony abnormality demonstrated. Diffuse degenerative changes are seen of th e visualized spine. CONCLUSION: 1. No acute abnormality demonstrated. 2. Fatty liver, diverticulosis of the colon and atherosclerosis of the aorta again noted. Tiburcio Lanier MD on November 24, 2017 at 23:54 Board Certified Radiologist. This report was verified electronically.
--- NOTE | 2017-11-25 00:01 | RADRPT ---
EXAM DATE/TIME: 11/24/2017 23:18 [facility] COMPARISON: No previous studies available for comparison. INDICATIONS : Trauma, fall. Lower back pain. IV CONTRAST: 90 cc Omnipaque 350 (iohexol) IV RADIATION DOSE: ; Reconstructed from previous dataset, no dose MEDICAL HISTORY : Hypertension. Diverticulitis. Congestive heart failure.COPD. CAD. SURGICAL HISTORY : Hysterectomy. Cholecystectomy.Appendectomy. ENCOUNTER: Initial ACUITY: 1 day PAIN SCALE: 7/10 LOCATION: Paraspinal TECHNIQUE: Volumetric scanning of the lumbar spine was performed. Multiplanar reconstructions in the sagittal, coronal and oblique axial planes were performed. Using automated exposure control and adjustment of the mA and/or kV according to patient size, radiation dose was kept as low as reasonably achievable t o obtain optimal diagnostic quality images. DICOM format image data is available electronically for review and comparison. FINDINGS: VERTEBRAE: Normal vertebral body height. ALIGNMENT: No evidence of subluxation. T12-L1: The thecal sac has a normal diameter. No evidence of disc bulge or protrusion. The neural foramina are patent bilaterally. L1-L2: The thecal sac has a normal diameter. No evidence of disc bulge or protrusion. The neural foramina are patent bilaterally. L2-L3: The thecal sac has a normal diameter. No evidence of disc bulge or protrusion. The neural foramina are patent bilaterally. L3-L4: The disc has mild loss of height. There is diffuse bulging of the disc annulus and moderate bilateral facet osteoarthritis. There is mild bilateral foraminal stenosis. L4-L5: The disc has moderate loss of height and vacuum phenomena. There is a small, broad/diffuse posterior disc protrusion and severe bilateral facet osteoarthritis with thickening of the ligamentum flavum. T here is mild spinal stenosis and mild bilateral foraminal stenosis. L5-S1: The disc has mild loss of height with vacuum phenomena. There is a small, diffuse/circumferential dis c osteophyte complex and severe bilateral facet osteoarthritis. No significant spinal stenosis. There is mild bilateral foraminal stenosis. POST CONTRAST: No abnormal areas of enhancement are seen in the cord, dural paraspinal region. CONCLUSION: 1. No fracture, subluxation or other acute abnormality demonstrated of the lumbar spine. 2. Multilevel degenerative changes as above. Tiburcio Lanier MD on November 24, 2017 at 23:57 Board Certified Radiologist. This report was verified electronically.
--- NOTE | 2017-11-25 00:40 | PD ---
Data Data Last Documented VS Vital Signs Date Time Temp Pulse Resp B/P (MAP) Pulse Ox O2 Delivery O2 Flow Rate FiO2 11/24/17 23:20 18 11/24/17 22:47 79 142/72 (95) 97 Room Air 11/24/17 20:43 97.5 Orders Orders Complete Blood Count With Diff (11/24/17 21:34) Comprehensive Metabolic Panel (11/24/17 21:34) Prothrombin Time / Inr (Pt) (11/24/17 21:34) Act Partial Throm Time (Ptt) (11/24/17 21:34) Iv Access Insert/Monitor (11/24/17 21:34) Chest, Single Ap (11/24/17 ) Ct Brain W/O Iv Contrast(Rout) (11/24/17 ) Ct Cerv Spine W/O Contrast (11/24/17 ) Ct Abd/Pel W Iv Contrast(Rout) (11/24/17 ) Knee, Complete (4vws) (11/24/17 ) Foot, Complete ([id number]) (11/24/17 ) Ondansetron Inj (Zofran Inj) (11/24/17 21:45) Acetaminophen (Tylenol) (11/24/17 21:45) Ondansetron Odt (Zofran Odt) (11/24/17 22:00) Ct Lumb Spine W Iv Contrast (11/24/17 ) Iohexol 350 Inj (Omnipaque 350 Inj) (11/24/17 23:31) Labs Laboratory Tests Test 11/24/17 21:50 White Blood Count 9.0 TH/MM3 Red Blood Count 4.72 MIL/MM3 Hemoglobin 12.9 GM/DL Hematocrit 39.4 % Mean Corpuscular Volume 83.5 FL Mean Corpuscular Hemoglobin 27.4 PG Mean Corpuscular Hemoglobin Concent 32.8 % Red Cell Distribution Width 15.8 % Platelet Count 232 TH/MM3 Mean Platelet Volume 8.8 FL Neutrophils (%) (Auto) 79.4 % Lymphocytes (%) (Auto) 13.3 % Monocytes (%) (Auto) 6.6 % Eosinophils (%) (Auto) 0.2 % Basophils (%) (Auto) 0.5 % Neutrophils # (Auto) 7.2 TH/MM3 Lymphocytes # (Auto) 1.2 TH/MM3 Monocytes # (Auto) 0.6 TH/MM3 Eosinophils # (Auto) 0.0 TH/MM3 Basophils # (Auto) 0.0 TH/MM3 CBC Comment DIFF FINAL Differential Comment Prothrombin Time 10.0 SEC Prothromb Time International Ratio 1.0 RATIO Activated Partial Thromboplast Time 19.2 SEC Blood Urea Nitrogen 28 MG/DL Creatinine 1.19 MG/DL Random Glucose 116 MG/DL Total Protein 7.6 GM/DL Albumin 3.8 GM/DL Calcium Level 9.1 MG/DL Alkaline Phosphatase 67 U/L Aspartate Amino Transf (AST/SGOT) 27 U/L Alanine Aminotransferase (ALT/SGPT) 37 U/L Total Bilirubin 0.5 MG/DL Sodium Level 142 MEQ/L Potassium Level 3.5 MEQ/L Chloride Level 105 MEQ/L Carbon Dioxide Level 22.6 MEQ/L Anion Gap 14 MEQ/L Estimat Glomerular Filtration Rate 45 ML/MIN MDM Supervised Visit with JUAN ANTONIO: Yes Diagnosis Primary Impression: Fall Additional Impression: Aches Patient Instructions: General Instructions, RICE Therapy (ED) Disposition: 01 DISCHARGE HOME Condition: Stable Sal Degroot MD November 25, 2017 00:40
== END 2017-11-25 01:18 | disposition home or self-care (01) ==
LOC: NEPC 19:03
DX: S80.211A Abrasion, right knee, initial encounter (principal); M54.5 Low back pain; M54.2 Cervicalgia; I11.0 Hypertensive heart disease with heart failure; I50.9 Heart failure, unspecified; J44.9 Chronic obstructive pulmonary disease, unspecified; W01.0XXA Fall on same level from slipping, tripping and stumbling without subsequent striking against object, initial encounter; Y93.01 Activity, walking, marching and hiking; Y92.22 Religious institution as the place of occurrence of the external cause
CPT/HCPCS: 70450; 71045; 72125; 72132; 73564; 73630; 74177; 80053; 85025; 85610; 85730; 99285; Q9967

== ENCOUNTER 2017-11-29 09:38 | Observation (INO) | payer OTHER, MEDICAID ==
[~2017-11-29] VITALS: Ht 172.7 cm; Wt 93.0 kg
[2017-11-29] VITALS (7 sets, daily range): BP systolic 110–137; BP diastolic 67–80; PULSE 89–102; RESP 16–20; TEMP 98–98.3; O2SAT 92–97
[2017-11-29] MEDS ORDERED: SODIUM CHLORIDE 0.9% FLUSH 10 ML FLUSH IVF PRN (10:15)
[2017-11-29 10:19] LABS: AUTOMATED NEUTROPHIL # 6.4 TH/MM3 (1.8-7.7); BASOPHIL % 0.2 % (0.0-2.0); EOSINOPHIL # 0.1 TH/MM3 (0-0.4); EOSINOPHIL % 0.8 % (0.0-4.0); HEMATOCRIT 37.1 % (35.0-46.0); HEMOGLOBIN 12.3 GM/DL (11.6-15.3); LYMPH % 10.8 % (9.0-44.0); LYMPHOCYTE # 0.8 TH/MM3 (1.0-4.8); MEAN CELL VOLUME 84.4 FL (80.0-100.0); MEAN CORPUSCULAR HGB CONC 33.2 % (32.0-36.0); MEAN PLATELET VOLUME 8.8 FL (7.0-11.0); MONO % 5.3 % (0.0-8.0); MONOCYTE # 0.4 TH/MM3 (0-0.9); NEUT % 82.9 % (16.0-70.0); PLATELET COUNT 190 TH/MM3 (150-450); RED BLOOD COUNT 4.39 MIL/MM3 (4.00-5.30); RED CELL DISTRIBUTION WIDTH 15.5 % (11.6-17.2); WHITE BLOOD COUNT 7.8 TH/MM3 (4.0-11.0)
[2017-11-29 10:45] LABS: ALBUMIN 3.3 GM/DL (3.4-5.0); AST (GOT) 20 U/L (15-37); BLOOD UREA NITROGEN 17 MG/DL (7-18); CALCIUM 8.4 MG/DL (8.5-10.1); CHLORIDE 106 MEQ/L (98-107); CREATININE 1.02 MG/DL (0.50-1.00); GLOMERULAR FILTRATION RATE 53 ML/MIN (>89); GLUCOSE,RANDOM 105 MG/DL (74-106); SODIUM (NA) 142 MEQ/L (136-145)
[2017-11-29 10:46] LABS: ALT (GPT) 27 U/L (10-53)
[2017-11-29 10:48] LABS: ALKALINE PHOSPHATASE 67 U/L (45-117); TOTAL BILIRUBIN ADULT 0.5 MG/DL (0.2-1.0); TOTAL PROTEIN 6.8 GM/DL (6.4-8.2)
--- NOTE | 2017-11-29 11:02 | RADRPT ---
EXAM DATE/TIME: 11/29/2017 10:12 [facility] COMPARISON: CT BRAIN W/O CONTRAST, November 24, 2017, 23:18. INDICATIONS : Patient fell hit head last week, headache and dizziness. RADIATION DOSE: 56.35 CTDIvol (mGy) MEDICAL HISTORY : Cerebrovascular disease. Cardiovascular disease Hypertension.diabetic, cancer neck SURGICAL HISTORY : Tubal ligation. ENCOUNTER: Initial ACUITY: 1 day PAIN SCALE: 5/10 LOCATION: cranial TECHNIQUE: Multiple contiguous axial images were obtained of the head. Using automated exposure control and adj ustment of the mA and/or kV according to patient size, radiation dose was kept as low as reasonably a chievable to obtain optimal diagnostic quality images. DICOM format image data is available electro nically for review and comparison. FINDINGS: CEREBRUM: The ventricles are normal for age. No evidence of midline shift, mass lesion, hemorrhage or acute in farction. Moderate periventricular white matter changes are evident. No extra-axial fluid collectio ns are seen. POSTERIOR FOSSA: The cerebellum and brainstem are intact. The 4th ventricle is midline. The cerebellopontine angle i s unremarkable. EXTRACRANIAL: The visualized portion of the orbits is intact. SKULL: The calvaria is intact. No evidence of skull fracture. CONCLUSION: Moderate periventricular white matter changes, no fracture. No hemorrhage Reuben Floyd MD FACR on November 29, 2017 at 10:59 Board Certified Radiologist. This report was verified electronically.
--- NOTE | 2017-11-29 11:36 | PD ---
HPI Chief Complaint: Dizziness Time Seen by Provider: 10:01 Travel History International Travel<30 days: No Contact w/Intl Traveler<30days: No Traveled to known affect area: No History of Present Illness HPI This is a 72-year-old female who presents to the emergency department with dizziness has been going on for 3 days, constant, severe, making it difficult for her to walk around without gripping things. She also has had some blurry vision. She also reports a headache in the back of her head which has not let up over the past 3 days. She has been falling more frequently. She lives alone with her small dog. She says she was doing fine alone prior to the onset of the dizziness but now she does not feel steady and she feels like she is prone to fall when doing simple things. She says she has had a stroke in the past but she had no residual deficits. 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) Cardiac Catheterization: No Cardiovascular Problems: Yes (CHF, heart murmur) High Cholesterol: No Chemotherapy: No Chest Pain: No Congestive Heart Failure: Yes COPD: Yes Cerebrovascular Accident: Yes Diabetes: Yes Diminished Hearing: Yes ([place] RIGHT EAR) Diverticulitis: Yes Endocrine: No Gastrointestinal Disorders: No Glaucoma: No Genitourinary: No Headaches: Yes Hepatitis: No Hiatal Hernia: No Heparin Induced Thrombocytopen: No Hypertension: Yes Immune Disorder: No Implanted Vascular Access Dvce: No Musculoskeletal: Yes Neurologic: Yes (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, LUPUS ) Psychiatric: No Reproductive: No Respiratory: Yes (COPD) Integumentary: No Immunizations Current: Yes Radiation Therapy: Yes Sleep Apnea: Yes Thyroid Disease: No Menopausal: Yes : 2 Para: 2 Miscarriage: 0 : 0 Tubal Ligation: Yes Past Surgical History Abdominal Surgery: Yes (TUMMY TUCK) Appendectomy: Yes Cholecystectomy: Yes Coronary Artery Bypass Graft: No Eye Surgery: Yes (cataract) Hysterectomy: Yes (partial) Thoracic Surgery: Yes Other Surgery: Yes (FACIAL SX FOR CA, BREAST REDUCTION) Family History Family Myocardial Infarction: Yes (mom, grandmother) Social History Alcohol Use: Yes (ONCE A YEAR) Tobacco Use: No Substance Use: No Allergies-Medications (Allergen,Severity, Reaction): Coded Allergies: No Known Allergies (Verified Allergy, Unknown, 11/24/17) Reported Meds & Prescriptions Reported Meds & Active Scripts Active Bentyl (Dicyclomine HCl) 10 Mg Cap 10 Mg PO TID PRN Zofran Odt (Ondansetron Odt) 4 Mg Tab 4 Mg SL Q6HR PRN Flagyl (Metronidazole) 500 Mg Tab 500 Mg PO TID 7 Days Cipro (Ciprofloxacin HCl) 500 Mg Tab 500 Mg PO BID 7 Days Cipro (Ciprofloxacin HCl) 500 Mg Tab 500 Mg PO BID Ventolin Hfa 18 GM Inh (Albuterol Sulfate) 90 Mcg/Act Aer 2 Puff INH Q4H PRN Omeprazole 20 Mg Cap 20 Mg PO DAILY 30 Days Diltiazem (Diltiazem HCl) 90 Mg Tab 90 Mg PO Q6HR Reported Prednisone 50 Mg Tab 50 Mg PO DAILY Lasix (Furosemide) 20 Mg Tab 20 Mg PO DAILY Anoro Ellipta Inh (Umeclidinium/Vilanterol) 62.5-25 Mcg/Act Aero 1 Puff INH DAILY Aspirin 81 (Aspirin) 81 Mg Tabdr 81 Mg PO DAILY Review of Systems Except as stated in HPI: all other systems reviewed are Neg Physical Exam Narrative GENERAL: Disheveled, no acute distress SKIN: Focused skin assessment warm and dry. HEAD: Atraumatic. Normocephalic. EYES: Pupils equal and round. No injection or drainage. ENT: Moist mucous membranes NECK: Trachea midline. CARDIOVASCULAR: Regular rate and rhythm. No murmur appreciated. RESPIRATORY: Clear to auscultation. Breath sounds equal bilaterally. GASTROINTESTINAL: Abdomen soft, non-tender, nondistended. MUSCULOSKELETAL: No obvious deformities. NEUROLOGICAL: Awake and alert. 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 Past pointing on both upper extremities with finger to nose test, inability to do heel to rascon with left lower extremity, no dysarthria or aphasia PSYCHIATRIC: Appropriate mood and affect; insight and judgment normal. Data Data Last Documented VS Vital Signs Date Time Temp Pulse Resp B/P (MAP) Pulse Ox O2 Delivery O2 Flow Rate FiO2 11/29/17 11:00 92 18 120/75 (90) 94 Room Air Orders Orders Electrocardiogram (11/29/17 10:01) Complete Blood Count With Diff (11/29/17 10:01) Comprehensive Metabolic Panel (11/29/17 10:01) Ct Brain W/O Iv Contrast(Rout) (11/29/17 10:01) Ecg Monitoring (11/29/17 10:01) Iv Access Insert/Monitor (11/29/17 10:01) Oximetry (11/29/17 10:01) Sodium Chloride 0.9% Flush (Ns Flush) (11/29/17 10:15) Admit Order (Ed Use Only) (11/29/17 ) Labs Laboratory Tests Test 11/29/17 10:05 White Blood Count 7.8 TH/MM3 Red Blood Count 4.39 MIL/MM3 Hemoglobin 12.3 GM/DL Hematocrit 37.1 % Mean Corpuscular Volume 84.4 FL Mean Corpuscular Hemoglobin 28.0 PG Mean Corpuscular Hemoglobin Concent 33.2 % Red Cell Distribution Width 15.5 % Platelet Count 190 TH/MM3 Mean Platelet Volume 8.8 FL Neutrophils (%) (Auto) 82.9 % Lymphocytes (%) (Auto) 10.8 % Monocytes (%) (Auto) 5.3 % Eosinophils (%) (Auto) 0.8 % Basophils (%) (Auto) 0.2 % Neutrophils # (Auto) 6.4 TH/MM3 Lymphocytes # (Auto) 0.8 TH/MM3 Monocytes # (Auto) 0.4 TH/MM3 Eosinophils # (Auto) 0.1 TH/MM3 Basophils # (Auto) 0.0 TH/MM3 CBC Comment DIFF FINAL Differential Comment Blood Urea Nitrogen 17 MG/DL Creatinine 1.02 MG/DL Random Glucose 105 MG/DL Total Protein 6.8 GM/DL Albumin 3.3 GM/DL Calcium Level 8.4 MG/DL Alkaline Phosphatase 67 U/L Aspartate Amino Transf (AST/SGOT) 20 U/L Alanine Aminotransferase (ALT/SGPT) 27 U/L Total Bilirubin 0.5 MG/DL Sodium Level 142 MEQ/L Potassium Level 3.5 MEQ/L Chloride Level 106 MEQ/L Carbon Dioxide Level 28.0 MEQ/L Anion Gap 8 MEQ/L Estimat Glomerular Filtration Rate 53 ML/MIN [facility] Medical Decision Making Medical Screen Exam Complete: Yes Emergency Medical Condition: Yes Interpretation(s) Afebrile, mild tachycardia, hypoxia No leukocytosis Electrolytes are reassuring CT: No intracranial hemorrhage Differential Diagnosis Hemorrhagic stroke, ischemic stroke, vertigo, peripheral neuropathy Narrative Course This is a 72-year-old female who presents to the emergency department with poor coordination and gait imbalance for the past 3 days associated with some headache. She has been falling frequently. She was placed on a monitor and an IV was established. Labs are reassuring. CT of the head is negative for acute intracranial hemorrhage. Given the patient's past pointing on exam and instability I think it is reasonable to place her in observation for MRI and physical therapy evaluation for concern for possible ischemic stroke. Physician Communication Physician Communication Discussed with Dr. Franklin Diagnosis Primary Impression: Dizziness Admitting Information Admitting Physician Requests: Observation Faith Lynn MD November 29, 2017 11:36
[2017-11-29] MEDS ORDERED: ONDANSETRON ODT 4 MG TAB PO PRN (12:00)
[2017-11-29] MEDS ORDERED: MECLIZINE HCL 25 MG TAB PO PRN (12:00)
[2017-11-29] MEDS ORDERED: SODIUM CHLORID 0.9% 500 ML INJ 500 ML IV ONE (12:00)
[2017-11-29] MEDS ORDERED: ALBUTEROL SULFATE 90 MCG/ACT HFA 8 GM INHALER INH PRN (12:00)
--- NOTE | 2017-11-29 12:03 | HHI.HP ---
[facility] Service [facility] Primary Care Physician Unknown Admission Diagnosis dizziness Diagnoses: (1) Dizziness Diagnosis: Principal (2) Fall Diagnosis: Principal Chief Complaint: dizziness Travel History International Travel<30 Days: No Contact w/Intl Traveler <30 Da: No Traveled to Known Affected Are: No History of Present Illness patient is a 72 y/o female with history of CVA, COPD and parotid cancer who presented to ER with dizziness. she says that she's been feeling dizzy since last week. she had a fall when she was at religion. she denies any syncopal episode but she says that she's not able to keep her balance and she's having on and off nausea. she was seen in ER a few days ago after she fell.she had work -up with imaging studies including CT head which were negative and then she was discharged home. she denies any fever, sob . she denies any focal weakness or slurred speech although she's complaining of mild headache. Review of Systems Constitutional: COMPLAINS OF: Dizziness, DENIES: Fever, Weight loss, Chills, Night Sweats Eyes: DENIES: Blurred vision, Diplopia, Vision loss, Double Vision Ears, nose, mouth, throat: DENIES: Tinnitus, Vertigo, Throat pain, Epistaxis Respiratory: DENIES: Apneas, Cough, Snoring, Wheezing, Hemoptysis, Sputum production, Shortness of breath Cardiovascular: DENIES: Chest pain, Palpitations, Syncope, Dyspnea on Exertion , PND, Lower Extremity Edema, Orthopnea, Claudication Gastrointestinal: DENIES: Abdominal pain, Black stools, Bloody stools, Constipation, Diarrhea, Nausea, Vomiting, Difficulty Swallowing, Anorexia Genitourinary: DENIES: Urinary frequency, Urgency, Hematuria, Dysuria Musculoskeletal: DENIES: Joint pain, Muscle aches, Stiffness, Joint Swelling Integumentary: DENIES: Rash Neurologic: COMPLAINS OF: Abnormal gait, Headache, Poor Balance, DENIES: Localized weakness, Paresthesias, Seizures, Speech Problems, Tremor Psychiatric: DENIES: Anxiety, Confusion, Mood changes, Depression, Hallucinations, Agitation, Suicidal Ideation, Homicidal Ideation, Delusions Past Family Social History Past Medical History CHF History of CVA COPD (non-oxygen dependent) CAD, status post cardiac catheterization with Dr. taveras. Diverticulitis Rheumatoid arthritis Hypertension Atrial fibrillation, currently on aspirin Past Surgical History Past Surgical History Cholecystectomy Appendectomy Reported Medications Bentyl (Dicyclomine HCl) 10 Mg Cap 10 Mg PO TID PRN Zofran Odt (Ondansetron Odt) 4 Mg Tab 4 Mg SL Q6HR PRN Flagyl (Metronidazole) 500 Mg Tab 500 Mg PO TID 7 Days Cipro (Ciprofloxacin HCl) 500 Mg Tab 500 Mg PO BID 7 Days Cipro (Ciprofloxacin HCl) 500 Mg Tab 500 Mg PO BID Ventolin Hfa 18 GM Inh (Albuterol Sulfate) 90 Mcg/Act Aer 2 Puff INH Q4H PRN Omeprazole 20 Mg Cap 20 Mg PO DAILY 30 Days Diltiazem (Diltiazem HCl) 90 Mg Tab 90 Mg PO Q6HR Reported Prednisone 50 Mg Tab 50 Mg PO DAILY Lasix (Furosemide) 20 Mg Tab 20 Mg PO DAILY Anoro Ellipta Inh (Umeclidinium/Vilanterol) 62.5-25 Mcg/Act Aero 1 Puff INH DAILY Aspirin 81 (Aspirin) 81 Mg Tabdr 81 Mg PO DAILY Allergies: Coded Allergies: No Known Allergies (Verified Allergy, Unknown, 11/24/17) Active Ordered Medications Inpatient Medications Sodium Chloride (NS Flush) 2 ml UNSCH PRN IVF FLUSH AFTER USING IV ACCESS; Start 11/29/17 at 10:15 Social History quit smoking years ago- lives alone. Physical Exam Vital Signs Vital Signs Date Time Temp Pulse Resp B/P (MAP) Pulse Ox O2 Delivery O2 Flow Rate FiO2 11/29/17 10:02 89 19 120/75 (90) 97 Room Air 11/29/17 09:48 94 11/29/17 09:43 90 19 128/74 (92) 97 Physical Exam GENERAL: This is a well-nourished, well-developed patient, in no apparent distress. SKIN: bruises noted on lower extremities. HEAD: Atraumatic. Normocephalic. No temporal or scalp tenderness. EYES: Pupils equal round and reactive. Extraocular motions intact. No scleral icterus. No injection or drainage. ENT: Nose without bleeding, purulent drainage or septal hematoma. Throat without erythema, tonsillar hypertrophy or exudate. Uvula midline. Airway patent. NECK: Trachea midline. No JVD or lymphadenopathy. Supple, nontender, no meningeal signs. CARDIOVASCULAR: Regular rate and rhythm . RESPIRATORY: Clear to auscultation. Breath sounds equal bilaterally. No wheezes , rales, or rhonchi. GASTROINTESTINAL: Abdomen soft, non-tender, nondistended. No hepato-splenomegaly , or palpable masses. No guarding. MUSCULOSKELETAL: Extremities without clubbing, cyanosis, or edema. No joint tenderness, effusion, or edema noted. No calf tenderness. Negative Homans sign bilaterally. NEUROLOGICAL: Awake and alert. Cranial nerves II through XII intact. Motor and sensory grossly within normal limits. Five out of 5 muscle strength in all muscle groups. Normal speech. Laboratory Laboratory Tests Test 11/29/17 10:05 White Blood Count 7.8 Red Blood Count 4.39 Hemoglobin 12.3 Hematocrit 37.1 Mean Corpuscular Volume 84.4 Mean Corpuscular Hemoglobin 28.0 Mean Corpuscular Hemoglobin Concent 33.2 Red Cell Distribution Width 15.5 Platelet Count 190 Mean Platelet Volume 8.8 Neutrophils (%) (Auto) 82.9 Lymphocytes (%) (Auto) 10.8 Monocytes (%) (Auto) 5.3 Eosinophils (%) (Auto) 0.8 Basophils (%) (Auto) 0.2 Neutrophils # (Auto) 6.4 Lymphocytes # (Auto) 0.8 Monocytes # (Auto) 0.4 Eosinophils # (Auto) 0.1 Basophils # (Auto) 0.0 CBC Comment DIFF FINAL Differential Comment Blood Urea Nitrogen 17 Creatinine 1.02 Random Glucose 105 Total Protein 6.8 Albumin 3.3 Calcium Level 8.4 Alkaline Phosphatase 67 Aspartate Amino Transf (AST/SGOT) 20 Alanine Aminotransferase (ALT/SGPT) 27 Total Bilirubin 0.5 Sodium Level 142 Potassium Level 3.5 Chloride Level 106 Carbon Dioxide Level 28.0 Anion Gap 8 Estimat Glomerular Filtration Rate 53 Result Diagram: 11/29/17 1005 11/29/17 1005 Imaging Last Impressions Head CT 11/29/17 1001 Signed Impressions: Service Date/Time: Wednesday, November 29, 2017 10:12 - CONCLUSION: Moderate periventricular white matter changes, no fracture. No hemorrhage Reuben Floyd MD FACR EKG; sinus rhythm with no acute ST-T changes. Caprini VTE Risk Assessment Caprini VTE Risk Assessment: Mod/High Risk (score >= 2) Caprini Risk Assessment Model Point Value = 1 Point Value = 2 Point Value = 3 Point Value = 5 Age 41-60 Minor surgery BMI > 25 kg/m2 Swollen legs Varicose veins or History of unexplained or recurrent spontaneous Oral contraceptives or hormone replacement Sepsis (< 1 month) Serious lung disease, including pneumonia (< 1 month) Abnormal pulmonary function Acute myocardial infarction Congestive heart failure (< 1 month) History of inflammatory bowel disease Medical patient at bed rest Age 61-74 Arthroscopic surgery Major open surgery (> 45 min) Laparoscopic surgery (> 45 min) Malignancy Confined to bed (> 72 hours) Immobilizing plaster cast Central venous access Age >= 75 History of VTE Family history of VTE Factor V Leiden Prothrombin [id number] Lupus anticoagulant Anticardiolipin antibodies Elevated serum homocysteine Heparin-induced thrombocytopenia Other congenital or acquired thrombophilia Stroke (< 1 month) Elective arthroplasty Hip, pelvis, or leg fracture Acute spinal cord injury (< 1 month) Prophylaxis Regimen Total Risk Factor Score Risk Level Prophylaxis Regimen 0-1 Low Early ambulation 2 Moderate Order ONE of the following: *Sequential Compression Device (SCD) *Heparin 5000 units SQ BID 3-4 Higher Order ONE of the following medications: *Heparin 5000 units SQ TID *Enoxaparin/Lovenox 40 mg SQ daily (WT < 150 kg, CrCl > 30 mL/min) *Enoxaparin/Lovenox 30 mg SQ daily (WT < 150 kg, CrCl > 10-29 mL/min) *Enoxaparin/Lovenox 30 mg SQ BID (WT < 150 kg, CrCl > 30 mL/min) AND/OR *Sequential Compression Device (SCD) 5 or more Highest Order ONE of the following medications: *Heparin 5000 units SQ TID (Preferred with Epidurals) *Enoxaparin/Lovenox 40 mg SQ daily (WT < 150 kg, CrCl > 30 mL/min) *Enoxaparin/Lovenox 30 mg SQ daily (WT < 150 kg, CrCl > 10-29 mL/min) *Enoxaparin/Lovenox 30 mg SQ BID (WT < 150 kg, CrCl > 30 mL/min) AND *Sequential Compression Device (SCD) Assessment and Plan Assessment and Plan A/P - dizziness with poor balance/ fall with history of CVA place on fall precautions and neuro-checks- check orthostatic BP and will order MRI brain and carotid doppler- consult PT- will consider neurology evaluation- pending the clinical course continue aspirin- meclizine as needed. -COPD- with no exacerbation- resume home inhalers. -hypertension- BP controlled- hold cardizem for now- will monitor. -CHF- chronic diastolic- compensated- will monitor. -history of parotid tumor- s/p resection -DVT prophylaxis with SCD's Discussed Condition With ER physician and the patient. Mary Kunz MD November 29, 2017 12:03
--- NOTE | 2017-11-29 13:09 | RADRPT ---
EXAM DATE/TIME: 11/29/2017 12:18 [facility] COMPARISON: No previous studies available for comparison. INDICATIONS : Weakness. MEDICAL HISTORY : Hypertension. Chronic obstructive pulmonary disease. Cancer. Lupus. CVA. Congestive heart failure. Parotid cancer. Radiation therapy. Arthritis. SURGICAL HISTORY : Tubal ligation. Appendectomy. Cholecystectomy. Breast reduction. Hysterectomy. Facial surgery. ENCOUNTER: Initial ACUITY: 1 day PAIN SCORE: 0/10 LOCATION: Bilateral neck PEAK SYSTOLIC VELOCITIES (cm/sec): ICA/CCA RATIO: Right: 1.4 Left: 0.9 ICA: Right: 101 Left: 59 CCA: Right: 73 Left: 69 ECA: Right: 72 Left: 60 VERTEBRAL: Right: 38 antegrade Left: 56 antegrade Elevated flow velocities and ICA/CCA ratios have been found to correlate with increased degrees of vessel stenosis, calculated as percentage of diameter relative to a normal segment of distal ICA/CCA FINDINGS: RIGHT CAROTID: No significant stenosis is visualized. The waveforms are within normal limits. LEFT CAROTID: No significant stenosis is visualized. The waveforms are within normal limits. VERTEBRAL ARTERIES: Antegrade flow is seen in both vertebral arteries. MISCELLANEOUS: None. CONCLUSION: 1. Mild bilateral carotid plaque without significant flow-limiting stenosis. 2. Antegrade vertebral artery flow bilaterally. Jeff Izquierdo MD on November 29, 2017 at 13:05 Board Certified Radiologist. This report was verified electronically.
--- NOTE | 2017-11-29 15:01 | RADRPT ---
EXAM DATE/TIME: 11/29/2017 14:37 [facility] COMPARISON: MRI BRAIN W/O CONTRAST, May 20, 2016, 17:49. INDICATIONS : CVA. Recent fall last week, left sided weakness. MEDICAL HISTORY : Congestive heart failure. Cerebrovascular disease. Hypertension. Parathyroid cancer in 2004, COPD. SURGICAL HISTORY : Cholecystectomy. Hysterectomy. Parathyroid sx, Cataracts, Tummy tuck, Breast reduction. ENCOUNTER: Initial ACUITY: 1 week PAIN SCORE: 2/10 LOCATION: Left cranial TECHNIQUE: Multiplanar, multisequence MRI of the brain was performed without contrast. FINDINGS: CEREBRUM: [id number] diffuse cerebral atrophy. The ventricles are normal for degree of atrophy. No evide nce of midline shift, mass lesion, hemorrhage or acute infarction. No extraaxial fluid collections a re seen. The pituitary gland and suprasellar cistern are normal in configuration. WHITE MATTER: Moderate periventricular and focal deep white matter T2 prolongation. POSTERIOR FOSSA: The cerebellum and brainstem are intact. The 4th ventricle is midline. The cerebellopontine angle is unremarkable. The cerebellar tonsils are normal in position. DIFFUSION IMAGING: No focal areas of restricted diffusion are seen. No evidence of acute infarction. EXTRACRANIAL: The visualized portions of the orbits and paranasal sinuses are stable with mild mucoperiosteal thick ening involving the right maxillary sinus.. CONCLUSION: 1. No acute intracranial abnormality or significant interval change. 2. Senescent changes with moderate periventricular small vessel ischemic white matter demyelination. 3. Stable chronic appearing left maxillary sinus mucosal disease. Jeff Izquierdo MD on November 29, 2017 at 14:56 Board Certified Radiologist. This report was verified electronically.
--- NOTE | 2017-11-29 18:37 | EKG ---
Date Performed: 11/29/2017 Time Performed: 10:11:06 PTAGE: 72 years EKG: Sinus rhythm NORMAL ECG Since the PREVIOUS TRACING , no significant change noted PREVIOUS TRACIN07/14/2017 19.36 DOCTOR: Dima Irwin Interpretating Date/Time 11/29/2017 18:36:28
[2017-11-30 03:47] VITALS: BP 104/68; PULSE 84; RESP 17; TEMP 98.5; O2SAT 94
[2017-11-30 08:00] VITALS: BP 117/62; PULSE 86; RESP 20; TEMP 97.8; O2SAT 95
[2017-11-30] MEDS: ASPIRIN EC 81 MG TABEC PO SCH (08:51)
[2017-11-30] MEDS: UMECLIDINIUM 62.5 MCG/VILANTEROL 25 MCG INHALER INH SCH (08:51)
[2017-11-30] MEDS: PANTOPRAZOLE SOD 20 MG DELAYED RELEASE TAB PO SCH (08:51)
--- NOTE | 2017-11-30 11:22 | HHI.PR ---
Subjective Remarks Follow-up dizziness November 30, 2017-patient seen and examined, and she still report episode of dizziness of nausea without any emesis. States the dizziness is more pronounced when she closes her eyes Objective Vitals Vital Signs Date Time Temp Pulse Resp B/P (MAP) Pulse Ox O2 Delivery O2 Flow Rate FiO2 11/30/17 08:00 97.8 86 20 117/62 (80) 95 11/30/17 03:47 98.5 84 17 104/68 (80) 94 11/29/17 23:21 98.3 96 18 110/68 (82) 92 11/29/17 20:07 102 17 117/73 (88) 96 11/29/17 16:20 98.0 93 16 137/80 (99) 97 11/29/17 13:35 11/29/17 13:31 98.0 94 20 110/67 (81) 93 Result Diagram: 11/29/17 1005 11/29/17 1005 Imaging Last Impressions Head CT 11/29/17 1001 Signed Impressions: Service Date/Time: Wednesday, November 29, 2017 10:12 - CONCLUSION: Moderate periventricular white matter changes, no fracture. No hemorrhage Reuben Floyd MD FACR Carotid Artery Ultrasound 11/29/17 0000 Signed Impressions: Service Date/Time: Wednesday, November 29, 2017 12:18 - CONCLUSION: 1. Mild bilateral carotid plaque without significant flow-limiting stenosis. 2. Antegrade vertebral artery flow bilaterally. Jeff Izquierdo MD Brain MRI 11/29/17 0000 Signed Impressions: Service Date/Time: Wednesday, November 29, 2017 14:37 - CONCLUSION: 1. No acute intracranial abnormality or significant interval change. 2. Senescent changes with moderate periventricular small vessel ischemic white matter demyelination. 3. Stable chronic appearing left maxillary sinus mucosal disease. Jeff Izquierdo MD Objective Remarks GENERAL: NAD SKIN: Warm and dry. HEAD: Normocephalic. EYES: No scleral icterus. No injection or drainage. NECK: Supple, trachea midline. No JVD or lymphadenopathy. CARDIOVASCULAR: Regular rate and rhythm without murmurs, gallops, or rubs. RESPIRATORY: Breath sounds equal bilaterally. No accessory muscle use. GASTROINTESTINAL: Abdomen soft, non-tender, nondistended. MUSCULOSKELETAL: No cyanosis, or edema. 4/5 RLE, RUE; 5/5LUE, LLE BACK: Nontender without obvious deformity. No CVA tenderness. A/P Problem List: (1) Dizziness ICD Code: R42 - Dizziness and giddiness (2) Fall ICD Code: W19.XXXA - Unspecified fall, initial encounter (3) Vertigo ICD Code: R42 - Dizziness and giddiness Assessment and Plan 72-year-old female with Dizziness/vertigo Unlikely cardiac Head CT, brain MRI, carotid ultrasound all without any evidence of acute diseases UA pending Change meclizine to scheduled 25 mg every 8H Continue with orthostatic check PT consult to treat and Eval Neurology consultation as needed COPD- with no exacerbation- Continue home inhalers, bronchodilator Hypertension- BP controlled-continue to hold Cardizem CHF chronic diastolic- compensated- History of parotid tumor- s/p resection DVT prophylaxis with SCD's Miguelito Trujillo MD November 30, 2017 11:22
[2017-11-30 12:00] VITALS: BP 110/62; PULSE 94; RESP 20; TEMP 98.5; O2SAT 95
[2017-11-30] MEDS ORDERED: RESP: ALBUTEROL 2.5 MG/IPRATROPIUM 0.5 MG NEB (PRN) NEB (12:00)
[2017-11-30] MEDS: MECLIZINE HCL 25 MG TAB PO SCH ×2 (12:16→20:30)
[2017-11-30 12:59] LABS: BACTERIA, URINE RARE /hpf; BILIRUBIN, URINE NEG (NEG); BLOOD, URINE NEG (NEG); GLUCOSE,URINE NEG (NEG); KETONE, URINE NEG (NEG); NITRITE,URINE NEG (NEG); PH, URINE 5.5 (5.0-8.5); SQUAMOUS EPITHELIAL CELL URINE 3 /hpf (0-5); URINE COLOR YELLOW (YELLW/STRAW); URINE LEUKOCYTE ESTERASE MOD (NEG)
[2017-11-30 16:00] VITALS: BP 117/73; PULSE 85; RESP 20; TEMP 98; O2SAT 95
[2017-11-30] MEDS: ACETAMINOPHEN 325 MG TAB PO PRN (18:10)
[2017-11-30 20:01] VITALS: BP 129/69; PULSE 83; RESP 18; TEMP 98.2; O2SAT 94
[2017-12-01 00:51] VITALS: BP 119/72; PULSE 78; RESP 16; TEMP 97.5; O2SAT 95
[2017-12-01] MEDS: MECLIZINE HCL 25 MG TAB PO SCH ×3 (04:08→21:00)
[2017-12-01 04:19] VITALS: BP 116/66; PULSE 75; RESP 16; TEMP 98; O2SAT 95
[2017-12-01 07:12] VITALS: BP 138/99; PULSE 88; RESP 18; TEMP 97.7; O2SAT 99
--- NOTE | 2017-12-01 07:38 | HHI.FF ---
Face to Face Verification Diagnosis: (1) Vertigo (2) Fall (3) Dizziness (4) CAD (coronary artery disease) (5) Rheumatoid arthritis (6) HTN (hypertension) (7) A-fib (8) COPD (chronic obstructive pulmonary disease) Physical Therapy Order: Evaluate and Treat, Improve ambulation, Strength and gait training Home Health Nursing Order: Medical education Signs/symptoms of disease process Nursing assessment with vital signs I have seen patient Nicolasa Gonzales on 12/01/17. My clinical findings support the need for the requested home health care services because: Ltd mobility - disease progression Deconditioned w/ increased weakness Limited ability to care for self High risk of falls I certify that my clinical findings support that this patient is homebound because: Hx COPD- exertion dyspnea/weakness Unsteady gait/balance Unsafe to leave home unassisted Unable to use public transportation Anupama Boss PA-C December 01, 2017 7:38 am
[2017-12-01] MEDS: UMECLIDINIUM 62.5 MCG/VILANTEROL 25 MCG INHALER INH SCH (08:31)
[2017-12-01] MEDS: ASPIRIN EC 81 MG TABEC PO SCH (08:31)
[2017-12-01] MEDS: PANTOPRAZOLE SOD 20 MG DELAYED RELEASE TAB PO SCH (08:31)
--- NOTE | 2017-12-01 09:12 | HHI.PR ---
Subjective Remarks Follow-up for dizziness, vertigo. Patient reports continued intractable dizziness, unchanged compared to yesterday. Symptoms worse with any movement and ambulation. She reports nausea but no vomiting. Denies any visual changes or headache. Denies any chest pain, palpitations, shortness of breath. She reports a history of vertigo 5 years ago, similar to this episode, but symptoms went away on their own at that time. Patient has a history of parotid cancer resection and chronic right-sided facial droop. Objective Vitals Vital Signs Date Time Temp Pulse Resp B/P (MAP) Pulse Ox O2 Delivery O2 Flow Rate FiO2 12/01/17 07:12 97.7 88 18 138/99 (112) 99 12/01/17 04:19 98.0 75 16 116/66 (83) 95 12/01/17 00:51 97.5 78 16 119/72 (88) 95 11/30/17 20:01 98.2 83 18 129/69 (89) 94 11/30/17 19:10 15 11/30/17 16:00 98.0 85 20 117/73 (88) 95 11/30/17 12:00 98.5 94 20 110/62 (78) 95 I/O 11/30/17 11/30/17 11/30/17 12/01/17 12/01/17 12/01/17 07:00 15:00 23:00 07:00 15:00 23:00 # Voids 3 2 # Bowel Movements 1 Result Diagram: 11/29/17 1005 11/29/17 1005 Imaging Last Impressions Head CT 11/29/17 1001 Signed Impressions: Service Date/Time: Wednesday, November 29, 2017 10:12 - CONCLUSION: Moderate periventricular white matter changes, no fracture. No hemorrhage Reuben Floyd MD FACR Carotid Artery Ultrasound 11/29/17 0000 Signed Impressions: Service Date/Time: Wednesday, November 29, 2017 12:18 - CONCLUSION: 1. Mild bilateral carotid plaque without significant flow-limiting stenosis. 2. Antegrade vertebral artery flow bilaterally. Jeff Izquierdo MD Brain MRI 11/29/17 0000 Signed Impressions: Service Date/Time: Wednesday, November 29, 2017 14:37 - CONCLUSION: 1. No acute intracranial abnormality or significant interval change. 2. Senescent changes with moderate periventricular small vessel ischemic white matter demyelination. 3. Stable chronic appearing left maxillary sinus mucosal disease. Jeff Izquierdo MD Objective Remarks GENERAL: Well-nourished, well-developed pleasant female patient in NAD. SKIN: Warm and dry. No rash. HEENT: Normocephalic. Atraumatic. Pupils equal and round. EOMI, induces dizziness. No noticeable nystagmus. Mucous membranes pink and moist. NECK: Supple. Trachea midline. Right neck and supraclavicular area with fluid collection. CARDIOVASCULAR: Regular rate and rhythm. No murmur appreciated. RESPIRATORY: No accessory muscle use. Clear to auscultation. Breath sounds equal bilaterally. GASTROINTESTINAL: Abdomen soft, non-tender, nondistended. Normoactive bowel sounds x4. MUSCULOSKELETAL: No obvious deformities. Extremities without clubbing, cyanosis , or edema. NEUROLOGICAL: Awake and alert. No obvious cranial nerve deficits. Motor grossly within normal limits. Moving all extremities spontaneously. Chronic right-sided facial droop with slurred speech. PSYCHIATRIC: Appropriate mood and affect; insight and judgment normal. Medications and IVs Current Medications Medications (Trade) Dose Ordered Sig/Alissa Route Start Time Stop Time Status Last Admin (NS Flush) 2 ml UNSCH PRN IVF 11/29/17 10:15 (Proair Hfa Inh) 2 puff Q4H PRN INH 11/29/17 12:00 (Ecotrin Ec) 81 mg DAILY PO 11/30/17 09:00 12/01/17 08:31 (Protonix) 20 mg DAILY PO 11/30/17 09:00 12/01/17 08:31 (Zofran Odt) 4 mg Q8HR PRN PO 11/29/17 12:00 (Tylenol) 650 mg Q4H PRN PO 11/29/17 12:00 11/30/17 18:10 (Antivert) 25 mg Q8H PO 11/30/17 12:00 12/02/17 23:00 12/01/17 04:08 (Duoneb Neb) 1 ampule Q2HR NEB PRN NEB 11/30/17 12:00 A/P Problem List: (1) Dizziness ICD Code: R42 - Dizziness and giddiness (2) Fall ICD Code: W19.XXXA - Unspecified fall, initial encounter (3) Vertigo ICD Code: R42 - Dizziness and giddiness Assessment and Plan 72-year-old female with history of parotid cancer s/p resection, COPD, CVA, CAD , HTN, rheumatoid arthritis, paroxysmal A. fib on aspirin, presents with dizziness and fall. Dizziness: suspect Benign Positional Paroxysmal Vertigo. Rule out CVA. Unlikely cardiac, ECG reviewed with sinus rhythm. -Head CT, brain MRI, carotid ultrasound all reviewed, no evidence of any acute diseases -UA with moderate leuks but rare bacteria/WBCs, no urinary symptoms, will hold off on abx at this time -Continue meclizine 25 mg q8h -Check orthostatics -PT eval, recommends C, case management consulted -Patient still with intractable dizziness today, will consult neurology COPD: chronic, does not appear to be in acute exacerbation. -Continue home inhalers, bronchodilator Hypertension: chronic, BP well controlled -BP controlled-continue to hold Cardizem CHF: chronic, diastolic, compensated -continue to hold patient's lasix with borderline low BP History of parotid tumor- s/p resection -has chronic right sided facial droop and slurred speech since surgery DVT prophylaxis with SCD's Discharge Planning Discharge pending further clinical improvement, neurology evaluation, and repeat PT eval. Anupama Boss PA-C December 01, 2017 9:12 am
[2017-12-01 11:37] VITALS: BP_SYST 132; BP_SYST 139; BP_SYST 143; BP_DIAS 72; BP_DIAS 75; BP_DIAS 83; PULSE 81; RESP 18; TEMP 98.3; O2SAT 98
[2017-12-01] MEDS: ACETAMINOPHEN 325 MG TAB PO PRN (13:35)
[2017-12-01 15:56] VITALS: BP 134/62; PULSE 91; RESP 18; TEMP 98.7; O2SAT 94
--- NOTE | 2017-12-01 18:54 | MB ---
cc: Robert Love MD, PhD Robert Love MD PhD DATE: 12/01/2017 REASON FOR CONSULTATION: Dizziness. HISTORY OF PRESENT ILLNESS: Ms. Gonzales is a pleasant 72-year-old woman who fell about a week ago after she tripped over her foot. She did strike her head; following that , related vertigo which has persisted. She describes a sense of the room spinning or dysequilibrium usually associated with movement, getting up, turning, etc. She has no focal symptoms. PAST MEDICAL HISTORY: History of parotid cancer removal on the right, COPD, stroke in the past, diverticulitis, rheumatoid arthritis, hypertension, atrial fibrillation. CURRENT MEDICATIONS: 1. Meclizine 25 mg q. 8 HRS 2. DuoNeb. 3. Aspirin. 4. Protonix. 5. ProAir. 6. Zofran NEUROLOGICAL EXAMINATION: Blood pressure is 143/83, pulse 81, respiratory rate is 18, temperature 98 degrees. Higher cortical functions normal. 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 Otherwise, cranial nerves are intact. The extraocular movements are normal. The pupils are equal and reactive. Motor exam: 5/5 strength throughout both upper and lower extremities. There is no drift. Cerebellar testing is normal. IMAGING STUDIES: CT of the brain shows normal changes for age. MRI of the brain: No acute changes, mild atrophy, mild ischemic demyelinization present. No posterior fossa lesion. Carotid ultrasound: No significant stenosis. LABORATORY DATA: White count is 7800, hemoglobin 12.3, hematocrit 37%, platelet count 190,000. Sodium is 142, potassium 3.5, chloride 106, CO2 is 28, BUN is 17, creatinine 1.02, GFR 53, AST 20, ALT is 27. IMPRESSION: Probable postconcussive syndrome with vertigo. RECOMMENDATIONS: Continue Antivert. Physical therapy consult for vestibular rehabilitation. If no improvement, consider ears, nose and throat evaluation. Robert Love MD, PhD ELIZABETH/ , 06:40 PM , 06:53 PM
[2017-12-01 19:15] VITALS: BP 128/72; PULSE 68; RESP 18; TEMP 98.1; O2SAT 98
[2017-12-02 00:30] VITALS: BP 139/82; PULSE 81; RESP 18; TEMP 97.7; O2SAT 94
[2017-12-02 03:56] VITALS: BP 127/78; PULSE 73; RESP 18; TEMP 98; O2SAT 95
[2017-12-02] MEDS: MECLIZINE HCL 25 MG TAB PO SCH ×2 (04:46→12:38)
[2017-12-02 07:28] VITALS: BP_SYST 157; BP_SYST 174; BP_DIAS 83; BP_DIAS 88; PULSE 76; RESP 16; TEMP 98.2; O2SAT 78
[2017-12-02] MEDS: ACETAMINOPHEN 325 MG TAB PO PRN (07:40)
[2017-12-02] MEDS: PANTOPRAZOLE SOD 20 MG DELAYED RELEASE TAB PO SCH (07:40)
[2017-12-02] MEDS: UMECLIDINIUM 62.5 MCG/VILANTEROL 25 MCG INHALER INH SCH (07:41)
[2017-12-02] MEDS: ASPIRIN EC 81 MG TABEC PO SCH (07:41)
--- NOTE | 2017-12-02 08:29 | HHI.PR ---
Subjective Remarks Follow up for dizziness, vertigo. The patient complains of a right frontal headache today. She states she woke up with the pain. Denies any visual changes from her baseline. She reports continued dizziness, worse with ambulation. Denies any nausea/vomiting. She has been ambulating to the restroom with a walker. She reports long history of bilateral feet/leg numbness, worse on the left side. She states the numbness has been present for at least 10 years. She states she has been seeing neurologist Dr. Castañeda for her neck, back, and numbness. She was last seen 1 year ago when she had nerve conduction studies done. The patient does explain that with the recent fall, she had increased neck pain with shooting burning pains down her legs. Denies any saddle anesthesia or incontinence. Objective Vitals Vital Signs Date Time Temp Pulse Resp B/P (MAP) Pulse Ox O2 Delivery O2 Flow Rate FiO2 12/02/17 07:28 98.2 76 16 174/88 (116) 78 171/95 (120) 157/83 (107) 12/02/17 03:56 98.0 73 18 127/78 (94) 95 12/02/17 00:30 97.7 81 18 139/82 (101) 94 12/01/17 19:15 98.1 68 18 128/72 (90) 98 12/01/17 15:56 98.7 91 18 134/62 (86) 94 12/01/17 14:36 20 12/01/17 11:37 98.3 81 18 139/72 (94) 98 143/83 (103) 132/75 (94) I/O 12/01/17 12/01/17 12/01/17 12/02/17 12/02/17 12/02/17 06:59 14:59 22:59 06:59 14:59 22:59 # Voids 2 2 Result Diagram: 11/29/17 1005 11/29/17 1005 Imaging Last Impressions Head CT 11/29/17 1001 Signed Impressions: Service Date/Time: Wednesday, November 29, 2017 10:12 - CONCLUSION: Moderate periventricular white matter changes, no fracture. No hemorrhage Reuben Floyd MD FACR Carotid Artery Ultrasound 11/29/17 0000 Signed Impressions: Service Date/Time: Wednesday, November 29, 2017 12:18 - CONCLUSION: 1. Mild bilateral carotid plaque without significant flow-limiting stenosis. 2. Antegrade vertebral artery flow bilaterally. Jeff Izquierdo MD Brain MRI 11/29/17 0000 Signed Impressions: Service Date/Time: Wednesday, November 29, 2017 14:37 - CONCLUSION: 1. No acute intracranial abnormality or significant interval change. 2. Senescent changes with moderate periventricular small vessel ischemic white matter demyelination. 3. Stable chronic appearing left maxillary sinus mucosal disease. Jeff Izquierdo MD Objective Remarks GENERAL: Well-nourished, well-developed pleasant female patient in NAD. SKIN: Warm and dry. No rash. HEENT: Normocephalic. Atraumatic. Pupils equal and round. EOMI, induces dizziness. No noticeable nystagmus. Mucous membranes pink and moist. NECK: Supple. Trachea midline. Right neck and supraclavicular area with fluid collection. CARDIOVASCULAR: Regular rate and rhythm. No murmur appreciated. RESPIRATORY: No accessory muscle use. Clear to auscultation. Breath sounds equal bilaterally. GASTROINTESTINAL: Abdomen soft, non-tender, nondistended. Normoactive bowel sounds x4. MUSCULOSKELETAL: No obvious deformities. Extremities without clubbing, cyanosis , or edema. NEUROLOGICAL: Awake and alert. No obvious cranial nerve deficits. 5/5 strength of bilateral upper and lower extremities. Chronic right-sided facial droop with slurred speech. Bilateral feet numb to light touch, also with numbness at left lateral calf. PSYCHIATRIC: Appropriate mood and affect; insight and judgment normal. Medications and IVs Current Medications Medications (Trade) Dose Ordered Sig/Alissa Route Start Time Stop Time Status Last Admin (NS Flush) 2 ml UNSCH PRN IVF 11/29/17 10:15 (Proair Hfa Inh) 2 puff Q4H PRN INH 11/29/17 12:00 (Ecotrin Ec) 81 mg DAILY PO 11/30/17 09:00 12/02/17 07:41 (Protonix) 20 mg DAILY PO 11/30/17 09:00 12/02/17 07:40 (Zofran Odt) 4 mg Q8HR PRN PO 11/29/17 12:00 12/02/17 07:40 (Tylenol) 650 mg Q4H PRN PO 11/29/17 12:00 12/02/17 07:40 (Antivert) 25 mg Q8H PO 11/30/17 12:00 12/02/17 23:00 12/02/17 04:46 (Duoneb Neb) 1 ampule Q2HR NEB PRN NEB 11/30/17 12:00 A/P Problem List: (1) Dizziness ICD Code: R42 - Dizziness and giddiness (2) Fall ICD Code: W19.XXXA - Unspecified fall, initial encounter (3) Vertigo ICD Code: R42 - Dizziness and giddiness Assessment and Plan 72-year-old female with history of parotid cancer s/p resection, COPD, CVA, CAD , HTN, rheumatoid arthritis, paroxysmal A. fib on aspirin, presents with dizziness and fall. Dizziness: suspect Benign Positional Paroxysmal Vertigo. Rule out CVA. Unlikely cardiac, ECG reviewed with sinus rhythm. -Head CT, brain MRI, carotid ultrasound all reviewed, no evidence of any acute diseases -UA with moderate leuks but rare bacteria/WBCs, no urinary symptoms, will hold off on abx -Continue meclizine 25 mg q8h -Orthostatics negative -PT eval, recommends C, case management consulted -Consulted neurology, symptoms likely related to postconcussive vertigo -Patient with numbness of feet with increased chronic neck/back pain since the fall, will check C/L-spine MRIs -Check Brain MRA to eval circulation COPD: chronic, does not appear to be in acute exacerbation. -Continue home inhalers, bronchodilator Hypertension: chronic, BP well controlled -BP controlled-continue to hold Cardizem Paroxysmal Afib: chronic, on aspirin at home -continue patient's aspirin -concern for possible bradycardia causing dizziness, holding cardizem, heart rate remains well controlled CHF: chronic, diastolic, compensated -continue patient's lasix History of parotid tumor- s/p resection -has chronic right sided facial droop and slurred speech since surgery -outpatient f/up DVT prophylaxis with SCD's Discharge Planning 0830hrs: Discharge pending further clinical improvement, Brain MRA, C-L Spine MRI, and repeat PT eval. Patient lives alone and would be unsafe discharge at this time unless symptoms resolve. Anupama Boss PA-C December 02, 2017 08:29
[2017-12-02] MEDS ORDERED: oxyCODONE/ACETAMINOPHEN 5 MG/325 MG TAB PO PRN (09:45)
[2017-12-02 10:05] LABS: BICARBONATE 26.6 MEQ/L (21.0-32.0); CALCIUM 8.4 MG/DL (8.5-10.1); CREATININE 0.77 MG/DL (0.50-1.00); MAGNESIUM 1.9 MG/DL (1.5-2.5)
--- NOTE | 2017-12-02 10:29 | RADRPT ---
EXAM DATE/TIME: 12/02/2017 09:55 [facility] COMPARISON: No previous studies available for comparison. INDICATIONS : Radiculopathy. Left sided weakness. MEDICAL HISTORY : Hypertension. Chronic obstructive pulmonary disease. Congestive heart failure. Parathyroid cancer and lupus. SURGICAL HISTORY : Hysterectomy. Appendectomy. Cholecystectomy. Parathyroidectomy. ENCOUNTER: Subsequent ACUITY: 3 day PAIN SCORE: 0/10 LOCATION: Neck. TECHNIQUE: Multiplanar, multisequence MRI examination of the cervical spine was performed. FINDINGS: VERTEBRAE: Normal vertebral body height. Homogeneous marrow signal. There are some primary degenerative changes with disc degeneration disc space narrowing at C4-5, C5-6 and C6-7. There is some mild retrolisthesi s of C4 over C5 by 2 mm. No compression fractures are demonstrated. ALIGNMENT: No evidence of subluxation. CORD: Normal configuration and signal. POST FOSSA: The cerebellar tonsils are normal in position. C2-C3: The thecal sac has a normal configuration. There is no evidence of disc herniation or spinal canal s tenosis. The neural foramina are patent bilaterally. C3-C4: Right paracentral bulging. Mild narrowing of the right neural foramina. The left neural foramen is pa tent. C4-C5: Mild broad-based bulging. The neural foramina are patent bilaterally. C5-C6: Broad-based bulging disc osteophyte complex. Mild narrowing of the neural foramina bilaterally. C6-C7: Broad-based bulging with mild narrowing of the left neural foramina. Right neural foramen is patent. C7-T1: The thecal sac has a normal configuration. There is no evidence of disc herniation or spinal canal s tenosis. The neural foramina are patent bilaterally. CONCLUSION: 1. Primary bony degenerative changes, disc degeneration and disc space narrowing at multiple levels a s described above. 2. Right paracentral bulging C3-4. 3. Broad-based bulging at multiple levels including C4-5, C5-6 and C6-7. Denys Walsh MD on December 02, 2017 at 10:22 Board Certified Radiologist. This report was verified electronically.
--- NOTE | 2017-12-02 10:32 | RADRPT ---
EXAM DATE/TIME: 12/02/2017 09:55 [facility] COMPARISON: MRA BRAIN W/O CONTRAST, May 20, 2016, 17:49. INDICATIONS : CVA. Left sided weakness. MEDICAL HISTORY : Hypertension. Chronic obstructive pulmonary disease. Congestive heart failure. Parathyroid cancer. SURGICAL HISTORY : Cholecystectomy. Appendectomy. Hysterectomy. Parathyroidectomy. ENCOUNTER: Subsequent ACUITY: 3 day PAIN SCORE: 0/10 LOCATION: Head. Please note a normal MRA of the brain does not entirely exclude the possibility of a small aneurysm, nor the possibility of distal intracranial vessel disease. TECHNIQUE: 3D time of flight MRA was performed. Source images, multiplanar STS MIP, and 3D volume MIP reconstru ctions were reviewed. FINDINGS: Today's exam is compared to the prior study from 2016. There continues to be a focal stenosis involvi ng the proximal segment of the right middle cerebral artery (proximal M1 segment). This is stable and unchanged. There is no evidence of any vascular occlusion. The A1 and M1 segments are patent bilater ally. The middle cerebral and cerebral vessels are patent bilaterally. The basilar artery and posteri or cerebral vessels are patent bilaterally. No evidence of cerebral aneurysm or AV malformation. CONCLUSION: 1. Stable MRA of the brain compared to the prior exam. 2. Focal stable stenosis involving the proximal right M1 segment. 3. No other new or significant changes are demonstrated. Denys Walsh MD on December 02, 2017 at 10:27 Board Certified Radiologist. This report was verified electronically.
--- NOTE | 2017-12-02 11:07 | RADRPT ---
EXAM DATE/TIME: 12/02/2017 09:55 [facility] COMPARISON: No previous studies available for comparison. INDICATIONS : Radiculopathy. Left sided weakness. MEDICAL HISTORY : Hypertension. Chronic obstructive pulmonary disease. Congestive heart failure. Parathyroid cancer and lupus. SURGICAL HISTORY : Appendectomy. Cholecystectomy. Hysterectomy. Parathyroidectomy. ENCOUNTER: Subsequent ACUITY: 3 day PAIN SCORE: 0/10 LOCATION: Back. TECHNIQUE: Multiplanar multisequence MRI of the lumbar spine was performed without contrast. FINDINGS: The most caudal appearing lumbar vertebra is numbered as L5. VERTEBRAE: Homogeneous signal. Normal alignment. No compression fracture injuries. No abnormal bone marrow mic a. There is disc dehydration at all levels. There is disc space narrowing L4-5 L5-S1. CONUS: Normal level and configuration. T12-L1: The thecal sac has a normal diameter. No evidence of disc bulge or protrusion. The neural foramina are patent bilaterally. L1-L2: The thecal sac has a normal diameter. No evidence of disc bulge or protrusion. The neural foramina are patent bilaterally. L2-L3: The thecal sac has a normal diameter. No evidence of disc bulge or protrusion. The neural foramina are patent bilaterally. Bilateral facet arthritis. L3-L4: The thecal sac has a normal diameter. No evidence of disc bulge or protrusion. The neural foramina are patent bilaterally. Bilateral facet arthritis. L4-L5: Mild broad-based bulging. Mild narrowing of the neural foramina. Bilateral facet arthritis. L5-S1: The thecal sac has a normal diameter. No evidence of disc bulge or protrusion. The neural foramina are patent bilaterally. Bilateral facet arthritis. CONCLUSION: 1. Mild broad-based bulging L4-5. 2. Bilateral facet arthritis at multiple levels. Denys Walsh MD on December 02, 2017 at 11:02 Board Certified Radiologist. This report was verified electronically.
[2017-12-02 12:41] VITALS: BP 100/52; PULSE 86; RESP 16; TEMP 97.8; O2SAT 98
[2017-12-02] MEDS ORDERED: MECL1TAB42 PO (14:28)
[2017-12-02] MEDS ORDERED: WALKER WHEELS/F1 MIS (14:29)
--- NOTE | 2017-12-02 14:30 | HHI.DCPOC ---
Discharge Care Plan Diagnosis: (1) Post-concussion vertigo (2) Dizziness (3) Fall (4) Gait instability (5) HTN (hypertension) Goals to Promote Your Health * To prevent worsening of your condition and complications * To maintain your health at the optimal level Directions to Meet Your Goals Take your medications as prescribed Follow your dietary instruction Follow activity as directed Keep your appointments as scheduled Take your immunizations and boosters as scheduled If your symptoms worsen call your PCP, if no PCP go to Urgent Care Center or Emergency Room Smoking is Dangerous to Your Health. Avoid second hand smoke Call the 24-hour hour crisis hotline for domestic abuse at Anupama Boss PA-C December 02, 2017 14:30
--- NOTE | 2017-12-02 14:30 | HHI.DS ---
cc: Willian Mike MD; Karine Castañeda MD; Robert Love MD PhD Discharge Summary Admission Date November 29, 2017 at 11:37 Discharge Date: December 02, 2017 Admitting Diagnosis dizziness (1) Post-concussion vertigo ICD Code: F07.81 - Postconcussional syndrome; R42 - Dizziness and giddiness Diagnosis: Principal (2) Dizziness ICD Code: R42 - Dizziness and giddiness Diagnosis: Principal (3) Fall ICD Code: W19.XXXA - Unspecified fall, initial encounter Diagnosis: Secondary Procedures None. Brief History - From Admission 72 y/o female with history of CVA, COPD and parotid cancer who presented to ER with dizziness. she says that she's been feeling dizzy since last week. she had a fall when she was at [employer]. she denies any syncopal episode but she says that she's not able to keep her balance and she's having on and off nausea. she was seen in ER a few days ago after she fell.she had work-up with imaging studies including CT head which were negative and then she was discharged home. she denies any fever, sob . she denies any focal weakness or slurred speech although she's complaining of mild headache. CBC/BMP: 11/29/17 1005 12/02/17 0842 Significant Findings Laboratory Tests Test 11/30/17 12:23 11/30/17 12:41 12/02/17 08:42 Urine Leukocyte Esterase MOD (NEG) Urine WBC 6 /hpf (0-5) Urine Bacteria RARE /hpf (NONE) Urine Yeast (Budding) FEW (NONE) Troponin I LESS THAN 0.02 NG/ML Calcium Level 8.4 MG/DL (8.5-10.1) Estimat Glomerular Filtration Rate 74 ML/MIN (>89) Imaging Last Impressions Lumbar Spine MRI 12/02/17 0000 Signed Impressions: Service Date/Time: November 09:55 - CONCLUSION: 1. Mild broad-based bulging L4-5. 2. Bilateral facet arthritis at multiple levels. Denys Walsh MD Head Magnetic Resonance Angiography 12/02/17 0000 Signed Impressions: Service Date/Time: November 09:55 - CONCLUSION: 1. Stable MRA of the brain compared to the prior exam. 2. Focal stable stenosis involving the proximal right M1 segment. 3. No other new or significant changes are demonstrated. Denys Walsh MD Cervical Spine MRI 12/02/17 0000 Signed Impressions: Service Date/Time: November 09:55 - CONCLUSION: 1. Primary bony degenerative changes, disc degeneration and disc space narrowing at multiple levels as described above. 2. Right paracentral bulging C3-4. 3. Broad-based bulging at multiple levels including C4-5, C5-6 and C6-7. Denys Walsh MD Head CT 11/29/17 1001 Signed Impressions: Service Date/Time: Wednesday, November 29, 2017 10:12 - CONCLUSION: Moderate periventricular white matter changes, no fracture. No hemorrhage Reuben Floyd MD FACR Carotid Artery Ultrasound 11/29/17 0000 Signed Impressions: Service Date/Time: Wednesday, November 29, 2017 12:18 - CONCLUSION: 1. Mild bilateral carotid plaque without significant flow-limiting stenosis. 2. Antegrade vertebral artery flow bilaterally. Jeff Izquierdo MD Brain MRI 11/29/17 0000 Signed Impressions: Service Date/Time: Wednesday, November 29, 2017 14:37 - CONCLUSION: 1. No acute intracranial abnormality or significant interval change. 2. Senescent changes with moderate periventricular small vessel ischemic white matter demyelination. 3. Stable chronic appearing left maxillary sinus mucosal disease. Jeff Izquierdo MD PE at Discharge GENERAL: Well-nourished, well-developed pleasant female patient in NAD. SKIN: Warm and dry. No rash. HEENT: Normocephalic. Atraumatic. Pupils equal and round. EOMI. No noticeable nystagmus. Mucous membranes pink and moist. NECK: Supple. Trachea midline. Right neck and supraclavicular area with fluid collection. CARDIOVASCULAR: Regular rate and rhythm. No murmur appreciated. RESPIRATORY: No accessory muscle use. Clear to auscultation. Breath sounds equal bilaterally. GASTROINTESTINAL: Abdomen soft, non-tender, nondistended. Normoactive bowel sounds x4. MUSCULOSKELETAL: No obvious deformities. Extremities without clubbing, cyanosis , or edema. NEUROLOGICAL: Awake and alert. No obvious cranial nerve deficits. 5/5 strength of bilateral upper and lower extremities. Chronic right-sided facial droop with slurred speech. Bilateral feet numb to light touch, also with numbness at left lateral calf. PSYCHIATRIC: Appropriate mood and affect; insight and judgment normal. Hospital Course 72-year-old female with history of parotid cancer s/p resection, COPD, CVA, CAD , HTN, rheumatoid arthritis, paroxysmal A. fib on aspirin, presents with dizziness and fall. Dizziness: suspect secondary to Post-Concussive Vertigo vs BPPV. Rule out CVA , Head CT, brain MRI, brain MRA, carotid ultrasound all reviewed, no acute findings. Unlikely cardiac, ECG reviewed with sinus rhythm, and telemetry unremarkable. UA with moderate leuks but rare bacteria/WBCs, no urinary symptoms , held off on antibiotics. Orthostatics negative. Patient's dizziness persisted although has been able to ambulate to the restroom without difficulty. Consulted neurology, symptoms likely related to postconcussive vertigo. Patient still with persistent symptoms and described some neck pain and shooting legs pains that occurred right after the fall and head trauma; checked C-spine and L- spine MRI which showed degenerative changes and disc space narrowing at multiple levels however no central canal stenosis to explain symptoms. Patient sees Dr. Castañeda as outpatient for chronic neck/back pain and neuropathy. She was given scheduled meclizine 25 mg q8h. PT evaluated, recommends HHC, case management consulted and arranged HHC prior to discharge. The patient was re- evaluated by PT on the day of discharge, symptoms much improved. Patient wants to go home, plans to stay with a friend for a few days before going back home by herself. COPD: chronic, does not appear to be in acute exacerbation. Continue home inhalers, bronchodilator. Stable. Hypertension: chronic, BP well controlled. BP controlled-continue to hold Cardizem. Stable. Paroxysmal Afib: chronic, on aspirin at home. Continued patient's aspirin. Concern for possible bradycardia or hypotension causing dizziness, held cardizem , HR and BP remains well controlled, discontinued cardizem at discharge. CHF: chronic, diastolic, compensated. Continued patient's lasix. History of parotid tumor- s/p resection. Has chronic right sided facial droop and slurred speech since surgery. Outpatient f/up. Stable. Pt Condition on Discharge: Stable Discharge Disposition: Disch w/ Home Health Serv Discharge Time: > 30 minutes Discharge Instructions DIET: Follow Instructions for: Heart Healthy Diet Activities you can perform: Regular-No Restrictions Follow up Referrals: Neurology - 1 Week with Karine Castañeda MD PCP Follow-up - 2-3 Days with Willian Mike MD New Medications: Walker with Front Wheels (Walker with Front Wheels) 1 Mis Mis EA .XX DIRECTED, #1 0 Refills Meclizine HCl (Meclizine 25) 25 Mg Tab 25 MG PO Q8H PRN for DIZZINESS, #21 TAB Continued Medications: Albuterol 18 GM Inh (Ventolin Hfa 18 GM Inh) 90 Mcg/Act Aer 2 PUFF INH Q4H PRN for SHORTNESS OF BREATH, #1 INHALER [address] (Aspirin 81) 81 Mg Tabdr 81 MG PO DAILY, TAB Furosemide (Lasix) 20 Mg Tab 20 MG PO DAILY, #30 TAB 0 Refills Omeprazole (Omeprazole) 20 Mg Cap 20 MG PO DAILY for gerd for 30 Days, #600 MG Ondansetron Odt (Zofran Odt) 4 Mg Tab 4 MG SL Q6HR PRN for Nausea/Vomiting, #7 TAB 0 Refills Umeclidinium-Vilanterol Inh (Anoro Ellipta Inh) 62.5-25 Mcg/Act Aero 1 PUFF INH DAILY for COPD, INHALER 0 Refills Discontinued Medications: Ciprofloxacin (Cipro) 500 Mg Tab 500 MG PO BID for Infection, #14 TAB 0 Refills Ciprofloxacin (Cipro) 500 Mg Tab 500 MG PO BID for Infection for 7 Days, #14 TAB 0 Refills Dicyclomine (Bentyl) 10 Mg Cap 10 MG PO TID PRN for Bowel Management, #12 CAP 0 Refills Diltiazem (Diltiazem) 90 Mg Tab 90 MG PO Q6HR for atrial fibrillation, #120 TAB Metronidazole (Flagyl) 500 Mg Tab 500 MG PO TID for Infection for 7 Days, TAB 0 Refills Prednisone (Prednisone) 50 Mg Tab 50 MG PO DAILY, TAB 0 Refills Anupama oBss PA-C December 02, 2017 14:30
[2017-12-03] MEDS ORDERED: FUROSEMIDE 20 MG TAB PO SCH (09:00)
== END 2017-12-02 18:13 | disposition home or self-care (01) ==
LOC: NEPC 09:38 → NEDA 11:37 → NEPGCP 13:13
PROVIDERS: ADMIT Hospitalist; ATTEND Hospitalist
DX: F07.81 Postconcussional syndrome (principal); H53.8 Other visual disturbances; R29.6 Repeated falls; I11.0 Hypertensive heart disease with heart failure; I50.32 Chronic diastolic (congestive) heart failure; R26.89 Other abnormalities of gait and mobility; W19.XXXA Unspecified fall, initial encounter; J44.9 Chronic obstructive pulmonary disease, unspecified; R51 Headache; R11.0 Nausea; E11.9 Type 2 diabetes mellitus without complications; I48.2 Chronic atrial fibrillation; I48.0 Paroxysmal atrial fibrillation; R06.02 Shortness of breath; G47.30 Sleep apnea, unspecified; Z86.73 Personal history of transient ischemic attack (TIA), and cerebral infarction without residual deficits; R29.810 Facial weakness; Z85.818 Personal history of malignant neoplasm of other sites of lip, oral cavity, and pharynx; M54.2 Cervicalgia; M54.9 Dorsalgia, unspecified; M06.9 Rheumatoid arthritis, unspecified
CPT/HCPCS: 70450; 70544; 70551; 72141; 72148; 80048; 80053; 81001; 83735; 84484; 85025; 93005; 93880; 96360; 97112; 97116; 97162; 99285; G0378; G8987; G8988; J7040